=== PATIENT | female | born 1945 | race African-American/Black ===

== ENCOUNTER 2019-05-09 14:49 | Inpatient (IN) | payer MEDICARE ==
[~2019-05-09] VITALS: Ht 167.6 cm; Wt 96.2 kg
[2019-05-09] VITALS (7 sets, daily range): BP systolic 115–150; BP diastolic 54–74
[~2019-05-09 14:49] MED LIST: ACETAMINOPHEN-1 EAC1 ORAL; AMITRIPTYLINE100 M1 ORAL; AMLODIPINE BESY10 MG ORAL; CARVEDILOL3.125 MG ORAL; COMPAZINE10 MG ORAL; CYMBALTA60 MG ORAL; FUROSEMIDE40 MG ORAL; INDOCIN25 MG ORAL; LYRICA75 M1 ORAL; PEPCID20 MG ORAL; SEROQUEL XR300 MG ORAL; SOMA; SUMATRIPTAN SU100 MG PO; TRAZODONE HCL150 MG ORAL; UNOBMED; VICODIN 5-3001 EACH ORAL
--- NOTE | 2019-05-09 15:02 | NUR ---
ED Nurse Note: DR AC NOTIFIED OF TEMP OF 101.5 F.
[2019-05-09] MEDS ORDERED: cefTRIAXone 1 GM in NS 55 ML IVPB ONE (15:15)
[2019-05-09] MEDS ORDERED: Azithromycin 500 MG in NS 275 ML IV ONE (15:15)
[2019-05-09] MEDS ORDERED: Solu-MEDROL 125mg Inj IVP ONE (15:15)
[2019-05-09] MEDS: Albuterol ud Inhalation HHN SCH ×3 (15:15→15:45)
[2019-05-09] MEDS: Ipratropium 0.02% Inh Soln 2.5ml UD HHN SCH ×3 (15:15→15:45)
[2019-05-09] MEDS ORDERED: UNOBMED (15:40)
--- NOTE | 2019-05-09 15:42 | Diagnostic Imaging Report ---
Indication: Shortness of breath Technique: One view of the chest Comparison: 05/19/2013 Findings: Body habitus limits evaluation. The heart is borderline enlarged. There is mild central interstitial congestion.. No focal airspace consolidation. Impression: Possible mild interstitial congestion Borderline cardiomegaly
[2019-05-09 15:43] LABS: APPEARANCE,URINE CLOUDY; BILIRUBIN, URINE NEGATIVE (NEGATIVE); COLOR,URINE AMBER; GLUCOSE, URINE (UA) NEGATIVE (NEGATIVE); KETONES,URINE NEGATIVE (NEGATIVE); LEUKOCYTE ESTERASE ,URINE 1+ (NEGATIVE); NITRITE,URINE POSITIVE (NEGATIVE); PH,URINE 5 (4.5-8.0); PROTEIN,URINE 2+ (NEGATIVE); UROBILINOGEN,URINE 1 MG/DL (0.0-1.0)
[2019-05-09 15:47] LABS: INR 0.9 (0.9-1.1)
[2019-05-09 15:48] LABS: ANION GAP 10 mmol/L (5-15); BLOOD UREA NITROGEN 15 mg/dL (7-18); CALCIUM 8.5 MG/DL (8.5-10.1); CARBON DIOXIDE 25 MMOL/L (21-32); CHLORIDE 103 MMOL/L (98-107); CREATININE 1.4 MG/DL (0.55-1.30); POTASSIUM 3.8 MMOL/L (3.5-5.1); SODIUM 138 MMOL/L (136-145)
[2019-05-09 15:55] LABS: HEMOGLOBIN 11.7 G/DL (12.0-16.0); MEAN CORPUSCULAR VOLUME 85 FL (80-99); PLATELET COUNT 340 K/UL (150-450); RED BLOOD COUNT 4.21 M/UL (4.20-5.40); RED CELL DISTRIBUTION WIDTH 14.9 % (11.6-14.8); WHITE BLOOD COUNT 18.2 K/UL (4.8-10.8)
[2019-05-09 16:00] LABS: PHOSPHORUS 4.6 MG/DL (2.5-4.9)
[2019-05-09 16:01] LABS: ALANINE AMINOTRANSFERASE 21 U/L (12-78); ALBUMIN 3.9 G/DL (3.4-5.0); ALBUMIN/GLOBULIN RATIO 0.9 (1.0-2.7); ALKALINE PHOSPHATASE 171 U/L (46-116); ASPARTATE AMINO TRANSFERASE 19 U/L (15-37); BILIRUBIN,TOTAL 0.3 MG/DL (0.2-1.0); CKMB 2.8 NG/ML (0.0-3.6); CREATINE KINASE 105 U/L (26-308)
[2019-05-09] MEDS ORDERED: Acetaminophen 500mg (ES) tab ORAL ONE (16:15)
--- NOTE | 2019-05-09 16:33 | NUR ---
ED Nurse Note: pt to have redrawn lactic once ivf infused.
--- NOTE | 2019-05-09 16:48 | Emergency Room Report ---
History of Present Illness General Chief Complaint: Dyspnea/Respdistress Source: Patient, Medical Record, EMS Present Illness HPI 74-year-old female history of hypertension, asthma, presents with acute shortness of breath started last night, no aggravating relieving factors severity was moderate, constant history is limited due to patient requiring BiPAP, patient use inhalers without any help, she also had a fever with cough, patient was started on BiPAP by EMS, with improvement in her symptoms, patient endorses chest tightness from her asthma, history is limited because she is unable to speak full sentences. Patient is using accessory muscles, patient presents for evaluation Allergies: Coded Allergies: No Known Allergies (Unverified , 05/19/13) Patient History Limited by: medical condition - Respiratory distress Reviewed Nursing Documentation: PMH: Agreed; PSxH: Agreed Nursing Documentation-PMH Past Medical History: No History, Except For Hx Hypertension: Yes Hx Cerebrovascular Accident: Yes Review of Systems All Other Systems: limited - Respiratory distress Physical Exam Vital Signs Date Time Temp Pulse Resp B/P (MAP) Pulse Ox O2 Delivery O2 Flow Rate FiO2 05/09/19 14:54 101.5 140 33 176/109 (131) 74 Room Air 05/09/19 15:20 35 Sp02 EP Interpretation: reviewed, normal General Appearance: alert, severe distress Head: normocephalic, atraumatic Eyes: bilateral eye PERRL, bilateral eye EOMI ENT: uvula midline, moist mucus membranes Neck: supple, thyroid normal, supple/symm/no masses Respiratory: respiratory distress, decreased breath sounds, accessory muscle use, wheezing - Severe Cardiovascular #1: normal peripheral pulses, no edema, no gallop, no murmur, tachycardia Gastrointestinal: non tender, soft, no guarding, no rebound Musculoskeletal: normal inspection Neurologic: alert, oriented x3 Psychiatric: mood/affect normal Skin: no rash, warm/dry Procedures Critical Care Time Critical Care Time Given the critical condition in which the patient arrived, the patient was immediately assessed by myself and the nurse, and cardiac monitoring initiated due to the potential for rapid decompensation of the patient's clinical condition. During the course of the patient's stay, I spent a considerable amount of time at the bedside performing serial re-evaluations of the patient's hemodynamic and clinical status because of the recognized potential threat to life or limb in this condition. I then had a chance to review not only all of the available current laboratory and radiographic studies obtained today, but I also reviewed old records available to me at the time. Additionally, any ancillary information available including sewer cleaner records were reviewed. Sequential vital signs were obtained. Critical Care time of 36 minutes was performed exclusive of billable procedures. Splinting Progress na Evaluation Current Stage of Sepsis: Sepsis Possible Source: Pulmonary Focused Exam Allergies: Coded Allergies: No Known Allergies (Unverified , 05/19/13) Date Exam Occurred: May 09, 2019 Time Exam Occurred: 15:01 Laboratory Studies Laboratory Tests Test 05/09/19 15:00 05/09/19 15:01 05/09/19 15:20 White Blood Count 18.2 K/UL (4.8-10.8) H Red Blood Count 4.21 M/UL (4.20-5.40) Hemoglobin 11.7 G/DL (12.0-16.0) L Hematocrit 36.0 % (37.0-47.0) L Mean Corpuscular Volume 85 FL (80-99) Mean Corpuscular Hemoglobin 27.8 PG (27.0-31.0) Mean Corpuscular Hemoglobin Concent 32.6 G/DL (32.0-36.0) Red Cell Distribution Width 14.9 % (11.6-14.8) H Platelet Count 340 K/UL (150-450) Mean Platelet Volume 4.9 FL (6.5-10.1) L Neutrophils (%) (Auto) % (45.0-75.0) Lymphocytes (%) (Auto) % (20.0-45.0) Monocytes (%) (Auto) % (1.0-10.0) Eosinophils (%) (Auto) % (0.0-3.0) Basophils (%) (Auto) % (0.0-2.0) Differential Total Cells Counted 100 Neutrophils % (Manual) 88 % (45-75) H Lymphocytes % (Manual) 10 % (20-45) L Monocytes % (Manual) 2 % (1-10) Eosinophils % (Manual) 0 % (0-3) Basophils % (Manual) 0 % (0-2) Band Neutrophils 0 % (0-8) Platelet Estimate Adequate Platelet Morphology Normal Red Blood Cell Morphology Normal Prothrombin Time 9.7 SEC (9.30-11.50) Prothromb Time International Ratio 0.9 (0.9-1.1) Activated Partial Thromboplast Time 22 SEC (23-33) L Sodium Level 138 MMOL/L (136-145) Potassium Level 3.8 MMOL/L (3.5-5.1) Chloride Level 103 MMOL/L (98-107) Carbon Dioxide Level 25 MMOL/L (21-32) Anion Gap 10 mmol/L (5-15) Blood Urea Nitrogen 15 mg/dL (7-18) Creatinine 1.4 MG/DL (0.55-1.30) H Estimat Glomerular Filtration Rate mL/min (>60) Glucose Level 153 MG/DL (74-106) H Lactic Acid Level 4.60 mmol/L (0.4-2.0) H Calcium Level 8.5 MG/DL (8.5-10.1) Phosphorus Level 4.6 MG/DL (2.5-4.9) Magnesium Level 1.6 MG/DL (1.8-2.4) L Total Bilirubin 0.3 MG/DL (0.2-1.0) Aspartate Amino Transf (AST/SGOT) 19 U/L (15-37) Alanine Aminotransferase (ALT/SGPT) 21 U/L (12-78) Alkaline Phosphatase 171 U/L (46-116) H Total Creatine Kinase 105 U/L (26-308) Creatine Kinase MB 2.8 NG/ML (0.0-3.6) Creatine Kinase MB Relative Index 2.6 Troponin I 0.000 ng/mL (0.000-0.056) Pro-B-Type Natriuretic Peptide 65 pg/mL (0-125) Total Protein 8.3 G/DL (6.4-8.2) H Albumin 3.9 G/DL (3.4-5.0) Globulin 4.4 g/dL Albumin/Globulin Ratio 0.9 (1.0-2.7) L Lipase 64 U/L (73-393) L Arterial Blood pH 7.291 (7.350-7.450) Arterial Blood Partial Pressure CO2 42.1 mmHg (35.0-45.0) Arterial Blood Partial Pressure O2 67.3 mmHg (75.0-100.0) L Arterial Blood HCO3 19.8 mmol/L (22.0-26.0) L Arterial Blood Oxygen Saturation 92.5 % (95-100) L Arterial Blood Base Excess -6.4 (-2-2) L Moe Test Positive Urine Color Stephani Urine Appearance Cloudy Urine pH 5 (4.5-8.0) Urine Specific [place] 1.020 (1.005-1.035) Urine Protein 2+ (NEGATIVE) H Urine Glucose (UA) Negative (NEGATIVE) Urine Ketones Negative (NEGATIVE) Urine Blood Negative (NEGATIVE) Urine Nitrite Positive (NEGATIVE) H Urine Bilirubin Negative (NEGATIVE) Urine Ictotest Negative (NEGATIVE) Urine Urobilinogen 1 MG/DL (0.0-1.0) H Urine Leukocyte Esterase 1+ (NEGATIVE) H Urine RBC 0 /HPF (0 - 2) Urine WBC 10-15 /HPF (0 - 2) H Urine Squamous Epithelial Cells Moderate /LPF (NONE/OCC) H Urine Bacteria Many /HPF (NONE) H Vital Signs Last 24 Hour Vital Signs Date Time Temp Pulse Resp B/P (MAP) Pulse Ox O2 Delivery O2 Flow Rate FiO2 05/09/19 15:20 138 38 100 Bi-Pap 100 05/09/19 15:20 138 41 100 Facial 35 05/09/19 14:54 101.5 140 33 176/109 (131) 74 Room Air Respiratory Exam: Respiratory Distress Cardiovascular Exam: S1, S2, Tachycardia Capillary Refill: Less Than 2 Seconds Peripheral Pulse: Strong Pulse Location: Radial Skin Exam: Diaphoretic Medical Decision Making Diagnostic Impression: Primary Impression: Respiratory distress Additional Impressions: CHF exacerbation Qualified Codes: I50.9 - Heart failure, unspecified Pulmonary edema Qualified Codes: J81.0 - Acute pulmonary edema ER Course 74-year-old female presents with acute respiratory distress, BiPAP started, concern for possible CHF exacerbation versus asthma, wheezing heard on exam possible cardiac wheeze versus asthmatic wheeze X-ray shows pulmonary edema Broad-spectrum antibiotic started we will start Lasix, Lactic acid was elevated however most likely secondary to her respiratory distress, will do gentle fluid bolus as to avoid overloading the patient Patient approved to stay by insurance Dr. Wick Patient will be admitted to [facility] Laboratory Tests Test 05/09/19 15:00 05/09/19 15:01 05/09/19 15:20 White Blood Count 18.2 K/UL (4.8-10.8) H Red Blood Count 4.21 M/UL (4.20-5.40) Hemoglobin 11.7 G/DL (12.0-16.0) L Hematocrit 36.0 % (37.0-47.0) L Mean Corpuscular Volume 85 FL (80-99) Mean Corpuscular Hemoglobin 27.8 PG (27.0-31.0) Mean Corpuscular Hemoglobin Concent 32.6 G/DL (32.0-36.0) Red Cell Distribution Width 14.9 % (11.6-14.8) H Platelet Count 340 K/UL (150-450) Mean Platelet Volume 4.9 FL (6.5-10.1) L Neutrophils (%) (Auto) % (45.0-75.0) Lymphocytes (%) (Auto) % (20.0-45.0) Monocytes (%) (Auto) % (1.0-10.0) Eosinophils (%) (Auto) % (0.0-3.0) Basophils (%) (Auto) % (0.0-2.0) Differential Total Cells Counted 100 Neutrophils % (Manual) 88 % (45-75) H Lymphocytes % (Manual) 10 % (20-45) L Monocytes % (Manual) 2 % (1-10) Eosinophils % (Manual) 0 % (0-3) Basophils % (Manual) 0 % (0-2) Band Neutrophils 0 % (0-8) Platelet Estimate Adequate Platelet Morphology Normal Red Blood Cell Morphology Normal Prothrombin Time 9.7 SEC (9.30-11.50) Prothrombin Time INR 0.9 (0.9-1.1) PTT 22 SEC (23-33) L Sodium Level 138 MMOL/L (136-145) Potassium Level 3.8 MMOL/L (3.5-5.1) Chloride Level 103 MMOL/L (98-107) Carbon Dioxide Level 25 MMOL/L (21-32) Anion Gap 10 mmol/L (5-15) Blood Urea Nitrogen 15 mg/dL (7-18) Creatinine 1.4 MG/DL (0.55-1.30) H Estimate Glomerular Filtration Rate mL/min (>60) Glucose Level 153 MG/DL (74-106) H Lactic Acid Level 4.60 mmol/L (0.4-2.0) H Calcium Level 8.5 MG/DL (8.5-10.1) Phosphorus Level 4.6 MG/DL (2.5-4.9) Magnesium Level 1.6 MG/DL (1.8-2.4) L Total Bilirubin 0.3 MG/DL (0.2-1.0) Aspartate Amino Transferase (AST) 19 U/L (15-37) Alanine Aminotransferase (ALT) 21 U/L (12-78) Alkaline Phosphatase 171 U/L (46-116) H Total Creatine Kinase 105 U/L (26-308) Creatine Kinase MB 2.8 NG/ML (0.0-3.6) Creatine Kinase MB Relative Index 2.6 Troponin I 0.000 ng/mL (0.000-0.056) Pro-B-Type Natriuretic Peptide 65 pg/mL (0-125) Total Protein 8.3 G/DL (6.4-8.2) H Albumin 3.9 G/DL (3.4-5.0) Globulin 4.4 g/dL Albumin/Globulin Ratio 0.9 (1.0-2.7) L Lipase 64 U/L (73-393) L Arterial Blood pH 7.291 (7.350-7.450) Arterial Blood Partial Pressure CO2 42.1 mmHg (35.0-45.0) Arterial Blood Partial Pressure O2 67.3 mmHg (75.0-100.0) L Arterial Blood HCO3 19.8 mmol/L (22.0-26.0) L Arterial Blood Oxygen Saturation 92.5 % (95-100) L Arterial Blood Base Excess -6.4 (-2-2) L Moe Test Positive Urine Color Stephani Urine Appearance Cloudy Urine pH 5 (4.5-8.0) Urine Specific [place] 1.020 (1.005-1.035) Urine Protein 2+ (NEGATIVE) H Urine Glucose (UA) Negative (NEGATIVE) Urine Ketones Negative (NEGATIVE) Urine Blood Negative (NEGATIVE) Urine Nitrite Positive (NEGATIVE) H Urine Bilirubin Negative (NEGATIVE) Urine Ictotest Negative (NEGATIVE) Urine Urobilinogen 1 MG/DL (0.0-1.0) H Urine Leukocyte Esterase 1+ (NEGATIVE) H Urine RBC 0 /HPF (0 - 2) Urine WBC 10-15 /HPF (0 - 2) H Urine Squamous Epithelial Cells Moderate /LPF (NONE/OCC) H Urine Bacteria Many /HPF (NONE) H EKG Diagnostic Results EKG Time: 14:56 EP Interpretation: Sinus tachycardia, rate 141, QTc 45, no acute ST elevations , left axis mikhail Rhythm Strip Diag. Results Rhythm Strip Time: 16:52 EP Interpretation: yes Rate: 114 Rhythm: other - Sinus Tachycardia Chest X-Ray Diagnostic Results Chest X-Ray Diagnostic Results : Chest X-Ray Ordered: Yes # of Views/Limited/Complete: 1 View Indication: Shortness of Breath EP Interpretation: Yes Interpretation: other - Interstitial Edema Impression: Other - Interstitial edema Electronically Signed by: Tod Elena MD Last Vital Signs Date Time Temp Pulse Resp B/P (MAP) Pulse Ox O2 Delivery O2 Flow Rate FiO2 05/09/19 15:20 138 38 100 Bi-Pap 100 05/09/19 14:54 101.5 176/109 (131) Disposition: ADMITTED INPATIENT Condition: Serious Referrals: [facility]ERR[facility] (PCP) Tod Elena MD May 09, 2019 16:48
--- NOTE | 2019-05-09 18:25 | NUR ---
ED Nurse Note: repeat lactic acid drawn and sent flu swab resent
[2019-05-09] MEDS ORDERED: Azithromycin 500mg Inj IV ONE (18:54)
--- NOTE | 2019-05-09 19:00 | NUR ---
ED Nurse Note: Handoff report given to Regan SANTIZO
--- NOTE | 2019-05-09 20:00 | NUR ---
ED Nurse Note: Report given to Aisha SANTIZO from SDU.
--- NOTE | 2019-05-09 20:10 | NUR ---
TRANSFER TO FLOOR: Patient transferred to SDU. Report given to Aisha SANTIZO. Pt alert and oriented, verbally responsive. No SOB. On BiPAP. IV line on left AC 20g patent and intact. Currently on Azithromycin patent and infusing well. Med recon done. All belongings was given to the patient. Family member aware of transfer.
--- NOTE | 2019-05-09 20:20 | NUR ---
NURSE NOTES: Received report from Regan Lazo RN. Pt is awake, oriented to self and place, denies pain. Pt placed on BiPAP 12/5 at 35% per MD order. Received orders to admit pt to SDU. Received med orders, full code status, labs from admitting Dr. Mcgowan. All ordered repeated and entered as ordered. Pt belongings, except upper and lower dentures, sent home with daughter. Dentures are in pts mouth. BP 105/51, T 98.8, RR 20, o2 94%, P 99, sinus rhythm. Nguyen cath in place draining clear yellow urine. Pt skin is intact. Will continue to monitor closely
[2019-05-09] MEDS ORDERED: LORazepam Inj 2mg/ml 1ml IV PRN (22:15)
[2019-05-09 23:42] LABS: HEMATOCRIT 32.1 % (37.0-47.0); HEMOGLOBIN 10.3 G/DL (12.0-16.0); MEAN CORPUSCULAR VOLUME 86 FL (80-99); PLATELET COUNT 284 K/UL (150-450); RED BLOOD COUNT 3.74 M/UL (4.20-5.40); RED CELL DISTRIBUTION WIDTH 14.5 % (11.6-14.8)
[2019-05-09 23:45] LABS: WHITE BLOOD COUNT 23.7 K/UL (4.8-10.8)
[2019-05-09] MEDS ORDERED: 1/2NS w/KCl 20mEq 1000ml 1,000 ML IV SCH (23:45)
[2019-05-10 00:08] LABS: ALANINE AMINOTRANSFERASE 19 U/L (12-78); ALBUMIN 3.3 G/DL (3.4-5.0); ALBUMIN/GLOBULIN RATIO 0.8 (1.0-2.7); ALKALINE PHOSPHATASE 125 U/L (46-116); ANION GAP 8 mmol/L (5-15); ASPARTATE AMINO TRANSFERASE 16 U/L (15-37); BILIRUBIN,TOTAL 0.3 MG/DL (0.2-1.0); BLOOD UREA NITROGEN 22 mg/dL (7-18); CARBON DIOXIDE 24 MMOL/L (21-32); CHLORIDE 106 MMOL/L (98-107); CHOLESTEROL 131 MG/DL (< 200); CREATININE 1.5 MG/DL (0.55-1.30); HDL CHOLESTEROL 68 MG/DL (40-60); POTASSIUM 4.4 MMOL/L (3.5-5.1); SODIUM 138 MMOL/L (136-145); TRIGLYCERIDES 24 MG/DL (30-150)
[2019-05-10] MEDS: Albuterol/Ipratropium 3ml neb HHN SCH ×7 (01:32→22:42)
--- NOTE | 2019-05-10 07:31 | NUR ---
HAND-OFF: Report given to Zandra Bryant RN. Pt in stable condition.
--- NOTE | 2019-05-10 07:32 | NUR ---
NURSE NOTES: Received report from DARLYN Perez. Observed patient in bed, awake, alert, verbally responsive. On BiPAP with settings as ordered, saturating 100%, no respiratory distress noted at this time. Left AC peripheral IV intact and patent with IV fluids running at prescribed rate. Safety precautions in place, bed locked, alarmed, and in lowest position, side rails up x3, and call light left within reach. Instructed patient to call for assistance, verbalized understanding.
[2019-05-10 08:00] VITALS: BP_SYST 118; BP_SYST 127; BP_DIAS 66; BP_DIAS 68
--- NOTE | 2019-05-10 08:00 | NUR ---
NURSE NOTES: RT at bedside, patient placed on Venturi Mask with FiO2 40%, patient tolerating well with saturation of 94-97%. Will continue to monitor.
--- NOTE | 2019-05-10 08:10 | NUR ---
NURSE NOTES: Dr Mcgowan was called and notified regarding patient's lab results. Clarified BiPAP and diet orders. Will carry out and will continue to monitor patient.
--- NOTE | 2019-05-10 09:25 | NUR ---
RADIOLOGY DEPT., CHEST X-RAY DONE.-P.DYE
--- NOTE | 2019-05-10 10:16 | NUR ---
*-* NO INSURANCE INFORMATION IN THE BAR UNABLE TO SEND CLINICALS OR REVIEWS *-*
--- NOTE | 2019-05-10 10:33 | NUR ---
NURSE NOTES: Patient c/o chest pain, states "my chest hurts when i breathe". RT at bedside, placed patient on 3L via NC, saturating 96%. EKG done, shows sinus tachycardia with HR of 108. BP 118/66. Dr Mcgowan contacted; awaiting for call back/orders. Will continue to monitor patient.
[2019-05-10] MEDS: Nitroglycerin Subl 0.4mg tab SL PRN (11:42)
[2019-05-10] MEDS ORDERED: dilTIAZem HCl 25mg/5ml Inj IVP SCH (11:45)
--- NOTE | 2019-05-10 11:55 | NUR ---
NURSE NOTES: Patient noted having SOB and chest pain. RT at bedside, patient placed back on BiPAP. front desk monitor shows afib with HR 162, BP 146/71. Dr Funes at bedside, ordered to give patient Cardizem IVP, order entered and carried out. Will continue to monitor.
[2019-05-10 12:00] VITALS: BP 146/71
--- NOTE | 2019-05-10 12:00 | NUR ---
NURSE NOTES: BP 111/69 rechecked after Cardizem administration, Dr Funes at bedside. Will continue to monitor.
--- NOTE | 2019-05-10 12:57 | NUR ---
*-* INSURANCE *-* ALL AVAILABLE CLINICALS HAVE BEEN FAXED TO: [facility] 5 Minutes P: [phone] F: [phone]
--- NOTE | 2019-05-10 13:00 | NUR ---
NURSE NOTES: Wire Stitcher asked patient about home medications; patient states she does not remember the names of her medication and dosages. Wire Stitcher asked patient if a family member can bring her home medications. Daughter present at bedside at this time, states her sister can bring medications. Will continue to monitor patient and reinforce teaching and importance of medication reconciliation.
--- NOTE | 2019-05-10 13:05 | Diagnostic Imaging Report ---
Indication: Dyspnea Comparison: 05/09/2019 A single view chest radiograph was obtained. Findings: Central vessels are prominent. Vessels appear cephalized and somewhat prominent as well. Mild atelectasis demonstrated at the lung bases. Lung volumes are low. Heart is mildly enlarged. IMPRESSION: Suspected mild CHF.
--- NOTE | 2019-05-10 13:11 | Diagnostic Imaging Report ---
APPROVED REPORT CPT Code: 30451 Present Symptoms Comments: Back pain BILATERAL: Imaging reveals a patent deep venous system bilaterally. There is no evidence of thrombus within the common femoral, superficial femoral, popliteal or tibial segments. The greater saphenous veins are within normal limits. Doppler indicates normal spontaneous flow within these segments.
--- NOTE | 2019-05-10 13:56 | NUR ---
[employer] REP 74 YO FEMALE BIBA FROM HOME TO ER CC SOB O2 SAT 70% ON RA PT WITH H/O ASTHMA SI: RESP FAILURE,LEUKOCYTOSIS T. 101.5 HR 140 RR 33 B/P 176/109 BIPAP FIO2 35% WBC 18.2 LACTIS ACID 4.60 CR 1.4 CXR= POSSIBLE MILD INTERSTITIAL CONGESTION UA+ NITRITES,WBC, LEUKOCYTE ESTERASE,UROBILINOGEN,SQUAMOUS EPITH CELL PH 7.29 PCO2 42.2 PO2 67.3 HCO3 18.8 O2 SAT 92.5 IS: IV BOLUS X 3 LITERS SOLU MEDROL IV ALB HHN ATROVENT HHN ZITHROMAX IV TYLENOL PO ADMITTED TO STEP DOWN 2109 STEP DOWN STATUS DCP RETURN HOME
[2019-05-10] MEDS: dilTIAZem HCl 60mg tab ORAL SCH ×3 (14:09→23:07)
[2019-05-10 16:00] VITALS: BP 128/58
--- NOTE | 2019-05-10 16:22 | History & Physical ---
History and Physical History & Physicial dict pneumonia UTI sepsis Yonathan Mcgowan MD May 10, 2019 16:22
[2019-05-10] MEDS ORDERED: Albuterol 90mcg Inhaler 8gm INH PRN (16:30)
[2019-05-10] MEDS: cefTRIAXone 1 GM in D5W 55 ML IVPB SCH (16:57)
[2019-05-10] MEDS: Azithromycin 500 MG in D5W 275 ML IV SCH (17:47)
--- NOTE | 2019-05-10 19:08 | NUR ---
NURSE NOTES: Received report from Zandra RN, pt. in bed awake, pt. is A/O x's4- able to make needs known, no signs or symptoms of acute cardiac or respiratory distress noted, bed alarm on, side rails up x's3 and safety brakes engaged, call light within easy reach, comfort measures provided, pt. appears to be sating well on 2L NC- no distress noted- chest noted rising up and down, pt. appears to be resting comfortably talking with daughter who is at bedside, pt. appears to be clean and dry, Lt. AC IV 20G- running 1/2 NS at 50cc/hr- IV intact and patent, safety measures continued, will continue with plan of care.
--- NOTE | 2019-05-10 19:25 | NUR ---
HAND-OFF: Report given to DARLYN Aragon. Patient remains in stable condition.
--- NOTE | 2019-05-10 19:55 | NUR ---
RESPIRATORY NOTE: Pt requested to be placed on BiPAP. Pt now on BiPAP /, backup rate 12, 40%. Pt on a Facial mask, skin intact, no redness/breakdowns noted. Foam Tape applied on pt's nosebridge/cheeks/chin to prevent mask irritations. Pt is alert/awake, follows commands. B/S [place]. diminished, nonproductive cough. Family present at bedside. BiPAP plugged into red outlet, alarms on & audible. Pt in no apparent distress at this time. Will continue plan of care.
[2019-05-10 20:00] VITALS: BP 130/60
--- NOTE | 2019-05-10 20:09 | NUR ---
NURSE NOTES: pt. asking for pain medicine- having rt. hip pain from rt. hip replacement done 2 and 1/2 years ago- repositioned and turned pt. not effective. will notify doctor pt. asking for pain medication.
--- NOTE | 2019-05-10 20:12 | NUR ---
NURSE NOTES: per DR. Roslyn mckeon to give patient Tylenol 650mg Q4hrs prn pain- orders carried out.
--- NOTE | 2019-05-10 21:15 | History and Physical Report ---
DATE OF ADMISSION: 05/09/2019 CHIEF COMPLAINT: Short of breath and fever. HISTORY OF PRESENT ILLNESS: This 74-year-old woman came to the emergency department yesterday because of onset of shortness of breath at home. She was coughing and producing small amount of sputum. She had an anterior pleuritic chest pain as well. She used her asthma inhalers at home without any improvement. She presented to the emergency department in severe distress and was placed on BiPAP. She has improved and her temperature has come down. Evaluation showed evidence of sepsis with pulmonary infiltrates, urinary infection, and elevated white blood count. PAST MEDICAL HISTORY: Includes hypertension, asthma, and hyperlipidemia. ALLERGIES: None. MEDICATIONS: Tylenol with codeine, amitriptyline, amlodipine, carvedilol, Cymbalta, Pepcid, Lasix, Vicodin, Indocin, Lyrica, Compazine, Seroquel, Imitrex, trazodone, and none known inhaler. REVIEW OF SYSTEMS: Otherwise unremarkable. PHYSICAL EXAMINATION: GENERAL: The patient is alert and responds appropriately. She is obese. VITAL SIGNS: The temperature was 103.6 in the emergency department, but with elevated blood pressure and heart rate 143. Since then, her vital signs have improved and today, there is no fever. HEENT: The head is normocephalic. NECK: There is no jugular venous distention. CHEST: Has rales bilaterally. CARDIAC: Rhythm is regular. ABDOMEN: Soft and nontender. EXTREMITIES: No clubbing, cyanosis, or edema. IMAGING: Chest x-ray is reported as mild congestive heart failure, although by my review shows bilateral pneumonia. Laboratory tests show elevated lactic acid. Creatinine is 1.5. Natriuretic peptide is 400. Albumin 3.3. Yesterday, natriuretic peptide was 65. The white blood count is 23,700 and blood gas showed [id number] metabolic acidosis that has improved. IMPRESSION: 1. Bilateral pneumonia. 2. Severe sepsis. 3. Metabolic acidosis. 4. History of hypertension. 5. Mild asthma. PLAN: The patient will be treated with antibiotics and intravenous fluids. We have held her blood pressure medications and psychiatric medications to date. These will be reintroduced as needed. Inhalers will be ordered p.r.n. Yonathan Mcgowan M.D. DR: TELLO JOB#: [id number] CC:
--- NOTE | 2019-05-10 22:58 | NUR ---
NURSE NOTES: pt. demanding to remove Nguyen- pt. stating its uncomfortable and would like Nguyen removed. Nguyen removed- pt. stating she feels much better. Will notify doctor in am regarding Nguyen removed.
[2019-05-11] VITALS: BP 138/60
[2019-05-11] MEDS: Albuterol/Ipratropium 3ml neb HHN SCH ×3 (02:45→11:35)
[2019-05-11 03:49] VITALS: BP 131/69
[2019-05-11 04:58] LABS: HEMATOCRIT 29.1 % (37.0-47.0); HEMOGLOBIN 9.6 G/DL (12.0-16.0); MEAN CORPUSCULAR VOLUME 85 FL (80-99); PLATELET COUNT 268 K/UL (150-450); RED BLOOD COUNT 3.45 M/UL (4.20-5.40); RED CELL DISTRIBUTION WIDTH 14.9 % (11.6-14.8)
[2019-05-11] MEDS: dilTIAZem HCl 60mg tab ORAL SCH ×2 (05:13→11:28)
[2019-05-11 05:29] LABS: WHITE BLOOD COUNT 24.2 K/UL (4.8-10.8)
[2019-05-11 05:52] LABS: ALANINE AMINOTRANSFERASE 18 U/L (12-78); ALBUMIN 2.7 G/DL (3.4-5.0); ALBUMIN/GLOBULIN RATIO 0.7 (1.0-2.7); ALKALINE PHOSPHATASE 108 U/L (46-116); ANION GAP 8 mmol/L (5-15); ASPARTATE AMINO TRANSFERASE 15 U/L (15-37); BILIRUBIN,TOTAL 0.2 MG/DL (0.2-1.0); BLOOD UREA NITROGEN 17 mg/dL (7-18); CALCIUM 7.6 MG/DL (8.5-10.1); CARBON DIOXIDE 26 MMOL/L (21-32); CHLORIDE 106 MMOL/L (98-107); CREATININE 0.9 MG/DL (0.55-1.30); POTASSIUM 3.5 MMOL/L (3.5-5.1); SODIUM 140 MMOL/L (136-145)
--- NOTE | 2019-05-11 06:00 | Progress Note ---
DATE: 05/10/2019 CARDIOLOGY, CRITICAL CARE PROGRESS NOTE TIME: 10 to 11 a.m. SUBJECTIVE: The patient developed chest tightness and shortness of breath earlier this morning. She has had rapid heart rate, initially sinus tachycardia was noted up to 140 heart rate. Subsequently, she developed rapid atrial fibrillation with rates in the 140 range as well. She is on BiPAP support. OBJECTIVE: VITALS: T-max 103.6, blood pressure 148/80, pulse 140, respirations 24, presently temperature 99. Diaphoretic. LUNGS: Diminished breath sounds. Scattered rhonchi. CARDIAC: Irregularly irregular rhythm. Normal S1, S2. ABDOMEN: Soft. No focal tenderness. EXTREMITIES: With trace dependent edema. NEUROLOGIC: Nonfocal. LABORATORY AND DIAGNOSTIC DATA: Chest x-ray with bilateral infiltrates. White count 23.7, hemoglobin 10.3. ABG, 7.39, 35, 66. Troponin is negative. Lactic acid is still elevated at 2.8. BUN 22. No new chemistry panel. IMPRESSION: 1. Bilateral pneumonia, community acquired. 2. Paroxysmal atrial fibrillation with rapid ventricular response. 3. Acute myocardial ischemia. 4. Acute diastolic congestive heart failure. 5. Lactic acidosis. 6. Severe sepsis. 7. Acute respiratory acidosis. 8. Paroxysmal bronchospasm. PLAN: 1. Continue cardiac monitoring. 2. IV diltiazem followed by oral loading. 3. Diuresis based on clinical parameters. 4. DVT prophylaxis. 5. Bronchodilators and antimicrobials with BiPAP support. 6. Serial lactic acid levels. 7. Review echocardiogram. 8. Obtain venous duplex scan. Jr Funes M.D. DR: ORAL JOB#: [id number] CC:
[2019-05-11] MEDS: Nitroglycerin Subl 0.4mg tab SL PRN (07:00)
--- NOTE | 2019-05-11 07:01 | NUR ---
HAND-OFF: Report given to Zandra Rn, during rounds pt. complaining of chest pain- no other symptoms per pt.- Nitro 1 tab given- nurse aware to f/u- if pt. continues to have pain. Also nurse aware to Nguyen with DR. Mcgowan regarding WBCS trending up and Nguyen removed as pt. requested- also lactic acid trending down.
--- NOTE | 2019-05-11 07:05 | NUR ---
NURSE NOTES: Received bedside report from DARLYN Brumfield. Observed patient in bed, c/o chest pain. VSS, saturation 96% on 2L via NC. No n/v noted. Night nurse gave Nitroglycerin as ordered PRN; patient denied CP after 5 minutes of reassessment. Patient remains aox4. IV on right hand intact and patent with IV fluids running at prescribed rate. External catheter noted, per night nurse, pastrana catheter removed per patient's request. Safety precautions in place, bed locked, alarmed, and in lowest position, side rails up x3, and call light left within reach. Instructed patient to call for assistance, verbalized understanding. Will continue plan of care and will continue to monitor patient.
--- NOTE | 2019-05-11 07:06 | NUR ---
NURSE NOTES: reassessed pt. - pt. stating that pain is subsiding and does not wish to have anymore Nitro medicine- endorsed to oncoming nurse- and Nitro bottle with remaining tablets given to her.
[2019-05-11 08:00] VITALS: BP 145/75
--- NOTE | 2019-05-11 08:45 | NUR ---
NURSE NOTES: Dr Mcgowan notified and made aware of patient's WBC today 24.2; no new orders at this time. Patient afebrile, VSS. Will continue to monitor patient.
[2019-05-11] MEDS ORDERED: guaiFENesin 100mg/5ml Liq ud ORAL PRN (10:15)
--- NOTE | 2019-05-11 10:51 | Cardiology Report ---
APPROVED REPORT EKG Measurement Heart [id number] [id number] Sinus tachycardia Otherwise normal ECG
[2019-05-11 12:00] VITALS: BP 143/73
--- NOTE | 2019-05-11 12:28 | NUR ---
NURSE NOTES: Called and left message for Dr Funes; manual training teacher shows afib, with HR fluctuating from 120's to 140's. Cardizem PO given as scheduled. Awaiting for call back.
--- NOTE | 2019-05-11 12:45 | NUR ---
NURSE NOTES: Dr Funes at bedside, informed and made aware of patient's cardiac rhythm at this time. states he will put in orders; will carry out and will continue to monitor patient.
[2019-05-11] MEDS ORDERED: dilTIAZem HCl 25mg/5ml Inj IVP SCH (13:00)
--- NOTE | 2019-05-11 13:59 | NUR ---
HAND-OFF: Report given to DARLYN Scott.
--- NOTE | 2019-05-11 14:00 | Cardiology Report ---
APPROVED REPORT EKG Measurement Heart [id number] Sinus tachycardia Left axis deviation Abnormal ECG
--- NOTE | 2019-05-11 14:00 | NUR ---
NURSE NOTES: Received report DARLYN De Paz,breathing easy,occasional cough,HR 104 Afib,continue care/monitor
--- NOTE | 2019-05-11 14:29 | NUR ---
NURSE NOTES: Received pt from DARLYN Scott in stable condition without cardiopulmonary distress. Pt is awake in bed, AAOx4 on 2L O2 via NC. RH 24g IV noted. No skin alterations noted at this time. Pt hooked to resident associate and is currently in Afib at a rate of 124 bpm. Bed is in lowest position with alarm on, side rails up x 2, SCDs on bilat lower extremities, call light within reach. Will continue to monitor.
--- NOTE | 2019-05-11 14:29 | NUR ---
NURSE NOTES: Report given DARLYN Cook,no distress
[2019-05-11] MEDS: Levalbuterol Inh UD 1.25mg/0.5ml HHN SCH ×3 (14:39→22:33)
--- NOTE | 2019-05-11 15:12 | NUR ---
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 98.1 HR 105 RR 22 B/P 145/75 2L NC O2 SAT 98% WBC 24.2 IS: AZITHROMAX IV CEFTRIAXONE IV CARDIZEM PO STEP DOWN STATUS
--- NOTE | 2019-05-11 15:17 | NUR ---
*-* INSURANCE *-* ALL AVAILABLE CLINICALS HAVE BEEN FAXED TO: [facility] [employer] P: [phone] F: [phone]
--- NOTE | 2019-05-11 15:39 | NUR ---
NURSE NOTES: Dr. Mcgowan at bedside discussing care plan with Dr. Funes over phone. Dr. Funes aware that pt is in ST 130 bpm and in and out of Afib since this morning. Orders will be placed per Dr. Funes.
--- NOTE | 2019-05-11 15:40 | Pulmonology Progress Note ---
Assessment/Plan Assessment/Plan 1. Bilateral pneumonia. 2. Severe sepsis. 3. Metabolic acidosis. 4. History of hypertension. 5. Mild asthma. 6. Paroxysmal A fib a fib rx per cardiology CT angio re pleurisy and hemoptysis resume anxiety meds Subjective Respiratory: Reports: productive cough, hemoptysis, shortness of breath, pleuritic pain Psychiatric: Reports: anxiety Allergies: Coded Allergies: No Known Allergies (Unverified , 05/19/13) Objective Last 24 Hour Vital Signs Date Time Temp Pulse Resp B/P (MAP) Pulse Ox O2 Delivery O2 Flow Rate FiO2 05/11/19 14:49 117 20 98 Nasal Cannula 3.0 32 132 19 98 05/11/19 13:08 125 133/75 05/11/19 12:00 2.0 05/11/19 12:00 97.9 122 22 143/73 (96) 96 05/11/19 12:00 Nasal Cannula 2.0 05/11/19 11:28 122 143/93 05/11/19 08:00 2.0 05/11/19 08:00 98.1 105 18 145/75 (98) 95 05/11/19 08:00 Nasal Cannula 2.0 05/11/19 07:43 105 05/11/19 07:29 98 20 98 Nasal Cannula 3.0 32 92 20 96 05/11/19 07:18 100 Nasal Cannula 3.0 32 05/11/19 07:00 145/73 05/11/19 05:13 90 142/71 05/11/19 04:00 Nasal Cannula 2.0 05/11/19 04:00 2.0 05/11/19 03:49 98.1 103 18 131/69 (89) 97 05/11/19 03:46 89 05/11/19 00:00 98.4 108 18 138/60 (86) 98 05/11/19 00:00 Nasal Cannula 2.0 05/11/19 00:00 2.0 05/10/19 23:29 108 05/10/19 23:07 104 142/60 05/10/19 22:53 102 20 96 Nasal Cannula 3.0 32 05/10/19 22:42 102 22 94 Nasal Cannula 3.0 32 05/10/19 21:08 98.4 05/10/19 20:00 98.8 102 20 130/60 (83) 96 05/10/19 20:00 Nasal Cannula 2.0 05/10/19 20:00 2.0 05/10/19 19:52 103 22 96 Full Face 40 05/10/19 19:25 105 05/10/19 19:07 101 20 98 Nasal Cannula 3.0 32 05/10/19 18:57 100 22 95 Nasal Cannula 3.0 32 05/10/19 18:57 95 Nasal Cannula 3.0 32 05/10/19 17:53 98 128/58 05/10/19 16:00 Nasal Cannula 2.0 05/10/19 16:00 2.0 05/10/19 16:00 99.0 98 20 128/58 (81) 95 05/10/19 15:36 98 Intake and Output 05/10/19 05/11/19 19:00 07:00 Intake Total 978.3333 ml Output Total 1300 ml 50 ml Balance -321.6667 ml -50 ml IV Total 978.3333 ml Output Urine Total 1300 ml 50 ml # Voids 5 # Bowel Movements 2 General Appearance: no acute distress Respiratory/Chest: rhonchi Cardiovascular: tachycardia, irregularly irregular Abdomen: soft, non tender Microbiology Date/Time Source Procedure Growth Status 05/09/19 15:10 Blood Blood Culture - Preliminary NO GROWTH AFTER 24 HOURS Resulted 05/09/19 15:00 Blood Blood Culture - Preliminary NO GROWTH AFTER 24 HOURS Resulted 05/10/19 18:00 Nasal Not Otherwise Specified - Final Complete 05/10/19 18:00 Nasal Not Otherwise Specified - Final Complete 05/09/19 10:45 Nasal Nares - Final Complete 05/09/19 10:45 Nasal Nares - Final Complete 05/09/19 15:20 Urine,Clean Catch Urine Culture - Preliminary Gram Negative Bacillus 1 Resulted Laboratory Tests 05/10/19 16:30: Lactic Acid Level 3.40H 05/10/19 22:45: Lactic Acid Level 3.50H 05/11/19 03:45: Lactic Acid Level 2.20, White Blood Count 24.2*H, Red Blood Count 3.45L, Hemoglobin 9.6L, Hematocrit 29.1L, Mean Corpuscular Volume 85, Mean Corpuscular Hemoglobin 27.9, Mean Corpuscular Hemoglobin Concent 33.0, Red Cell Distribution Width 14.9H, Platelet Count 268, Mean Platelet Volume 5.2L, Neutrophils (%) (Auto) , Lymphocytes (%) (Auto) , Monocytes (%) (Auto) , Eosinophils (%) (Auto) , Basophils (%) (Auto) , Differential Total Cells Counted 100, Neutrophils % (Manual) 83H, Lymphocytes % (Manual) 13L, Monocytes % (Manual) 4, Eosinophils % (Manual) 0, Basophils % (Manual) 0, Band Neutrophils 0, Platelet Estimate Adequate, Platelet Morphology Normal, Anisocytosis 1+, Sodium Level 140, Potassium Level 3.5, Chloride Level 106, Carbon Dioxide Level 26, Anion Gap 8, Blood Urea Nitrogen 17, Creatinine 0.9, Estimat Glomerular Filtration Rate , Glucose Level 144H, Calcium Level 7.6L, Total Bilirubin 0.2, Aspartate Amino Transf (AST/SGOT) 15, Alanine Aminotransferase (ALT/SGPT) 18, Alkaline Phosphatase 108, Total Protein 6.7, Albumin 2.7L, Globulin 4.0, Albumin/Globulin Ratio 0.7L Current Medications Medications (Trade) Dose Ordered Sig/Bill Route PRN Reason Start Time Stop Time Status Last Admin Dose Admin Acetaminophen (Tylenol) 650 mg Q4H PRN ORAL Mild Pain/Temp > 100.5 05/10/19 20:15 06/09/19 20:14 05/10/19 20:38 Albuterol Sulfate (Proventil MDI) 2 puff Q4H PRN INH Shortness of Breath 05/10/19 16:30 06/09/19 16:29 Azithromycin 500 mg/Dextrose 275 ml @ 275 mls/hr Q24HRS IV 05/10/19 18:00 05/16/19 18:59 05/10/19 17:47 Ceftriaxone Sodium 1 gm/ Dextrose 55 ml @ 110 mls/hr Q24H IVPB 05/10/19 16:00 05/17/19 15:59 05/10/19 16:57 Diazepam (Valium) 5 mg BIDPRN PRN ORAL Anxiety 05/11/19 15:30 05/18/19 15:29 Diltiazem HCl (Cardizem) 90 mg EVERY 6 HOURS ORAL 05/11/19 18:00 06/10/19 17:59 Guaifenesin (Robitussin) 100 mg QID PRN ORAL For Cough 05/11/19 10:15 06/10/19 10:14 05/11/19 10:16 Levalbuterol HCl (Xopenex) 1.25 mg Q4HRT HHN 05/11/19 15:00 05/16/19 14:59 05/11/19 14:39 Lorazepam (Ativan 2mg/ml 1ml) 0.5 mg Q4H PRN IV For Anxiety 05/09/19 22:15 05/16/19 22:14 05/11/19 08:37 Yonathan Mcgowan MD May 11, 2019 15:40
[2019-05-11] MEDS ORDERED: Omnipaue 350mg/ml 100ml vial INJ PRN (15:45)
[2019-05-11] MEDS: cefTRIAXone 1 GM in D5W 55 ML IVPB SCH (15:59)
[2019-05-11 16:00] VITALS: BP 140/81
[2019-05-11] MEDS: guaiFENesin 100mg/5ml Liq ud ORAL PRN ×2 (16:06→23:49)
[2019-05-11] MEDS: Azithromycin 500 MG in D5W 275 ML IV SCH (17:43)
[2019-05-11] MEDS: dilTIAZem HCl 90mg tab ORAL SCH ×2 (17:43→23:48)
--- NOTE | 2019-05-11 18:18 | NUR ---
NURSE NOTES: Per Dr. Mcgowan, do not redraw lactic acid.
--- NOTE | 2019-05-11 18:59 | NUR ---
HAND-OFF: Report given to DARLYN Brumfield. Pt in stable condition.
--- NOTE | 2019-05-11 19:16 | NUR ---
NURSE NOTES: Received report from DARLYN Cook, pt. in bed awake, pt. is A/O x's4- able to make needs known, family at bedside, no signs or symptoms of acute cardiac or respiratory distress noted, bed alarm on, side rails up x's3 and safety brakes engaged, call light within easy reach, bed in lowest position, comfort measures provided, pt. appears to be sating well on 2L NC- no distress noted- chest noted rising up and down, pt. appears to be resting comfortably, pt. appears to be clean and dry, Rt. hand 24G- IV intact and patent, safety measures continued, will continue with plan of care. Addendum: 05/11/19 at 1924 by ADALID ARAMBULA RN RN pure wick intact and set to suction.
[2019-05-11 20:00] VITALS: BP 137/75
--- NOTE | 2019-05-11 22:01 | Consultation ---
DATE OF CONSULTATION: 05/11/2019 CARDIOLOGY CONSULTATION CONSULTING PHYSICIAN: Jr Funes M.D. REQUESTING PHYSICIAN: Yonathan Mcgowan M.D. REASON FOR CONSULTATION: Respiratory distress and chest pain. HISTORY OF PRESENT ILLNESS: This is a 74-year-old female, who recently moved from [place]. She has a longstanding history of hypertension and asthma. She presented to the emergency room with progressive shortness of breath and associated chest pain that began last night. She notes the pain is severe almost constant and associated with some chest tightness and cough. She has had some fever, some scant sputum production, and some difficulty with deep breath and wheezing noted. She notes that she had asthma in the past but has not been requiring therapy for many, many years. She denies any history of a heart attack in the past either and does not take nitroglycerin. PAST MEDICAL HISTORY: Hypertension, asthma, cerebrovascular disease with prior history of stroke, hyperlipidemia, benzodiazepine dependence, osteoarthritis, and bipolar disorder. ALLERGIES: None. MEDICATIONS: Prior to admission, reviewed and reconciled. SOCIAL HISTORY: She denies smoking alcohol or substance abuse at any time in the past or present. FAMILY HISTORY: Noncontributory. REVIEW OF SYSTEMS: No visual loss. She is somewhat hard of hearing. No history of abnormal blood clotting. No history of positive PPD. She did receive flu vaccinations in the past, but does not recall if she does . There is no prior history of heart attack or irregular heartbeats. There is no history of endocarditis or rheumatic heart disease. She denies any change in bowel habits. She denies known history of kidney disease. She does have back and joint pain. She does take Valium every night to sleep. She did suffer a small stroke in the past. She is unaware of any history of thyroid disorder or diabetes and does not know her cholesterol level although it has been high in the past. PHYSICAL EXAM: GENERAL: Awake, alert, and in no distress. VITAL SIGNS: Temperature 103.6 max, now 101.5, blood pressure 176/109, heart rate 140, and respiratory rate 33. HEENT: Conjunctiva pink. Oropharynx clear. NECK: Supple. There is some accessory muscle use. LUNGS: Diminished breath sounds. Expiratory wheezes. Rhonchi. HEART: Irregular rhythm. Rapid rate. Normal S1, S2. ABDOMEN: Soft. EXTREMITIES: With trace dependent edema. NEUROLOGIC: No focal neurologic deficits noted. DIAGNOSTIC DATA: EKG with sinus tachycardia. Otherwise, no acute changes. Chest x-ray reveals interstitial infiltrates versus edema. IMPRESSION: 1. Probable community-acquired pneumonia. 2. Acute respiratory insufficiency. 3. Secondary sinus tachycardia. 4. Anginal syndrome. 5. Leukocytosis. 6. Lactic acidosis. 7. Hypomagnesemia. PLAN: 1. BiPAP support. 2. Antimicrobials. 3. Respiratory hygiene. 4. Magnesium replacement. 5. DVT and stress ulcer prophylaxis. 6. Trend natriuretic peptide assay. 7. Serial troponin levels. 8. Bronchodilators and antitussives. 9. Echocardiogram for assessment of left ventricular function. Jr Funes M.D. DR: ROMELIA JOB#: [id number] CC:
--- NOTE | 2019-05-11 22:15 | Progress Note ---
DATE: 05/11/2019 CARDIOLOGY PROGRESS NOTE SUBJECTIVE: The patient has difficulty sleeping. She usually takes Valium at night and did not get any. She notes back and chest pain especially with cough. Her congestion has not improved, but she is less short of breath overall. The patient was converted to sinus rhythm last night. This morning, however following of bowel movement, she developed rapid atrial fibrillation again although no new symptoms associated. Her lactic acid today has normalized to 2.2. OBJECTIVE: VITAL SIGNS: Blood pressure 143/73, pulse 122, respirations 22, and afebrile. LUNGS: Coarse breath sounds. Rhonchi. Few wheezes. HEART: Irregularly irregular rhythm. Normal S1, S2. ABDOMEN: Soft. EXTREMITIES: Trace dependent edema. LABORATORY DATA: White count remains elevated at 24,000 and hemoglobin 9.6. Chemistry panel within normal limits. IMPRESSION: 1. Paroxysmal atrial fibrillation with rapid ventricular response. 2. Community-acquired pneumonia. 3. Paroxysmal bronchospasm. 4. Benzodiazepine dependence. 5. Chest pain due to pleurisy from cough and pneumonia. 6. Hypomagnesemia and acute myocardial ischemia, resolved. PLAN: 1. DVT prophylaxis. 2. Recheck magnesium. 3. Consider diuresis daily on a daily basis based on clinical parameters. 4. Advance diltiazem dosing. 5. Consider full anticoagulation if atrial fibrillation is persistent. 6. Also, we may consider an antiarrhythmic to maintain sinus rhythm. 7. Antimicrobials. 8. Discontinue IV fluids. 9. Follow up magnesium level. Jr Funes M.D. DR: ROMELIA JOB#: [id number] CC:
[2019-05-12] VITALS: BP 153/65
[2019-05-12] MEDS: Levalbuterol Inh UD 1.25mg/0.5ml HHN SCH ×6 (02:53→23:35)
[2019-05-12 03:59] VITALS: BP 143/74
[2019-05-12] MEDS: guaiFENesin 100mg/5ml Liq ud ORAL PRN ×3 (04:55→20:35)
[2019-05-12] MEDS: dilTIAZem HCl 90mg tab ORAL SCH ×3 (05:13→17:17)
[2019-05-12 05:49] LABS: HEMATOCRIT 32.7 % (37.0-47.0); HEMOGLOBIN 10.8 G/DL (12.0-16.0); MEAN CORPUSCULAR VOLUME 84 FL (80-99); PLATELET COUNT 314 K/UL (150-450); RED BLOOD COUNT 3.87 M/UL (4.20-5.40); RED CELL DISTRIBUTION WIDTH 14.7 % (11.6-14.8); WHITE BLOOD COUNT 20.6 K/UL (4.8-10.8)
[2019-05-12 06:21] LABS: ANION GAP 11 mmol/L (5-15); BLOOD UREA NITROGEN 5 mg/dL (7-18); CALCIUM 8.6 MG/DL (8.5-10.1); CARBON DIOXIDE 23 MMOL/L (21-32); CHLORIDE 107 MMOL/L (98-107); CREATININE 0.7 MG/DL (0.55-1.30); SODIUM 141 MMOL/L (136-145)
--- NOTE | 2019-05-12 07:07 | NUR ---
HAND-OFF: Report given to Alfredo RN, pt. remains stable and no signs of distress noted. Aware to f/u with doctor regarding abnormal labs and (+) MRSA nares.
[2019-05-12 08:00] VITALS: BP 157/58
[2019-05-12] MEDS ORDERED: Tubing IV Secondary IV ONE (10:23)
[2019-05-12] MEDS ORDERED: NS 275ml ONE (10:23)
[2019-05-12] MEDS ORDERED: 1/2 NS 1000ml IV ONE (10:23)
[2019-05-12 12:00] VITALS: BP 139/67
--- NOTE | 2019-05-12 13:54 | Diagnostic Imaging Report ---
EXAM: CT Angiography Chest With Intravenous Contrast CLINICAL HISTORY: CP TECHNIQUE: Axial computed tomographic angiography images of the chest with intravenous contrast. CTDI is 80.3 mGy and DLP is 717.2 mGy-cm. One or more of the following dose reduction techniques were used: automated exposure control, adjustment of the mA and/or kV according to patient size, use of iterative reconstruction technique. MIP reconstructed images were created and reviewed. COMPARISON: Chest radiograph on 05/10/2019 FINDINGS: Pulmonary arteries: No definite pulmonary embolus identified, but evaluation of the distal pulmonary arterial branches is limited by motion artifact. Aorta: No aortic aneurysm or dissection. The left vertebral artery arises directly from the aortic arch, a normal variant. Lungs: Patchy densities and ground-glass opacities throughout the lungs, with most prominent consolidations in the lower lobes, concerning for an infectious/inflammatory process. Pleural space: Trace bilateral pleural effusions. No pneumothorax. Heart: Unremarkable. No cardiomegaly. No significant pericardial effusion. No evidence of RV dysfunction. Mediastinum: Small hiatal hernia. Thyroid: Heterogeneous thyroid with prominent hypodense nodule in the right thyroid lobe. This could be further evaluated with nonemergent dedicated ultrasound if clinically indicated. Bones/joints: Age-indeterminate but likely chronic mild superior endplate depression in the T6 vertebral body and mild inferior endplate compression in the T5 vertebral body. No dislocation. Soft tissues: Unremarkable. Lymph nodes: Nonspecific mildly prominent mediastinal and hilar lymph nodes. Gallbladder and bile ducts: Prior cholecystectomy. IMPRESSION: 1. No definite pulmonary embolus identified, but evaluation of the distal pulmonary arterial branches is limited by motion artifact. 2. No aortic aneurysm or dissection. 3. Patchy densities and ground-glass opacities throughout the lungs, with most prominent consolidations in the lower lobes, concerning for an infectious/inflammatory process and/or pulmonary edema. 4. Trace bilateral pleural effusions. 5. Heterogeneous thyroid with prominent hypodense nodule in the right thyroid lobe. This could be further evaluated with nonemergent dedicated ultrasound if clinically indicated.
[2019-05-12 16:00] VITALS: BP 147/83
[2019-05-12] MEDS: cefTRIAXone 1 GM in D5W 55 ML IVPB SCH (16:07)
[2019-05-12] MEDS: Azithromycin 500 MG in D5W 275 ML IV SCH (17:17)
--- NOTE | 2019-05-12 18:37 | NUR ---
CERTIFIED SHORTHAND REPORTER: REVIEW SI: RESP FAILURE . PNA T 99.4 HR 95 RR 20 BP 147/83 SAT 95% NC/2L WBC 20.6 BNP 1547 IS: AZITHROMYCIN IV Q24HR CEFTRIAXONE IV Q24HR CARDIZEM PO Q6HR XOPENEX HHN Q4HR STEP DOWN STATUS DCP: PATIENT IS FROM HOME
--- NOTE | 2019-05-12 19:24 | Pulmonology Progress Note ---
Assessment/Plan Assessment/Plan 1. Bilateral pneumonia. 2. Severe sepsis. 3. Metabolic acidosis. 4. History of hypertension. 5. Mild asthma. 6. Paroxysmal A fib a fib rx per cardiology po abx as refusing iv pain meds and anxiety meds rx check am labs cxr 1-2 days prn abg encourage bipap qhs and prn nebs Subjective Constitutional: Reports: no symptoms HEENT: Repors: no symptoms Respiratory: Reports: no symptoms Allergies: Coded Allergies: No Known Allergies (Unverified , 05/19/13) Subjective refusing IV abx and fluid cta negative for PE on o2 bipap intermittent but refusing most of the time complains of hip pain and wants meds Objective Last 24 Hour Vital Signs Date Time Temp Pulse Resp B/P (MAP) Pulse Ox O2 Delivery O2 Flow Rate FiO2 05/12/19 17:17 99 147/83 05/12/19 16:00 99 05/12/19 16:00 99.4 95 20 147/83 (104) 95 05/12/19 15:57 2.0 05/12/19 15:54 Nasal Cannula 2.0 05/12/19 15:24 84 20 100 Nasal Cannula 3.0 32 89 18 100 05/12/19 13:26 86 143/74 05/12/19 12:00 90 05/12/19 12:00 Nasal Cannula 2.0 05/12/19 12:00 99.0 91 20 139/67 (91) 96 05/12/19 12:00 2.0 05/12/19 11:10 86 18 100 Nasal Cannula 3.0 32 85 16 99 05/12/19 08:00 2.0 05/12/19 08:00 98.5 86 18 157/58 (91) 95 05/12/19 08:00 84 05/12/19 08:00 Nasal Cannula 2.0 05/12/19 07:45 100 Nasal Cannula 3.0 32 05/12/19 07:45 83 16 100 Nasal Cannula 3.0 32 80 18 98 05/12/19 05:13 91 143/74 05/12/19 04:00 2.0 05/12/19 04:00 Nasal Cannula 2.0 05/12/19 03:59 98.6 91 20 143/74 (97) 99 05/12/19 03:36 98.6 05/12/19 03:34 89 05/12/19 02:53 90 20 98 Nasal Cannula 3.0 32 92 20 97 05/12/19 00:00 2.0 05/12/19 00:00 98.6 99 20 153/65 (94) 98 05/12/19 00:00 Nasal Cannula 2.0 05/11/19 23:48 98 152/70 05/11/19 23:46 99 05/11/19 22:47 93 30 98 Full Face 40 05/11/19 22:33 90 20 99 Nasal Cannula 3.0 32 89 20 98 05/11/19 22:00 40 05/11/19 20:00 Nasal Cannula 2.0 05/11/19 20:00 2.0 05/11/19 20:00 98.4 94 20 137/75 (95) 96 05/11/19 19:35 95 Intake and Output 05/11/19 05/12/19 19:00 07:00 Intake Total 1346.07161 ml Output Total 2300 ml 1500 ml Balance -953.64886 ml -1500 ml Intake Oral 800 ml IV Total 546.67338 ml Output Urine Total 2300 ml 1500 ml # Bowel Movements 4 3 General Appearance: WD/WN Respiratory/Chest: crackles/rales, rhonchi Cardiovascular: normal rate, regular rhythm Abdomen: soft, non tender Skin: no rash Neurologic/Psychiatric: alert, oriented x 3 Microbiology Date/Time Source Procedure Growth Status 05/10/19 18:00 Nasal Not Otherwise Specified - Final Complete 05/10/19 18:00 Nasal Not Otherwise Specified - Final Complete Laboratory Tests 05/12/19 03:25: White Blood Count 20.6H, Red Blood Count 3.87L, Hemoglobin 10.8L, Hematocrit 32.7L, Mean Corpuscular Volume 84, Mean Corpuscular Hemoglobin 27.9, Mean Corpuscular Hemoglobin Concent 33.0, Red Cell Distribution Width 14.7, Platelet Count 314, Mean Platelet Volume 5.0L, Neutrophils (%) (Auto) , Lymphocytes (%) ( Auto) , Monocytes (%) (Auto) , Eosinophils (%) (Auto) , Basophils (%) (Auto) , Differential Total Cells Counted 100, Neutrophils % (Manual) 77H, Lymphocytes % (Manual) 16L, Monocytes % (Manual) 3, Eosinophils % (Manual) 4H, Basophils % ( Manual) 0, Band Neutrophils 0, Platelet Estimate Adequate, Platelet Morphology Normal, Hypochromasia 1+, Anisocytosis 1+, Sodium Level 141, Potassium Level 4.0 , Chloride Level 107, Carbon Dioxide Level 23, Anion Gap 11, Blood Urea Nitrogen 5L, Creatinine 0.7, Estimat Glomerular Filtration Rate , Glucose Level 103, Calcium Level 8.6, Magnesium Level 2.0, Pro-B-Type Natriuretic Peptide 1547H Current Medications Medications (Trade) Dose Ordered Sig/Bill Route PRN Reason Start Time Stop Time Status Last Admin Dose Admin Acetaminophen (Tylenol) 650 mg Q4H PRN ORAL Mild Pain/Temp > 100.5 05/10/19 20:15 06/09/19 20:14 05/12/19 14:00 Acetaminophen/ Hydrocodone Bitart ([place] 5/325) 1 tab Q6H PRN ORAL For Pain 05/12/19 19:30 05/19/19 19:29 UNV Albuterol Sulfate (Proventil MDI) 2 puff Q4H PRN INH Shortness of Breath 05/10/19 16:30 06/09/19 16:29 Diazepam (Valium) 5 mg BIDPRN PRN ORAL Anxiety 05/11/19 15:30 05/18/19 15:29 05/12/19 17:17 Diltiazem HCl (Cardizem) 90 mg EVERY 6 HOURS ORAL 05/11/19 18:00 06/10/19 17:59 05/12/19 17:17 Escitalopram Oxalate (Lexapro) 20 mg DAILY ORAL 05/12/19 09:00 06/11/19 08:59 05/12/19 08:25 Gabapentin (Neurontin) 300 mg Q12HR ORAL 05/11/19 21:00 06/10/19 20:59 05/12/19 08:25 Guaifenesin (Robitussin) 100 mg Q4H PRN ORAL For Cough 05/11/19 16:00 06/10/19 15:59 05/12/19 08:35 Iohexol (Omnipaque) 100 mg NOW PRN INJ Radiology Procedure 05/11/19 15:45 05/13/19 15:44 Levalbuterol HCl (Xopenex) 1.25 mg Q4HRT HHN 05/11/19 15:00 05/16/19 14:59 05/12/19 15:24 Levofloxacin (Levaquin) 500 mg DAILY ORAL 05/12/19 19:30 05/19/19 19:29 UNV Lorazepam (Ativan 2mg/ml 1ml) 0.5 mg Q4H PRN IV For Anxiety 05/09/19 22:15 05/16/19 22:14 05/11/19 08:37 Mirtazapine (Remeron) 15 mg BEDTIME ORAL 05/11/19 21:00 06/10/19 20:59 05/11/19 20:02 Nery Riggs DO May 12, 2019 19:24
[2019-05-12] MEDS ORDERED: Levofloxacin 500mg tab ORAL SCH (19:30)
[2019-05-12] MEDS ORDERED: HYDROcodone/Acetamin 5/325 tab ORAL PRN (19:30)
--- NOTE | 2019-05-12 19:40 | NUR ---
NURSE NOTES: Received report from Dan. Arnie RN. Pt is in bed, awake, no signs or symptoms of distress noted. P:t reports 6/10 hip pain related to prior arthroplasty. MD is aware of and will start [place]. Pt informed and is in agreement. Pt is clean and dry. Pt is SR. BP 130/77, T 98.2, RR 20, o2 100% at 2 LPM via NC, P 93. Will continue to monitor closely.
[2019-05-12 20:00] VITALS: BP 150/78
--- NOTE | 2019-05-12 22:15 | Progress Note ---
DATE: 05/12/2019 CARDIOLOGY PROGRESS NOTE SUBJECTIVE: The patient has not had any recurring atrial fibrillation. She has less congestion and cough, but still is impaired. OBJECTIVE: VITAL SIGNS: Blood pressure 147/83, pulse 99, respirations 20, afebrile, T-max 99.4. LUNGS: Coarse breath sounds. Scattered rhonchi. HEART: Regular rhythm and rate. Normal S1, S2. ABDOMEN: Soft. EXTREMITIES: No edema. LABORATORY DATA: Potassium 4. Pro-natriuretic peptide 1547. White count 20, hemoglobin 10.8. IMPRESSION: 1. Community-acquired pneumonia. 2. Paroxysmal bronchospasm. 3. Paroxysmal atrial fibrillation. 4. Severe sepsis. 5. Metabolic acidosis. 6. Hypertensive heart disease. 7. History of asthma. PLAN: 1. Respiratory hygiene. 2. Antimicrobials. 3. BiPAP as needed. 4. Continue diltiazem. 5. No plan to anticoagulate at this time as atrial fibrillation was associated with acute respiratory decompensation and has not recurred. Jr Funes M.D. DR: ORAL JOB#: [id number] CC:
--- NOTE | 2019-05-12 23:35 | NUR ---
NURSE NOTES: Pt refuses BiPAP and NC, stating she doesn't feel she needs it. Educated on oxygenation and risks of not wearing them,m pt still refused. Charge Nurse made aware. Pt stating at 96% on room air. Will continue to monitor closely.
[2019-05-13] VITALS: BP 154/86
[2019-05-13] MEDS: dilTIAZem HCl 90mg tab ORAL SCH (00:30)
[2019-05-13] MEDS ORDERED: HYDROcodone/Acetamin 5/325 tab ORAL PRN (02:15)
[2019-05-13] MEDS ORDERED: LORazepam Inj 2mg/ml 1ml IV PRN ×3 (02:15)
[2019-05-13] MEDS ORDERED: guaiFENesin 100mg/5ml Liq ud ORAL PRN ×2 (02:15→02:30)
--- NOTE | 2019-05-13 02:20 | NUR ---
NURSE NOTES: Received report from DARLYN Leonard. Pt is in bed, awake, alert and oriented x4, no signs or symptoms of distress noted. Pt is SR. VSS, refuses Bipap and nasal cannula, Will continue to monitor
--- NOTE | 2019-05-13 02:20 | NUR ---
TRANSFER TO FLOOR: Patient transferred to Telemetry, per Dr. Riggs. Report given to DARLYN Crowley. Belongings are dentures which are in pt's mouth at this time. Pt is stable, SR, no signs or symptoms of distress. BP 149/67, P 92, O2 98% on room air. Pt refuses NC and BiPAP.
[2019-05-13] MEDS ORDERED: Albuterol 90mcg Inhaler 8gm INH PRN ×2 (02:30→04:30)
--- NOTE | 2019-05-13 02:51 | NUR ---
HAND-OFF: Report given to DARLYN Bruner.
--- NOTE | 2019-05-13 02:52 | NUR ---
NURSE NOTES: Got report from Carline SANTIZO. Pt in stable condition. Continue to monitor.
[2019-05-13] MEDS ORDERED: Levalbuterol Inh UD 1.25mg/0.5ml HHN SCH ×2 (03:00)
[2019-05-13] MEDS: Levalbuterol Inh UD 1.25mg/0.5ml HHN SCH ×6 (03:28→23:18)
[2019-05-13] MEDS: HYDROcodone/Acetamin 5/325 tab ORAL PRN ×3 (03:48→21:02)
[2019-05-13 04:00] VITALS: BP 147/77
--- NOTE | 2019-05-13 07:00 | NUR ---
HAND-OFF: Report given to Loraine SANTIZO. Endorsed plan of care.
--- NOTE | 2019-05-13 07:15 | NUR ---
NURSE NOTES: Nurse report given by DARLYN Bruner. Patient's awake and laying supine in bed. AOx4, denies pain, no s/s of distress or SOB. Bed low and locked, call light within reach, Side rails x 2, bed alarm is armed. No IV access, patient refused, MD is aware according to previous nurse. Will continue to monitor.
--- NOTE | 2019-05-13 07:56 | Pulmonology Progress Note ---
Assessment/Plan Assessment/Plan 1. Bilateral pneumonia. 2. Severe sepsis. 3. Metabolic acidosis. 4. History of hypertension. 5. Mild asthma. 6. Paroxysmal A fib a fib rx per cardiology po abx as refusing iv pain meds and anxiety meds rx check am labs cxr am ordered prn abg encourage bipap qhs and prn nebs dc planning Subjective Constitutional: Reports: no symptoms HEENT: Repors: no symptoms Respiratory: Reports: productive cough Cardiovascular: Reports: no symptoms Gastrointestinal/Abdominal: Reports: no symptoms Genitourinary: Reports: no symptoms Allergies: Coded Allergies: No Known Allergies (Unverified , 05/19/13) Subjective no events noted cta negative for PE off o2 didnt use bipap over night oob to Br this am toerlaing po Objective Last 24 Hour Vital Signs Date Time Temp Pulse Resp B/P (MAP) Pulse Ox O2 Delivery O2 Flow Rate FiO2 05/13/19 07:38 98 18 99 Room Air 21 95 16 95 05/13/19 07:38 95 Room Air 21 05/13/19 04:18 98.0 05/13/19 04:00 2.0 05/13/19 04:00 Nasal Cannula 2.0 05/13/19 04:00 97.7 91 18 147/77 (100) 98 05/13/19 04:00 91 05/13/19 03:20 82 18 99 Room Air 21 81 18 97 05/13/19 00:30 100 154/86 05/13/19 00:00 98.0 100 20 154/86 (108) 100 05/13/19 00:00 Nasal Cannula 2.0 05/13/19 00:00 2.0 05/12/19 23:41 97 05/12/19 23:35 81 18 99 Room Air 21 78 18 96 05/12/19 20:06 99 05/12/19 20:00 2.0 05/12/19 20:00 98.4 93 20 150/78 (102) 98 05/12/19 20:00 Nasal Cannula 2.0 05/12/19 19:36 92 20 100 Room Air 21 91 18 96 05/12/19 19:33 96 Room Air 21 05/12/19 17:17 99 147/83 05/12/19 16:00 99 05/12/19 16:00 99.4 95 20 147/83 (104) 95 05/12/19 15:57 2.0 05/12/19 15:54 Nasal Cannula 2.0 05/12/19 15:24 84 20 100 Nasal Cannula 3.0 32 89 18 100 05/12/19 13:26 86 143/74 05/12/19 12:00 90 05/12/19 12:00 Nasal Cannula 2.0 05/12/19 12:00 99.0 91 20 139/67 (91) 96 05/12/19 12:00 2.0 05/12/19 11:10 86 18 100 Nasal Cannula 3.0 32 85 16 99 05/12/19 08:00 2.0 05/12/19 08:00 98.5 86 18 157/58 (91) 95 05/12/19 08:00 84 05/12/19 08:00 Nasal Cannula 2.0 Intake and Output 05/12/19 05/13/19 18:59 06:59 # Bowel Movements 1 General Appearance: WD/WN Respiratory/Chest: lungs clear Cardiovascular: regular rhythm Abdomen: normal bowel sounds, soft, non tender Neurologic/Psychiatric: bible reader II-XII grossly normal, no motor/sensory deficits, alert, oriented x 3 Microbiology Date/Time Source Procedure Growth Status 05/10/19 18:00 Nasal Not Otherwise Specified - Final Complete 05/10/19 18:00 Nasal Not Otherwise Specified - Final Complete Current Medications Medications (Trade) Dose Ordered Sig/Bill Route PRN Reason Start Time Stop Time Status Last Admin Dose Admin Acetaminophen (Tylenol) 650 mg Q4H PRN ORAL Mild Pain/Temp > 100.5 05/13/19 02:30 06/09/19 02:29 Acetaminophen/ Hydrocodone Bitart ([place] 5/325) 1 tab Q6H PRN ORAL For Pain 05/13/19 02:30 05/19/19 02:29 05/13/19 03:48 Albuterol Sulfate (Proventil MDI) 2 puff Q4H PRN INH Shortness of Breath 05/13/19 02:30 06/09/19 02:29 Diazepam (Valium) 5 mg BIDPRN PRN ORAL Anxiety 05/13/19 02:30 05/18/19 02:29 Diltiazem HCl (Cardizem CD) 240 mg DAILY ORAL 05/13/19 09:00 06/12/19 08:59 Escitalopram Oxalate (Lexapro) 20 mg DAILY ORAL 05/13/19 09:00 06/11/19 08:59 Gabapentin (Neurontin) 300 mg Q12HR ORAL 05/13/19 09:00 06/10/19 20:59 Guaifenesin (Robitussin) 100 mg Q4H PRN ORAL For Cough 05/13/19 02:30 06/10/19 02:29 Iohexol (Omnipaque) 100 mg NOW PRN INJ Radiology Procedure 05/13/19 15:45 05/14/19 15:44 Levalbuterol HCl (Xopenex) 1.25 mg Q4HRT HHN 05/13/19 03:00 05/16/19 14:59 05/13/19 07:36 Levofloxacin (Levaquin) 500 mg DAILY ORAL 05/13/19 09:00 05/19/19 19:29 Lorazepam (Ativan 2mg/ml 1ml) 0.5 mg Q4H PRN IV For Anxiety 05/13/19 02:15 05/16/19 22:14 Mirtazapine (Remeron) 15 mg BEDTIME ORAL 05/13/19 21:00 06/10/19 20:59 Nery Riggs DO May 13, 2019 07:56
[2019-05-13 08:00] VITALS: BP 153/90
[2019-05-13] MEDS: Levofloxacin 500mg tab ORAL SCH (08:46)
[2019-05-13] MEDS: dilTIAZem HCl CD 240mg cap ORAL SCH (08:46)
[2019-05-13 08:55] LABS: BASOPHILS % (AUTO) 0.9 % (0.0-2.0); EOSINOPHILS % (AUTO) 2.2 % (0.0-3.0); HEMATOCRIT 32.8 % (37.0-47.0); HEMOGLOBIN 10.7 G/DL (12.0-16.0); LYMPHOCYTES % (AUTO) 15.8 % (20.0-45.0); MEAN CORPUSCULAR VOLUME 84 FL (80-99); MONOCYTES % (AUTO) 8.4 % (1.0-10.0); NEUTROPHILS % (AUTO) 72.7 % (45.0-75.0); PLATELET COUNT 381 K/UL (150-450); RED CELL DISTRIBUTION WIDTH 14.4 % (11.6-14.8)
[2019-05-13] MEDS ORDERED: Levofloxacin 500mg tab ORAL SCH ×2 (09:00)
[2019-05-13] MEDS ORDERED: dilTIAZem HCl CD 240mg cap ORAL SCH ×2 (09:00)
[2019-05-13 09:31] LABS: ANION GAP 10 mmol/L (5-15); BLOOD UREA NITROGEN 6 mg/dL (7-18); CALCIUM 9.1 MG/DL (8.5-10.1); CARBON DIOXIDE 25 MMOL/L (21-32); CHLORIDE 106 MMOL/L (98-107); CREATININE 0.7 MG/DL (0.55-1.30); POTASSIUM 3.9 MMOL/L (3.5-5.1); SODIUM 141 MMOL/L (136-145)
[2019-05-13 12:00] VITALS: BP 141/72
[2019-05-13] MEDS ORDERED: Omnipaue 350mg/ml 100ml vial INJ PRN ×3 (15:45)
[2019-05-13 16:00] VITALS: BP 136/69
--- NOTE | 2019-05-13 19:24 | NUR ---
HAND-OFF: Report given to DARLYN Meyers. Patient's stable. Plan of care endorsed.
--- NOTE | 2019-05-13 19:30 | NUR ---
NURSE NOTES: Received patient from Loraine SANTIZO. Patient in bed, on room air, no s/s respiratory distress. Daughter at bedside. Patient refused SCDs. Bed in low position, locked, call light within reach. Patient refusing IV access, aware.
[2019-05-13 20:00] VITALS: BP 149/58
--- NOTE | 2019-05-13 21:00 | NUR ---
NURSE NOTES: Patient c/o right hip pain, Ackerman 1 tab PO administered.
--- NOTE | 2019-05-13 22:00 | NUR ---
NURSE NOTES: Patient asleep in bed. On room air, no signs of respiratory distress.
--- NOTE | 2019-05-13 22:45 | Progress Note ---
DATE: 05/13/2019 CARDIOLOGY PROGRESS NOTE SUBJECTIVE: She feels better, less short of breath. No chest pain. Less secretions. Monitor remaining in sinus rhythm with no ectopic beats noted. PHYSICAL EXAMINATION: VITAL SIGNS: Saturating at 97% on room air, blood pressure 136/69, pulse 94, respiratory rate 19. LUNGS: Few rhonchi. CARDIAC: Regular. Normal S1 and S2 with a fourth heart sound. ABDOMEN: Soft. EXTREMITIES: No edema. LABORATORY AND DIAGNOSTIC DATA: White count 12, hemoglobin 10.7. Potassium 3.9, BUN 6, creatinine 0.7. Pronatriuretic peptide has decreased to 294. IMPRESSION: 1. Paroxysmal atrial fibrillation precipitated by acute respiratory distress now stabilized. 2. Lactic acidosis, resolved. 3. Community-acquired pneumonia, improved. 4. Acute diastolic congestive heart failure, now clinically compensated. 5. Moderate protein-calorie malnutrition on supplements. 6. Hypertensive heart disease with adequate blood pressure control. PLAN: 1. Maintain current cardiovascular regimen. 2. No current plan for anticoagulation, antimicrobials, and respiratory hygiene. Jr Funes M.D. DR: Soumya JOB#: [id number] CC:
[2019-05-14] VITALS: BP 152/60
[2019-05-14] MEDS: Levalbuterol Inh UD 1.25mg/0.5ml HHN SCH ×6 (03:12→23:48)
[2019-05-14 04:00] VITALS: BP 141/83
[2019-05-14] MEDS: HYDROcodone/Acetamin 5/325 tab ORAL PRN ×3 (04:44→18:42)
--- NOTE | 2019-05-14 07:27 | NUR ---
HAND-OFF: Report given to Jordana SANTIZO. Plan of care endorsed.
--- NOTE | 2019-05-14 07:30 | NUR ---
NURSE NOTES: Received report from DARLYN Meyers. Pt in bed, awake, talkative, receiving breathing treatment, no apparent distress noted, discussed plan of care, bed in lowest position, call light within reach.
[2019-05-14 08:00] VITALS: BP 145/75
[2019-05-14] MEDS: Levofloxacin 500mg tab ORAL SCH (08:42)
[2019-05-14] MEDS: dilTIAZem HCl CD 240mg cap ORAL SCH (08:43)
--- NOTE | 2019-05-14 09:12 | NUR ---
RADIOLOGY DEPT., CHEST X-RAY COMPLETED, Wilfred PLASCENCIA
--- NOTE | 2019-05-14 10:44 | Cardiology Report ---
APPROVED REPORT EXAM: Two-dimensional and M-mode echocardiogram with Doppler and color Doppler. INDICATION OTHER M-Mode DIMENSIONS IVSd1.3 (0.7-1.1cm)Left Atrium (MM)3.2 (1.6-4.0cm) LVDd4.1 (3.5-5.6cm)Aortic Root3.8 (2.0-3.7cm) PWd1.0 (0.7-1.1cm)Aortic Cusp Exc.1.8 (1.5-2.0cm) IVSs1.7 cm LVDs2.0 (2.5-4.0cm) PWs1.0 cm Normal left ventricular chamber size, systolic function and wall motion . Left ventricular ejection fraction estimated to be 60 %. No evidence of left ventricular hypertrophy. Anterior Echo-free space, may be due to pericardial fat or effusion. All other cardiac chamber sizes are within normal limits. Focal aortic valve sclerosis with adequate cusp excursion. Thickened mitral valve leaflets with normal excursion. Mitral annulus and aortic root calcification. Normal pulmonic valve structure. Normal tricuspid valve structure. IVC at 2.1 cm without physiologic collapse suggestive of increased RA pressure. A color flow and spectral Doppler study was performed and revealed: Trace aortic insufficiency. Trace mitral regurgitation. Mitral diastolic velocities suggest reduced left ventricular relaxation c/w mild LV diastolic dysfunction (Grade I ) Trace tricuspid regurgitation. Tricuspid systolic velocities suggests peak right ventricular systolic pressure of 28 mmHg.
--- NOTE | 2019-05-14 10:52 | Diagnostic Imaging Report ---
Indication: Cough Comparison: 05/10/2019 A single view chest radiograph was obtained. Findings: Cardiomediastinal appearance is within normal limits for age. The lungs are clear. Pulmonary vascularity is appropriate. The diaphragmatic contour is smooth and costophrenic angles are sharp. No pleural effusions are identified. The bones are unremarkable. Impression: No acute findings
[2019-05-14 11:47] VITALS: BP 124/81
--- NOTE | 2019-05-14 15:53 | NUR ---
*-* INSURANCE *-* ALL AVAILABLE CLINICALS HAVE BEEN FAXED TO: [facility] [employer] P: [phone] F: [phone]
--- NOTE | 2019-05-14 15:57 | NUR ---
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 98.7 HR 86 RR 19 B/P 124/87 RA 96% BNP 294 CXR= NO ACUTE PROCESS IS: CARDIZEM PO LEVAQUIN IV ALB HHN XOPENEX HHN TELE STATUS
[2019-05-14 16:00] VITALS: BP 149/81
--- NOTE | 2019-05-14 16:26 | Pulmonology Progress Note ---
Assessment/Plan Assessment/Plan 1. Bilateral pneumonia, improving 2. Severe sepsis. 3. Metabolic acidosis. 4. History of hypertension. 5. Mild asthma. 6. Paroxysmal A fib. 7. Thyroid nodule, low TSH on PO abx WBC better eating and ambulating dc AM if stable outpt thyroid eval Subjective Constitutional: Reports: no symptoms Allergies: Coded Allergies: No Known Allergies (Unverified , 05/19/13) Objective Last 24 Hour Vital Signs Date Time Temp Pulse Resp B/P (MAP) Pulse Ox O2 Delivery O2 Flow Rate FiO2 05/14/19 16:00 2.0 05/14/19 15:10 102 20 96 Room Air 21 100 20 95 05/14/19 13:10 98.7 05/14/19 12:00 2.0 05/14/19 11:47 98.7 86 19 124/81 (95) 96 05/14/19 11:46 92 18 94 Room Air 21 90 18 92 05/14/19 11:42 92 05/14/19 08:43 105 145/75 05/14/19 08:04 Room Air 05/14/19 08:00 98.6 105 19 145/75 (98) 95 05/14/19 08:00 2.0 05/14/19 07:38 102 05/14/19 07:18 98 18 100 Room Air 21 96 18 100 05/14/19 07:18 100 Room Air 21 05/14/19 04:00 97.5 105 18 141/83 (102) 94 05/14/19 04:00 98 05/14/19 04:00 2.0 05/14/19 03:16 77 18 99 Room Air 21 76 18 94 05/14/19 00:00 98.2 86 19 152/60 (90) 96 05/14/19 00:00 86 05/14/19 00:00 2.0 05/13/19 23:22 81 18 99 Room Air 21 79 18 94 05/13/19 21:00 Room Air 05/13/19 20:00 2.0 05/13/19 20:00 98.4 88 18 149/58 (88) 95 05/13/19 20:00 99 05/13/19 19:33 95 Room Air 21 05/13/19 19:33 88 18 99 Room Air 21 88 18 95 Intake and Output 05/13/19 05/14/19 19:00 07:00 Intake Total 580 ml 360 ml Balance 580 ml 360 ml Intake Oral 580 ml 360 ml # Voids 2 1 General Appearance: no acute distress HEENT: atraumatic Respiratory/Chest: lungs clear Cardiovascular: normal rate Current Medications Medications (Trade) Dose Ordered Sig/Bill Route PRN Reason Start Time Stop Time Status Last Admin Dose Admin Acetaminophen (Tylenol) 650 mg Q4H PRN ORAL Mild Pain/Temp > 100.5 05/13/19 02:30 06/09/19 02:29 Acetaminophen/ Hydrocodone Bitart ([place] 5/325) 1 tab Q6H PRN ORAL For Pain 05/13/19 02:30 05/19/19 02:29 05/14/19 12:40 Albuterol Sulfate (Proventil MDI) 2 puff Q4H PRN INH Shortness of Breath 05/13/19 02:30 06/09/19 02:29 Diazepam (Valium) 5 mg BIDPRN PRN ORAL Anxiety 05/13/19 02:30 05/18/19 02:29 05/14/19 04:42 Diltiazem HCl (Cardizem CD) 240 mg DAILY ORAL 05/13/19 09:00 06/12/19 08:59 05/14/19 08:43 Escitalopram Oxalate (Lexapro) 20 mg DAILY ORAL 05/13/19 09:00 06/11/19 08:59 05/14/19 08:42 Gabapentin (Neurontin) 300 mg Q12HR ORAL 05/13/19 09:00 06/10/19 20:59 05/14/19 08:42 Guaifenesin (Robitussin) 100 mg Q4H PRN ORAL For Cough 05/13/19 02:30 06/10/19 02:29 Levalbuterol HCl (Xopenex) 0.625 mg Q4HRT HHN 05/14/19 15:00 05/19/19 14:59 05/14/19 15:10 Levofloxacin (Levaquin) 500 mg DAILY ORAL 05/13/19 09:00 05/19/19 19:29 05/14/19 08:42 Lorazepam (Ativan 2mg/ml 1ml) 0.5 mg Q4H PRN IV For Anxiety 05/13/19 02:15 05/16/19 22:14 Mirtazapine (Remeron) 15 mg BEDTIME ORAL 05/13/19 21:00 06/10/19 20:59 05/13/19 21:01 Yonathan Mcgowan MD May 14, 2019 16:26
--- NOTE | 2019-05-14 16:45 | Progress Note ---
DATE: 05/14/2019 CARDIOLOGY PROGRESS NOTE SUBJECTIVE: The patient is not comfortable. No shortness of breath or chest pain. Monitored rhythm, sinus. Repeat chest x-ray today revealed no acute disease. OBJECTIVE: VITAL SIGNS: Blood pressure 145/75, pulse 105, and respirations 19. Afebrile. LUNGS: Good breath sounds. No wheezing. HEART: Regular rhythm and rate. Normal S1, S2. ABDOMEN: Soft. EXTREMITIES: No edema. IMPRESSION: 1. Community-acquired pneumonia, improved. 2. Paroxysmal atrial fibrillation, resolved. 3. Secondary sinus tachycardia. 4. History of asthma. 5. Hypertensive heart disease. 6. Chronic diastolic congestive heart failure. PLAN: 1. Continue diltiazem. 2. Respiratory hygiene. 3. Antimicrobials. 4. DVT prophylaxis. 5. Decrease beta agonist therapy. 6. Discharge plan. Jr Funes M.D. DR: ROMELIA JOB#: [id number] CC:
--- NOTE | 2019-05-14 19:21 | NUR ---
HAND-OFF: Report given to DARLYN Meyers. Plan of care endorsed.
--- NOTE | 2019-05-14 19:30 | NUR ---
NURSE NOTES: Received patient from Jordana SANTIZO. Patient in bed, on room air, no signs of respiratory distress. Bed in low position, locked, call light within reach.
[2019-05-14 20:00] VITALS: BP 145/78
[2019-05-15] VITALS: BP 140/70
[2019-05-15] MEDS: HYDROcodone/Acetamin 5/325 tab ORAL PRN ×2 (02:08→09:21)
[2019-05-15 04:00] VITALS: BP 150/73
[2019-05-15 06:33] LABS: BASOPHILS % (AUTO) 1.1 % (0.0-2.0); HEMATOCRIT 33.6 % (37.0-47.0); HEMOGLOBIN 10.7 G/DL (12.0-16.0); LYMPHOCYTES % (AUTO) 21.8 % (20.0-45.0); MEAN CORPUSCULAR VOLUME 85 FL (80-99); MONOCYTES % (AUTO) 9.4 % (1.0-10.0); NEUTROPHILS % (AUTO) 61.8 % (45.0-75.0); PLATELET COUNT 422 K/UL (150-450); RED BLOOD COUNT 3.95 M/UL (4.20-5.40); RED CELL DISTRIBUTION WIDTH 14.2 % (11.6-14.8); WHITE BLOOD COUNT 7.6 K/UL (4.8-10.8)
--- NOTE | 2019-05-15 07:10 | NUR ---
NURSE NOTES:RECEIVED BED SIDE REPORT FROM RICARDO SANTIZO STAFF OF NOC SHIFT. RECEIVED PT WITH HOB ELEVATED 45 DEGREE AOX4 RECEIVING BREATHING TX,S VIA HHN. PT DENIES CP OR SOB AT THIS TIMED.PT DON,T HAVE IV SHE REFUSED & M.D IS AWARE.FULL BODY ASSESSMENT DONE.NO ACUTE DISTRESS NOTED AT THIS TIME. WILL CONT TO MONITOR.
[2019-05-15 07:19] LABS: ALANINE AMINOTRANSFERASE 29 U/L (12-78); ALBUMIN 2.8 G/DL (3.4-5.0); ALBUMIN/GLOBULIN RATIO 0.6 (1.0-2.7); ALKALINE PHOSPHATASE 129 U/L (46-116); ANION GAP 11 mmol/L (5-15); ASPARTATE AMINO TRANSFERASE 15 U/L (15-37); BILIRUBIN,TOTAL 0.2 MG/DL (0.2-1.0); BLOOD UREA NITROGEN 9 mg/dL (7-18); CALCIUM 9.2 MG/DL (8.5-10.1); CARBON DIOXIDE 24 MMOL/L (21-32); CHLORIDE 106 MMOL/L (98-107); CREATININE 0.7 MG/DL (0.55-1.30); SODIUM 141 MMOL/L (136-145)
[2019-05-15] MEDS: Levalbuterol Inh UD 1.25mg/0.5ml HHN SCH ×3 (07:44→15:00)
[2019-05-15 08:00] VITALS: BP 144/80
[2019-05-15] MEDS: Levofloxacin 500mg tab ORAL SCH (09:12)
[2019-05-15] MEDS: dilTIAZem HCl CD 240mg cap ORAL SCH (09:12)
--- NOTE | 2019-05-15 11:13 | NUR ---
*-* INSURANCE *-* ALL AVAILABLE CLINICALS HAVE BEEN FAXED TO: [facility] [employer] P: [phone] F: [phone]
[2019-05-15] MEDS ORDERED: CARDIZEM CD240 MG ORAL (11:51)
[2019-05-15] MEDS ORDERED: LEVAQUIN500 MG ORAL (11:51)
[2019-05-15] MEDS ORDERED: ENSURE LIQUID237 ML PO (11:51)
--- NOTE | 2019-05-15 11:57 | Pulmonology Progress Note ---
Assessment/Plan Assessment/Plan 1. Bilateral pneumonia, improving 2. Severe sepsis. 3. Metabolic acidosis. 4. History of hypertension. 5. Mild asthma. 6. Paroxysmal A fib. 7. Thyroid nodule, low TSH doing well PO abx WBC normal eating and ambulating dc home outpt thyroid eval; patient advised Subjective Allergies: Coded Allergies: No Known Allergies (Unverified , 05/19/13) Objective Last 24 Hour Vital Signs Date Time Temp Pulse Resp B/P (MAP) Pulse Ox O2 Delivery O2 Flow Rate FiO2 05/15/19 09:51 96.8 05/15/19 09:12 98 144/80 05/15/19 09:00 Room Air 05/15/19 08:00 95 05/15/19 08:00 96.8 98 19 144/80 (101) 100 05/15/19 08:00 2.0 05/15/19 07:45 93 20 97 Room Air 21 94 20 95 05/15/19 07:45 95 Room Air 21 05/15/19 04:00 2.0 05/15/19 04:00 99 05/15/19 04:00 98.0 88 18 150/73 (98) 98 05/15/19 00:00 93 05/15/19 00:00 2.0 05/15/19 00:00 97.7 98 18 140/70 (93) 97 05/14/19 21:00 Room Air 05/14/19 20:00 86 05/14/19 20:00 2.0 05/14/19 20:00 97.6 94 18 145/78 (100) 98 05/14/19 19:30 98 Room Air 21 05/14/19 16:36 100 21 100 Bi-Pap 100 05/14/19 16:00 96.6 80 18 149/81 (103) 96 05/14/19 16:00 2.0 05/14/19 15:18 93 05/14/19 15:10 102 20 96 Room Air 21 100 20 95 05/14/19 12:00 2.0 Laboratory Tests 05/15/19 05:26: White Blood Count 7.6, Red Blood Count 3.95L, Hemoglobin 10.7L, Hematocrit 33.6L , Mean Corpuscular Volume 85, Mean Corpuscular Hemoglobin 27.1, Mean Corpuscular Hemoglobin Concent 31.9L, Red Cell Distribution Width 14.2, Platelet Count 422, Mean Platelet Volume 4.9L, Neutrophils (%) (Auto) 61.8, Lymphocytes (%) (Auto) 21.8, Monocytes (%) (Auto) 9.4, Eosinophils (%) (Auto) 6.0H, Basophils (%) (Auto) 1.1, Sodium Level 141, Potassium Level 4.0, Chloride Level 106, Carbon Dioxide Level 24, Anion Gap 11, Blood Urea Nitrogen 9, Creatinine 0.7, Estimat Glomerular Filtration Rate , Glucose Level 116H, Calcium Level 9.2, Total Bilirubin 0.2, Aspartate Amino Transf (AST/SGOT) 15, Alanine Aminotransferase (ALT/SGPT) 29, Alkaline Phosphatase 129H, Total Protein 7.7, Albumin 2.8L, Globulin 4.9, Albumin/Globulin Ratio 0.6L, Thyroid Stimulating Hormone (TSH) 0.557, Free Thyroxine 0.81, Free Triiodothyronine 2.7 Current Medications Medications (Trade) Dose Ordered Sig/Bill Route PRN Reason Start Time Stop Time Status Last Admin Dose Admin Acetaminophen (Tylenol) 650 mg Q4H PRN ORAL Mild Pain/Temp > 100.5 05/13/19 02:30 06/09/19 02:29 Acetaminophen/ Hydrocodone Bitart ([place] 5/325) 1 tab Q6H PRN ORAL For Pain 05/13/19 02:30 05/19/19 02:29 05/15/19 09:21 Albuterol Sulfate (Proventil MDI) 2 puff Q4H PRN INH Shortness of Breath 05/13/19 02:30 06/09/19 02:29 Diazepam (Valium) 5 mg BIDPRN PRN ORAL Anxiety 05/13/19 02:30 05/18/19 02:29 05/14/19 18:42 Diltiazem HCl (Cardizem CD) 240 mg DAILY ORAL 05/13/19 09:00 06/12/19 08:59 05/15/19 09:12 Escitalopram Oxalate (Lexapro) 20 mg DAILY ORAL 05/13/19 09:00 06/11/19 08:59 05/15/19 09:12 Gabapentin (Neurontin) 300 mg Q12HR ORAL 05/13/19 09:00 06/10/19 20:59 05/15/19 09:12 Guaifenesin (Robitussin) 100 mg Q4H PRN ORAL For Cough 05/13/19 02:30 06/10/19 02:29 Levalbuterol HCl (Xopenex) 0.625 mg Q4HRT HHN 05/14/19 15:00 05/19/19 14:59 05/15/19 07:44 Levofloxacin (Levaquin) 500 mg DAILY ORAL 05/13/19 09:00 05/19/19 19:29 05/15/19 09:12 Lorazepam (Ativan 2mg/ml 1ml) 0.5 mg Q4H PRN IV For Anxiety 05/13/19 02:15 05/16/19 22:14 Mirtazapine (Remeron) 15 mg BEDTIME ORAL 05/13/19 21:00 06/10/19 20:59 05/14/19 21:30 Yonathan Mcgowan MD May 15, 2019 11:57
[2019-05-15 12:00] VITALS: BP 137/83
--- NOTE | 2019-05-15 17:45 | NUR ---
NURSE NOTES: PT ESCORTED VIA W/C ON STABLE CONDITIONS TO DISCHARGE AREA. PT LEFT THE HOSPITAL ACCOMPANIED WITH HER NIECE ON PRIVATE CAR.
--- NOTE | 2019-05-15 21:31 | Progress Note ---
DATE: 05/15/2019 CARDIOLOGY PROGRESS NOTE SUBJECTIVE: She is feeling well. No chest pain. No shortness of breath. No leg swelling. OBJECTIVE: VITAL SIGNS: Blood pressure 144/80, heart rate 98, respirations 19. Monitor reveals sinus with no recurrent atrial fibrillation. LUNGS: No wheezing. Few rhonchi. CARDIAC: Regular rhythm and rate. Normal S1, S2. There is a fourth heart sound. ABDOMEN: Soft. No edema. IMPRESSION: 1. Bilateral pneumonia, recovered. 2. Severe sepsis, resolved. 3. Metabolic acidosis, resolved. 4. Hypertensive heart disease. Still with suboptimal blood pressure range, but stable. 5. Paroxysmal atrial fibrillation precipitated by severe respiratory symptoms, now recovered. 6. Thyroid nodule. 7. History of asthma with no active bronchospasm. PLAN: 1. Outpatient followup. 2. Maintain current cardiovascular regimen. 3. May benefit from tighter blood pressure control in the future, but would wait until pulmonary parameters have completely normalized. 4. No plan for anticoagulation at this time as AFib is self-limited and associated with acute respiratory compromise. 5. We will consider outpatient Holter monitor or Zio patch in the future. 6. Maintain diltiazem for suppression of atrial ectopy as well as blood pressure control. Jr Funes M.D. DR: KAT JOB#: [id number] CC:
--- NOTE | 2019-05-16 09:06 | Discharge Summary ---
Discharge Summary Discharge Summary _ DATE OF ADMISSION: 05/09/2019 DATE OF DISCHARGE: 05/15/2019 DISCHARGED BY: Dr. Mcgowan REASON FOR ADMISSION: 74 years old female with past medical history of hypertension, hyperlipidemia, asthma, presented to emergency department with complaint of shortness of breath. Patient reported cough with minimal amount of sputum production. Patient reported anterior pleuritic chest pain as well. Patient was using asthma inhalers at home without any improvement. In emergency department patient was found to be in severe respiratory distress and was placed on the BiPAP. Upon initial evaluation patient was febrile , tachycardic, tachypneic and hypoxic . Blood pressure was elevated 176/109. Patient was placed on the BiPAP. ABG revealed acidosis without hypercapnia. Laboratory work-up revealed leukocytosis WBC 18.2, hemoglobin 11.7, hematocrit 36. INR 0.9. Stable electrolytes. BUN 15, creatinine 1.4. Lactic acid 4.6. Glucose 153. Magnesium 1.6. Stable LFT and lipase. Troponin negative. pro BNP 65. Urinalysis revealed +2 protein ,positive nitrate, +1 leukocyte esterase , pyuria and many bacteria. Chest x-ray demonstrated borderline cardiomegaly , possibly mild interstitial congestion. Septic work-up initiated . Patient received fluid challenge, pancultured , started on empiric antibiotic and admitted for further management. CONSULTANTS: care navigator HOSPITAL COURSE: Patient admitted to telemetry floor and started on IV fluids and empiric antibiotics. Patient initially was on BiPAP. Repeated ABG on BiPAP reveled resolved acidosis. Patient was able to be weaned from the BiPAP. Supplemental oxygen titrated to keep pulse oximetry above 92%. Pulmonary toilet with bronchodilator provided as needed. Antitussive provided as needed. Leukocytosis trended up the next day with the highest 24.. Blood cultures were negative. Urine culture revealed E. coli. Patient was on IV antibiotic while in the hospital. Leukocytosis eventually resolved. No further fevers. Patient was discharged on oral antibiotic to complete the course Echocardiogram demonstrated preserved ejection fraction 60% with no evidence of left ventricular hypertrophy. No evidence of wall motion abnormality. Right ventricular systolic pressure of 28. Venous duplex bilateral lower extremity revealed no evidence of acute DVT. Follow-up chest x-ray demonstrated suspected mild CHF. CTA of the chest revealed no definite pulmonary emboli. No aortic aneurysm or dissection. Patchy density and ground-glass opacity throughout the lungs with most prominent consolidation in the lower lung , concerning for infectious/ inflammatory process and/ or pulmonary edema. Trace bilateral pleural effusion. Heterogeneous thyroid with prominent hypodense nodule in the right thyroid lobe. TSH initially low 0.147, reepated in range-0.557. Stable free T4 and free T3 were all stable. Recommended outpatient thyroid ultrasound . Patient noted to have a paroxysmal atrial fibrillation, likely precipitated by severe respiratory symptoms, which resolved spontaneously. Patient was on Cardizem, heart rate was controlled. Blood rpessure stable. No plan for anticoagulation since atrial fibrillation was self-limited and associated with acute respiratory compromise. Dean recommended to consider outpatient Holter monitoring on Zio patch in the future. Continue Cardizem for suppression of atrial ectopy as well as the blood pressure control. Renal parameters and electrolytes were closely monitored. Magnesium corrected. Prior to discharge magnesium 2.0. Creatinine from 1.4 down to 0.7 with IV hydration. Supportive care provided. Patient clinically stabilized and was ready for discharge home. FINAL DIAGNOSES: Severe sepsis - resolved Metabolic acidosis -resolved Bilateral pneumonia E. coli UTI Hypertension heart disease Paroxysmal atrial fibrillation Thyroid nodule Asthma (no active bronchospasm) Paroxysmal atrial fibrillation Thyroid nodule with low TSH DISCHARGE MEDICATIONS: See Medication Reconciliation list. DISCHARGE INSTRUCTIONS: Patient was discharged home. Follow-up with a primary care provider in 1 to 2 weeks. Thyroid ultrasound as outpatient was recommended I have been assigned to dictate discharge summary for this account. I was not involved in the patient's management. Anupama Matute NP May 16, 2019 09:06
--- NOTE | 2019-05-16 10:22 | NUR ---
*-* INSURANCE *-* DISCHARGE SUMMARY HAS BEEN FAXED TO: [facility] P: [phone] F: [phone]
== END 2019-05-15 17:45 | disposition home or self-care (01) | DRG 871 ==
LOC: EDBD 14:49 → EMR 15:25 → EDBEDREQ 16:13 → 2W 17:15 → EDBEDREQ 18:58 → 2E 05-13 01:55
DX: A41.9 Sepsis, unspecified organism (principal); J18.9 Pneumonia, unspecified organism; I50.31 Acute diastolic (congestive) heart failure; N39.0 Urinary tract infection, site not specified; E44.0 Moderate protein-calorie malnutrition; R65.20 Severe sepsis without septic shock; B96.20 Unspecified Escherichia coli [E. coli] as the cause of diseases classified elsewhere; I11.0 Hypertensive heart disease with heart failure; J45.909 Unspecified asthma, uncomplicated; E78.5 Hyperlipidemia, unspecified; Z86.73 Personal history of transient ischemic attack (TIA), and cerebral infarction without residual deficits; F31.9 Bipolar disorder, unspecified; E83.42 Hypomagnesemia; I20.9 Angina pectoris, unspecified; I48.0 Paroxysmal atrial fibrillation; E04.1 Nontoxic single thyroid nodule; Z68.34 Body mass index [BMI] 34.0-34.9, adult; I25.9 Chronic ischemic heart disease, unspecified
CPT/HCPCS: 36415; 36600; 71045; 71275; 80048; 80053; 80061; 81003; 82550; 82553; 82803; 83605; 83690; 83735; 83880; 84100; 84439; 84443; 84481; 84484; 85007; 85025; 85610; 85730; 86710; 87040; 87081; 87086; 87181; 93005; 93306; 93970; 94640; 94660; 94664; 96365; 96368; 96375; 99291; J7030; J7620; J8499

== ENCOUNTER 2020-01-29 17:47 | Inpatient (IN) | payer MEDICARE ==
[~2020-01-29] VITALS: Ht 165.1 cm; Wt 99.0 kg
[~2020-01-29 17:47] MED LIST changes: +CARDIZEM CD240 MG ORAL; +ENSURE LIQUID237 ML PO; +LEVAQUIN500 MG ORAL
--- NOTE | 2020-01-29 17:56 | NUR ---
ED Nurse Note: Pt placed in bed 5 my RA29, pt immediately COVID swabbed. pt has audible crackles, pt is on 15L NR 96%. per EMS pt was 76% on room air, was at home sitting up right with signs of difficulty breathing. pt was given 1 spray of nitro FAGOT HEATER HELPER, RA29 established IV line on right hand; patent and intact. PT is verbal and able to follow commands.
[2020-01-29 17:58] VITALS: BP 129/94
--- NOTE | 2020-01-29 18:08 | NUR ---
ED Nurse Note:daughter Ada [phone]
[2020-01-29 18:13] LABS: HEMATOCRIT 32.3 % (37.0-47.0); MEAN CORPUSCULAR VOLUME 85 FL (80-99); PLATELET COUNT 285 K/UL (150-450); RED BLOOD COUNT 3.77 M/UL (4.20-5.40); RED CELL DISTRIBUTION WIDTH 18.3 % (11.6-14.8)
[2020-01-29 18:15] LABS: WHITE BLOOD COUNT 24.4 K/UL (4.8-10.8)
--- NOTE | 2020-01-29 18:17 | NUR ---
ED Nurse Note: Right hand IV line infiltered, new line inserted on left AC by RN
--- NOTE | 2020-01-29 18:19 | NUR ---
ED Nurse Note: Xray completed at bedside
[2020-01-29] MEDS ORDERED: Azithromycin 500 MG in NS 275 ML IV ONE (18:45)
[2020-01-29] MEDS ORDERED: Piperacillin/Tazobactam 3.375 GM in NS 110 ML IVPB ONE (18:45)
--- NOTE | 2020-01-29 19:06 | NUR ---
HAND-OFF: Report given to DARLYN Quintanilla.
[2020-01-29 19:16] LABS: ANION GAP 18 mmol/L (5-15); BLOOD UREA NITROGEN 59 mg/dL (7-18); CALCIUM 7.9 MG/DL (8.5-10.1); CARBON DIOXIDE 16 MMOL/L (21-32); CHLORIDE 95 MMOL/L (98-107); CREATININE 3.8 MG/DL (0.55-1.30); POTASSIUM 5.5 MMOL/L (3.5-5.1); SODIUM 129 MMOL/L (136-145)
[2020-01-29] MEDS: Albuterol ud Inhalation HHN SCH ×3 (19:20→19:39)
[2020-01-29] MEDS: Ipratropium 0.02% Inh Soln 2.5ml UD HHN SCH ×3 (19:20→19:39)
[2020-01-29 19:27] LABS: ALANINE AMINOTRANSFERASE 17 U/L (12-78); ALBUMIN 3.2 G/DL (3.4-5.0); ALBUMIN/GLOBULIN RATIO 0.7 (1.0-2.7); ALKALINE PHOSPHATASE 165 U/L (46-116); ASPARTATE AMINO TRANSFERASE 32 U/L (15-37); BILIRUBIN,TOTAL 0.5 MG/DL (0.2-1.0); FERRITIN 93 NG/ML (8-388)
[2020-01-29] MEDS ORDERED: Solu-MEDROL 125mg Inj IVP ONE (19:30)
--- NOTE | 2020-01-29 19:58 | NUR ---
ED Nurse Note: Urine collected and sent to lab, RT at bedside.
--- NOTE | 2020-01-29 20:17 | NUR ---
ED Nurse Note: Lactic blood drawn and sent to lab
--- NOTE | 2020-01-29 20:21 | Emergency Room Report ---
History of Present Illness General Chief Complaint: Dyspnea/Respdistress Source: Patient Present Illness HPI 74-year-old female presents for shortness of breath. Brought in by EMS from home. Short of breath x1 day. Hypoxic. History of COPD and CHF. Placed on nasal cannula nonrebreather. Given nitro in field. Patient denies fevers or chills. Denies chest pain. Denies sick contacts or recent travel. No other aggravating relieving factors. Denies any other associated symptoms Allergies: Coded Allergies: No Known Allergies (Unverified , 05/19/13) COVID-19 Screening Contact w/high risk pt: Yes Experienced COVID-19 symptoms?: No COVID-19 Testing performed APERTURE MASK ETCHER: No Patient History Past Medical History: asthma, CVA/TIA Past Surgical History: none Pertinent Family History: none Social History: Denies: smoking, alcohol use, drug use Now: No Immunizations: UTD Reviewed Nursing Documentation: PMH: Agreed; PSxH: Agreed Nursing Documentation-PMH Hx Cardiac Problems: Yes - CVA Hx Hypertension: Yes Hx Asthma: Yes Hx Cancer: No Hx Gastrointestinal Problems: No Hx Cerebrovascular Accident: Yes Review of Systems All Other Systems: negative except mentioned in HPI Physical Exam Vital Signs Date Time Temp Pulse Resp B/P (MAP) Pulse Ox O2 Delivery O2 Flow Rate FiO2 01/29/20 17:53 97.9 108 22 113/60 (77) 97 Non-Rebreather 15.0 01/29/20 19:30 100 Sp02 EP Interpretation: reviewed, normal General Appearance: GCS 15, non-toxic, mild distress Head: normocephalic, atraumatic Eyes: bilateral eye normal inspection, bilateral eye PERRL ENT: hearing grossly normal, normal pharynx, no angioedema, normal voice Neck: full range of motion, supple/symm/no masses Respiratory: chest non-tender, crackles, speaking full sentences Cardiovascular #1: regular rate, rhythm, no edema Cardiovascular #2: 2+ carotid (R), 2+ carotid (L), 2+ radial (R), 2+ radial (L) , 2+ dorsalis pedis (R), 2+ dorsalis pedis (L) Gastrointestinal: normal bowel sounds, non tender, soft, non-distended, no guarding, no rebound Rectal: deferred Genitourinary: normal inspection, no CVA tenderness Musculoskeletal: back normal, normal range of motion, gait/station normal, non- tender Neurologic: alert, motor strength/tone normal, oriented x3, sensory intact, responsive, speech normal Psychiatric: judgement/insight normal, memory normal, mood/affect normal, no suicidal/homicidal ideation Reflexes: 3+ bicep (R), 3+ bicep (L), 3+ tricep (R), 3+ tricep (L), 3+ knee (R) , 3+ knee (L) Skin: other - see nursing notes Lymphatic: no adenopathy Procedures Critical Care Time Critical Care Time i. I feel this is a highly complex case requiring extensive working including EKG/Rhythm strip, Xray/CT/US, Blood/urine lab work, repeat exams while in ED, and administration of strong opiates/narcotics for pain control, admission to hospital or close patient follow up. Total time: 60 min bedside evaluation and treatment excludes procedures (EKG). Reason for critical care: respiratoy distress Possible complications: hypotension, hypertension, TX, shock, arrhythmias, metabolic acidosis, end organ damage, respiratory failure. Interventions: labs, EKG, CXR, ABG, COVID, nebs, antibiotics Course: Patient presenting with hypoxia shortness of breath. Chest x-ray shows infiltrate in right lung base. Significant leukocytosis. Potassium elevated. BUN/creatinine elevated. Lactic over 3. BNP elevated. ABG shows minimal acidosis but no hypercapnia. Rapid COVID negative. nebulizer treatments given. Broad-spectrum antibiotics given. Consultations: nursing staff, EMS, family Performed by: Dr Salmon Tolerated well condition = critical j. because of unstable vital signs this patient had a condition that could potentially threaten life or limb. I feel this is a critical patient who required my full attention while patient was considered critical. Total Critical Care Time excluding procedures was greater than 60 minutes Medical Decision Making Diagnostic Impression: Primary Impression: CHF (congestive heart failure) Qualified Codes: I50.9 - Heart failure, unspecified Additional Impressions: COPD (chronic obstructive pulmonary disease) Qualified Codes: J44.9 - Chronic obstructive pulmonary disease, unspecified Pneumonia Qualified Codes: J18.9 - Pneumonia, unspecified organism Renal failure Qualified Codes: N17.9 - Acute kidney failure, unspecified ER Course Hospital Course 74 yo F presents with SOB. hypoxia. Differential diagnoses include: TX/unstable angina, contusion, muscle strain, PTX, rib fracture Clinical course Patient placed on stretcher. on monitor worker. After initial history and physical I ordered labs, EKG, chest x-ray, ABG labs reviewed- marked leukocytosis, hemoglobin/hematocrit stable, BUN/Cr elevated, trop negative, BNP elevated ABG - mild acidosis no hypercapnia EKG - NSR, no acute ischemic changes interpreted by me Chest x-ray- R sided infiltrate RAPID COVID negative - nebulizer treatments given Antibiotics given. O2 sats improved. not tachypneic Case discussed with Dr. Kahn and he agreed to accept the patient to his service for further care and support I. I feel this is a highly complex case requiring extensive working including EKG/Rhythm strip, Xray/CT/US, Blood/urine lab work, repeat exams while in ED, and administration of strong opiates/narcotics for pain control, admission to hospital or close patient follow up. Diagnosis - CHF, COPD, pneumonia, renal failure admitted to SDU in critical condition Laboratory Tests Test 01/29/20 17:30 01/29/20 17:55 01/29/20 18:15 01/29/20 18:18 White Blood Count 24.4 K/UL (4.8-10.8) *H Red Blood Count 3.77 M/UL (4.20-5.40) L Hemoglobin 10.0 G/DL (12.0-16.0) L Hematocrit 32.3 % (37.0-47.0) L Mean Corpuscular Volume 85 FL (80-99) Mean Corpuscular Hemoglobin 26.4 PG (27.0-31.0) L Mean Corpuscular Hemoglobin Concent 30.9 G/DL (32.0-36.0) L Red Cell Distribution Width 18.3 % (11.6-14.8) H Platelet Count 285 K/UL (150-450) Mean Platelet Volume 6.0 FL (6.5-10.1) L Neutrophils (%) (Auto) % (45.0-75.0) Lymphocytes (%) (Auto) % (20.0-45.0) Monocytes (%) (Auto) % (1.0-10.0) Eosinophils (%) (Auto) % (0.0-3.0) Basophils (%) (Auto) % (0.0-2.0) Differential Total Cells Counted 100 Neutrophils % (Manual) 37 % (45-75) L Lymphocytes % (Manual) 32 % (20-45) Monocytes % (Manual) 5 % (1-10) Eosinophils % (Manual) 1 % (0-3) Basophils % (Manual) 0 % (0-2) Band Neutrophils 25 % (0-8) H Platelet Estimate Adequate Platelet Morphology Normal Polychromasia 1+ Hypochromasia 1+ Anisocytosis 1+ Prothrombin Time 10.7 SEC (9.30-11.50) Prothromb Time International Ratio 1.0 (0.9-1.1) Activated Partial Thromboplast Time 30 SEC (23-33) D-Dimer 2.74 mg/L FEU (0.00-0.49) H Sodium Level 129 MMOL/L (136-145) L Potassium Level 5.5 MMOL/L (3.5-5.1) H Chloride Level 95 MMOL/L (98-107) L Carbon Dioxide Level 16 MMOL/L (21-32) L Anion Gap 18 mmol/L (5-15) H Blood Urea Nitrogen 59 mg/dL (7-18) H Creatinine 3.8 MG/DL (0.55-1.30) H Estimat Glomerular Filtration Rate 14.1 mL/min (>60) Glucose Level 111 MG/DL (74-106) H Calcium Level 7.9 MG/DL (8.5-10.1) L Ferritin 93 NG/ML (8-388) Total Bilirubin 0.5 MG/DL (0.2-1.0) Aspartate Amino Transf (AST/SGOT) 32 U/L (15-37) Alanine Aminotransferase (ALT/SGPT) 17 U/L (12-78) Alkaline Phosphatase 165 U/L (46-116) H Troponin I 0.000 ng/mL (0.000-0.056) C-Reactive Protein, Quantitative 27.3 mg/dL (0.00-0.90) H Pro-B-Type Natriuretic Peptide 5250 pg/mL (0-125) H Total Protein 7.6 G/DL (6.4-8.2) Albumin 3.2 G/DL (3.4-5.0) L Globulin 4.4 g/dL Albumin/Globulin Ratio 0.7 (1.0-2.7) L Arterial Blood pH 7.206 (7.350-7.450) Arterial Blood Partial Pressure CO2 46.7 mmHg (35.0-45.0) H Arterial Blood Partial Pressure O2 78.4 mmHg (75.0-100.0) Arterial Blood HCO3 18.1 mmol/L (22.0-26.0) L Arterial Blood Oxygen Saturation 93.7 % (95-100) L Arterial Blood Base Excess -9.5 (-2-2) *L Moe Test Positive Erythrocyte Sedimentation Rate 48 MM/HR (0-30) H Lactic Acid Level 3.10 mmol/L (0.4-2.0) H POC Whole Blood Glucose 113 MG/DL (74-106) H Test 01/29/20 19:59 Urine Color Pending Urine Appearance Pending Urine pH Pending Urine Specific [place] Pending Urine Protein Pending Urine Glucose (UA) Pending Urine Ketones Pending Urine Blood Pending Urine Nitrite Pending Urine Bilirubin Pending Urine Urobilinogen Pending Urine Leukocyte Esterase Pending EKG Diagnostic Results Rate: normal Rhythm: NSR ST Segments: no acute changes ASA given to the pt in ED: No Rhythm Strip Diag. Results EP Interpretation: yes Rhythm: NSR, no PVC's, no ectopy Chest X-Ray Diagnostic Results Chest X-Ray Diagnostic Results : Chest X-Ray Ordered: Yes # of Views/Limited/Complete: 1 View Indication: Shortness of Breath EP Interpretation: Yes Interpretation: no effusion, no pneumothorax, other - R lower infiltrate Impression: Other - PNA Electronically Signed by: Electronically signed by Shaan Salmon MD Last Vital Signs Date Time Temp Pulse Resp B/P (MAP) Pulse Ox O2 Delivery O2 Flow Rate FiO2 01/29/20 19:39 91 20 95 01/29/20 19:35 Non-Rebreather 15.0 100 01/29/20 17:58 97.9 129/94 Status: improved Disposition: ADMITTED INPATIENT Condition: Critical Referrals: NON PHYSICIAN (PCP) Shaan Salmon MD Jan 29, 2020 20:21
[2020-01-29 20:24] LABS: APPEARANCE,URINE VERY CLOUDY; BILIRUBIN, URINE NEGATIVE (NEGATIVE); COLOR,URINE YELLOW; GLUCOSE, URINE (UA) NEGATIVE (NEGATIVE); KETONES,URINE 1+ (NEGATIVE); LEUKOCYTE ESTERASE ,URINE 1+ (NEGATIVE); NITRITE,URINE NEGATIVE (NEGATIVE); PH,URINE 5 (4.5-8.0); PROTEIN,URINE 1+ (NEGATIVE); UROBILINOGEN,URINE NORMAL MG/DL (0.0-1.0)
[2020-01-29] MEDS ORDERED: Sodium Bicarbonate 50ml Carp IV SCH (20:45)
--- NOTE | 2020-01-29 21:00 | NUR ---
ED Nurse Note: Report given to DARLYN Partida in SDU.
--- NOTE | 2020-01-29 21:16 | NUR ---
TRANSFER TO FLOOR: Patient transferred to SDU as ordered, per ERMD. Report given to DARLYN Partida. Patient transported via gurney on ACLS protocol with groundwater monitoring technician accompanied by RN and cardiac catheterization technologist in stable condition.
[2020-01-29 21:45] VITALS: BP 114/54
--- NOTE | 2020-01-29 21:45 | NUR ---
NURSE NOTES: Received patient's report from BUILDING ATTENDANTDejah. Patient came in via gurney. A/O x 3 telemetry monitor initiated. NSR on the monitor. Patient is on non-breather mask 15L, SpO2 96% at this moment. Belongings checked and signed by patient. Physical assessment done. Skin intact. IV lines noted. Under the care of Dr. Kahn. Call-light within reach. Bed is low and locked. Bed alarms is on. Will continue to monitor with plan of care.
[2020-01-29] MEDS ORDERED: Sodium Polystyrene Sulfonate Enema RECTAL ONE (22:00)
--- NOTE | 2020-01-29 23:40 | NUR ---
NURSE NOTES: Called to receive the order for new admission. Dr. Kahn requested to verify what medication patient is currently taking from the med reconciliation list. Asked patient and called patient's daughter to verify but they are not sure exactly who ordered or which pharmacist patient uses. Patient's daughter said she will get the list of medication tomorrow from patient's home and will contact us. aware and requested us to call him back after medication lists are verified.
[2020-01-30] VITALS: BP 118/45
[2020-01-30] MEDS ORDERED: Sodium Bicarbonate 50ml Carp IV SCH (01:45)
[2020-01-30] MEDS ORDERED: Sodium Polystyrene Sulfonate 15gm Powder ORAL SCH (01:45)
[2020-01-30 04:00] VITALS: BP 129/64
[2020-01-30 04:53] LABS: ANION GAP 11 mmol/L (5-15); BLOOD UREA NITROGEN 71 mg/dL (7-18); CALCIUM 7.4 MG/DL (8.5-10.1); CARBON DIOXIDE 23 MMOL/L (21-32); CHLORIDE 99 MMOL/L (98-107); CREATININE 3.7 MG/DL (0.55-1.30); POTASSIUM 4.9 MMOL/L (3.5-5.1); SODIUM 133 MMOL/L (136-145)
--- NOTE | 2020-01-30 06:05 | NUR ---
NURSE NOTES: Called , due to patient's EKG strip result, Atrial fibrillation with rapid ventricular response and Accelerated junctional rhythm with premature supraventricular complexes. Dr. Kahn aware and no order received. Patient Heart rate was fluctuant around 0530 and HR went up to 135. BP is 111/72. Will continue to monitor.
--- NOTE | 2020-01-30 07:20 | NUR ---
NURSE HAND-OFF REPORT: Important Events on Shift:[Cardiac rhythm, A-Fib-DR. Kahn aware] Patient Status: [Stable at this moment, but still tachy] Diet: [Cardiac diet] Pending Orders: [Med reconciliation] Pending Results/Labs:[] Pending MD notification:[Lab] Latest Vital Signs: Temperature 99.0 , Pulse 103 , B/P 129 /64 , Respiratory Rate 20 , O2 SAT 97 , Non-Rebreather, O2 Flow Rate 15.0 . Vital Sign Comment: [HR went up to 135 during my shift] EKG Rhythm: Sinus Tachycardia, A-Fib w/RVR, Accelerated Junctional rhythm with premature superventricular complexes Rhythm change?: Sonal ARIAS Notified?: Femi Pruitt MD Response: No order Latest Ware Fall Score: 60 Fall Risk: High Risk Safety Measures: Call light Within Reach, Bed Alarm Zone 2, Side Rails Side Rails x3, Bed position Low and Locked. Fall Precautions: Y Yellow Socks Yellow Gown Door Sign Patient Fall Education Report given to [Vladimir RN].
[2020-01-30 08:00] VITALS: BP 130/101
--- NOTE | 2020-01-30 08:10 | Consultation ---
History of Present Illness General Chief Complaint: Dyspnea/Respdistress Reason for Consultation: JOSH,hyperkalemia Present Illness HPI This is a 74 year old female with the past medical history of CHF, HTN and COPD presenting with 2-3 days of progressively worsening shortness of breath- patient denies any fevers, chest pain, lower extremity edema- note decreased PO Intake over the past 2-3 days. Labs on presentation notable for josh, hyperkalemia, lactic acidosis, leukocytosis chest xray concerning for multilobar pneumonia Allergies: Coded Allergies: No Known Allergies (Unverified , 05/19/13) Medication History Scheduled Amitriptyline Hcl* (Amitriptyline Hcl*), 100 MG ORAL BEDTIME, (Reported) Amlodipine Besylate (Norvasc), 10 MG ORAL DAILY, (Reported) Diltiazem Hcl* (Cardizem Cd*), 240 MG ORAL DAILY Duloxetine Hcl* (Cymbalta*), 60 MG ORAL DAILY, (Reported) Famotidine (Pepcid), 20 MG ORAL BEDTIME, (Reported) Gabapentin* (Gabapentin*), 600 MG ORAL THREE TIMES A DAY, (Reported) Lactose-Free Food (Ensure Liquid), 237 ML PO QD Levofloxacin* (Levaquin*), 500 MG ORAL DAILY Pregabalin* (Lyrica*), 75 MG ORAL BID, (Reported) Quetiapine Fumarate (Seroquel Xr), 300 MG ORAL HS, (Reported) Sumatriptan Succinate (Sumatriptan Succinate), 100 MG PO HS, (Reported) Trazodone* (Trazodone*), 300 MG ORAL BEDTIME, (Reported) Scheduled PRN Acetaminophen With Codeine (T#3) (Tylenol #3 Tab*), 1 TAB ORAL Q8H PRN for For Pain, (Reported) Hydrocodone Bit/Acetaminophen (Vicodin 5-300 Mg Tablet), TAB ORAL Q4H PRN for For Pain, (Reported) Hydrocodone Bit/Acetaminophen 5-325* ([place] 5-325 Tablet*), 1 TAB ORAL Q8HR PRN for FOR PAIN, (Reported) Prochlorperazine (Compazine*), 10 MG ORAL TID PRN for Nausea & Vomiting, ( Reported) Miscellaneous Medications Unable to Obtain Medications (Unable To Obtain Meds), (Reported) Patient History Healthcare decision maker Resuscitation status Advanced Directive on File Review of Systems Constitutional: Reports: chills Eye: Denies: no symptoms, see HPI, eye pain, blurred vision, tearing, double vision, nose pain, nose congestion, acuity changes, discharge, other ENT: Denies: no symptoms, see HPI, ear pain, ear discharge, nose pain, nose congestion, throat pain, throat swelling, mouth pain, hearing loss, nasal discharge, other Respiratory: Reports: cough, shortness of breath Cardiovascular: Denies: no symptoms, see HPI, chest pain, edema, palpitations, syncope, PND, other Gastrointestinal: Denies: no symptoms, see HPI, abdominal pain, constipation, diarrhea, nausea, vomiting, melena, hematemesis, other Genitourinary: Denies: no symptoms, see HPI, discharge, dysuria, frequency, hematuria, pain, retention, incontinence, urgency, vag bleed/dc, other Musculoskeletal: Denies: no symptoms, see HPI, back pain, gout, joint pain, joint swelling, muscle pain, muscle stiffness, other Psychiatric: Denies: no symptoms, see HPI, prior hx, anxiety, depressed feelings, emotional problems, SI, HI, hallucinations, other Neurological: Denies: no symptoms, see HPI, headache, numbness, paresthesia, seizure, tingling, tremors, focal weakness, syncope, dizziness, other Endocrine: Denies: no symptoms, see HPI, excessive sweating, flushing, intolerance to temperature, increased thirst, increased urine, unexplained weight loss, other Hematologic/Lymphatic: Denies: no symptoms, see HPI, anemia, blood clots, easy bleeding, easy bruising, swollen glands, diathesis, other Physical Exam General Appearance: no apparent distress Lines, tubes and drains: peripheral HEENT: normocephalic, atraumatic Neck: non-tender, normal alignment Respiratory/Chest: rhonchi - bilaterally Cardiovascular/Chest: normal peripheral pulses, normal rate, regular rhythm Abdomen: normal bowel sounds, non tender, soft Extremities: no edema Neurologic: alert, oriented x 3 Last 24 Hour Vital Signs Date Time Temp Pulse Resp B/P (MAP) Pulse Ox O2 Delivery O2 Flow Rate FiO2 01/30/20 04:00 99.0 103 129/64 (85) 97 01/30/20 04:00 15.0 01/30/20 04:00 Non-Rebreather 15.0 01/30/20 03:41 104 01/30/20 01:03 Non-Rebreather 15.0 01/30/20 00:00 97.9 96 118/45 (69) 97 01/29/20 23:27 94 01/29/20 21:45 97.9 95 114/54 (74) 96 01/29/20 21:33 98 01/29/20 21:16 98.0 98 20 108/50 97 Non-Rebreather 15.0 01/29/20 19:39 91 20 95 01/29/20 19:35 93 21 95 Non-Rebreather 15.0 100 92 22 92 01/29/20 19:30 90 18 100 Non-Rebreather 15.0 100 92 20 97 01/29/20 17:58 97.9 95 22 129/94 98 Non-Rebreather 15.0 01/29/20 17:58 95 22 Non-Rebreather 15.0 01/29/20 17:53 97.9 108 22 113/60 (77) 97 Non-Rebreather 15.0 Intake and Output 01/29/20 01/30/20 19:00 07:00 Intake Total 885 ml Output Total 0 ml 400 ml Balance 0 ml 485 ml Intake IV Total 885 ml Output Urine Total 0 ml 400 ml # Bowel Movements 2 Laboratory Tests Test 01/29/20 17:30 01/29/20 17:55 01/29/20 18:15 01/29/20 18:18 White Blood Count 24.4 K/UL (4.8-10.8) *H Red Blood Count 3.77 M/UL (4.20-5.40) L Hemoglobin 10.0 G/DL (12.0-16.0) L Hematocrit 32.3 % (37.0-47.0) L Mean Corpuscular Volume 85 FL (80-99) Mean Corpuscular Hemoglobin 26.4 PG (27.0-31.0) L Mean Corpuscular Hemoglobin Concent 30.9 G/DL (32.0-36.0) L Red Cell Distribution Width 18.3 % (11.6-14.8) H Platelet Count 285 K/UL (150-450) Mean Platelet Volume 6.0 FL (6.5-10.1) L Neutrophils (%) (Auto) % (45.0-75.0) Lymphocytes (%) (Auto) % (20.0-45.0) Monocytes (%) (Auto) % (1.0-10.0) Eosinophils (%) (Auto) % (0.0-3.0) Basophils (%) (Auto) % (0.0-2.0) Differential Total Cells Counted 100 Neutrophils % (Manual) 37 % (45-75) L Lymphocytes % (Manual) 32 % (20-45) Monocytes % (Manual) 5 % (1-10) Eosinophils % (Manual) 1 % (0-3) Basophils % (Manual) 0 % (0-2) Band Neutrophils 25 % (0-8) H Platelet Estimate Adequate Platelet Morphology Normal Polychromasia 1+ Hypochromasia 1+ Anisocytosis 1+ Prothrombin Time 10.7 SEC (9.30-11.50) Prothromb Time International Ratio 1.0 (0.9-1.1) Activated Partial Thromboplast Time 30 SEC (23-33) D-Dimer 2.74 mg/L FEU (0.00-0.49) H Sodium Level 129 MMOL/L (136-145) L Potassium Level 5.5 MMOL/L (3.5-5.1) H Chloride Level 95 MMOL/L (98-107) L Carbon Dioxide Level 16 MMOL/L (21-32) L Anion Gap 18 mmol/L (5-15) H Blood Urea Nitrogen 59 mg/dL (7-18) H Creatinine 3.8 MG/DL (0.55-1.30) H Estimat Glomerular Filtration Rate 14.1 mL/min (>60) Glucose Level 111 MG/DL (74-106) H Calcium Level 7.9 MG/DL (8.5-10.1) L Ferritin 93 NG/ML (8-388) Total Bilirubin 0.5 MG/DL (0.2-1.0) Aspartate Amino Transf (AST/SGOT) 32 U/L (15-37) Alanine Aminotransferase (ALT/SGPT) 17 U/L (12-78) Alkaline Phosphatase 165 U/L (46-116) H Troponin I 0.000 ng/mL (0.000-0.056) C-Reactive Protein, Quantitative 27.3 mg/dL (0.00-0.90) H Pro-B-Type Natriuretic Peptide 5250 pg/mL (0-125) H Total Protein 7.6 G/DL (6.4-8.2) Albumin 3.2 G/DL (3.4-5.0) L Globulin 4.4 g/dL Albumin/Globulin Ratio 0.7 (1.0-2.7) L Arterial Blood pH 7.206 (7.350-7.450) Arterial Blood Partial Pressure CO2 46.7 mmHg (35.0-45.0) H Arterial Blood Partial Pressure O2 78.4 mmHg (75.0-100.0) Arterial Blood HCO3 18.1 mmol/L (22.0-26.0) L Arterial Blood Oxygen Saturation 93.7 % (95-100) L Arterial Blood Base Excess -9.5 (-2-2) *L Moe Test Positive Erythrocyte Sedimentation Rate 48 MM/HR (0-30) H Lactic Acid Level 3.10 mmol/L (0.4-2.0) H POC Whole Blood Glucose 113 MG/DL (74-106) H Test 01/29/20 19:59 01/29/20 20:11 01/30/20 03:50 Urine Color Yellow Urine Appearance Very cloudy Urine pH 5 (4.5-8.0) Urine Specific [place] 1.015 (1.005-1.035) Urine Protein 1+ (NEGATIVE) H Urine Glucose (UA) Negative (NEGATIVE) Urine Ketones 1+ (NEGATIVE) H Urine Blood Negative (NEGATIVE) Urine Nitrite Negative (NEGATIVE) Urine Bilirubin Negative (NEGATIVE) Urine Urobilinogen Normal MG/DL (0.0-1.0) Urine Leukocyte Esterase 1+ (NEGATIVE) H Urine RBC 0-2 /HPF (0 - 2) Urine WBC 2-4 /HPF (0 - 2) Urine Squamous Epithelial Cells Moderate /LPF (NONE/OCC) H Urine Bacteria Many /HPF (NONE) H Lactic Acid Level 4.20 mmol/L (0.66-2.22) H Sodium Level 133 MMOL/L (136-145) L Potassium Level 4.9 MMOL/L (3.5-5.1) Chloride Level 99 MMOL/L (98-107) Carbon Dioxide Level 23 MMOL/L (21-32) Anion Gap 11 mmol/L (5-15) Blood Urea Nitrogen 71 mg/dL (7-18) H Creatinine 3.7 MG/DL (0.55-1.30) H Estimat Glomerular Filtration Rate 14.5 mL/min (>60) Glucose Level 157 MG/DL (74-106) H Calcium Level 7.4 MG/DL (8.5-10.1) L Phosphorus Level 5.6 MG/DL (2.5-4.9) H Magnesium Level 2.3 MG/DL (1.8-2.4) Microbiology Date/Time Source Procedure Growth Status 01/29/20 17:50 Nasopharynx SARS-CoV-2 RdRp Gene Assay - Final Complete Height (Feet): 5 Height (Inches): 5.00 Weight (Pounds): 210 Assessment/Plan Diagnosis [place] I: #JOSH on CKD- suspect pre-renal azotemia in the setting of sepsis, pneumonia and lactic acidosis #Hyperkalemia - improved #bilateral pneumonia #Lactic acidosis #leukocytosis #HTN #h/o CHF - s/p kayexalate and 1L NS with improvement of hyperk - continue gentle hydration given lactic acidosis - monitor lactic acid - antibiotcs per ID - amlodipine 10mg daily - diltiazem 60mg BID - check 2d echo - renal us - monitor renal parameter - avoid nephrotoxins - monitor UOP -monitor weight Time spent 70 min- Simin Carpio M.D. Jan 30, 2020 08:10
--- NOTE | 2020-01-30 10:00 | NUR ---
NURSE NOTES: Dr. Kahn at nurse station and made aware of WBC of 24.4 and no antibiotics at this time, Dr. Kahn acknowledged and will review and input antibiotics himself. Dr. Kahn also made aware of current ABG results of pH 7.206, pC02 46.7, pO2 70.4, HCO3 18.1, O2 saturation 93.7 and patient received one time dose of Sodium bicarbonate per Dr. Carpio, patient is on venturi mask 8 L FiO2 35% with SpO2 94% at this time and patient continuing to tolerated weaning. Dr. Kahn acknowledged and gave no new orders for regarding ABG results of today. Will continue to monitor patient.
--- NOTE | 2020-01-30 10:56 | NUR ---
*-* CASE MANAGEMENT INSURANCE INFORMATION *-* [employer] ([facility]) Ref# [id number] P: [phone] option 1 F: [phone] *-* NO CLINICALS HAVE BEEN FAXED THIS IS INSURANCE INFORMATION ONLY *-*
[2020-01-30 10:58] LABS: HEMATOCRIT 30.3 % (37.0-47.0); HEMOGLOBIN 9.8 G/DL (12.0-16.0); MEAN CORPUSCULAR VOLUME 84 FL (80-99); PLATELET COUNT 277 K/UL (150-450); RED BLOOD COUNT 3.62 M/UL (4.20-5.40); RED CELL DISTRIBUTION WIDTH 17.2 % (11.6-14.8)
[2020-01-30 11:02] LABS: WHITE BLOOD COUNT 23.4 K/UL (4.8-10.8)
[2020-01-30 11:09] LABS: ALANINE AMINOTRANSFERASE 24 U/L (12-78); ALBUMIN 2.9 G/DL (3.4-5.0); ALBUMIN/GLOBULIN RATIO 0.7 (1.0-2.7); ALKALINE PHOSPHATASE 165 U/L (46-116); ANION GAP 9 mmol/L (5-15); ASPARTATE AMINO TRANSFERASE 34 U/L (15-37); BILIRUBIN,TOTAL 0.5 MG/DL (0.2-1.0); BLOOD UREA NITROGEN 69 mg/dL (7-18); CALCIUM 7.6 MG/DL (8.5-10.1); CARBON DIOXIDE 25 MMOL/L (21-32); CHLORIDE 99 MMOL/L (98-107); CREATININE 2.7 MG/DL (0.55-1.30); POTASSIUM 4.4 MMOL/L (3.5-5.1); SODIUM 133 MMOL/L (136-145)
--- NOTE | 2020-01-30 11:20 | Diagnostic Imaging Report ---
Indication: Acute renal failure, abnormal renal function tests Technique: Grayscale and duplex images of the kidneys, retroperitoneum, and bladder were obtained. Comparison: none Findings: Right kidney measures 10.3 cm in length. Left kidney measures 10.3 cm in length. Both kidneys demonstrate normal echogenicity. No hydronephrosis. No focal abnormality. Normal inferior vena cava. Bladder is normal, calculated volume 257. Impression: negative.
--- NOTE | 2020-01-30 11:45 | Diagnostic Imaging Report ---
Indication: Bilateral leg pain. Bilateral leg edema Technique: Grayscale and duplex images of the bilateral lower extremity veins Comparison: Findings: Bilaterally, grayscale and duplex images demonstrate no evidence of intraluminal thrombus. Normal phasic Doppler waveforms, demonstrating normal augmentation response and no evidence of valvular insufficiency. Greater saphenous vein(s) and tibial veins are patent. Normal compressibility. Impression: Negative for evidence of lower extremity deep venous thrombosis bilaterally
[2020-01-30 12:00] VITALS: BP 145/65
[2020-01-30] MEDS: Solu-MEDROL 40mg Inj IVP SCH ×2 (12:02→17:10)
--- NOTE | 2020-01-30 12:29 | NUR ---
FORKLIFT TECHNICIAN NOTE SW met w/ pt to discuss manager social services concerns. Pt presents as cooperative. Pt resides w/ her son, Rj Agrawal at [address] [place] [address]. Pt uses a cane to ambulate. Pt reports her caregiver and son provide sufficient support at home. PT does not have AD/POA. Pt became emotional and teary during the communication. This SW encouraged pt to share her feelings that made her emotional. Pt states none. Pt denies abuse/neglect. PT reports she does not have any problem. Pt denies having mental health concern. SW provided brief support and validation. SW encouraged pt to verbalize her needs/concerns anytime. Pt verbalize understanding. SW to F/U as needed. Emergency contacts: Ada Green (daughter)/Rj Agrawal (son) [phone]
[2020-01-30] MEDS: dilTIAZem HCl 60mg tab ORAL SCH ×2 (13:26→17:10)
[2020-01-30] MEDS: Albuterol/Ipratropium 3ml neb HHN SCH ×2 (14:25→19:25)
--- NOTE | 2020-01-30 14:30 | NUR ---
NURSE NOTES: Called Dr. Kahn and read back list of medications faxed by patient's pharmacy. Dr. Kahn acknowledged and ordered to continue amlodipine besylate 10 mg PO daily, gabapentin 600 mg PO TID, hydrocodone-acetaminophen 5/325 mg PO Q8Hr PRN for pain, Amitriptyline Hcl 10 mg PO QHS and discontinue Fluticasone pro 50 mcg, discontinue Banophen 25 mg capsule PO QHS, discontinue Tramadol Hcl 50 mg PO q6-8hr PRN for moderate pain, discontinue Vitamin D 50,000 units PO one per week, discontinue zohydro Er 10 mg 1 tablet BID, and discontinue oseltamivir phos 75 mg PO daily. Orders entered, noted and carried out. Will continue to monitor patient.
--- NOTE | 2020-01-30 14:57 | Diagnostic Imaging Report ---
Indication: Shortness of breath Technique: One view of the chest Comparison: 05/14/2019 Findings: Interim development of bilateral infiltrates, right greater than left, most notably at the right lung base. Pleural spaces are clear. The heart size is upper limits normal. Impression: Bilateral infiltrates, likely multifocal pneumonia. Correlate with clinical findings.
[2020-01-30] MEDS ORDERED: HYDROcodone/Acetamin 5/325 tab ORAL PRN (15:00)
[2020-01-30] MEDS ORDERED: GABAPENTIN600 MG ORAL (15:03)
[2020-01-30] MEDS ORDERED: NORCO 5-325 TA1 EAC1 ORAL (15:03)
[2020-01-30] MEDS ORDERED: NORVASC10 MG ORAL (15:03)
--- NOTE | 2020-01-30 15:30 | NUR ---
NURSE NOTES: Called and spoke with Dr. Funes regarding patient converting to A-fib RVR HR 140 bpm and then converting back to sinus tachycardia HR 103 bpm pt denies chest pain or SOB, and patient has taken scheduled Diltiazem dose today. Dr. Funes acknowledged and gave no new orders at this time. Will continue to monitor patient.
--- NOTE | 2020-01-30 15:44 | NUR ---
CASE MANAGEMENT: REVIEW 74 YEAR OLD FEMALE PRESENTED TO ED FROM HOME CC: SOB X1 DAY SI: COPD . CHF . HYPOXIA . PNA T 97.9 HR 108 RR 22 BP 113/60 SAT 97% NON-REBREATHER FLOW RATE 15.0 WBC 23.4 H/H 9.8/30.3 NA 133 IS: AZITHROMYCIN IV X1 ZOSYN IV X1 SOLU MEDROL IV X1 NS IVF BOLUS X1 KAYEXALATE PO X1 SODIUM BICARB IV X1 PATIENT ADMITTED TO STEP DOWN UNIT 01/29/2020 DCP: PATIENT IS FROM HOME
--- NOTE | 2020-01-30 15:55 | NUR ---
INSURANCE REVIEWS/CLINICALS FAXED TO [facility] #[phone] [facility] FAX#[phone] REF# [id number]
[2020-01-30 16:00] VITALS: BP 132/64
--- NOTE | 2020-01-30 16:15 | History and Physical Report ---
DATE OF ADMISSION: 01/29/2020 HISTORY OF PRESENT ILLNESS: This is a 74-year-old female who was brought to the hospital from home by paramedics with shortness of breath. Patient has a history of COPD and CHF. She was given oxygen and she felt better. At this time, she denies chest pain. She seems to believe that she has lost her dentures. PAST MEDICAL HISTORY: Notable for COPD, previous CVA, hypertension, CHF. HOME MEDICATIONS: At this time are not known. Daughter states that she would be providing a list as soon as available. ALLERGIES: None reported. CODE STATUS: Full. SOCIAL HISTORY: Lives at home with family. Denies alcohol or tobacco use. PHYSICAL EXAMINATION: GENERAL: Reveals a 74-year-old female. HEENT: Unremarkable. CHEST: Shows diminished breath sounds bilaterally with normal heart sounds. ABDOMEN: Soft. EXTREMITIES: There is no edema. VITAL SIGNS: At this time, her O2 saturations are 97% on Ventimask, blood pressure 130/100, heart rate is 126. She is afebrile. LABORATORY AND DIAGNOSTIC DATA: Laboratory testing shows white count 24,000, hemoglobin of 10, platelet count is normal. Chemistries obtained yesterday showed creatinine 3.7, sodium 133. ABG shows pH 7.20, pCO2 46, pO2 of 78. Coags are notable for D-dimer of 2.74. Urinalysis negative. COVID-19 PCR is negative. Urine culture negative so far. X-ray chest obtained overnight shows right-sided infiltrate. IMPRESSION: 1. Right lung pneumonia. 2. COPD. 3. CHF. 4. Renal failure. 5. Metabolic acidosis. DISCUSSION: Patient needs bicarb supplementation. We will start broad-spectrum antibiotics, IV steroids, pulmonary hygiene, oxygen. We will follow carefully. We will also obtain list of home medications once available. Crow Kahn M.D. DR: PAULINE JOB#: [id number] CC:
[2020-01-30] MEDS: Sodium Citrate 30ml ORAL SCH (17:10)
[2020-01-30] MEDS: Lyrica 75mg cap ORAL SCH (17:12)
[2020-01-30] MEDS ORDERED: Azithromycin 500 MG in D5W 275 ML IV SCH (18:00)
[2020-01-30] MEDS ORDERED: cefTRIAXone 1 GM in D5W 55 ML IVPB SCH (18:00)
--- NOTE | 2020-01-30 19:16 | NUR ---
NURSE HAND-OFF REPORT: Important Events on Shift: Before end of shift patient c/o of new symptom stomach pain, abdomen palpated and noted soft to touch, pt c/o pain upon palpation. No GI consult at this time. Night nurse made aware. Patient Status: Stable Diet: Cardiac diet. Pending Orders: None Pending Results/Labs:None Pending MD notification:None at this time. Latest Vital Signs: Temperature 98.1 , Pulse 105 , B/P 132 /64 , Respiratory Rate 18 , O2 SAT 98 , Non-Rebreather, O2 Flow Rate 3.0 . Vital Sign Comment: Stable. EKG Rhythm: Sinus Tachycardia Rhythm change?: N MD Notified?: Sonal -Dr. Shantel ARIAS Response: No new orders at this time. Latest Ware Fall Score: 75 Fall Risk: High Risk Safety Measures: Call light Within Reach, Bed Alarm Zone 2, Side Rails Side Rails x2, Bed position Low and Locked. Fall Precautions: Yellow Socks Yellow Gown Door Sign Patient Fall Education Report given to DARLYN Patino.
--- NOTE | 2020-01-30 19:18 | NUR ---
NURSE NOTES: Report received from DARLYN Gilbert. Pt. Upon assessment pt is A/Ox3. Not oriented to purpose. Pt observed on 3L N/C saturating at 100% O2. 5-lead EKG shows Sinus Rhythm. IV on right forearm is patent and intact. Pt. asks for dentures and states that, "she lost it and it needs to be found here or at other hospital." No dentures found in room. Pt. observed to ambulate to bedside commode with assistance. Reminded pt. to utilize call light when needing assistance. Dr. Payne at bedside. No new orders. Bed placed in lowest and locked position. Bed alarm on. Will continue monitoring.
--- NOTE | 2020-01-30 19:50 | Infectious Diseases Prog Note ---
Assessment/Plan Assessment/Plan Full consult dictated: A) 1) possible sepsis, pna, leukocytosis, lactic acidosis, ? cap, ? aspiration pna (hx cva), sob, audra, covid-testing negative 2) pmh noted 3) allergies - nkda P) 1) zosyn and azithromycin 2) steroids 3) f/u on cultures, labs and chest x-ray 4) thank you Subjective Allergies: Coded Allergies: No Known Allergies (Unverified , 05/19/13) Objective Last 24 Hour Vital Signs Date Time Temp Pulse Resp B/P (MAP) Pulse Ox O2 Delivery O2 Flow Rate FiO2 01/30/20 19:25 105 18 96 Nasal Cannula 2.0 28 108 18 95 01/30/20 17:10 105 132/64 01/30/20 16:00 105 01/30/20 16:00 3.0 01/30/20 16:00 98.1 100 18 132/64 (86) 98 01/30/20 16:00 Non-Rebreather 15.0 01/30/20 14:28 121 20 98 Nasal Cannula 2.0 28 01/30/20 14:26 129 20 99 Nasal Cannula 2.0 28 121 20 97 01/30/20 14:13 140 01/30/20 13:26 101 145/65 01/30/20 12:00 98.1 100 145/65 (91) 95 01/30/20 12:00 Non-Rebreather 15.0 01/30/20 12:00 3.0 01/30/20 12:00 101 01/30/20 11:00 102 01/30/20 08:00 8.0 35 01/30/20 08:00 Non-Rebreather 15.0 01/30/20 08:00 98.1 132 130/101 (111) 97 01/30/20 08:00 125 01/30/20 04:00 99.0 103 129/64 (85) 97 01/30/20 04:00 15.0 01/30/20 04:00 Non-Rebreather 15.0 01/30/20 03:41 104 01/30/20 01:03 Non-Rebreather 15.0 01/30/20 00:00 97.9 96 118/45 (69) 97 01/29/20 23:27 94 01/29/20 21:45 97.9 95 114/54 (74) 96 01/29/20 21:33 98 01/29/20 21:16 98.0 98 20 108/50 97 Non-Rebreather 15.0 Height (Feet): 5 Height (Inches): 5.00 Weight (Pounds): 210 Microbiology Date/Time Source Procedure Growth Status 01/29/20 17:50 Nasopharynx SARS-CoV-2 RdRp Gene Assay - Final Complete 01/29/20 19:59 Urine,Clean Catch Urine Culture - Preliminary NO GROWTH Resulted Laboratory Tests Test 01/29/20 19:59 01/29/20 20:11 01/30/20 03:50 01/30/20 10:20 Urine Color Yellow Urine Appearance Very cloudy Urine pH 5 (4.5-8.0) Urine Specific [place] 1.015 (1.005-1.035) Urine Protein 1+ (NEGATIVE) H Urine Glucose (UA) Negative (NEGATIVE) Urine Ketones 1+ (NEGATIVE) H Urine Blood Negative (NEGATIVE) Urine Nitrite Negative (NEGATIVE) Urine Bilirubin Negative (NEGATIVE) Urine Urobilinogen Normal MG/DL (0.0-1.0) Urine Leukocyte Esterase 1+ (NEGATIVE) H Urine RBC 0-2 /HPF (0 - 2) Urine WBC 2-4 /HPF (0 - 2) Urine Squamous Epithelial Cells Moderate /LPF (NONE/OCC) H Urine Bacteria Many /HPF (NONE) H Lactic Acid Level 4.20 mmol/L (0.66-2.22) H 1.20 mmol/L (0.4-2.0) White Blood Count 23.4 K/UL (4.8-10.8) *H Red Blood Count 3.62 M/UL (4.20-5.40) L Hemoglobin 9.8 G/DL (12.0-16.0) L Hematocrit 30.3 % (37.0-47.0) L Mean Corpuscular Volume 84 FL (80-99) Mean Corpuscular Hemoglobin 27.1 PG (27.0-31.0) Mean Corpuscular Hemoglobin Concent 32.4 G/DL (32.0-36.0) Red Cell Distribution Width 17.2 % (11.6-14.8) H Platelet Count 277 K/UL (150-450) Mean Platelet Volume 5.3 FL (6.5-10.1) L Neutrophils (%) (Auto) % (45.0-75.0) Lymphocytes (%) (Auto) % (20.0-45.0) Monocytes (%) (Auto) % (1.0-10.0) Eosinophils (%) (Auto) % (0.0-3.0) Basophils (%) (Auto) % (0.0-2.0) Differential Total Cells Counted 100 Neutrophils % (Manual) 76 % (45-75) H Lymphocytes % (Manual) 7 % (20-45) L Monocytes % (Manual) 5 % (1-10) Eosinophils % (Manual) 0 % (0-3) Basophils % (Manual) 0 % (0-2) Band Neutrophils 12 % (0-8) H Platelet Estimate Adequate Platelet Morphology Normal Anisocytosis 1+ Sodium Level 133 MMOL/L (136-145) L 133 MMOL/L (136-145) L Potassium Level 4.9 MMOL/L (3.5-5.1) 4.4 MMOL/L (3.5-5.1) Chloride Level 99 MMOL/L (98-107) 99 MMOL/L (98-107) Carbon Dioxide Level 23 MMOL/L (21-32) 25 MMOL/L (21-32) Anion Gap 11 mmol/L (5-15) 9 mmol/L (5-15) Blood Urea Nitrogen 71 mg/dL (7-18) H 69 mg/dL (7-18) H Creatinine 3.7 MG/DL (0.55-1.30) H 2.7 MG/DL (0.55-1.30) H Estimat Glomerular Filtration Rate 14.5 mL/min (>60) 21.0 mL/min (>60) Glucose Level 157 MG/DL (74-106) H 137 MG/DL (74-106) H Calcium Level 7.4 MG/DL (8.5-10.1) L 7.6 MG/DL (8.5-10.1) L Phosphorus Level 5.6 MG/DL (2.5-4.9) H Magnesium Level 2.3 MG/DL (1.8-2.4) Total Bilirubin 0.5 MG/DL (0.2-1.0) Aspartate Amino Transf (AST/SGOT) 34 U/L (15-37) Alanine Aminotransferase (ALT/SGPT) 24 U/L (12-78) Alkaline Phosphatase 165 U/L (46-116) H Troponin I 0.000 ng/mL (0.000-0.056) Pro-B-Type Natriuretic Peptide 6531 pg/mL (0-125) H Total Protein 7.3 G/DL (6.4-8.2) Albumin 2.9 G/DL (3.4-5.0) L Globulin 4.4 g/dL Albumin/Globulin Ratio 0.7 (1.0-2.7) L Test 01/30/20 10:40 Urine Random Sodium 32 mmol/L (20-110) Urine Creatinine 128.5 MG/DL (30.0-125.0) H Current Medications Medications (Trade) Dose Ordered Sig/Bill Route PRN Reason Start Time Stop Time Status Last Admin Dose Admin Acetaminophen/ Hydrocodone Bitart ([place] 5/325) 1 tab Q8H PRN ORAL For Pain 01/30/20 15:00 02/06/20 14:59 Albuterol/ Ipratropium (Albuterol/ Ipratropium) 3 ml Q6HRT HHN 01/30/20 13:15 02/04/20 13:14 01/30/20 19:25 Amitriptyline HCl (Elavil) 10 mg BEDTIME ORAL 01/30/20 21:00 02/29/20 20:59 Amlodipine Besylate (Norvasc) 10 mg DAILY ORAL 01/31/20 09:00 03/01/20 08:59 Azithromycin 500 mg/Dextrose 275 ml @ 275 mls/hr Q24HRS IV 01/30/20 18:00 02/05/20 18:59 01/30/20 18:29 Ceftriaxone Sodium 1 gm/ Dextrose 55 ml @ 110 mls/hr Q24H IVPB 01/30/20 18:00 02/06/20 17:59 01/30/20 17:11 Diltiazem HCl (Cardizem Tab) 60 mg EVERY 6 HOURS ORAL 01/30/20 13:15 02/29/20 13:14 01/30/20 17:10 Gabapentin (Neurontin) 600 mg THREE TIMES A DAY ORAL 01/30/20 18:00 02/29/20 17:59 01/30/20 17:11 Heparin Sodium (Porcine) (Heparin 5000 units/ml) 5,000 units EVERY 12 HOURS SUBQ 01/30/20 21:00 03/15/20 20:59 Methylprednisolone Sodium Succinate (Solu-MEDROL) 40 mg EVERY 6 HOURS IVP 01/30/20 12:00 04/29/20 11:59 01/30/20 17:10 Pregabalin (Lyrica) 75 mg BID ORAL 01/30/20 18:00 02/29/20 17:59 01/30/20 17:12 Sodium Chloride 1,000 ml @ 75 mls/hr [id number] IV 01/30/20 08:15 02/29/20 08:14 01/30/20 08:15 Sodium Citrate (Bicitra) 30 ml BIAC ORAL 01/30/20 16:30 02/29/20 16:29 01/30/20 17:10 Cristina Rubin MD Jan 30, 2020 19:50
[2020-01-30 20:00] VITALS: BP 158/65
[2020-01-30] MEDS: Heparin 5000 units/ml inj SUBQ SCH (20:25)
--- NOTE | 2020-01-30 21:30 | Consultation ---
DATE OF CONSULTATION: 01/30/2020 INFECTIOUS DISEASE CONSULTATION CONSULTING PHYSICIAN: Cristina Rubin MD. ATTENDING PHYSICIAN: Crow Kahn MD. REFERRING PHYSICIAN: Crow Kahn MD. REASON FOR CONSULTATION: Pneumonia, sepsis, leukocytosis, lactic acidosis. CHIEF COMPLAINT: The patient's chief complaint coming into the hospital is COPD exacerbation. HISTORY OF PRESENT ILLNESS: This is a very pleasant 74-year-old female who comes to [facility] short of breath and hypoxic. The patient came in with COPD exacerbation. The patient had a white count up to 20,000, elevated lactic acid, and could be septic. Workup shows that she has a multifocal pneumonia. COVID testing was negative. Infectious Disease consultation is requested. She has been on azithromycin, Rocephin, and steroids. She is at risk for aspiration with history of CVA. We will change antibiotics to Zosyn and azithromycin for now. MAR was noted. Orders were noted. Notes and records were reviewed case was discussed with RN. REVIEW OF SYSTEMS: CONSTITUTIONAL: Her main issue is cough, congestion, shortness of breath, and COPD exacerbation. She has no fever, chills, or night sweats. HEAD AND NECK: No head pain or neck pain. CARDIAC: No chest pain. GASTROINTESTINAL: No nausea, vomiting, or diarrhea. GENITOURINARY: No dysuria or frequency. PULMONARY: She is short of breath, cough, and congestion. SKIN: No rash. NEUROLOGIC: No seizures. PAST MEDICAL HISTORY: The patient has a history of CVA, COPD, hypertension, and CHF. She also has renal failure. She has anemia. ALLERGIES: No known drug allergies. SOCIAL HISTORY: Negative for smoking, alcohol, and drug abuse. FAMILY HISTORY: Noncontributory. MEDICATIONS: Upon reviewing MAR, she is on following medications - amlodipine, heparin, amitriptyline, azithromycin, Rocephin, Lyrica, gabapentin, hydrocodone, methylprednisolone, diltiazem, sodium bicarbonate, sodium polystyrene, albuterol treatments, Zosyn, and azithromycin. I stopped the Rocephin. Outside medications noted and reconciliated. PHYSICAL EXAMINATION: VITAL SIGNS: Temperature 98.1, pulse rate 105, respiratory rate 18, and blood pressure 132/64. Saturation 95% on 2 liters. Pulse rate has been as high as 140. Respiratory rate has been as high as 22. GENERAL: Alert, weak, short of breath, responsive. HEAD AND NECK: Oral exam, no thrush. Eyes, no icterus. Normocephalic. Neck is supple. No JVD. HEART: Regular. No gallop or murmur. ABDOMEN: Soft. Positive bowel sounds. Nontender. LUNGS: Bilateral rhonchi and rales. SKIN: No rash. MUSCULOSKELETAL: No effusion. Legs without cellulitis. PERIPHERAL VASCULAR: No gangrene. GENITOURINARY: No Nguyen. LINE SITES: Without phlebitis. NEUROLOGIC: Intact, alert, responsive. LABORATORY DATA: White count 23.4, hemoglobin 9.8. White count on admission was 24.4. LFTs noted. UA - 2 to 4 white cells only. Urine culture negative. COVID testing negative by nucleic acid testing. Creatinine 2.7. Sedimentation rate 48. Cultures are pending. Sputum cultures obtained. Legionella and mycoplasma have also been ordered. The patient's lactic acid was elevated at 3.1 and also 4.2. IMAGING STUDIES: Chest x-ray with multifocal pneumonia, bilateral infiltrates, right greater than left, most likely in the right lung base. ASSESSMENT AND PLAN: 1. The patient has possible sepsis. The patient has elevated white count and elevated lactic acid, SIRS criteria. Most likely, the patient is septic. The patient has on chest x-ray pneumonia, multifocal pneumonia, right greater than left. COVID testing is negative. She could certainly have community-acquired pneumonia, but certainly with a history of CVA could be aspirating. She was on Rocephin and azithromycin, I favor changed the patient to Zosyn and azithromycin. This will cover for Streptococcus pneumoniae and also aspiration pathogens, gram negatives and also atypical pneumonia. Continue Zosyn and azithromycin for pneumonia. Check cultures, labs, and chest x-ray. Continue supportive care for sepsis. There is no diarrhea to suggest C. diff even though she was on antibiotics prior to admission. I believe she was on Levaquin per the medication reconciliation. Continue Zosyn and azithromycin for sepsis, pneumonia, and leukocytosis. Check cultures, labs, and chest x-ray. 2. Acute kidney injury, elevated creatinine. 3. Possible chronic renal failure. 4. Anemia. 5. COPD. 6. CVA. 7. Aspiration risk. 8. CHF. 9. Hypertension. 10. Blood pressure treatment per primary care team. 11. No known drug allergies. 12. Social history is negative. 13. Family history is noncontributory. 14. MAR was noted. 15. Case was discussed with RN. 16. Continue treatment per primary consultants. 17. JEROME care. Cristina Rubin M.D. DR: RIANA JOB#: [id number] CC:
[2020-01-31] VITALS (7 sets, daily range): BP systolic 140–170; BP diastolic 64–99
[2020-01-31] MEDS: Albuterol/Ipratropium 3ml neb HHN SCH ×4 (01:02→19:00)
[2020-01-31] MEDS: dilTIAZem HCl 60mg tab ORAL SCH ×4 (01:02→17:33)
[2020-01-31] MEDS: Solu-MEDROL 40mg Inj IVP SCH ×4 (01:02→17:33)
--- NOTE | 2020-01-31 02:00 | NUR ---
NURSE NOTES: Urine sample collected and sent to lab per [facility] orders.
[2020-01-31] MEDS: Sodium Citrate 30ml ORAL SCH (05:24)
[2020-01-31 05:31] LABS: HEMATOCRIT 29.9 % (37.0-47.0); HEMOGLOBIN 9.5 G/DL (12.0-16.0); MEAN CORPUSCULAR VOLUME 83 FL (80-99); PLATELET COUNT 297 K/UL (150-450); RED BLOOD COUNT 3.59 M/UL (4.20-5.40); RED CELL DISTRIBUTION WIDTH 17.9 % (11.6-14.8)
[2020-01-31 05:37] LABS: ANION GAP 13 mmol/L (5-15); BLOOD UREA NITROGEN 43 mg/dL (7-18); CALCIUM 8.3 MG/DL (8.5-10.1); CARBON DIOXIDE 24 MMOL/L (21-32); CHLORIDE 99 MMOL/L (98-107); CREATININE 1.3 MG/DL (0.55-1.30); POTASSIUM 3.1 MMOL/L (3.5-5.1); SODIUM 136 MMOL/L (136-145)
[2020-01-31 05:46] LABS: PHOSPHORUS 2.6 MG/DL (2.5-4.9)
[2020-01-31 05:56] LABS: WHITE BLOOD COUNT 30.8 K/UL (4.8-10.8)
--- NOTE | 2020-01-31 06:04 | NUR ---
NURSE NOTES: No episodes of respiratory or cardiac distress noted. Pt. attempts to ambulate to bathroom without assistance. Retaught pt to utilize call light when needing assistance to commode. Pt. refuses martha-wick and states she, "does not want to pee in bed." Will continue to monitor.
--- NOTE | 2020-01-31 06:30 | NUR ---
NURSE NOTES: WBC appears to be trending up to 30.8. Notified MD and awaiting call back orders.
--- NOTE | 2020-01-31 07:12 | NUR ---
NURSE NOTES: Received report from DARLYN Patino. Patient is resting in bed, in stable condition. No s/sx of SOB, breathing is even and unlabored. Bed is in lowest position, brakes engaged. Call light is kept within easy reach. Will continue to monitor patient.
--- NOTE | 2020-01-31 07:33 | NUR ---
NURSE HAND-OFF REPORT: Important Events on Shift: WBC elevated Patient Status: Stable Diet: CC Pending Orders: N/A Pending Results/Labs: N/A Pending MD notification: [facility] - WBC Latest Vital Signs: Temperature 98.1 , Pulse 83 , B/P 141 /64 , Respiratory Rate 16 , O2 SAT 94 , Non-Rebreather, O2 Flow Rate 2.0 . Vital Sign Comment: EKG Rhythm: Sinus Rhythm Rhythm change?: N Notified?: N MD Response: Latest Ware Fall Score: 75 Fall Risk: High Risk Safety Measures: Call light Within Reach, Bed Alarm Zone 2, Side Rails Side Rails x2, Bed position Low and Locked. Fall Precautions: Yellow Socks Yellow Gown Door Sign Patient Fall Education Report given to DARLYN Gilbert.
--- NOTE | 2020-01-31 08:00 | NUR ---
NURSE NOTES: Patient c/o bladder pain, performed bedside bladder scan which revealed 414 ml in bladder, potassium level also noted at 3.1, called and informed Dr. Carpio regarding assessments. Dr. Carpio acknowledged and ordered pastrana insertion for acute urinary retention, urinalysis, culture urine, potassium chloride 10 mEq IV x 4. Orders entered, noted, and carried out. Will continue to monitor patient.
[2020-01-31] MEDS: Lyrica 75mg cap ORAL SCH ×2 (08:07→17:32)
[2020-01-31] MEDS: Heparin 5000 units/ml inj SUBQ SCH ×2 (08:09→21:18)
[2020-01-31 09:28] LABS: BILIRUBIN, URINE NEGATIVE (NEGATIVE); COLOR,URINE PALE YELLOW; GLUCOSE, URINE (UA) NEGATIVE (NEGATIVE); KETONES,URINE NEGATIVE (NEGATIVE); LEUKOCYTE ESTERASE ,URINE NEGATIVE (NEGATIVE); NITRITE,URINE NEGATIVE (NEGATIVE); PH,URINE 6 (4.5-8.0); PROTEIN,URINE 2+ (NEGATIVE); UROBILINOGEN,URINE NORMAL MG/DL (0.0-1.0)
[2020-01-31 09:29] LABS: APPEARANCE,URINE CLEAR
[2020-01-31] MEDS ORDERED: D5W 275ml ONE (09:38)
[2020-01-31] MEDS ORDERED: Tubing IV Secondary IV ONE (09:38)
--- NOTE | 2020-01-31 10:26 | Nephrology Progress Note ---
Assessment/Plan Plan #JOSH on CKD- suspect pre-renal azotemia in the setting of sepsis, pneumonia and lactic acidosis #Hyperkalemia - improved #bilateral pneumonia #Lactic acidosis #leukocytosis #HTN #h/o CHF - DC IVF - replete K - monitor lactic acid - antibiotcs per ID - amlodipine 10mg daily - diltiazem 60mg BID - check 2d echo - renal us - monitor renal parameter - avoid nephrotoxins - monitor UOP -monitor weight Time spent 70 min- Subjective ROS Limited/Unobtainable: No Constitutional: Reports: weakness HEENT: Denies: no symptoms, eye pain, blurred vision, tearing, double vision, ear pain, ear discharge, nose pain, nose congestion, throat pain, throat swelling, mouth pain, mouth swelling, other Genitourinary: Denies: no symptoms, burning, discharge, frequency, flank pain, hematuria, incontinence, pain, urgency, other Neurologic/Psychiatric: Denies: no symptoms, anxiety, depressed, emotional problems, headache, numbness, paresthesia, pre-existing deficit, seizure, tingling, tremors, weakness, other Subjective renal function better breathing stable will DC IVF K low - repleted WBC uptrending Objective Objective Last 24 Hour Vital Signs Date Time Temp Pulse Resp B/P (MAP) Pulse Ox O2 Delivery O2 Flow Rate FiO2 01/31/20 08:08 95 162/95 01/31/20 08:00 3.0 01/31/20 08:00 Non-Rebreather 15.0 01/31/20 07:58 98.2 95 21 162/95 (117) 94 01/31/20 07:01 94 18 97 Nasal Cannula 2.0 28 90 18 93 01/31/20 07:00 94 Nasal Cannula 2.0 28 01/31/20 05:27 83 141/64 01/31/20 04:00 98.1 89 16 152/71 (98) 100 01/31/20 04:00 3.0 01/31/20 04:00 Non-Rebreather 15.0 01/31/20 03:30 87 01/31/20 01:14 87 16 95 Nasal Cannula 2.0 28 89 14 92 01/31/20 01:02 89 148/64 01/31/20 00:00 3.0 01/31/20 00:00 98.2 89 20 140/64 (89) 98 01/31/20 00:00 Non-Rebreather 15.0 01/30/20 23:27 84 01/30/20 20:00 3.0 01/30/20 20:00 98.2 95 20 158/65 (96) 98 01/30/20 20:00 Non-Rebreather 15.0 01/30/20 19:25 105 18 96 Nasal Cannula 2.0 28 108 18 95 01/30/20 19:00 102 01/30/20 17:10 105 132/64 01/30/20 16:00 105 01/30/20 16:00 3.0 01/30/20 16:00 98.1 100 18 132/64 (86) 98 01/30/20 16:00 Non-Rebreather 15.0 01/30/20 14:28 121 20 98 Nasal Cannula 2.0 28 01/30/20 14:26 129 20 99 Nasal Cannula 2.0 28 121 20 97 01/30/20 14:13 140 01/30/20 13:26 101 145/65 01/30/20 12:00 98.1 100 145/65 (91) 95 01/30/20 12:00 Non-Rebreather 15.0 01/30/20 12:00 3.0 01/30/20 12:00 101 01/30/20 11:00 102 Intake and Output 01/30/20 01/31/20 19:00 07:00 Intake Total 875 ml 491.6 ml Output Total 600 ml Balance 275 ml 491.6 ml Intake Oral 600 ml IV Total 275 ml 491.6 ml Output Urine Total 600 ml # Voids 3 # Bowel Movements 3 3 Laboratory Tests 01/30/20 10:40: Urine Random Sodium 32, Urine Creatinine 128.5H 01/31/20 02:00: Urine Legionella Antigen [Pending] 01/31/20 03:50: White Blood Count 30.8*H, Red Blood Count 3.59L, Hemoglobin 9.5L, Hematocrit 29.9L, Mean Corpuscular Volume 83, Mean Corpuscular Hemoglobin 26.5L, Mean Corpuscular Hemoglobin Concent 31.9L, Red Cell Distribution Width 17.9H, Platelet Count 297, Mean Platelet Volume 6.2L, Neutrophils (%) (Auto) , Lymphocytes (%) (Auto) , Monocytes (%) (Auto) , Eosinophils (%) (Auto) , Basophils (%) (Auto) , Neutrophils % (Manual) [Pending], Lymphocytes % (Manual) [Pending], Platelet Estimate [Pending], Platelet Morphology [Pending], Sodium Level 136, Potassium Level 3.1L, Chloride Level 99, Carbon Dioxide Level 24, Anion Gap 13, Blood Urea Nitrogen 43H, Creatinine 1.3#, Estimat Glomerular Filtration Rate 48.6, Glucose Level 177H, Calcium Level 8.3L, Phosphorus Level 2.6, Magnesium Level 2.7H, Mycoplasma pneumoniae IgG Antibody [Pending], Mycoplasma pneumoniae IgM Ab Titer [Pending] 01/31/20 09:00: Urine Color Pale yellow, Urine Appearance Clear, Urine pH 6, Urine Specific [place] 1.010, Urine Protein 2+H, Urine Glucose (UA) Negative, Urine Ketones Negative, Urine Blood 2+H, Urine Nitrite Negative, Urine Bilirubin Negative, Urine Urobilinogen Normal, Urine Leukocyte Esterase Negative, Urine RBC 2-4H, Urine WBC 0-2, Urine Squamous Epithelial Cells Few, Urine Bacteria Occasional Height (Feet): 5 Height (Inches): 5.00 Weight (Pounds): 204 General Appearance: no apparent distress EENT: PERRL/EOMI, normal ENT inspection Neck: non-tender, normal alignment, supple Cardiovascular: normal peripheral pulses, normal rate, regular rhythm Respiratory/Chest: chest wall non-tender, lungs clear, normal breath sounds Abdomen: normal bowel sounds, non tender, soft Extremities: non-tender Simin Carpio M.D. Jan 31, 2020 10:26
--- NOTE | 2020-01-31 10:53 | NUR ---
NURSE NOTES: Dr. Kahn seen and examined patient at bedside. Informed MD that patient is c/o stomach pain, pt states takes colace [address] Kahn acknowledged and ordered to start patient on colace 200 mg PO BID. Informed Dr. Kahn that pastrana catheter was inserted per Dr. Carpio for retention of 414 ml per bladder scan and urinalysis and culture urine was taken. Per Dr. Smiley will put Dr. Schneider on the case regarding retention. Also made MD aware that patient's D-dimer is elevated at this time at 2.74. patient is on heparin 5,000 units SQ BID and venous duplex of lower extremities were negative for DVT. Dr. Kahn acknowledged and gave no new orders at this time. Dr. Kahn ordered to transfer patient to Telemetry, informed Dr. Kahn that patient goes into Atrial fibrillation from time to time, patient is currently sinus tachycardia at this time with HR [address] Kahn acknowledged and stated okay to go to Telemetry. Noted. Orders entered, noted, and carried out. Will continue to monitor patient.
--- NOTE | 2020-01-31 10:55 | NUR ---
NURSE NOTES: Dr. Kahn at patient bedside, made aware that patient's legs are currently weak to walk, Dr. Kahn acknowledged and ordered physical therapy for evaluation. Order entered, noted, and carried out. Will continue to monitor patient.
--- NOTE | 2020-01-31 11:40 | Cardiology Progress Note ---
Subjective DATE OF SERVICE: Jan 30, 2020 Has episodes of rapid AFib SOB at times. No CP. WBC elevated; abx broadened by PCP. Objective 132/64 121 20 Afebrile HEENT: normal ENT inspection RHYTHM: ST, Afib LUNGS: diminished breath sounds, bilateral rhonchi CARDIAC: normal S1 and S2, irregularly irregular, tachycardia ABDOMEN: normal bowel sounds, non tender, soft, no organomegaly EXTREMITIES: non-tender, No edema Microbiology Date/Time Source Procedure Growth Status 01/29/20 18:05 Blood Blood Culture - Preliminary NO GROWTH AFTER 24 HOURS Resulted 01/29/20 17:45 Blood Blood Culture - Preliminary NO GROWTH AFTER 24 HOURS Resulted 01/30/20 13:30 Sputum Gram Stain - Final Resulted 01/30/20 13:30 Sputum Sputum Culture Pending Resulted 01/29/20 17:50 Nasopharynx SARS-CoV-2 RdRp Gene Assay - Final Complete 01/29/20 19:59 Urine,Clean Catch Urine Culture - Preliminary Gram Negative Bacillus 1 Resulted Assessment/Plan Assessment/Plan Condition Critical; prognosis guarded Paroxysmal Atrial Fibrillation SInus tachycardia Sepsis Lactic acidosis Acute myocardial ischemia Pneumonia Hx CVA Acute renal failure Adjust IVF Antimicrobials Respiratory hygiene Titrate diltiazem Monitor cardiac rhythm Replace K+/Mg++ as needed Serial lactic acid levels Jr Funes MD Jan 31, 2020 11:40
--- NOTE | 2020-01-31 13:06 | NUR ---
NURSE NOTES: DaughterAda, brought in patient's black Iphone and director digital strategy at bedside so they may facetime patient, belonging list updated. Items placed at patient bedside with belongings. Noted.
--- NOTE | 2020-01-31 13:45 | NUR ---
NURSE NOTES: Called Dr. Rubin office to follow up regarding new WBC level of 30.8 today. Per special education secretary doctor is in a meeting at this and will be informed when he is out. Noted. Will continue to monitor patient.
--- NOTE | 2020-01-31 13:46 | NUR ---
CASE MANAGEMENT: REVIEW 01/31/2020 SI:Pneumonia. Acute myocardial ischemia. VS: T 98.2 HR 78 RR 21 B/P 154/73 SATS 94% ON 15L/NRB LABS: WBC 30.8 K 3.1 BUN 43 GLU 177 CA 8.3 MG 2.7 IS:SOLU MEDROL IV Q6H CARDIZEM PO Q6H ZOSYN IV Q8H ELAVIL PO QHS LYRICA PO BID NORVASC PO QD AZITHROMYCIN IV Q24H SDU PLAN OF CARE: Adjust IVF >> DC IVF Continue Antimicrobials Respiratory hygiene Titrate diltiazem Replace electrolytes as needed Serial lactic acid levels pt eval
--- NOTE | 2020-01-31 14:01 | NUR ---
INSURANCE REVIEW AND 01/30 PROGRESS NOTES FAXED TO [employer] #[phone] [employer] FAX#[phone]
--- NOTE | 2020-01-31 14:05 | NUR ---
PT NOTE Received MD order for PT evaluation, medical record reviewed. Attempted to see patient for PT evaluation. Patient declining to participate with PT evaluation, appears confused. Explained to patient importance and benefits of OOB activities with PT however patient continued to decline. Vladimir SANTIZO notified, will follow up tomorrow.
--- NOTE | 2020-01-31 14:33 | NUR ---
NURSE NOTES: Dr. Rubin called back nurse station, made aware of current WBC level of 30.8 and current antibiotic therapy, no diarrhea, no fever. Dr. Espinal acknowledged and ordered CBC and CMP tomorrow morning. Orders entered, noted, and carried out. Will continue to monitor patient.
--- NOTE | 2020-01-31 14:50 | NUR ---
NURSE NOTES: Informed patient her dentures are with her daughter, Davy; , at home. Per Davy has a visual confirmation of dentures. Patient acknowledged and also informed daughter Ada. Noted. Charge nurse made aware. Will continue to monitor patient.
--- NOTE | 2020-01-31 16:36 | NUR ---
TRANSFER TO FLOOR: Patient transferred to Telemetry RM 212-2, per Dr. Kahn. Report given to DARLYN Leonard. Belongings and medications given to DARLYN Leonard. Family informed of transfer.
--- NOTE | 2020-01-31 16:59 | NUR ---
NURSE NOTES: Received report from DARLYN Gilbert. Pt transferred from SDU to Tele. Pt A/O x3, denies any pain, no s/sx of acute distress, breathing even and unlabored in 3L NC. IV sites patent and asymptomatic. Nguyen cath draining well on gravity. Bed on lowest position, call light within reach. Will continue plan of care.
--- NOTE | 2020-01-31 17:23 | Pulmonology Progress Note ---
Subjective ROS Limited/Unobtainable: No Interval Events: Feeling better Constitutional: Reports: no symptoms HEENT: Repors: no symptoms Respiratory: Reports: no symptoms Cardiovascular: Reports: no symptoms Gastrointestinal/Abdominal: Reports: no symptoms Allergies: Coded Allergies: No Known Allergies (Unverified , 05/19/13) Objective Last 24 Hour Vital Signs Date Time Temp Pulse Resp B/P (MAP) Pulse Ox O2 Delivery O2 Flow Rate FiO2 01/31/20 16:00 98.2 102 20 140/99 (113) 94 01/31/20 16:00 3.0 01/31/20 16:00 Non-Rebreather 15.0 01/31/20 16:00 95 01/31/20 12:33 86 18 99 Nasal Cannula 2.0 28 90 22 96 01/31/20 12:15 78 154/73 01/31/20 12:00 Non-Rebreather 15.0 01/31/20 12:00 88 01/31/20 12:00 3.0 01/31/20 12:00 98.2 78 21 154/73 (100) 94 01/31/20 10:00 Non-Rebreather 15.0 01/31/20 08:08 95 162/95 01/31/20 08:00 3.0 01/31/20 08:00 Non-Rebreather 15.0 01/31/20 08:00 97 01/31/20 07:58 98.2 95 21 162/95 (117) 94 01/31/20 07:01 94 18 97 Nasal Cannula 2.0 28 90 18 93 01/31/20 07:00 94 Nasal Cannula 2.0 28 01/31/20 05:27 83 141/64 01/31/20 04:00 98.1 89 16 152/71 (98) 100 01/31/20 04:00 3.0 01/31/20 04:00 Non-Rebreather 15.0 01/31/20 03:30 87 01/31/20 01:14 87 16 95 Nasal Cannula 2.0 28 89 14 92 01/31/20 01:02 89 148/64 01/31/20 00:00 3.0 01/31/20 00:00 98.2 89 20 140/64 (89) 98 01/31/20 00:00 Non-Rebreather 15.0 01/30/20 23:27 84 01/30/20 20:00 3.0 01/30/20 20:00 98.2 95 20 158/65 (96) 98 01/30/20 20:00 Non-Rebreather 15.0 01/30/20 19:25 105 18 96 Nasal Cannula 2.0 28 108 18 95 01/30/20 19:00 102 Intake and Output 01/30/20 01/31/20 19:00 07:00 Intake Total 875 ml 491.6 ml Output Total 600 ml Balance 275 ml 491.6 ml Intake Oral 600 ml IV Total 275 ml 491.6 ml Output Urine Total 600 ml # Voids 3 # Bowel Movements 3 3 General Appearance: no acute distress HEENT: normocephalic Respiratory: chest wall non-tender, lungs clear Cardiovascular: normal peripheral pulses Abdomen: normal bowel sounds Microbiology Date/Time Source Procedure Growth Status 01/29/20 18:05 Blood Blood Culture - Preliminary NO GROWTH AFTER 24 HOURS Resulted 01/29/20 17:45 Blood Blood Culture - Preliminary NO GROWTH AFTER 24 HOURS Resulted 01/30/20 13:30 Sputum Gram Stain - Final Resulted 01/30/20 13:30 Sputum Sputum Culture Pending Resulted 01/29/20 17:50 Nasopharynx SARS-CoV-2 RdRp Gene Assay - Final Complete 01/29/20 19:59 Urine,Clean Catch Urine Culture - Preliminary Gram Negative Bacillus 1 Resulted Laboratory Tests 01/31/20 02:00: Urine Legionella Antigen [Pending] 01/31/20 03:50: White Blood Count 30.8*H, Red Blood Count 3.59L, Hemoglobin 9.5L, Hematocrit 29.9L, Mean Corpuscular Volume 83, Mean Corpuscular Hemoglobin 26.5L, Mean Corpuscular Hemoglobin Concent 31.9L, Red Cell Distribution Width 17.9H, Platelet Count 297, Mean Platelet Volume 6.2L, Neutrophils (%) (Auto) , Lymphocytes (%) (Auto) , Monocytes (%) (Auto) , Eosinophils (%) (Auto) , Basophils (%) (Auto) , Differential Total Cells Counted 100, Neutrophils % ( Manual) 81H, Lymphocytes % (Manual) 1L, Monocytes % (Manual) 5, Eosinophils % ( Manual) 0, Basophils % (Manual) 0, Band Neutrophils 13H, Platelet Estimate Adequate, Platelet Morphology Normal, Anisocytosis 1+, Sodium Level 136, Potassium Level 3.1L, Chloride Level 99, Carbon Dioxide Level 24, Anion Gap 13, Blood Urea Nitrogen 43H, Creatinine 1.3#, Estimat Glomerular Filtration Rate 48.6, Glucose Level 177H, Calcium Level 8.3L, Phosphorus Level 2.6, Magnesium Level 2.7H, Mycoplasma pneumoniae IgG Antibody [Pending], Mycoplasma pneumoniae IgM Ab Titer [Pending] 01/31/20 09:00: Urine Color Pale yellow, Urine Appearance Clear, Urine pH 6, Urine Specific [place] 1.010, Urine Protein 2+H, Urine Glucose (UA) Negative, Urine Ketones Negative, Urine Blood 2+H, Urine Nitrite Negative, Urine Bilirubin Negative, Urine Urobilinogen Normal, Urine Leukocyte Esterase Negative, Urine RBC 2-4H, Urine WBC 0-2, Urine Squamous Epithelial Cells Few, Urine Bacteria Occasional Current Medications Medications (Trade) Dose Ordered Sig/Bill Route PRN Reason Start Time Stop Time Status Last Admin Dose Admin Acetaminophen/ Hydrocodone Bitart ([place] 5/325) 1 tab Q8H PRN ORAL For Pain 01/31/20 16:37 02/07/20 16:36 Albuterol/ Ipratropium (Albuterol/ Ipratropium) 3 ml Q6HRT HHN 01/31/20 19:00 02/04/20 13:14 Amitriptyline HCl (Elavil) 10 mg BEDTIME ORAL 01/31/20 21:00 02/29/20 20:59 Amlodipine Besylate (Norvasc) 10 mg DAILY ORAL 02/01/20 09:00 03/01/20 08:59 Azithromycin 500 mg/Dextrose 275 ml @ 275 mls/hr Q24HRS IV 01/31/20 18:00 02/05/20 18:59 Diltiazem HCl (Cardizem Tab) 60 mg EVERY 6 HOURS ORAL 01/31/20 18:00 02/29/20 13:14 Docusate Sodium (Colace) 200 mg TWICE A DAY ORAL 01/31/20 18:00 03/01/20 17:59 Gabapentin (Neurontin) 600 mg THREE TIMES A DAY ORAL 01/31/20 18:00 02/29/20 17:59 Heparin Sodium (Porcine) (Heparin 5000 units/ml) 5,000 units EVERY 12 HOURS SUBQ 8/13/20 21:00 03/15/20 20:59 Methylprednisolone Sodium Succinate (Solu-MEDROL) 40 mg EVERY 6 HOURS IVP 01/31/20 18:00 04/29/20 11:59 Piperacillin Sod/ Tazobactam Sod 3.375 gm/Dextrose 110 ml @ 27.5 mls/hr EVERY 8 HOURS IVPB 01/31/20 22:00 02/05/20 21:59 Pregabalin (Lyrica) 75 mg BID ORAL 01/31/20 18:00 02/29/20 17:59 Sodium Citrate (Bicitra) 30 ml BIAC ORAL 02/01/20 06:30 02/29/20 16:29 Assessment/Plan Assessment/Plan IMPRESSION: 1. Right lung pneumonia. 2. COPD. 3. CHF. 4. Renal failure. 5. Metabolic acidosis. DISCUSSION: Continue bicarb supplementation. Continue broad-spectrum antibiotics, IV steroids, pulmonary hygiene, oxygen. I will follow carefully. Will consult urology Crow Kahn M.D. Crow Kahn MD Jan 31, 2020 17:23
[2020-01-31] MEDS: Azithromycin 500 MG in D5W 275 ML IV SCH (17:32)
[2020-01-31] MEDS: Docusate 100mg cap ORAL SCH (17:33)
[2020-01-31] MEDS ORDERED: Docusate 100mg cap ORAL SCH (18:00)
--- NOTE | 2020-01-31 18:00 | NUR ---
NURSE NOTES: Before starting azithromycin, IV site on right hand was checked and flushed, and it was patent and asymptomatic. After about 3 mins, pt started calling saying that her hand is swollen because of the medication. Right hand checked and it was mildly swollen and IV was a little pulled out. DC'd the IV site on R hand. Elevated the hand for few mins and swelling is gone. Tried to move the abx to the other IV site, it was running okay. After few minutes, pt is saying that it hurts and tried to pull the IV out. Explained the benefits of med to the pt, pt insisted to refuse half dose of the medication.
[2020-01-31] MEDS ORDERED: BUPRENORPHINE HC2 MG SL (18:10)
[2020-01-31] MEDS ORDERED: AMITRIPTYLINE H10 MG ORAL (18:10)
[2020-01-31] MEDS ORDERED: TRAMADOL HCL50 MG ORAL (18:10)
[2020-01-31] MEDS ORDERED: ZOHYDRO ER10 M1 PO (18:10)
[2020-01-31] MEDS ORDERED: [UNRECOGNIZED DRUG - OTHER] PO (18:10)
[2020-01-31] MEDS ORDERED: VITAMIN D3250 MCG PO (18:10)
[2020-01-31] MEDS ORDERED: BANOPHEN25 MG PO (18:10)
[2020-01-31] MEDS ORDERED: FLUTICASONE PRO16 G1 NASAL (18:10)
--- NOTE | 2020-01-31 18:25 | NUR ---
NURSE NOTES: Pt is very anxious. Therapeutic communication performed.
--- NOTE | 2020-01-31 19:21 | NUR ---
NURSE NOTES: Dr Funes made aware that pt had an episode of paroxysmal rapid a-fib. MD asked if pt received potassium, informed MD that pt had it at SDU. No new orders.
--- NOTE | 2020-01-31 19:30 | NUR ---
NURSE NOTES: Received report from DARLYN Cyr. Alert/ oriented x3, able to make needs known. On O2 via NC at 3L/min, sating 95%, no resp distress noted. Continue on cardiac monitoring. IV in place & patent on left antecubital area, no s/s infiltration noted. Nguyen cath in place draining to gravity yellow urine. No c/o pain. Bed in low position and locked. Side rails up x2, bed alarm on. Call light with in reach.
--- NOTE | 2020-01-31 19:50 | NUR ---
NURSE NOTES: Informed DR. Langford of pts BP of 170/79 and that pt is bed anxious and crying. Awaiting call back. Will continue to monitor.
--- NOTE | 2020-01-31 19:54 | NUR ---
NURSE HAND-OFF REPORT: Important Events on Shift: Pt is very anxious and refused to finish IV med. Dr Funes made aware that pt had an episode of paroxysmal rapid a-fib, no new orders. Patient Status: stable Diet: cardiac Pending Orders: labs tomorrow Pending Results/Labs: Pending MD notification: Latest Vital Signs: Temperature 98.2 , Pulse 95 , B/P 140 /99 , Respiratory Rate 20 , O2 SAT 94 , Non-Rebreather, O2 Flow Rate 3.0 . Vital Sign Comment: EKG Rhythm: Sinus Tachycardia Rhythm change?: N MD Notified?: MD Response: Latest Ware Fall Score: 75 Fall Risk: High Risk Safety Measures: Call light Within Reach, Bed Alarm Zone 2, Side Rails Side Rails x2, Bed position Low and Locked. Fall Precautions: Yellow Socks Yellow Gown Door Sign Patient Fall Education Report given to DARLYN Luna and DARLYN Mclaughlin
--- NOTE | 2020-01-31 20:40 | NUR ---
NURSE NOTES: Informed Dr. Funes of bp 170/79 and HR rate range from 130 to 170. Also informed that pt is anxious, awaiting call back.
[2020-01-31] MEDS ORDERED: Tamsulosin 0.4mg cap ORAL SCH (21:00)
[2020-01-31] MEDS: Piperacillin/Tazobactam 3.375 GM in D5W 110 ML IVPB SCH (21:39)
--- NOTE | 2020-01-31 22:00 | Consultation ---
DATE OF CONSULTATION: 01/31/2020 CONSULTING PHYSICIAN: Brian Schneider MD. REFERRING PHYSICIAN: Crow Kahn MD. REASON FOR CONSULTATION: Evaluation of urinary retention. HISTORY OF PRESENT ILLNESS: This is a 74-year-old female. She was originally admitted to the hospital because of shortness of breath. She has a history of COPD and CHF. She was noted to be in acute kidney injury. She was noted to be in urinary retention. Nguyen catheter has been placed. Urology evaluation requested. The patient denies previous bladder surgery. PAST MEDICAL HISTORY: Significant for above also COPD, hypertension, CVA, and CHF. PAST SURGICAL HISTORY: Unknown. MEDICATIONS: Current medications in the hospital was reviewed. ALLERGIES: No known drug allergies. SOCIAL HISTORY: She is a nonsmoker. REVIEW OF SYSTEMS: As above. PHYSICAL EXAMINATION: GENERAL: She is an elderly female, well-developed, well-nourished, no acute distress. VITAL SIGNS: Temperature is 98.2, blood pressure 140/99, pulse is 95, respirations 20. HEENT: Normocephalic. NECK: Supple. ABDOMEN: Soft. BACK: No CVA tenderness. Nguyen catheter is in place. Urine is grossly yellow. LABORATORY DATA: UA showed 2+ protein, 2 to 4 rbc's. Admission UA showed many bacteria. Urine cultures growing gram-negative bacilli. Blood cultures are negative so far. White count is 30.8, hemoglobin 9.5, platelets 297. BUN is 43, creatinine is 1.3. On admission, her creatinine was 3.8. DIAGNOSTIC IMAGING STUDIES: The patient had a renal ultrasound, which did not show hydronephrosis. IMPRESSION: 1. Urinary retention. 2. Probable neurogenic bladder. 3. Acute kidney injury, which is improved. 4. Urinary tract infection. 5. Hematuria. 6. Proteinuria. PLAN AND DISCUSSION: Again, the Nguyen catheter is in place. Her acute kidney injury improved. She is on antibiotics as ordered. We will follow up on the final results of urine culture and adjust accordingly. I did look through her medication list, she is on Elavil, which may have some anticholinergic effects of urinary retention side effect. At this time, I will add Flomax 0.4 mg at bedtime with voiding trial in a day or two and go from there. At some point, she will need to have cystoscopy to evaluate the lower urinary tract. Brian Schneider M.D. DR: Adore JOB#: [id number] CC:
[2020-02-01] VITALS (7 sets, daily range): BP systolic 126–165; BP diastolic 60–81
[2020-02-01] MEDS: Solu-MEDROL 40mg Inj IVP SCH ×4 (00:09→17:10)
[2020-02-01] MEDS: dilTIAZem HCl 60mg tab ORAL SCH (00:09)
[2020-02-01] MEDS: Albuterol/Ipratropium 3ml neb HHN SCH ×4 (00:54→19:39)
--- NOTE | 2020-02-01 02:01 | Cardiology Progress Note ---
Subjective DATE OF SERVICE: Jan 31, 2020 Has short episodes of rapid AFib SOB at times. No CP. WBC elevated - on steroids; abx broadened yesterday. Low potassium noted. BP elevated Needs therapy for urinary retention - per urology Objective Last 24 Hour Vital Signs Date Time Temp Pulse Resp B/P (MAP) Pulse Ox O2 Delivery O2 Flow Rate FiO2 02/01/20 00:54 116 20 96 Nasal Cannula 3.0 32 114 20 92 02/01/20 00:09 100 158/82 02/01/20 00:00 3.0 02/01/20 00:00 95 02/01/20 00:00 96.9 92 18 148/81 (103) 97 01/31/20 22:15 99 160/71 (100) 01/31/20 20:00 97.2 118 19 170/99 (122) 99 01/31/20 20:00 3.0 01/31/20 20:00 106 01/31/20 20:00 Nasal Cannula 3.0 01/31/20 19:32 112 20 97 Nasal Cannula 3.0 32 110 20 94 01/31/20 19:32 94 Nasal Cannula 3.0 32 01/31/20 17:33 95 140/99 01/31/20 16:00 98.2 102 20 140/99 (113) 94 01/31/20 16:00 3.0 01/31/20 16:00 Non-Rebreather 15.0 01/31/20 16:00 95 01/31/20 12:33 86 18 99 Nasal Cannula 2.0 28 90 22 96 01/31/20 12:15 78 154/73 01/31/20 12:00 Non-Rebreather 15.0 01/31/20 12:00 88 01/31/20 12:00 3.0 01/31/20 12:00 98.2 78 21 154/73 (100) 94 01/31/20 10:00 Non-Rebreather 15.0 01/31/20 08:08 95 162/95 01/31/20 08:00 3.0 01/31/20 08:00 Non-Rebreather 15.0 01/31/20 08:00 97 01/31/20 07:58 98.2 95 21 162/95 (117) 94 01/31/20 07:01 94 18 97 Nasal Cannula 2.0 28 90 18 93 01/31/20 07:00 94 Nasal Cannula 2.0 28 01/31/20 05:27 83 141/64 01/31/20 04:00 98.1 89 16 152/71 (98) 100 01/31/20 04:00 3.0 01/31/20 04:00 Non-Rebreather 15.0 01/31/20 03:30 87 HEENT: normal ENT inspection RHYTHM: ST, Afib LUNGS: diminished breath sounds, bilateral rhonchi CARDIAC: normal S1 and S2, irregularly irregular, tachycardia ABDOMEN: normal bowel sounds, non tender, soft, no organomegaly EXTREMITIES: non-tender, No edema Laboratory Tests Test 01/31/20 02:00 01/31/20 03:50 01/31/20 09:00 Urine Legionella Antigen Pending White Blood Count 30.8 K/UL (4.8-10.8) *H Red Blood Count 3.59 M/UL (4.20-5.40) L Hemoglobin 9.5 G/DL (12.0-16.0) L Hematocrit 29.9 % (37.0-47.0) L Mean Corpuscular Volume 83 FL (80-99) Mean Corpuscular Hemoglobin 26.5 PG (27.0-31.0) L Mean Corpuscular Hemoglobin Concent 31.9 G/DL (32.0-36.0) L Red Cell Distribution Width 17.9 % (11.6-14.8) H Platelet Count 297 K/UL (150-450) Mean Platelet Volume 6.2 FL (6.5-10.1) L Neutrophils (%) (Auto) % (45.0-75.0) Lymphocytes (%) (Auto) % (20.0-45.0) Monocytes (%) (Auto) % (1.0-10.0) Eosinophils (%) (Auto) % (0.0-3.0) Basophils (%) (Auto) % (0.0-2.0) Differential Total Cells Counted 100 Neutrophils % (Manual) 81 % (45-75) H Lymphocytes % (Manual) 1 % (20-45) L Monocytes % (Manual) 5 % (1-10) Eosinophils % (Manual) 0 % (0-3) Basophils % (Manual) 0 % (0-2) Band Neutrophils 13 % (0-8) H Platelet Estimate Adequate Platelet Morphology Normal Anisocytosis 1+ Sodium Level 136 MMOL/L (136-145) Potassium Level 3.1 MMOL/L (3.5-5.1) L Chloride Level 99 MMOL/L (98-107) Carbon Dioxide Level 24 MMOL/L (21-32) Anion Gap 13 mmol/L (5-15) Blood Urea Nitrogen 43 mg/dL (7-18) H Creatinine 1.3 MG/DL (0.55-1.30) # Estimat Glomerular Filtration Rate 48.6 mL/min (>60) Glucose Level 177 MG/DL (74-106) H Calcium Level 8.3 MG/DL (8.5-10.1) L Phosphorus Level 2.6 MG/DL (2.5-4.9) Magnesium Level 2.7 MG/DL (1.8-2.4) H Mycoplasma pneumoniae IgG Antibody Pending Mycoplasma pneumoniae IgM Ab Titer Pending Urine Color Pale yellow Urine Appearance Clear Urine pH 6 (4.5-8.0) Urine Specific [place] 1.010 (1.005-1.035) Urine Protein 2+ (NEGATIVE) H Urine Glucose (UA) Negative (NEGATIVE) Urine Ketones Negative (NEGATIVE) Urine Blood 2+ (NEGATIVE) H Urine Nitrite Negative (NEGATIVE) Urine Bilirubin Negative (NEGATIVE) Urine Urobilinogen Normal MG/DL (0.0-1.0) Urine Leukocyte Esterase Negative (NEGATIVE) Urine RBC 2-4 /HPF (0 - 2) H Urine WBC 0-2 /HPF (0 - 2) Urine Squamous Epithelial Cells Few /LPF (NONE/OCC) Urine Bacteria Occasional /HPF (NONE) Microbiology Date/Time Source Procedure Growth Status 01/29/20 18:05 Blood Blood Culture - Preliminary NO GROWTH AFTER 24 HOURS Resulted 01/29/20 17:45 Blood Blood Culture - Preliminary NO GROWTH AFTER 24 HOURS Resulted 01/30/20 13:30 Sputum Gram Stain - Final Resulted 01/30/20 13:30 Sputum Sputum Culture Pending Resulted 01/29/20 17:50 Nasopharynx SARS-CoV-2 RdRp Gene Assay - Final Complete 01/31/20 09:10 Indwelling Cath Urine Culture - Preliminary NO GROWTH Resulted 01/29/20 19:59 Urine,Clean Catch Urine Culture - Final Escherichia Coli Complete Assessment/Plan Assessment/Plan Paroxysmal Atrial Fibrillation SInus tachycardia Sepsis Lactic acidosis Acute myocardial ischemia Pneumonia Hx CVA Acute renal failure Urinary retention; neurogenic bladder Hypokalemia Adjust IVF Antimicrobials Respiratory hygiene Titrate up diltiazem Monitor cardiac rhythm Replace K+/Mg++ as needed Serial lactic acid levels Add doxazosin for urin ret and elevated BP (instead of tamsulosin) and titrate. Jr Funes MD Feb 01, 2020 02:01
[2020-02-01] MEDS: HYDROcodone/Acetamin 5/325 tab ORAL PRN ×3 (03:44→22:58)
--- NOTE | 2020-02-01 05:00 | Consultation ---
DATE OF CONSULTATION: CONSULTING PHYSICIAN: Jr Funes MD. REFERRING PHYSICIAN: Crow Kahn MD. REASON FOR CONSULTATION: Elevated natriuretic peptide assay in the setting of acute respiratory distress. HISTORY OF PRESENT ILLNESS: This is a 74-year-old female who lives at home. She came into the emergency room because of significant shortness of breath of 1 day's duration. She was hypoxic and placed on a non-rebreather mask. She apparently was given nitroglycerin in the field although denies complaints of chest pain. Her symptoms did not improve. In fact, she became increasingly short of breath upon arrival. I have been asked to assist with further cardiovascular care. PAST MEDICAL HISTORY: Includes chronic obstructive pulmonary disease, hypertension, history of congestive heart failure, cerebrovascular disease with history of cerebrovascular accident. ALLERGIES: None known. MEDICATIONS: Reviewed and reconciled. FAMILY HISTORY: Noncontributory. SOCIAL HISTORY: Negative for smoking, alcohol, or substance abuse. REVIEW OF SYSTEMS: No known history of diabetes or thyroid impairment. She has had a prior stroke. She has not noted any change in bowel habits. There is no known history of kidney disease. Also, no history of abnormal blood clotting. Her blood pressure control has been good, according to her knowledge. She states that she is compliant with her medications. PHYSICAL EXAMINATION: VITAL SIGNS: She is afebrile, blood pressure 113/60, pulse 108, respirations 22. HEENT: Normocephalic, atraumatic. Conjunctivae are pink. Oropharynx clear. NECK: Supple. Accessory muscle use noted. LUNGS: Diminished breath sounds, rales and few expiratory wheezes. CARDIAC: Regular rhythm. Rapid rate. Normal S1, S2. Occasional ectopic beats. ABDOMEN: Soft, nontender. EXTREMITIES: Good pulses. No edema. NEUROLOGIC: No focal deficits. LABORATORY AND DIAGNOSTIC DATA: EKG reveals sinus tachycardia with atrial ectopy. Chest x-ray with right-sided infiltrate. COVID-19 swab negative. White count 24, hemoglobin 10, platelets 285, arterial blood gas 7.20 47 78. Sodium 129, potassium 5.5, chloride 95, bicarb 16, BUN 59, creatinine 3.8, lactic acid 3.1. Troponin 0. Pro-natriuretic peptide 5250. IMPRESSION: 1. Community-acquired pneumonia. 2. Respiratory failure. 3. Acute respiratory acidosis. 4. History of chronic obstructive pulmonary disease. 5. Hyponatremia. 6. Hyperkalemia. 7. Lactic acidosis. 8. Acute diastolic congestive heart failure. 9. Leukocytosis. 10. Anemia. 11. History of cerebrovascular accident. 12. Paroxysmal atrial ectopy. 13. Critical and guarded. PLAN: 1. BiPAP support. 2. Hold diuresis. 3. Intravenous steroids. 4. Inhaled bronchodilators. Broad-spectrum antimicrobials, cardiac monitoring. Restart diltiazem. 5. DVT and stress ulcer prophylaxis. 6. Venous Duplex to assess for possible source of pulmonary emboli. Jr Funes M.D. DR: WAYLON JOB#: [id number] CC:
[2020-02-01] MEDS: dilTIAZem HCl 90mg tab ORAL SCH ×3 (05:43→17:09)
[2020-02-01] MEDS: Piperacillin/Tazobactam 3.375 GM in D5W 110 ML IVPB SCH ×3 (05:45→22:53)
[2020-02-01] MEDS: Sodium Citrate 30ml ORAL SCH ×2 (05:47→16:06)
--- NOTE | 2020-02-01 07:22 | NUR ---
NURSE HAND-OFF REPORT: Important Events on Shift: Informed DR. Funes and Dr. Rudolph of bp of 170/79 and episodes of Sinus tachycardia. Dr Funes changed Cardizem from 60m mg to 90 mg PO every 6 hrs and added Cardura 2mg BID PO Patient Status: stable Diet: Cardiac Pending Orders: Morning labs Pending Results/Labs: morning labs Pending MD notification:none Latest Vital Signs: Temperature 97.5 , Pulse 94 , B/P 156 /90 , Respiratory Rate 18 , O2 SAT 95 , Nasal Cannula, O2 Flow Rate 3.0 . Vital Sign Comment: none EKG Rhythm: Atrial Fibrillation Rhythm change?: N MD Notified?: N -Dr.Kattan ARIAS Response: None Latest Ware Fall Score: 75 Fall Risk: High Risk Safety Measures: Call light Within Reach, Bed Alarm Zone 2, Side Rails Side Rails x2, Bed position Low and Locked. Fall Precautions: Yellow Socks Yellow Gown Door Sign Patient Fall Education Report given to DRALYN [place].
--- NOTE | 2020-02-01 07:52 | NUR ---
NURSE NOTES: Received pt from Anisha/My RN. Pt is awake and alert. pt has NC 3LMP. pt has intact iv access LAC 20g SL. Pt is on continues heart monitoring. pt has Nguyen cath in place is working well. no complain of pain at this moment. all needs attended, bed is locked and is in the lowest position, call light within easy reach. will continue to monitor.
--- NOTE | 2020-02-01 08:05 | NUR ---
NURSE NOTES: Pt is complaining from Nguyen and asking to D/C it, Dr Carpio is aware and ordered to D/C Nguyen, noted and carried out. will continue to monitor.
[2020-02-01] MEDS: Docusate 100mg cap ORAL SCH ×2 (08:53→17:56)
[2020-02-01] MEDS: Doxazosin 1mg Tab ORAL SCH ×2 (08:54→21:45)
[2020-02-01] MEDS: Lyrica 75mg cap ORAL SCH ×2 (08:54→17:09)
[2020-02-01] MEDS: Heparin 5000 units/ml inj SUBQ SCH ×2 (08:55→21:45)
--- NOTE | 2020-02-01 09:03 | NUR ---
CASE MANAGEMENT:REVIEW 02/01/20 SI: PNEUMONIA. COPD. CHF. RENAL FAILURE E COLI UTI 100.6 101 20 151/60 94% ON 3L/NC LABS CURRENTLY PENDING IS: IV ZOSYN Q8HRS IV AZITHROMYCIN Q24 IV SOLUMEDROL 40MG Q6HRS NEURONTIN PO TID CARDURA PO Q12 BICITRA PO BID CARDIZEM PO Q6HRS ELAVIL PO QHS DUONEB HHN Q6HRS LYRICA PO BID : TELEMETRY STATUS PLAN: DOWNGRADE FROM STEP DOWN UNIT TO TELEMETRY TITRATE OXYGEN TOLERATED CONTINUE IV ANTIBIOTICS TAPER IV STEROIDS
[2020-02-01 09:05] LABS: HEMATOCRIT 35.7 % (37.0-47.0); HEMOGLOBIN 11.1 G/DL (12.0-16.0); MEAN CORPUSCULAR VOLUME 83 FL (80-99); PLATELET COUNT 394 K/UL (150-450); RED BLOOD COUNT 4.32 M/UL (4.20-5.40); RED CELL DISTRIBUTION WIDTH 16.7 % (11.6-14.8)
[2020-02-01 09:12] LABS: WHITE BLOOD COUNT 34.3 K/UL (4.8-10.8)
--- NOTE | 2020-02-01 09:16 | NUR ---
Child And Family Therapist: Dr Payne is aware about WBC 34.3 and T 100.4, waiting to call back. will continue to monitor.
--- NOTE | 2020-02-01 09:25 | NUR ---
PT EVALUATION NOTE Patient seen for initial evaluation. Patient presents with generalized weakness, decreased safety awareness and impaired balance which affects patient's ability to perform mobility tasks safely. Patient requires SBA for bed mobility and CGA/min assist for transfers. Patient impulsive with poor safety awareness. Gait training deferred due to increased HR to 180 while patient was sitting on bedside commode. Patient will benefit from skilled inpatient PT intervention to increase overall strength and postural stability for improved level of functional mobility and safety for transfers and ambulation. Recommend discharge to short term SNF for continued rehab prior to discharge home once medically cleared by MD. Recommend FWW for safe ambulation. Addendum: 02/01/20 at 1313 by ARGELIA XIONG PT Amended: Links added.
--- NOTE | 2020-02-01 09:26 | NUR ---
INSURANCE FAXED CLINCALS AND REVIEW TO [employer] NCM: TONY T: [phone] [facility] F; [phone] REF# [id number]
--- NOTE | 2020-02-01 09:29 | Urology Progress Note ---
Assessment/Plan Assessment/Plan: 1. Urinary retention. 2. Probable neurogenic bladder. 3. Acute kidney injury, which is improved. 4. Urinary tract infection. 5. Hematuria. 6. Proteinuria. monitor clinically pastrana hand irrigated and do PRN consider voiding trial since pt wants pastrana removed flomax was dc'd? still on elavil on cardura f/u on cx's abx as ordered monitor renal fxn Subjective Allergies: Coded Allergies: No Known Allergies (Unverified , 05/19/13) Subjective some discomfort with pastrana Objective Last 24 Hour Vital Signs Date Time Temp Pulse Resp B/P (MAP) Pulse Ox O2 Delivery O2 Flow Rate FiO2 02/01/20 08:00 3.0 02/01/20 08:00 100.6 100 20 151/60 (90) 94 02/01/20 08:00 99 02/01/20 07:32 101 20 95 Nasal Cannula 3.0 32 98 20 90 02/01/20 07:22 90 Nasal Cannula 3.0 32 02/01/20 05:43 94 156/90 02/01/20 04:00 97.5 94 18 149/71 (97) 95 02/01/20 04:00 3.0 02/01/20 04:00 120 02/01/20 00:54 116 20 96 Nasal Cannula 3.0 32 114 20 92 02/01/20 00:09 100 158/82 02/01/20 00:00 3.0 02/01/20 00:00 95 02/01/20 00:00 96.9 92 18 148/81 (103) 97 01/31/20 22:15 99 160/71 (100) 01/31/20 20:00 97.2 118 19 170/99 (122) 99 01/31/20 20:00 3.0 01/31/20 20:00 106 01/31/20 20:00 Nasal Cannula 3.0 01/31/20 19:32 112 20 97 Nasal Cannula 3.0 32 110 20 94 01/31/20 19:32 94 Nasal Cannula 3.0 32 01/31/20 17:33 95 140/99 01/31/20 16:00 98.2 102 20 140/99 (113) 94 01/31/20 16:00 3.0 01/31/20 16:00 Non-Rebreather 15.0 01/31/20 16:00 95 01/31/20 12:33 86 18 99 Nasal Cannula 2.0 28 90 22 96 01/31/20 12:15 78 154/73 01/31/20 12:00 Non-Rebreather 15.0 01/31/20 12:00 88 01/31/20 12:00 3.0 01/31/20 12:00 98.2 78 21 154/73 (100) 94 01/31/20 10:00 Non-Rebreather 15.0 Intake and Output 01/31/20 02/01/20 19:00 07:00 Intake Total 550 ml 350 ml Output Total 1500 ml 800 ml Balance -950 ml -450 ml Intake Oral 500 ml 350 ml IV Total 50 ml Output Urine Total 1500 ml 800 ml # Bowel Movements 4 Microbiology Date/Time Source Procedure Growth Status 01/29/20 18:05 Blood Blood Culture - Preliminary NO GROWTH AFTER 48 HOURS Resulted 01/30/20 13:30 Sputum Gram Stain - Final Resulted 01/30/20 13:30 Sputum Sputum Culture Pending Resulted 01/31/20 09:10 Indwelling Cath Urine Culture - Preliminary NO GROWTH Resulted Current Medications Medications (Trade) Dose Ordered Sig/Bill Route PRN Reason Start Time Stop Time Status Last Admin Dose Admin Acetaminophen/ Hydrocodone Bitart ([place] 5/325) 1 tab Q8H PRN ORAL For Pain 01/31/20 16:37 02/07/20 16:36 02/01/20 03:44 Albuterol/ Ipratropium (Albuterol/ Ipratropium) 3 ml Q6HRT HHN 01/31/20 19:00 02/04/20 13:14 02/01/20 07:22 Amitriptyline HCl (Elavil) 10 mg BEDTIME ORAL 01/31/20 21:00 02/29/20 20:59 01/31/20 21:17 Azithromycin 500 mg/Dextrose 275 ml @ 275 mls/hr Q24HRS IV 01/31/20 18:00 02/05/20 18:59 01/31/20 17:32 Diltiazem HCl (Cardizem Tab) 90 mg EVERY 6 HOURS ORAL 02/01/20 06:00 03/02/20 05:59 02/01/20 05:43 Docusate Sodium (Colace) 200 mg TWICE A DAY ORAL 01/31/20 18:00 03/01/20 17:59 02/01/20 08:53 Doxazosin Mesylate (Cardura) 2 mg Q12HR ORAL 02/01/20 09:00 03/02/20 08:59 02/01/20 08:54 Gabapentin (Neurontin) 600 mg THREE TIMES A DAY ORAL 01/31/20 18:00 02/29/20 17:59 02/01/20 08:55 Heparin Sodium (Porcine) (Heparin 5000 units/ml) 5,000 units EVERY 12 HOURS SUBQ 01/31/20 21:00 03/15/20 20:59 02/01/20 08:55 Methylprednisolone Sodium Succinate (Solu-MEDROL) 40 mg EVERY 6 HOURS IVP 01/31/20 18:00 04/29/20 11:59 02/01/20 05:44 Piperacillin Sod/ Tazobactam Sod 3.375 gm/Dextrose 110 ml @ 27.5 mls/hr EVERY 8 HOURS IVPB 01/31/20 22:00 02/05/20 21:59 02/01/20 05:45 Pregabalin (Lyrica) 75 mg BID ORAL 01/31/20 18:00 02/29/20 17:59 02/01/20 08:54 Sodium Citrate (Bicitra) 30 ml BIAC ORAL 02/01/20 06:30 02/29/20 16:29 02/01/20 05:47 Laboratory Tests 02/01/20 08:20: White Blood Count 34.3*H, Red Blood Count 4.32, Hemoglobin 11.1L, Hematocrit 35.7L, Mean Corpuscular Volume 83, Mean Corpuscular Hemoglobin 25.8L, Mean Corpuscular Hemoglobin Concent 31.2L, Red Cell Distribution Width 16.7H, Platelet Count 394, Mean Platelet Volume 5.3L, Neutrophils (%) (Auto) , Lymphocytes (%) (Auto) , Monocytes (%) (Auto) , Eosinophils (%) (Auto) , Basophils (%) (Auto) , Neutrophils % (Manual) [Pending], Lymphocytes % (Manual) [Pending], Platelet Estimate [Pending], Platelet Morphology [Pending], Sodium Level [Pending], Potassium Level [Pending], Chloride Level [Pending], Carbon Dioxide Level [Pending], Blood Urea Nitrogen [Pending], Creatinine [Pending], Estimat Glomerular Filtration Rate [Pending], Glucose Level [Pending], Calcium Level [Pending], Phosphorus Level [Pending], Magnesium Level [Pending], Total Bilirubin [Pending], Aspartate Amino Transf (AST/SGOT) [Pending], Alanine Aminotransferase (ALT/SGPT) [Pending], Alkaline Phosphatase [Pending], Pro-B- Type Natriuretic Peptide [Pending], Total Protein [Pending], Albumin [Pending], Globulin [Pending] Height (Feet): 5 Height (Inches): 5.00 Weight (Pounds): 207 Objective exam stable urine is yellow/elda Brian Schneider MD Feb 01, 2020 09:29
--- NOTE | 2020-02-01 09:36 | NUR ---
NURSE NOTES: Dr Payne called back regarding WBC and fever, ordered for abd ct without contrast and Tylenol, noted and carried out. will continue to monitor.
[2020-02-01 09:45] LABS: ALANINE AMINOTRANSFERASE 22 U/L (12-78); ALBUMIN 2.7 G/DL (3.4-5.0); ALBUMIN/GLOBULIN RATIO 0.6 (1.0-2.7); ALKALINE PHOSPHATASE 173 U/L (46-116); ANION GAP 10 mmol/L (5-15); ASPARTATE AMINO TRANSFERASE 16 U/L (15-37); BILIRUBIN,TOTAL 0.5 MG/DL (0.2-1.0); BLOOD UREA NITROGEN 21 mg/dL (7-18); CALCIUM 8.8 MG/DL (8.5-10.1); CARBON DIOXIDE 27 MMOL/L (21-32); CHLORIDE 104 MMOL/L (98-107); CREATININE 0.9 MG/DL (0.55-1.30); PHOSPHORUS 1.6 MG/DL (2.5-4.9); SODIUM 141 MMOL/L (136-145)
[2020-02-01] MEDS ORDERED: 1/2 NS 1000ml IV ONE (09:49)
--- NOTE | 2020-02-01 10:03 | NUR ---
NURSE NOTES: Dr Carpio is aware about K 3 and other lab results and V/S, ordered KCL 40 meq po once, noted and carried out. will continue to monitor.
--- NOTE | 2020-02-01 10:15 | Pulmonology Progress Note ---
Subjective ROS Limited/Unobtainable: No Interval Events: Feeling better Constitutional: Reports: no symptoms HEENT: Repors: no symptoms Respiratory: Reports: no symptoms Cardiovascular: Reports: no symptoms Gastrointestinal/Abdominal: Reports: no symptoms Allergies: Coded Allergies: No Known Allergies (Unverified , 05/19/13) Objective Last 24 Hour Vital Signs Date Time Temp Pulse Resp B/P (MAP) Pulse Ox O2 Delivery O2 Flow Rate FiO2 02/01/20 09:00 Nasal Cannula 3.0 02/01/20 08:00 3.0 02/01/20 08:00 100.6 100 20 151/60 (90) 94 02/01/20 08:00 99 02/01/20 07:32 101 20 95 Nasal Cannula 3.0 32 98 20 90 02/01/20 07:22 90 Nasal Cannula 3.0 32 02/01/20 05:43 94 156/90 02/01/20 04:00 97.5 94 18 149/71 (97) 95 02/01/20 04:00 3.0 02/01/20 04:00 120 02/01/20 00:54 116 20 96 Nasal Cannula 3.0 32 114 20 92 02/01/20 00:09 100 158/82 02/01/20 00:00 3.0 02/01/20 00:00 95 02/01/20 00:00 96.9 92 18 148/81 (103) 97 01/31/20 22:15 99 160/71 (100) 01/31/20 20:00 97.2 118 19 170/99 (122) 99 01/31/20 20:00 3.0 01/31/20 20:00 106 01/31/20 20:00 Nasal Cannula 3.0 01/31/20 19:32 112 20 97 Nasal Cannula 3.0 32 110 20 94 01/31/20 19:32 94 Nasal Cannula 3.0 32 01/31/20 17:33 95 140/99 01/31/20 16:00 98.2 102 20 140/99 (113) 94 01/31/20 16:00 3.0 01/31/20 16:00 Non-Rebreather 15.0 01/31/20 16:00 95 01/31/20 12:33 86 18 99 Nasal Cannula 2.0 28 90 22 96 01/31/20 12:15 78 154/73 01/31/20 12:00 Non-Rebreather 15.0 01/31/20 12:00 88 01/31/20 12:00 3.0 01/31/20 12:00 98.2 78 21 154/73 (100) 94 Intake and Output 01/31/20 02/01/20 19:00 07:00 Intake Total 550 ml 350 ml Output Total 1500 ml 800 ml Balance -950 ml -450 ml Intake Oral 500 ml 350 ml IV Total 50 ml Output Urine Total 1500 ml 800 ml # Bowel Movements 4 General Appearance: no acute distress HEENT: normocephalic Respiratory: chest wall non-tender, lungs clear Cardiovascular: normal peripheral pulses Abdomen: normal bowel sounds Microbiology Date/Time Source Procedure Growth Status 01/29/20 18:05 Blood Blood Culture - Preliminary NO GROWTH AFTER 48 HOURS Resulted 01/29/20 17:45 Blood Blood Culture - Preliminary NO GROWTH AFTER 48 HOURS Resulted 01/30/20 13:30 Sputum Gram Stain - Final Resulted 01/30/20 13:30 Sputum Sputum Culture Pending Resulted 01/29/20 17:50 Nasopharynx SARS-CoV-2 RdRp Gene Assay - Final Complete 01/31/20 09:10 Indwelling Cath Urine Culture - Preliminary NO GROWTH Resulted 01/29/20 19:59 Urine,Clean Catch Urine Culture - Final Escherichia Coli Complete Laboratory Tests 02/01/20 08:20: White Blood Count 34.3*H, Red Blood Count 4.32, Hemoglobin 11.1L, Hematocrit 35.7L, Mean Corpuscular Volume 83, Mean Corpuscular Hemoglobin 25.8L, Mean Corpuscular Hemoglobin Concent 31.2L, Red Cell Distribution Width 16.7H, Platelet Count 394, Mean Platelet Volume 5.3L, Neutrophils (%) (Auto) , Lymphocytes (%) (Auto) , Monocytes (%) (Auto) , Eosinophils (%) (Auto) , Basophils (%) (Auto) , Differential Total Cells Counted 100, Neutrophils % ( Manual) 94H, Lymphocytes % (Manual) 3L, Monocytes % (Manual) 3, Eosinophils % ( Manual) 0, Basophils % (Manual) 0, Band Neutrophils 0, Platelet Estimate Adequate, Platelet Morphology Normal, Hypochromasia 1+, Anisocytosis 1+, Sodium Level 141, Potassium Level 3.0L, Chloride Level 104, Carbon Dioxide Level 27, Anion Gap 10, Blood Urea Nitrogen 21H, Creatinine 0.9, Estimat Glomerular Filtration Rate > 60, Glucose Level 212H, Calcium Level 8.8, Phosphorus Level 1.6L, Magnesium Level 2.4, Total Bilirubin 0.5, Aspartate Amino Transf (AST/SGOT ) 16, Alanine Aminotransferase (ALT/SGPT) 22, Alkaline Phosphatase 173H, Pro-B- Type Natriuretic Peptide 2742H, Total Protein 6.9, Albumin 2.7L, Globulin 4.2, Albumin/Globulin Ratio 0.6L Current Medications Medications (Trade) Dose Ordered Sig/Bill Route PRN Reason Start Time Stop Time Status Last Admin Dose Admin Acetaminophen (Tylenol) 650 mg Q6H PRN ORAL Temp >100.5 02/01/20 09:45 03/02/20 09:44 02/01/20 10:11 Acetaminophen/ Hydrocodone Bitart ([place] 5/325) 1 tab Q8H PRN ORAL For Pain 01/31/20 16:37 02/07/20 16:36 02/01/20 03:44 Albuterol/ Ipratropium (Albuterol/ Ipratropium) 3 ml Q6HRT HHN 01/31/20 19:00 02/04/20 13:14 02/01/20 07:22 Amitriptyline HCl (Elavil) 10 mg BEDTIME ORAL 01/31/20 21:00 02/29/20 20:59 01/31/20 21:17 Azithromycin 500 mg/Dextrose 275 ml @ 275 mls/hr Q24HRS IV 01/31/20 18:00 02/05/20 18:59 01/31/20 17:32 Barium Sulfate (Readi-Cat 2) 450 ml NOW PRN ORAL Radiology Procedure 02/01/20 09:45 02/03/20 09:32 Diltiazem HCl (Cardizem Tab) 90 mg EVERY 6 HOURS ORAL 02/01/20 06:00 03/02/20 05:59 02/01/20 05:43 Docusate Sodium (Colace) 200 mg TWICE A DAY ORAL 01/31/20 18:00 03/01/20 17:59 02/01/20 08:53 Doxazosin Mesylate (Cardura) 2 mg Q12HR ORAL 02/01/20 09:00 03/02/20 08:59 02/01/20 08:54 Gabapentin (Neurontin) 600 mg THREE TIMES A DAY ORAL 01/31/20 18:00 02/29/20 17:59 02/01/20 08:55 Heparin Sodium (Porcine) (Heparin 5000 units/ml) 5,000 units EVERY 12 HOURS SUBQ 01/31/20 21:00 03/15/20 20:59 02/01/20 08:55 Methylprednisolone Sodium Succinate (Solu-MEDROL) 40 mg EVERY 6 HOURS IVP 01/31/20 18:00 04/29/20 11:59 02/01/20 05:44 Piperacillin Sod/ Tazobactam Sod 3.375 gm/Dextrose 110 ml @ 27.5 mls/hr EVERY 8 HOURS IVPB 01/31/20 22:00 02/05/20 21:59 02/01/20 05:45 Potassium Chloride (K-Dur) 40 meq ONCE ORAL 02/01/20 10:15 02/01/20 11:15 02/01/20 10:10 Pregabalin (Lyrica) 75 mg BID ORAL 01/31/20 18:00 02/29/20 17:59 02/01/20 08:54 Sodium Citrate (Bicitra) 30 ml BIAC ORAL 02/01/20 06:30 02/29/20 16:29 02/01/20 05:47 Assessment/Plan Assessment/Plan IMPRESSION: 1. Right lung pneumonia. 2. COPD. 3. CHF. 4. Renal failure. 5. Metabolic acidosis. DISCUSSION: Continue bicarb supplementation. Continue broad-spectrum antibiotics, IV steroids, pulmonary hygiene, oxygen. I will follow carefully. Will consult urology Franck Price Omar Syed MD Feb 01, 2020 10:15
--- NOTE | 2020-02-01 10:21 | Nephrology Progress Note ---
Assessment/Plan Plan #JOSH on CKD- suspect pre-renal azotemia in the setting of sepsis, pneumonia and lactic acidosis #Hyperkalemia - improved #bilateral pneumonia #Lactic acidosis #leukocytosis #HTN #h/o CHF - DC IVF - replete K and phos - monitor lactic acid - antibiotcs per ID - amlodipine 10mg daily - diltiazem 60mg BID - urology eval for retention - monitor PVR - monitor renal parameter - avoid nephrotoxins - monitor UOP -monitor weight Time spent 70 min- Subjective ROS Limited/Unobtainable: No Constitutional: Reports: malaise, weakness HEENT: Denies: no symptoms, eye pain, blurred vision, tearing, double vision, ear pain, ear discharge, nose pain, nose congestion, throat pain, throat swelling, mouth pain, mouth swelling, other Genitourinary: Denies: no symptoms, burning, discharge, frequency, flank pain, hematuria, incontinence, pain, urgency, other Neurologic/Psychiatric: Denies: no symptoms, anxiety, depressed, emotional problems, headache, numbness, paresthesia, pre-existing deficit, seizure, tingling, tremors, weakness, other Subjective renal function better breathing stable will DC IVF K low - repleted WBC remains elevated feeling nauseas Urology eval for urinary retention CT abdomen: IMPRESSION: 1. Bilateral bronchovascular pattern airspace disease concerning for pneumonia. 2. Gas within the urinary bladder; clinical correlation for recent instrumentation/Nguyen catheter placement is recommended. Otherwise, infection should be considered. 3. Colonic diverticulosis without evidence of acute diverticulitis. 4. Chronic L4 compression fracture Objective Objective Last 24 Hour Vital Signs Date Time Temp Pulse Resp B/P (MAP) Pulse Ox O2 Delivery O2 Flow Rate FiO2 02/01/20 09:00 Nasal Cannula 3.0 02/01/20 08:00 3.0 02/01/20 08:00 100.6 100 20 151/60 (90) 94 02/01/20 08:00 99 02/01/20 07:32 101 20 95 Nasal Cannula 3.0 32 98 20 90 02/01/20 07:22 90 Nasal Cannula 3.0 32 02/01/20 05:43 94 156/90 02/01/20 04:00 97.5 94 18 149/71 (97) 95 02/01/20 04:00 3.0 02/01/20 04:00 120 02/01/20 00:54 116 20 96 Nasal Cannula 3.0 32 114 20 92 02/01/20 00:09 100 158/82 02/01/20 00:00 3.0 02/01/20 00:00 95 02/01/20 00:00 96.9 92 18 148/81 (103) 97 01/31/20 22:15 99 160/71 (100) 01/31/20 20:00 97.2 118 19 170/99 (122) 99 01/31/20 20:00 3.0 01/31/20 20:00 106 01/31/20 20:00 Nasal Cannula 3.0 01/31/20 19:32 112 20 97 Nasal Cannula 3.0 32 110 20 94 01/31/20 19:32 94 Nasal Cannula 3.0 32 01/31/20 17:33 95 140/99 01/31/20 16:00 98.2 102 20 140/99 (113) 94 01/31/20 16:00 3.0 01/31/20 16:00 Non-Rebreather 15.0 01/31/20 16:00 95 01/31/20 12:33 86 18 99 Nasal Cannula 2.0 28 90 22 96 01/31/20 12:15 78 154/73 01/31/20 12:00 Non-Rebreather 15.0 01/31/20 12:00 88 01/31/20 12:00 3.0 01/31/20 12:00 98.2 78 21 154/73 (100) 94 Intake and Output 01/31/20 02/01/20 19:00 07:00 Intake Total 550 ml 350 ml Output Total 1500 ml 800 ml Balance -950 ml -450 ml Intake Oral 500 ml 350 ml IV Total 50 ml Output Urine Total 1500 ml 800 ml # Bowel Movements 4 Laboratory Tests 02/01/20 08:20: White Blood Count 34.3*H, Red Blood Count 4.32, Hemoglobin 11.1L, Hematocrit 35.7L, Mean Corpuscular Volume 83, Mean Corpuscular Hemoglobin 25.8L, Mean Corpuscular Hemoglobin Concent 31.2L, Red Cell Distribution Width 16.7H, Platelet Count 394, Mean Platelet Volume 5.3L, Neutrophils (%) (Auto) , Lymphocytes (%) (Auto) , Monocytes (%) (Auto) , Eosinophils (%) (Auto) , Basophils (%) (Auto) , Differential Total Cells Counted 100, Neutrophils % ( Manual) 94H, Lymphocytes % (Manual) 3L, Monocytes % (Manual) 3, Eosinophils % ( Manual) 0, Basophils % (Manual) 0, Band Neutrophils 0, Platelet Estimate Adequate, Platelet Morphology Normal, Hypochromasia 1+, Anisocytosis 1+, Sodium Level 141, Potassium Level 3.0L, Chloride Level 104, Carbon Dioxide Level 27, Anion Gap 10, Blood Urea Nitrogen 21H, Creatinine 0.9, Estimat Glomerular Filtration Rate > 60, Glucose Level 212H, Calcium Level 8.8, Phosphorus Level 1.6L, Magnesium Level 2.4, Total Bilirubin 0.5, Aspartate Amino Transf (AST/SGOT ) 16, Alanine Aminotransferase (ALT/SGPT) 22, Alkaline Phosphatase 173H, Pro-B- Type Natriuretic Peptide 2742H, Total Protein 6.9, Albumin 2.7L, Globulin 4.2, Albumin/Globulin Ratio 0.6L Height (Feet): 5 Height (Inches): 5.00 Weight (Pounds): 207 Simin Carpio M.D. Feb 01, 2020 10:21
--- NOTE | 2020-02-01 11:14 | NUR ---
RD ASSESSMENT & RECOMMENDATIONS SEE CARE ACTIVITY FOR COMPLETE ASSESSMENT DAILY ESTIMATED NEEDS: Needs based on COPD, CHF, obesity/ 66kg abw 25-28 kcals/kg 8099-6164 total kcals 1-1.5 g protein/kg 66-99 g total protein 20-25 mL/kg 6213-1256 total fluid mLs NUTRITION DIAGNOSIS: Altered nutrition related lab values R/T CHF dx, on steroidal med as evidenced by elev BNP (2742), elev BGs (212 177) CURRENT DIET:CARDIAC PO DIET RECOMMENDATIONS: Cardiac + CCHO Med ADDITIONAL RECOMMENDATIONS: * Standing wt as able for accurate CBW * Monitor BGs closely while on steroidal med -> rec CCHO Med diet while on Steroids -> monitor need for hypoglycemics * Check A1C * Monitor lytes, replete as needed
--- NOTE | 2020-02-01 15:43 | Diagnostic Imaging Report ---
CT ABDOMEN AND PELVIS WITHOUT CONTRAST INDICATION: Abdominal pain. Sepsis with unknown source TECHNIQUE: Continuous helical transaxial imaging of the abdomen and pelvis was obtained from the lung bases to the pubic symphysis. Coronal 2-D reformats were also obtained. Study obtained in a Siemens sensation [address] Automatic Exposure Control was utilized. Total Dose length Product (DLP): 804.[address] Dose Index Volume (CTDIvol): 15.2 mGy COMPARISON: CTA chest dated 05/12/2019 FINDINGS: Lower chest:: There is bilateral airspace consolidation and a bronchovascular pattern. There is a small hiatal hernia with reflux of oral contrast into the distal esophagus. Hepatobiliary:: Status post cholecystectomy. Liver parenchyma is unremarkable. Genitourinary:: There is a small focus of gas in the urinary bladder. Adrenals:: Unremarkable. Pancreas:: Moderate pancreatic parenchymal atrophy. Gastrointestinal:: And ex is not visualized but there are no secondary signs to suggest acute appendicitis. Scattered colonic diverticulosis without evidence of acute diverticulitis. There is trace free fluid in the abdomen. Spleen: : Unremarkable. Peritoneum:: No free fluid or free air. Bones and soft tissues:: Status post total right hip arthroplasty, streak artifact from which limits complete evaluation of the pelvic viscera. There are multilevel discogenic degenerative changes of the visualized spine. There is a compression fracture of L4 with less than 25% loss of body height, which appears chronic given degree of associated sclerosis.. IMPRESSION: 1. Bilateral bronchovascular pattern airspace disease concerning for pneumonia. 2. Gas within the urinary bladder; clinical correlation for recent instrumentation/Nguyen catheter placement is recommended. Otherwise, infection should be considered. 3. Colonic diverticulosis without evidence of acute diverticulitis. 4. Chronic L4 compression fracture. The CT scanner at [facility] is accredited by the [employer] and the scans are performed using protocols designed to limit radiation exposure to as low as reasonably achievable to attain images of sufficient resolution adequate for diagnostic evaluation
--- NOTE | 2020-02-01 15:59 | NUR ---
NURSE NOTES: Pt is complaining nausea and abd pain, and BP 165/69, Dr Carpio is aware and ordered Zofran and hydralazine, noted and carried out. will continue to monitor.
[2020-02-01] MEDS ORDERED: HydrALAZINE 25mg tab ORAL PRN (16:00)
--- NOTE | 2020-02-01 16:45 | Infectious Diseases Prog Note ---
Assessment/Plan Assessment/Plan ASSESSMENT AND PLAN: 1. e.coli uti, pna, sepsis, fevers, leukocytosis, steroids - zosyn and azithromycin, add vancomycin - monitor labs and chest x-ray - CT scan noted 2. Acute kidney injury, elevated creatinine. 3. Possible chronic renal failure. 4. Anemia. 5. COPD. 6. CVA. 7. Aspiration risk. 8. CHF. 9. Hypertension. 10. Blood pressure treatment per primary care team. 11. No known drug allergies. 12. Social history is negative. 13. Family history is noncontributory. 14. MAR was noted. 15. Case was discussed with RN. 16. Continue treatment per primary consultants. 17. JEROME care. Subjective Constitutional: Denies: fever HEENT: Denies: congestion Respiratory: Denies: shortness of breath Cardiovascular: Denies: chest pain Gastrointestinal/Abdominal: Denies: nausea, vomiting, diarrhea Genitourinary: Denies: vaginal bleed/discharge, hematuria, frequency Psychiatric: Denies: depression Skin: Denies: rash Hematologic: Denies: bleeding Musculoskeletal: Denies: pain Allergies: Coded Allergies: No Known Allergies (Unverified , 05/19/13) Objective Last 24 Hour Vital Signs Date Time Temp Pulse Resp B/P (MAP) Pulse Ox O2 Delivery O2 Flow Rate FiO2 02/01/20 16:06 165/69 02/01/20 15:48 98.8 99 20 165/69 (101) 96 02/01/20 13:27 97 18 95 Nasal Cannula 3.0 32 92 18 92 02/01/20 12:00 3.0 02/01/20 12:00 94 150/73 02/01/20 11:54 99.7 94 18 150/73 (98) 97 02/01/20 11:29 94 02/01/20 10:41 100.0 02/01/20 09:00 Nasal Cannula 3.0 02/01/20 08:00 3.0 02/01/20 08:00 100.6 100 20 151/60 (90) 94 02/01/20 08:00 99 02/01/20 07:32 101 20 95 Nasal Cannula 3.0 32 98 20 90 02/01/20 07:22 90 Nasal Cannula 3.0 32 02/01/20 05:43 94 156/90 02/01/20 04:00 97.5 94 18 149/71 (97) 95 02/01/20 04:00 3.0 02/01/20 04:00 120 02/01/20 00:54 116 20 96 Nasal Cannula 3.0 32 114 20 92 02/01/20 00:09 100 158/82 02/01/20 00:00 3.0 02/01/20 00:00 95 02/01/20 00:00 96.9 92 18 148/81 (103) 97 01/31/20 22:15 99 160/71 (100) 01/31/20 20:00 97.2 118 19 170/99 (122) 99 01/31/20 20:00 3.0 01/31/20 20:00 106 01/31/20 20:00 Nasal Cannula 3.0 01/31/20 19:32 112 20 97 Nasal Cannula 3.0 32 110 20 94 01/31/20 19:32 94 Nasal Cannula 3.0 32 01/31/20 17:33 95 140/99 Height (Feet): 5 Height (Inches): 5.00 Weight (Pounds): 207 General Appearance: no acute distress HEENT: normocephalic, atraumatic, anicteric, mucous membranes moist Respiratory/Chest: crackles/rales, rhonchi - bilaterally Cardiovascular: normal rate, regular rhythm, no gallop/murmur Abdomen: normal bowel sounds, soft, non tender, no organomegaly, non distended Genitourinary: other - no pastrana Extremities: no cyanosis Skin: no rash Neurologic/Psychiatric: 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 Bilateral bronchovascular pattern airspace disease concerning for pneumonia. 2. Gas within the urinary bladder; clinical correlation for recent instrumentation/Pastrana catheter placement is recommended. Otherwise, infection should be considered. 3. Colonic diverticulosis without evidence of acute diverticulitis. 4. Chronic L4 compression fracture. Chest x-ray - 01/30/20 - Procedure: XRAY Chest 1v Indication: Shortness of breath Technique: One view of the chest Comparison: 05/14/2019 Findings: Interim development of bilateral infiltrates, right greater than left , most notably at the right lung base. Pleural spaces are clear. The heart size is upper limits normal. Impression: Bilateral infiltrates, likely multifocal pneumonia. Correlate with clinical findings. Microbiology Date/Time Source Procedure Growth Status 01/29/20 18:05 Blood Blood Culture - Preliminary NO GROWTH AFTER 48 HOURS Resulted 01/29/20 17:45 Blood Blood Culture - Preliminary NO GROWTH AFTER 48 HOURS Resulted 01/30/20 13:30 Sputum Gram Stain - Final Resulted 01/30/20 13:30 Sputum Sputum Culture Pending Resulted 01/29/20 17:50 Nasopharynx SARS-CoV-2 RdRp Gene Assay - Final Complete 01/31/20 09:10 Indwelling Cath Urine Culture - Preliminary NO GROWTH Resulted 01/29/20 19:59 Urine,Clean Catch Urine Culture - Final Escherichia Coli Complete Laboratory Tests Test 02/01/20 08:20 White Blood Count 34.3 K/UL (4.8-10.8) *H Red Blood Count 4.32 M/UL (4.20-5.40) Hemoglobin 11.1 G/DL (12.0-16.0) L Hematocrit 35.7 % (37.0-47.0) L Mean Corpuscular Volume 83 FL (80-99) Mean Corpuscular Hemoglobin 25.8 PG (27.0-31.0) L Mean Corpuscular Hemoglobin Concent 31.2 G/DL (32.0-36.0) L Red Cell Distribution Width 16.7 % (11.6-14.8) H Platelet Count 394 K/UL (150-450) Mean Platelet Volume 5.3 FL (6.5-10.1) L Neutrophils (%) (Auto) % (45.0-75.0) Lymphocytes (%) (Auto) % (20.0-45.0) Monocytes (%) (Auto) % (1.0-10.0) Eosinophils (%) (Auto) % (0.0-3.0) Basophils (%) (Auto) % (0.0-2.0) Differential Total Cells Counted 100 Neutrophils % (Manual) 94 % (45-75) H Lymphocytes % (Manual) 3 % (20-45) L Monocytes % (Manual) 3 % (1-10) Eosinophils % (Manual) 0 % (0-3) Basophils % (Manual) 0 % (0-2) Band Neutrophils 0 % (0-8) Platelet Estimate Adequate Platelet Morphology Normal Hypochromasia 1+ Anisocytosis 1+ Sodium Level 141 MMOL/L (136-145) Potassium Level 3.0 MMOL/L (3.5-5.1) L Chloride Level 104 MMOL/L (98-107) Carbon Dioxide Level 27 MMOL/L (21-32) Anion Gap 10 mmol/L (5-15) Blood Urea Nitrogen 21 mg/dL (7-18) H Creatinine 0.9 MG/DL (0.55-1.30) Estimat Glomerular Filtration Rate > 60 mL/min (>60) Glucose Level 212 MG/DL (74-106) H Calcium Level 8.8 MG/DL (8.5-10.1) Phosphorus Level 1.6 MG/DL (2.5-4.9) L Magnesium Level 2.4 MG/DL (1.8-2.4) Total Bilirubin 0.5 MG/DL (0.2-1.0) Aspartate Amino Transf (AST/SGOT) 16 U/L (15-37) Alanine Aminotransferase (ALT/SGPT) 22 U/L (12-78) Alkaline Phosphatase 173 U/L (46-116) H Pro-B-Type Natriuretic Peptide 2742 pg/mL (0-125) H Total Protein 6.9 G/DL (6.4-8.2) Albumin 2.7 G/DL (3.4-5.0) L Globulin 4.2 g/dL Albumin/Globulin Ratio 0.6 (1.0-2.7) L Current Medications Medications (Trade) Dose Ordered Sig/Bill Route PRN Reason Start Time Stop Time Status Last Admin Dose Admin Acetaminophen (Tylenol) 650 mg Q6H PRN ORAL Temp >100.5 02/01/20 09:45 03/02/20 09:44 02/01/20 10:11 Acetaminophen/ Hydrocodone Bitart ([place] 5/325) 1 tab Q8H PRN ORAL For Pain 01/31/20 16:37 02/07/20 16:36 02/01/20 14:43 Albuterol/ Ipratropium (Albuterol/ Ipratropium) 3 ml Q6HRT HHN 01/31/20 19:00 02/04/20 13:14 02/01/20 13:17 Amitriptyline HCl (Elavil) 10 mg BEDTIME ORAL 01/31/20 21:00 02/29/20 20:59 01/31/20 21:17 Azithromycin 500 mg/Dextrose 275 ml @ 275 mls/hr Q24HRS IV 01/31/20 18:00 02/05/20 18:59 01/31/20 17:32 Barium Sulfate (Readi-Cat 2) 450 ml NOW PRN ORAL Radiology Procedure 02/01/20 09:45 02/03/20 09:32 Diltiazem HCl (Cardizem Tab) 90 mg EVERY 6 HOURS ORAL 02/01/20 06:00 03/02/20 05:59 02/01/20 12:00 Docusate Sodium (Colace) 200 mg TWICE A DAY ORAL 01/31/20 18:00 03/01/20 17:59 02/01/20 08:53 Doxazosin Mesylate (Cardura) 2 mg Q12HR ORAL 02/01/20 09:00 03/02/20 08:59 02/01/20 08:54 Gabapentin (Neurontin) 600 mg THREE TIMES A DAY ORAL 01/31/20 18:00 02/29/20 17:59 02/01/20 12:00 Heparin Sodium (Porcine) (Heparin 5000 units/ml) 5,000 units EVERY 12 HOURS SUBQ 01/31/20 21:00 03/15/20 20:59 02/01/20 08:55 Hydralazine HCl (Apresoline) 25 mg Q4H PRN ORAL For High Blood Pressure 02/01/20 16:00 05/01/20 15:59 02/01/20 16:06 Methylprednisolone Sodium Succinate (Solu-MEDROL) 40 mg EVERY 6 HOURS IVP 01/31/20 18:00 04/29/20 11:59 02/01/20 12:00 Ondansetron HCl (Zofran) 4 mg Q4H PRN IVP Nausea & Vomiting 02/01/20 16:00 03/02/20 15:59 02/01/20 16:06 Piperacillin Sod/ Tazobactam Sod 3.375 gm/Dextrose 110 ml @ 27.5 mls/hr EVERY 8 HOURS IVPB 01/31/20 22:00 02/05/20 21:59 02/01/20 14:06 Pregabalin (Lyrica) 75 mg BID ORAL 01/31/20 18:00 02/29/20 17:59 02/01/20 08:54 Sodium Citrate (Bicitra) 30 ml BIAC ORAL 02/01/20 06:30 02/29/20 16:29 02/01/20 16:06 Cristina Rubin MD Feb 01, 2020 16:45
[2020-02-01] MEDS: Azithromycin 500 MG in D5W 275 ML IV SCH (18:11)
[2020-02-01] MEDS: Potassium Phosphate 15mm/250ml 250 ML IVPB SCH ×2 (18:12→22:52)
--- NOTE | 2020-02-01 19:40 | NUR ---
NURSE HAND-OFF REPORT: Important Events on Shift: Patient Status: Diet: Pending Orders: Pending Results/Labs: Pending MD notification: Latest Vital Signs: Temperature 98.8 , Pulse 95 , B/P 154 /66 , Respiratory Rate 20 , O2 SAT 96 , Nasal Cannula, O2 Flow Rate 3.0 . Vital Sign Comment: EKG Rhythm: Sinus Rhythm Rhythm change?: N MD Notified?: N -Dr.Kattan ARIAS Response: Latest Ware Fall Score: 75 Fall Risk: High Risk Safety Measures: Call light Within Reach, Bed Alarm Zone 2, Side Rails Side Rails x2, Bed position Low and Locked. Fall Precautions: Yellow Socks Yellow Gown Door Sign Patient Fall Education Report given to . Pt is stable, no stress noted. endorsed plan of care.
--- NOTE | 2020-02-01 20:29 | NUR ---
NURSE NOTES: Patient experienced PST 140HR, patient in stable condition. Will continue to actively monitor.
[2020-02-01] MEDS: Vancomycin 1.5gm/NS Premix IVPB SCH (21:43)
--- NOTE | 2020-02-01 22:58 | NUR ---
NURSE NOTES: Patient denies chest pain and back pain at this time.
--- NOTE | 2020-02-01 23:15 | NUR ---
NURSE NOTES: Notified Dr. Funes regarding prior episodes of SR with PACs (0800, 1100, and 1999). Patient is in stable condition.
--- NOTE | 2020-02-01 23:54 | NUR ---
NURSE NOTES: Notified Dr. Funes regarding patient complaints of isolated chest pain, non-radiating, pain level 4 now.
[2020-02-02] VITALS (7 sets, daily range): BP systolic 131–150; BP diastolic 54–73
--- NOTE | 2020-02-02 00:15 | NUR ---
NURSE NOTES: Obtained an EKG and sent picture of EKG to Dr. Funes. Awaiting for response.
[2020-02-02] MEDS: Solu-MEDROL 40mg Inj IVP SCH ×4 (00:56→17:55)
[2020-02-02] MEDS: dilTIAZem HCl 90mg tab ORAL SCH ×4 (00:56→17:53)
--- NOTE | 2020-02-02 00:58 | Cardiology Progress Note ---
Subjective DATE OF SERVICE: Feb 01, 2020 Has rare short episodes of rapid AFib SOB at times. No CP. WBC elevated - on steroids; abx broadened further. BP elevated Needs therapy for urinary retention - per urology Objective Last 24 Hour Vital Signs Date Time Temp Pulse Resp B/P (MAP) Pulse Ox O2 Delivery O2 Flow Rate FiO2 02/02/20 00:00 92 02/02/20 00:00 98.4 92 20 131/59 (83) 98 02/01/20 23:28 97.8 02/01/20 20:18 110 02/01/20 20:00 97 02/01/20 20:00 97.5 97 19 126/61 (82) 98 02/01/20 20:00 3.0 02/01/20 19:42 92 Nasal Cannula 2.0 28 02/01/20 19:39 85 18 96 Nasal Cannula 2.0 28 83 18 92 02/01/20 17:34 154/66 (95) 02/01/20 17:09 95 165/69 02/01/20 16:08 95 02/01/20 16:06 165/69 02/01/20 16:00 3.0 02/01/20 15:48 98.8 99 20 165/69 (101) 96 02/01/20 13:27 97 18 95 Nasal Cannula 3.0 32 92 18 92 02/01/20 12:00 3.0 02/01/20 12:00 94 150/73 02/01/20 11:54 99.7 94 18 150/73 (98) 97 02/01/20 11:29 94 02/01/20 10:41 100.0 02/01/20 09:00 Nasal Cannula 3.0 02/01/20 08:00 3.0 02/01/20 08:00 100.6 100 20 151/60 (90) 94 02/01/20 08:00 99 02/01/20 07:32 101 20 95 Nasal Cannula 3.0 32 98 20 90 02/01/20 07:22 90 Nasal Cannula 3.0 32 02/01/20 05:43 94 156/90 02/01/20 04:00 97.5 94 18 149/71 (97) 95 02/01/20 04:00 3.0 02/01/20 04:00 120 HEENT: normal ENT inspection RHYTHM: ST, Afib LUNGS: diminished breath sounds, bilateral rhonchi CARDIAC: normal S1 and S2, irregularly irregular, tachycardia ABDOMEN: normal bowel sounds, non tender, soft, no organomegaly EXTREMITIES: non-tender, No edema Laboratory Tests Test 02/01/20 08:20 White Blood Count 34.3 K/UL (4.8-10.8) *H Red Blood Count 4.32 M/UL (4.20-5.40) Hemoglobin 11.1 G/DL (12.0-16.0) L Hematocrit 35.7 % (37.0-47.0) L Mean Corpuscular Volume 83 FL (80-99) Mean Corpuscular Hemoglobin 25.8 PG (27.0-31.0) L Mean Corpuscular Hemoglobin Concent 31.2 G/DL (32.0-36.0) L Red Cell Distribution Width 16.7 % (11.6-14.8) H Platelet Count 394 K/UL (150-450) Mean Platelet Volume 5.3 FL (6.5-10.1) L Neutrophils (%) (Auto) % (45.0-75.0) Lymphocytes (%) (Auto) % (20.0-45.0) Monocytes (%) (Auto) % (1.0-10.0) Eosinophils (%) (Auto) % (0.0-3.0) Basophils (%) (Auto) % (0.0-2.0) Differential Total Cells Counted 100 Neutrophils % (Manual) 94 % (45-75) H Lymphocytes % (Manual) 3 % (20-45) L Monocytes % (Manual) 3 % (1-10) Eosinophils % (Manual) 0 % (0-3) Basophils % (Manual) 0 % (0-2) Band Neutrophils 0 % (0-8) Platelet Estimate Adequate Platelet Morphology Normal Hypochromasia 1+ Anisocytosis 1+ Sodium Level 141 MMOL/L (136-145) Potassium Level 3.0 MMOL/L (3.5-5.1) L Chloride Level 104 MMOL/L (98-107) Carbon Dioxide Level 27 MMOL/L (21-32) Anion Gap 10 mmol/L (5-15) Blood Urea Nitrogen 21 mg/dL (7-18) H Creatinine 0.9 MG/DL (0.55-1.30) Estimat Glomerular Filtration Rate > 60 mL/min (>60) Glucose Level 212 MG/DL (74-106) H Calcium Level 8.8 MG/DL (8.5-10.1) Phosphorus Level 1.6 MG/DL (2.5-4.9) L Magnesium Level 2.4 MG/DL (1.8-2.4) Total Bilirubin 0.5 MG/DL (0.2-1.0) Aspartate Amino Transf (AST/SGOT) 16 U/L (15-37) Alanine Aminotransferase (ALT/SGPT) 22 U/L (12-78) Alkaline Phosphatase 173 U/L (46-116) H Pro-B-Type Natriuretic Peptide 2742 pg/mL (0-125) H Total Protein 6.9 G/DL (6.4-8.2) Albumin 2.7 G/DL (3.4-5.0) L Globulin 4.2 g/dL Albumin/Globulin Ratio 0.6 (1.0-2.7) L Microbiology Date/Time Source Procedure Growth Status 01/30/20 13:30 Sputum Gram Stain - Final Resulted 01/30/20 13:30 Sputum Sputum Culture Pending Resulted 01/31/20 09:10 Indwelling Cath Urine Culture - Preliminary NO GROWTH Resulted Assessment/Plan Assessment/Plan Paroxysmal Atrial Fibrillation SInus tachycardia Sepsis Lactic acidosis Acute myocardial ischemia Pneumonia Hx CVA Acute renal failure Urinary retention; neurogenic bladder Hypokalemia Hypertension with labile BP Adjust IVF Antimicrobials Respiratory hygiene Titrate up antiHTN regimen Monitor cardiac rhythm Replace K+/Mg++ as needed Serial lactic acid levels Titrate doxazosin for urin ret and elevated BP (instead of tamsulosin) and titrate. Jr Funes MD Feb 02, 2020 00:58
[2020-02-02] MEDS: Albuterol/Ipratropium 3ml neb HHN SCH ×4 (01:00→20:04)
--- NOTE | 2020-02-02 03:43 | NUR ---
NURSE NOTES: Bladder scanner showed 289mL urine, will encourage patient to void, abd is non-tender and soft.
[2020-02-02] MEDS: Piperacillin/Tazobactam 3.375 GM in D5W 110 ML IVPB SCH ×3 (05:53→22:41)
[2020-02-02] MEDS: Sodium Citrate 30ml ORAL SCH ×2 (05:54→17:04)
[2020-02-02 07:09] LABS: ANION GAP 11 mmol/L (5-15); BLOOD UREA NITROGEN 29 mg/dL (7-18); CALCIUM 8.8 MG/DL (8.5-10.1); CARBON DIOXIDE 28 MMOL/L (21-32); CHLORIDE 103 MMOL/L (98-107); CREATININE 1.3 MG/DL (0.55-1.30); PHOSPHORUS 3.6 MG/DL (2.5-4.9); POTASSIUM 3.4 MMOL/L (3.5-5.1); SODIUM 142 MMOL/L (136-145)
[2020-02-02 07:21] LABS: HEMATOCRIT 34.6 % (37.0-47.0); MEAN CORPUSCULAR VOLUME 83 FL (80-99); PLATELET COUNT 369 K/UL (150-450); RED BLOOD COUNT 4.15 M/UL (4.20-5.40); RED CELL DISTRIBUTION WIDTH 16.6 % (11.6-14.8)
--- NOTE | 2020-02-02 07:29 | NUR ---
HAND-OFF: Report given to Ozzy RN. Patient in stable condition. Plan of care endorsed. Notified Dr. Tello and Dr. Larios regarding chest pain and ekg findings and cardiac strips. No new orders at this time.
[2020-02-02 07:35] LABS: WHITE BLOOD COUNT 27.7 K/UL (4.8-10.8)
[2020-02-02] MEDS ORDERED: Micafungin 100 MG in NS 110 ML IVPB SCH (07:45)
[2020-02-02] MEDS: Lyrica 75mg cap ORAL SCH ×2 (07:50→17:54)
[2020-02-02] MEDS: HYDROcodone/Acetamin 5/325 tab ORAL PRN (07:50)
[2020-02-02] MEDS: Docusate 100mg cap ORAL SCH ×2 (07:51→17:54)
[2020-02-02] MEDS: Heparin 5000 units/ml inj SUBQ SCH ×2 (07:51→21:02)
--- NOTE | 2020-02-02 08:03 | NUR ---
NURSE NOTES: Received report from DARLYN Bee. Pt stable, AOx4, resting in bed. Pt on 3LPM NC. L Hand 22g running zosyn. IV asymptomatic, non tender and intact. Pt yellow gown on, bed low and locked, and call light in reach. pt instructed to call for help.
--- NOTE | 2020-02-02 08:28 | Diagnostic Imaging Report ---
EXAM: XR Chest, 1 View CLINICAL HISTORY: INFECT TECHNIQUE: Frontal view of the chest. COMPARISON: No relevant prior studies available. FINDINGS/IMPRESSION: Opacity within the right lower lung field consistent with infiltrate. Follow-up chest radiograph recommended. Mild, chronically increased interstitial markings. Left base atelectasis. No pneumothorax or pleural effusion. Cardiomegaly.
[2020-02-02] MEDS: Doxazosin 4mg tab ORAL SCH ×2 (09:24→20:39)
--- NOTE | 2020-02-02 09:34 | Urology Progress Note ---
Assessment/Plan Assessment/Plan: 1. Urinary retention. 2. Probable neurogenic bladder. 3. Acute kidney injury, which is improved. 4. Urinary tract infection. 5. Hematuria. 6. Proteinuria. monitor clinically pastrana out and voiding, elevated PVR still on elavil on cardura 4 mg BID consider adding urecholine f/u on cx's abx as ordered monitor renal fxn cysto at some point Subjective Allergies: Coded Allergies: No Known Allergies (Unverified , 05/19/13) Subjective pastrana out, voiding last PVR 289 cc Objective Last 24 Hour Vital Signs Date Time Temp Pulse Resp B/P (MAP) Pulse Ox O2 Delivery O2 Flow Rate FiO2 02/02/20 09:00 Nasal Cannula 3.0 02/02/20 08:34 98.2 02/02/20 08:20 98.2 02/02/20 08:00 98.1 95 16 148/58 (88) 93 02/02/20 07:14 93 Room Air 21 02/02/20 07:14 99 18 96 Room Air 21 96 18 93 02/02/20 05:54 84 142/64 02/02/20 04:00 3.0 02/02/20 04:00 84 02/02/20 04:00 98.2 84 19 142/64 (90) 98 02/02/20 00:56 92 131/59 02/02/20 00:00 92 02/02/20 00:00 98.4 92 20 131/59 (83) 98 02/01/20 21:00 Nasal Cannula 3.0 02/01/20 20:18 110 02/01/20 20:00 97 02/01/20 20:00 97.5 97 19 126/61 (82) 98 02/01/20 20:00 3.0 02/01/20 19:42 92 Nasal Cannula 2.0 28 02/01/20 19:39 85 18 96 Nasal Cannula 2.0 28 83 18 92 02/01/20 17:34 154/66 (95) 02/01/20 17:09 95 165/69 02/01/20 16:08 95 02/01/20 16:06 165/69 02/01/20 16:00 3.0 02/01/20 15:48 98.8 99 20 165/69 (101) 96 02/01/20 13:27 97 18 95 Nasal Cannula 3.0 32 92 18 92 02/01/20 12:00 3.0 02/01/20 12:00 94 150/73 02/01/20 11:54 99.7 94 18 150/73 (98) 97 02/01/20 11:29 94 02/01/20 10:41 100.0 Intake and Output 02/01/20 02/02/20 19:00 07:00 Intake Total 110.0 ml Output Total 250 ml Balance -140.0 ml IV Total 110.0 ml Output Urine Total 250 ml # Voids 2 # Bowel Movements 3 Microbiology Date/Time Source Procedure Growth Status 01/29/20 18:05 Blood Blood Culture - Preliminary Resulted 01/30/20 13:30 Sputum Gram Stain - Final Complete 01/30/20 13:30 Sputum Culture - Final Karime Albicans Usual Respiratory Tamara Complete 01/31/20 09:10 Indwelling Cath Urine Culture - Preliminary NO GROWTH AFTER 24 HOURS Resulted Current Medications Medications (Trade) Dose Ordered Sig/Bill Route PRN Reason Start Time Stop Time Status Last Admin Dose Admin Acetaminophen (Tylenol) 650 mg Q6H PRN ORAL Temp >100.5 02/01/20 09:45 03/02/20 09:44 02/01/20 10:11 Acetaminophen/ Hydrocodone Bitart ([place] 5/325) 1 tab Q8H PRN ORAL For Pain 01/31/20 16:37 02/07/20 16:36 02/02/20 07:50 Albuterol/ Ipratropium (Albuterol/ Ipratropium) 3 ml Q6HRT HHN 01/31/20 19:00 02/04/20 13:14 02/02/20 07:04 Amitriptyline HCl (Elavil) 10 mg BEDTIME ORAL 01/31/20 21:00 02/29/20 20:59 02/01/20 20:30 Azithromycin 500 mg/Dextrose 275 ml @ 275 mls/hr Q24HRS IV 01/31/20 18:00 02/05/20 18:59 02/01/20 18:11 Barium Sulfate (Readi-Cat 2) 450 ml NOW PRN ORAL Radiology Procedure 02/01/20 09:45 02/03/20 09:32 Diltiazem HCl (Cardizem Tab) 90 mg EVERY 6 HOURS ORAL 02/01/20 06:00 9/13/20 05:59 02/02/20 05:54 Docusate Sodium (Colace) 200 mg TWICE A DAY ORAL 01/31/20 18:00 03/01/20 17:59 02/02/20 07:51 Doxazosin Mesylate (Cardura) 4 mg Q12HR ORAL 02/02/20 09:00 03/03/20 08:59 02/02/20 09:24 Gabapentin (Neurontin) 600 mg THREE TIMES A DAY ORAL 01/31/20 18:00 02/29/20 17:59 02/02/20 07:50 Heparin Sodium (Porcine) (Heparin 5000 units/ml) 5,000 units EVERY 12 HOURS SUBQ 01/31/20 21:00 03/15/20 20:59 02/02/20 07:51 Hydralazine HCl (Apresoline) 25 mg Q4H PRN ORAL For High Blood Pressure 02/01/20 16:00 05/01/20 15:59 02/01/20 16:06 Methylprednisolone Sodium Succinate (Solu-MEDROL) 40 mg EVERY 6 HOURS IVP 01/31/20 18:00 04/29/20 11:59 02/02/20 05:53 Micafungin Sodium 100 mg/Sodium Chloride 110 ml @ 110 mls/hr Q24H IVPB 02/02/20 10:00 02/09/20 09:59 Ondansetron HCl (Zofran) 4 mg Q4H PRN IVP Nausea & Vomiting 02/01/20 16:00 03/02/20 15:59 02/01/20 16:06 Piperacillin Sod/ Tazobactam Sod 3.375 gm/Dextrose 110 ml @ 27.5 mls/hr EVERY 8 HOURS IVPB 01/31/20 22:00 02/05/20 21:59 02/02/20 05:53 Pregabalin (Lyrica) 75 mg BID ORAL 01/31/20 18:00 02/29/20 17:59 02/02/20 07:50 Sodium Citrate (Bicitra) 30 ml BIAC ORAL 02/01/20 06:30 02/29/20 16:29 02/02/20 05:54 Vancomycin HCl (Vanco pharmacy to dose) 1 ea DAILY PRN MISC Per rx protocol 02/01/20 16:30 03/02/20 16:29 Vancomycin/Sodium Chloride 275 ml @ 137.5 mls/ hr Q24H IVPB 02/01/20 21:00 02/06/20 20:59 02/01/20 21:43 Laboratory Tests 02/02/20 05:50: White Blood Count 27.7*H, Red Blood Count 4.15L, Hemoglobin 11.0L, Hematocrit 34.6L, Mean Corpuscular Volume 83, Mean Corpuscular Hemoglobin 26.5L, Mean Corpuscular Hemoglobin Concent 31.8L, Red Cell Distribution Width 16.6H, Platelet Count 369, Mean Platelet Volume 5.3L, Neutrophils (%) (Auto) , Lymphocytes (%) (Auto) , Monocytes (%) (Auto) , Eosinophils (%) (Auto) , Basophils (%) (Auto) , Neutrophils % (Manual) [Pending], Lymphocytes % (Manual) [Pending], Platelet Estimate [Pending], Platelet Morphology [Pending], Sodium Level 142, Potassium Level 3.4L, Chloride Level 103, Carbon Dioxide Level 28, Anion Gap 11, Blood Urea Nitrogen 29H, Creatinine 1.3, Estimat Glomerular Filtration Rate 48.6, Glucose Level 186H, Calcium Level 8.8, Phosphorus Level 3.6, Magnesium Level 2.5H Height (Feet): 5 Height (Inches): 5.00 Weight (Pounds): 210 Objective exam stable Brian Schneider MD Feb 02, 2020 09:34
[2020-02-02] MEDS: Micafungin 100 MG in NS 110 ML IVPB SCH (10:49)
--- NOTE | 2020-02-02 11:50 | NUR ---
CASE MANAGEMENT:REVIEW SI;PNA. COPD. CHF. RENAL FAILURE. E COLI UTI. 98.4 110 20 142/64 93% 3L NC WBC 27.7 K+ 3.4 BUN 29 BG 186 MAG 2.5 IS;MICAFUNGIN IV Q24 CARDURA PO Q12 VANCOMYCIN IV Q24 BICITRA PO DILTIAZEM PO Q6 ZOSYN IV Q8 ELAVIL PO HS HEPARIN SUBQ Q12 SOLU-MEDROL IV Q6 NORCO PO Q8 PRN AZITHROMYCIN IV Q24 TELE STATUS DCP;FROM HOME PLAN; CONTINUE ANTIMICROBIALS TITRATE ANTI HTN REGIMEN MONITOR CARDIAC RHYTHM
--- NOTE | 2020-02-02 12:02 | NUR ---
INSURANCE FAXED CLINCALS AND REVIEW TO [employer] NCM: TONY T: [phone] [employer] F; [phone] REF# [id number]
[2020-02-02] MEDS ORDERED: guaiFENesin /DM 10ml syrup ORAL PRN (16:00)
--- NOTE | 2020-02-02 16:26 | Nephrology Progress Note ---
Assessment/Plan Plan #JOSH on CKD- suspect pre-renal azotemia in the setting of sepsis, pneumonia and lactic acidosis #Hyperkalemia - improved #bilateral pneumonia #Lactic acidosis #leukocytosis #HTN #h/o CHF - DC IVF - replete K and phos - monitor lactic acid - antibiotcs per ID - amlodipine 10mg daily - diltiazem 60mg BID - urology eval for retention - monitor PVR - monitor renal parameter - avoid nephrotoxins - monitor UOP -monitor weight Time spent 70 min- Subjective ROS Limited/Unobtainable: No Constitutional: Reports: weakness HEENT: Denies: no symptoms, eye pain, blurred vision, tearing, double vision, ear pain, ear discharge, nose pain, nose congestion, throat pain, throat swelling, mouth pain, mouth swelling, other Genitourinary: Denies: no symptoms, burning, discharge, frequency, flank pain, hematuria, incontinence, pain, urgency, other Neurologic/Psychiatric: Denies: no symptoms, anxiety, depressed, emotional problems, headache, numbness, paresthesia, pre-existing deficit, seizure, tingling, tremors, weakness, other Subjective renal function better breathing stable will DC IVF K low - repleted WBC remains elevated feeling nauseas Urology eval for urinary retention CT abdomen: IMPRESSION: 1. Bilateral bronchovascular pattern airspace disease concerning for pneumonia. 2. Gas within the urinary bladder; clinical correlation for recent instrumentation/Nguyen catheter placement is recommended. Otherwise, infection should be considered. 3. Colonic diverticulosis without evidence of acute diverticulitis. 4. Chronic L4 compression fracture Objective Objective Last 24 Hour Vital Signs Date Time Temp Pulse Resp B/P (MAP) Pulse Ox O2 Delivery O2 Flow Rate FiO2 02/02/20 14:06 99.6 02/02/20 13:42 99.6 89 18 142/61 (88) 93 02/02/20 13:11 96 18 97 Nasal Cannula 2.0 28 92 18 94 02/02/20 12:00 99.6 89 18 142/61 (88) 93 02/02/20 12:00 91 02/02/20 11:02 99 148/58 02/02/20 09:00 Nasal Cannula 3.0 02/02/20 08:34 98.2 02/02/20 08:20 98.2 02/02/20 08:00 99 02/02/20 08:00 98.1 95 16 148/58 (88) 93 02/02/20 07:14 93 Room Air 21 02/02/20 07:14 99 18 96 Room Air 21 96 18 93 02/02/20 05:54 84 142/64 02/02/20 04:00 3.0 02/02/20 04:00 84 02/02/20 04:00 98.2 84 19 142/64 (90) 98 02/02/20 00:56 92 131/59 02/02/20 00:00 92 02/02/20 00:00 98.4 92 20 131/59 (83) 98 02/01/20 21:00 Nasal Cannula 3.0 02/01/20 20:18 110 02/01/20 20:00 97 02/01/20 20:00 97.5 97 19 126/61 (82) 98 02/01/20 20:00 3.0 02/01/20 19:42 92 Nasal Cannula 2.0 28 02/01/20 19:39 85 18 96 Nasal Cannula 2.0 28 83 18 92 02/01/20 17:34 154/66 (95) 02/01/20 17:09 95 165/69 Intake and Output 02/01/20 02/02/20 19:00 07:00 Intake Total 110.0 ml Output Total 250 ml Balance -140.0 ml IV Total 110.0 ml Output Urine Total 250 ml # Voids 2 # Bowel Movements 3 Laboratory Tests 02/02/20 05:50: White Blood Count 27.7*H, Red Blood Count 4.15L, Hemoglobin 11.0L, Hematocrit 34.6L, Mean Corpuscular Volume 83, Mean Corpuscular Hemoglobin 26.5L, Mean Corpuscular Hemoglobin Concent 31.8L, Red Cell Distribution Width 16.6H, Platelet Count 369, Mean Platelet Volume 5.3L, Neutrophils (%) (Auto) , Lymphocytes (%) (Auto) , Monocytes (%) (Auto) , Eosinophils (%) (Auto) , Basophils (%) (Auto) , Differential Total Cells Counted 100, Neutrophils % ( Manual) 86H, Lymphocytes % (Manual) 6L, Monocytes % (Manual) 8, Eosinophils % ( Manual) 0, Basophils % (Manual) 0, Band Neutrophils 0, Platelet Estimate Adequate, Platelet Morphology Normal, Hypochromasia 1+, Anisocytosis 1+, Sodium Level 142, Potassium Level 3.4L, Chloride Level 103, Carbon Dioxide Level 28, Anion Gap 11, Blood Urea Nitrogen 29H, Creatinine 1.3, Estimat Glomerular Filtration Rate 48.6, Glucose Level 186H, Calcium Level 8.8, Phosphorus Level 3.6, Magnesium Level 2.5H Height (Feet): 5 Height (Inches): 5.00 Weight (Pounds): 210 Simin Carpio M.D. Feb 02, 2020 16:26
[2020-02-02] MEDS: Azithromycin 500 MG in D5W 275 ML IV SCH (17:54)
--- NOTE | 2020-02-02 18:05 | NUR ---
NURSE NOTES: Notified pt's hr of 150. No new order given.
--- NOTE | 2020-02-02 19:19 | NUR ---
NURSE HAND-OFF REPORT: Important Events on Shift: several episodes of HR in 150s, MD notified Patient Status: FC, stable Diet: cardiac diet, regular texture Pending Orders: n/a Pending Results/Labs:n/a Pending MD notification:n/a Latest Vital Signs: Temperature 99.6 , Pulse 97 , B/P 142 /61 , Respiratory Rate 20 , O2 SAT 94 , Nasal Cannula, O2 Flow Rate 3.0 . Vital Sign Comment: EKG Rhythm: SR with PAC's Rhythm change?: N MD Notified?: N -Dr. Shantel ARIAS Response: Latest Ware Fall Score: 75 Fall Risk: High Risk Safety Measures: Call light Within Reach, Bed Alarm Zone 2, Side Rails Side Rails x2, Bed position Low and Locked. Fall Precautions: Yellow Socks Yellow Gown Door Sign Patient Fall Education Report given to Rohit SANTIZO.
--- NOTE | 2020-02-02 19:57 | NUR ---
NURSE NOTES: Notified RT to administer albuterol treatment. RT arriving shortly.
[2020-02-02] MEDS: Vancomycin 1.5gm/NS Premix IVPB SCH (20:57)
[2020-02-02] MEDS ORDERED: guaiFENesin w/Codeine 5ml Liq ud ORAL PRN (21:15)
[2020-02-03] VITALS (7 sets, daily range): BP systolic 141–157; BP diastolic 50–74
--- NOTE | 2020-02-03 00:37 | Cardiology Progress Note ---
Subjective DATE OF SERVICE: Feb 02, 2020 Still with rare episodes of rapid AFib. Has non-sustained PAC's and PVC's. SOB at times, and congested. No CP. WBC elevated - on steroids; abx broadened further. BP parameters significantly improved Needs therapy for urinary retention - per urology Objective Last 24 Hour Vital Signs Date Time Temp Pulse Resp B/P (MAP) Pulse Ox O2 Delivery O2 Flow Rate FiO2 02/03/20 00:00 99.0 95 20 141/50 (80) 95 02/03/20 00:00 95 02/02/20 20:02 94 Room Air 21 02/02/20 20:02 87 18 98 Room Air 21 84 18 94 02/02/20 20:00 94 02/02/20 20:00 98.2 94 18 150/73 (98) 97 02/02/20 18:24 99.6 02/02/20 17:53 97 142/61 02/02/20 16:00 99.3 94 20 138/54 (82) 94 02/02/20 16:00 97 02/02/20 14:06 99.6 02/02/20 13:42 99.6 89 18 142/61 (88) 93 02/02/20 13:11 96 18 97 Nasal Cannula 2.0 28 92 18 94 02/02/20 12:00 99.6 89 18 142/61 (88) 93 02/02/20 12:00 91 02/02/20 11:02 99 148/58 02/02/20 09:00 Nasal Cannula 3.0 02/02/20 08:34 98.2 02/02/20 08:00 99 02/02/20 08:00 98.1 95 16 148/58 (88) 93 02/02/20 07:14 93 Room Air 21 02/02/20 07:14 99 18 96 Room Air 21 96 18 93 02/02/20 05:54 84 142/64 02/02/20 04:00 3.0 02/02/20 04:00 84 02/02/20 04:00 98.2 84 19 142/64 (90) 98 02/02/20 00:56 92 131/59 HEENT: normal ENT inspection, other - forgetful RHYTHM: ST, Afib LUNGS: diminished breath sounds, bilateral rhonchi CARDIAC: normal S1 and S2, irregularly irregular, tachycardia ABDOMEN: normal bowel sounds, non tender, soft, no organomegaly EXTREMITIES: non-tender, No edema Laboratory Tests Test 02/02/20 05:50 White Blood Count 27.7 K/UL (4.8-10.8) *H Red Blood Count 4.15 M/UL (4.20-5.40) L Hemoglobin 11.0 G/DL (12.0-16.0) L Hematocrit 34.6 % (37.0-47.0) L Mean Corpuscular Volume 83 FL (80-99) Mean Corpuscular Hemoglobin 26.5 PG (27.0-31.0) L Mean Corpuscular Hemoglobin Concent 31.8 G/DL (32.0-36.0) L Red Cell Distribution Width 16.6 % (11.6-14.8) H Platelet Count 369 K/UL (150-450) Mean Platelet Volume 5.3 FL (6.5-10.1) L Neutrophils (%) (Auto) % (45.0-75.0) Lymphocytes (%) (Auto) % (20.0-45.0) Monocytes (%) (Auto) % (1.0-10.0) Eosinophils (%) (Auto) % (0.0-3.0) Basophils (%) (Auto) % (0.0-2.0) Differential Total Cells Counted 100 Neutrophils % (Manual) 86 % (45-75) H Lymphocytes % (Manual) 6 % (20-45) L Monocytes % (Manual) 8 % (1-10) Eosinophils % (Manual) 0 % (0-3) Basophils % (Manual) 0 % (0-2) Band Neutrophils 0 % (0-8) Platelet Estimate Adequate Platelet Morphology Normal Hypochromasia 1+ Anisocytosis 1+ Sodium Level 142 MMOL/L (136-145) Potassium Level 3.4 MMOL/L (3.5-5.1) L Chloride Level 103 MMOL/L (98-107) Carbon Dioxide Level 28 MMOL/L (21-32) Anion Gap 11 mmol/L (5-15) Blood Urea Nitrogen 29 mg/dL (7-18) H Creatinine 1.3 MG/DL (0.55-1.30) Estimat Glomerular Filtration Rate 48.6 mL/min (>60) Glucose Level 186 MG/DL (74-106) H Calcium Level 8.8 MG/DL (8.5-10.1) Phosphorus Level 3.6 MG/DL (2.5-4.9) Magnesium Level 2.5 MG/DL (1.8-2.4) H Microbiology Date/Time Source Procedure Growth Status 01/31/20 09:10 Indwelling Cath Urine Culture - Preliminary NO GROWTH AFTER 24 HOURS Resulted Assessment/Plan Assessment/Plan Paroxysmal Atrial Fibrillation Sinus tachycardia Sepsis Lactic acidosis Acute myocardial ischemia Pneumonia Hx CVA Acute renal failure Urinary retention; neurogenic bladder Hypokalemia Hypertension with labile BP Adjust IVF Antimicrobials Respiratory hygiene Titrate up antiHTN regimen Monitor cardiac rhythm - continue diltiazem for suppression of atrial arrhythmias Replace K+/Mg++ as needed Serial lactic acid levels Titrate doxazosin for urin ret and elevated BP (instead of tamsulosin) and titrate. Jr Funes MD Feb 03, 2020 00:36
[2020-02-03] MEDS: Solu-MEDROL 40mg Inj IVP SCH ×2 (00:58→06:33)
[2020-02-03] MEDS: dilTIAZem HCl 90mg tab ORAL SCH ×4 (00:58→17:29)
[2020-02-03] MEDS: Albuterol/Ipratropium 3ml neb HHN SCH ×4 (01:00→19:00)
--- NOTE | 2020-02-03 01:30 | NUR ---
NURSE NOTES: Called and left a voicemail for Dr. Funes regarding cardiac rhythm strips (SR with PVC and PACs) as well as multiple episodes of sinus rhythms with PACs since yesterday.
[2020-02-03] MEDS: HYDROcodone/Acetamin 5/325 tab ORAL PRN ×3 (02:04→18:26)
--- NOTE | 2020-02-03 06:20 | NUR ---
NURSE NOTES: Called and left a voicemail regarding chest pain onset that is radiating to back and sensations of tingling arms and hands to Dr. Funes. Vitals are stable, patient is alert and orientedx4, respirations 22, BP: 157/60, spO2: 96%, Temp: 97.9.
[2020-02-03] MEDS: Sodium Citrate 30ml ORAL SCH ×2 (06:32→16:23)
[2020-02-03] MEDS: Piperacillin/Tazobactam 3.375 GM in D5W 110 ML IVPB SCH ×3 (06:33→22:11)
--- NOTE | 2020-02-03 06:47 | NUR ---
NURSE NOTES: Alert and oriented x4, able to verbalize needs, pt states "pain is subsiding", vital signs remain stable, breathing unlabored and even.
[2020-02-03 07:28] LABS: HEMATOCRIT 33.8 % (37.0-47.0); HEMOGLOBIN 10.6 G/DL (12.0-16.0); MEAN CORPUSCULAR VOLUME 83 FL (80-99); PLATELET COUNT 348 K/UL (150-450); RED BLOOD COUNT 4.06 M/UL (4.20-5.40); RED CELL DISTRIBUTION WIDTH 16.5 % (11.6-14.8)
[2020-02-03 07:38] LABS: WHITE BLOOD COUNT 24.6 K/UL (4.8-10.8)
--- NOTE | 2020-02-03 07:40 | NUR ---
NURSE HAND-OFF REPORT: Important Events on Shift: bgl 53 at 06:50 02/03/20 Patient Status: Diet: Pending Orders: Pending Results/Labs: Pending MD notification: Latest Vital Signs: Temperature 97.9 , Pulse 97 , B/P 157 /60 , Respiratory Rate 22 , O2 SAT 97 , Nasal Cannula, O2 Flow Rate 2.0 . Vital Sign Comment: EKG Rhythm: Sinus Rhythm Rhythm change?: N MD Notified?: YES - MD Response: Dr. Funes aware of PACs and PVCs and chest pain radiating to back and arms and hands. Troponin was ordered per Dr. Funes. Latest Ware Fall Score: 75 Fall Risk: High Risk Safety Measures: Call light Within Reach, Bed Alarm Zone 2, Side Rails Side Rails x2, Bed position Low and Locked. Fall Precautions: Yellow Socks Yellow Gown Door Sign Patient Fall Education Report given to . Addendum: 02/03/20 at 0808 by Rohit Darby RN Charted the bgl on wrong patient.
[2020-02-03 07:47] LABS: ANION GAP 8 mmol/L (5-15); BLOOD UREA NITROGEN 26 mg/dL (7-18); CALCIUM 8.6 MG/DL (8.5-10.1); CARBON DIOXIDE 28 MMOL/L (21-32); CHLORIDE 104 MMOL/L (98-107); PHOSPHORUS 2.7 MG/DL (2.5-4.9); POTASSIUM 4.5 MMOL/L (3.5-5.1); SODIUM 140 MMOL/L (136-145)
--- NOTE | 2020-02-03 07:56 | NUR ---
NURSE NOTES: Received report from DARLYN Bee. Patient sleeping, HOB at 45 degrees, oxygen at 3 liters nasal cannula, respirations at 15 breaths per minuted, bed in lowest position, call light within reach, in no apparent distress.
--- NOTE | 2020-02-03 07:59 | NUR ---
NURSE NOTES: Dr. Jr Funes responded to message from [facility] nurse regarding patient report of chest pain, troponin=0.000, Dr. Jr Funes to see patient. No new orders.
[2020-02-03] MEDS ORDERED: Omnipaque 350 100ml vial INJ PRN (08:00)
[2020-02-03] MEDS: Doxazosin 4mg tab ORAL SCH ×2 (08:52→21:15)
[2020-02-03] MEDS: Docusate 100mg cap ORAL SCH ×2 (08:53→17:29)
[2020-02-03] MEDS: Lyrica 75mg cap ORAL SCH ×2 (08:53→17:30)
[2020-02-03] MEDS: Heparin 5000 units/ml inj SUBQ SCH ×2 (08:55→21:16)
--- NOTE | 2020-02-03 09:51 | Urology Progress Note ---
Assessment/Plan Assessment/Plan: 1. Urinary retention. 2. Probable neurogenic bladder. 3. Acute kidney injury, which is improved. 4. Urinary tract infection. 5. Hematuria. 6. Proteinuria. monitor clinically pastrana out and voiding, elevated PVR still on elavil on cardura 4 mg BID consider adding urecholine f/u on blood cx abx as ordered monitor renal fxn cysto at some point Subjective Allergies: Coded Allergies: No Known Allergies (Unverified , 05/19/13) Subjective pastrana out, voiding Objective Last 24 Hour Vital Signs Date Time Temp Pulse Resp B/P (MAP) Pulse Ox O2 Delivery O2 Flow Rate FiO2 02/03/20 08:00 100.2 98 20 151/63 (92) 92 02/03/20 07:21 89 18 99 Nasal Cannula 2.0 28 90 18 98 02/03/20 07:21 97 Nasal Cannula 2.0 28 02/03/20 06:32 97 157/60 02/03/20 06:20 97.9 97 22 157/60 (92) 96 02/03/20 04:00 97.8 97 20 152/65 (94) 96 02/03/20 04:00 97 02/03/20 02:34 99.0 02/03/20 00:58 95 141/50 02/03/20 00:00 99.0 95 20 141/50 (80) 95 02/03/20 00:00 95 02/02/20 21:00 Nasal Cannula 3.0 02/02/20 20:02 94 Room Air 21 02/02/20 20:02 87 18 98 Room Air 21 84 18 94 02/02/20 20:00 94 02/02/20 20:00 98.2 94 18 150/73 (98) 97 02/02/20 18:24 99.6 02/02/20 17:53 97 142/61 02/02/20 16:00 99.3 94 20 138/54 (82) 94 02/02/20 16:00 97 02/02/20 14:06 99.6 02/02/20 13:42 99.6 89 18 142/61 (88) 93 02/02/20 13:11 96 18 97 Nasal Cannula 2.0 28 92 18 94 02/02/20 12:00 99.6 89 18 142/61 (88) 93 02/02/20 12:00 91 8/15/20 11:02 99 148/58 Microbiology Date/Time Source Procedure Growth Status 01/29/20 18:05 Blood Blood Culture - Preliminary YEAST Resulted 01/30/20 13:30 Sputum Gram Stain - Final Complete 01/30/20 13:30 Sputum Culture - Final Karime Albicans Usual Respiratory Tamara Complete 01/31/20 09:10 Indwelling Cath Urine Culture - Final NO GROWTH AFTER 48 HOURS Complete Current Medications Medications (Trade) Dose Ordered Sig/Bill Route PRN Reason Start Time Stop Time Status Last Admin Dose Admin Acetaminophen (Tylenol) 650 mg Q6H PRN ORAL Temp >100.5 02/01/20 09:45 03/02/20 09:44 02/02/20 13:36 Acetaminophen/ Hydrocodone Bitart (Cornelius 5/325) 1 tab Q8H PRN ORAL For Pain 01/31/20 16:37 02/07/20 16:36 02/03/20 02:04 Albuterol/ Ipratropium (Albuterol/ Ipratropium) 3 ml Q6HRT HHN 01/31/20 19:00 02/04/20 13:14 02/03/20 07:20 Amitriptyline HCl (Elavil) 10 mg BEDTIME ORAL 01/31/20 21:00 02/29/20 20:59 02/02/20 20:39 Azithromycin 500 mg/Dextrose 275 ml @ 275 mls/hr Q24HRS IV 01/31/20 18:00 02/05/20 18:59 02/02/20 17:54 Diltiazem HCl (Cardizem Tab) 90 mg EVERY 6 HOURS ORAL 02/01/20 06:00 03/02/20 05:59 02/03/20 06:32 Docusate Sodium (Colace) 200 mg TWICE A DAY ORAL 01/31/20 18:00 03/01/20 17:59 02/03/20 08:53 Doxazosin Mesylate (Cardura) 4 mg Q12HR ORAL 02/02/20 09:00 03/03/20 08:59 02/03/20 08:52 Gabapentin (Neurontin) 600 mg THREE TIMES A DAY ORAL 01/31/20 18:00 02/29/20 17:59 02/03/20 08:52 Guaifenesin/ Codeine Phosphate (Robitussin with codeine) 5 ml Q6H PRN ORAL For Cough 02/02/20 21:15 03/03/20 21:14 02/02/20 23:10 Heparin Sodium (Porcine) (Heparin 5000 units/ml) 5,000 units EVERY 12 HOURS SUBQ 01/31/20 21:00 03/15/20 20:59 02/03/20 08:55 Hydralazine HCl (Apresoline) 25 mg Q4H PRN ORAL For High Blood Pressure 02/01/20 16:00 05/01/20 15:59 02/01/20 16:06 Iohexol (Omnipaque 350 100ml) 100 ml NOW PRN INJ Radiology Procedure 02/03/20 08:00 02/04/20 07:59 Micafungin Sodium 100 mg/Sodium Chloride 110 ml @ 110 mls/hr Q24H IVPB 02/02/20 10:00 02/09/20 09:59 02/02/20 10:49 Ondansetron HCl (Zofran) 4 mg Q4H PRN IVP Nausea & Vomiting 02/01/20 16:00 03/02/20 15:59 02/01/20 16:06 Piperacillin Sod/ Tazobactam Sod 3.375 gm/Dextrose 110 ml @ 27.5 mls/hr EVERY 8 HOURS IVPB 01/31/20 22:00 02/05/20 21:59 02/03/20 06:33 Pregabalin (Lyrica) 75 mg BID ORAL 01/31/20 18:00 02/29/20 17:59 02/03/20 08:53 Sodium Chloride 1,000 ml @ 75 mls/hr [id number] IV 02/03/20 08:00 03/04/20 07:59 02/03/20 08:52 Sodium Citrate (Bicitra) 30 ml BIAC ORAL 02/01/20 06:30 02/29/20 16:29 02/03/20 06:32 Vancomycin HCl (Vanco pharmacy to dose) 1 ea DAILY PRN MISC Per rx protocol 02/01/20 16:30 03/02/20 16:29 Vancomycin/Sodium Chloride 275 ml @ 137.5 mls/ hr Q24H IVPB 02/01/20 21:00 02/06/20 20:59 02/02/20 20:57 Zolpidem Tartrate (Ambien) 5 mg HSPRN PRN ORAL Insomnia 02/02/20 19:00 02/09/20 18:59 Laboratory Tests 02/03/20 06:20: White Blood Count 24.6*H, Red Blood Count 4.06L, Hemoglobin 10.6L, Hematocrit 33.8L, Mean Corpuscular Volume 83, Mean Corpuscular Hemoglobin 26.1L, Mean Corpuscular Hemoglobin Concent 31.3L, Red Cell Distribution Width 16.5H, Platelet Count 348, Mean Platelet Volume 5.6L, Neutrophils (%) (Auto) , Lymphocytes (%) (Auto) , Monocytes (%) (Auto) , Eosinophils (%) (Auto) , Basophils (%) (Auto) , Neutrophils % (Manual) [Pending], Lymphocytes % (Manual) [Pending], Platelet Estimate [Pending], Platelet Morphology [Pending], Sodium Level 140, Potassium Level 4.5, Chloride Level 104, Carbon Dioxide Level 28, Anion Gap 8, Blood Urea Nitrogen 26H, Creatinine 1.0, Estimat Glomerular Filtration Rate > 60, Glucose Level 135H, Calcium Level 8.6, Phosphorus Level 2.7, Magnesium Level 2.3, Troponin I 0.000, Pro-B-Type Natriuretic Peptide 507H Height (Feet): 5 Height (Inches): 5.00 Weight (Pounds): 210 Objective exam stable Brian Schneider MD Feb 03, 2020 09:51
[2020-02-03] MEDS: Micafungin 100 MG in NS 110 ML IVPB SCH (10:30)
--- NOTE | 2020-02-03 11:38 | Diagnostic Imaging Report ---
EXAM: CT Angiography Chest With Intravenous Contrast CLINICAL HISTORY: Chest pain TECHNIQUE: Axial computed tomographic angiography images of the chest with intravenous contrast. CTDI is 45.8 mGy and DLP is 398.2 mGy-cm. One or more of the following dose reduction techniques were used: automated exposure control, adjustment of the mA and/or kV according to patient size, use of iterative reconstruction technique. MIP reconstructed images were created and reviewed. Coronal and sagittal reformatted images were created and reviewed. COMPARISON: No relevant prior studies available. FINDINGS: Pulmonary arteries: No evidence of pulmonary embolism. Aorta: No thoracic aortic aneurysm. Lungs: Bilateral patchy hazy groundglass densities and interstitial septal thickening in bilateral lungs with relative subpleural sparing. Consolidation with air bronchograms in the medial left lower lobe, atelectasis versus pneumonia. Mild linear atelectasis in bilateral lower lobes. Pleural space: Bilateral trace pleural effusions. No pneumothorax. Heart: Coronary artery calcifications. No significant pericardial effusion. No evidence of RV dysfunction. Thyroid: 3.3 x 2.7 cm hypodense right thyroid nodule. Recommend follow-up evaluation with thyroid ultrasound. Bones/joints: No acute fracture. No dislocation. Soft tissues: Unremarkable. Lymph nodes: Unremarkable. No enlarged lymph nodes. Gallbladder and bile ducts: Status post cholecystectomy. IMPRESSION: 1. No evidence of pulmonary embolism. No thoracic aortic aneurysm or dissection. 2. Bilateral patchy hazy groundglass densities and interstitial septal thickening in bilateral lungs, which may represent pulmonary edema versus pneumonia. 3. Consolidation with air bronchograms in the medial left lower lobe, atelectasis versus pneumonia. 4. Bilateral trace pleural effusions. 5. Mild linear atelectasis in bilateral lower lobes. 6. Coronary artery calcifications. 7. 3.3 x 2.7 cm hypodense right thyroid nodule. Recommend follow-up evaluation with thyroid ultrasound.
--- NOTE | 2020-02-03 13:43 | NUR ---
CASE MANAGEMENT:REVIEW SI; PNA. COPD. CHF. RENAL FAILURE. E COLI UTI. 100.2 102 20 152/74 92% 3L NC WBC 24.6 H/H 10.6/33.8 BUN 26 BNP 507 SI;IS; MICAFUNGIN IV Q24 CARDURA PO Q12 VANCOMYCIN IV Q24 BICITRA PO DILTIAZEM PO Q6 ZOSYN IV Q8 ELAVIL PO HS HEPARIN SUBQ Q12 SOLU-MEDROL IV Q6 NORCO PO Q8 PRN AZITHROMYCIN IV Q24 TELE STATUS DCP; FROM HOME PLAN; CONTINUE ANTIMICROBIALS TITRATE ANTI HTN REGIMEN MONITOR CARDIAC RHYTHM
--- NOTE | 2020-02-03 13:48 | Nephrology Progress Note ---
Assessment/Plan Plan #JOSH on CKD- suspect pre-renal azotemia in the setting of sepsis, pneumonia and lactic acidosis #Hyperkalemia - improved #bilateral pneumonia #Lactic acidosis #leukocytosis #HTN #h/o CHF - off - replete K and phos - monitor lactic acid - antibiotcs per ID - monitor WBC Ct chest IMPRESSION: 1. No evidence of pulmonary embolism. No thoracic aortic aneurysm or dissection. 2. Bilateral patchy hazy groundglass densities and interstitial septal thickening in bilateral lungs, which may represent pulmonary edema versus pneumonia. 3. Consolidation with air bronchograms in the medial left lower lobe, atelectasis versus pneumonia. 4. Bilateral trace pleural effusions. 5. Mild linear atelectasis in bilateral lower lobes. 6. Coronary artery calcifications. 7. 3.3 x 2.7 cm hypodense right thyroid nodule. Recommend follow-up evaluation with thyroid ultrasound. - amlodipine 10mg daily - diltiazem 60mg BID - urology eval for retention - monitor PVR - monitor renal parameter - avoid nephrotoxins - monitor UOP -monitor weight Time spent 70 min- Subjective ROS Limited/Unobtainable: No Constitutional: Reports: weakness HEENT: Denies: no symptoms, eye pain, blurred vision, tearing, double vision, ear pain, ear discharge, nose pain, nose congestion, throat pain, throat swelling, mouth pain, mouth swelling, other Genitourinary: Denies: no symptoms, burning, discharge, frequency, flank pain, hematuria, incontinence, pain, urgency, other Neurologic/Psychiatric: Denies: no symptoms, anxiety, depressed, emotional problems, headache, numbness, paresthesia, pre-existing deficit, seizure, tingling, tremors, weakness, other Subjective renal function better breathing stable will DC IVF K low - repleted WBC slowly downtrending feeling nauseas Urology eval for urinary retention noted CT chest : IMPRESSION: 1. No evidence of pulmonary embolism. No thoracic aortic aneurysm or dissection. 2. Bilateral patchy hazy groundglass densities and interstitial septal thickening in bilateral lungs, which may represent pulmonary edema versus pneumonia. 3. Consolidation with air bronchograms in the medial left lower lobe, atelectasis versus pneumonia. 4. Bilateral trace pleural effusions. 5. Mild linear atelectasis in bilateral lower lobes. 6. Coronary artery calcifications. 7. 3.3 x 2.7 cm hypodense right thyroid nodule. Recommend follow-up evaluation with thyroid ultrasound. CT abdomen: IMPRESSION: 1. Bilateral bronchovascular pattern airspace disease concerning for pneumonia. 2. Gas within the urinary bladder; clinical correlation for recent instrumentation/Nguyen catheter placement is recommended. Otherwise, infection should be considered. 3. Colonic diverticulosis without evidence of acute diverticulitis. 4. Chronic L4 compression fracture Objective Objective Last 24 Hour Vital Signs Date Time Temp Pulse Resp B/P (MAP) Pulse Ox O2 Delivery O2 Flow Rate FiO2 02/03/20 12:10 92 152/74 02/03/20 12:00 95 02/03/20 12:00 98.1 92 16 152/74 (100) 96 02/03/20 10:59 100.2 02/03/20 09:57 100.2 02/03/20 09:00 Nasal Cannula 3.0 02/03/20 08:00 100.2 98 20 151/63 (92) 92 02/03/20 08:00 102 02/03/20 07:21 89 18 99 Nasal Cannula 2.0 28 90 18 98 02/03/20 07:21 97 Nasal Cannula 2.0 28 02/03/20 06:32 97 157/60 02/03/20 06:20 97.9 97 22 157/60 (92) 96 02/03/20 04:00 97.8 97 20 152/65 (94) 96 02/03/20 04:00 97 02/03/20 00:58 95 141/50 02/03/20 00:00 99.0 95 20 141/50 (80) 95 02/03/20 00:00 95 02/02/20 21:00 Nasal Cannula 3.0 02/02/20 20:02 94 Room Air 21 02/02/20 20:02 87 18 98 Room Air 21 84 18 94 02/02/20 20:00 94 02/02/20 20:00 98.2 94 18 150/73 (98) 97 02/02/20 17:53 97 142/61 02/02/20 16:00 99.3 94 20 138/54 (82) 94 02/02/20 16:00 97 02/02/20 14:06 99.6 Laboratory Tests 02/03/20 06:20: White Blood Count 24.6*H, Red Blood Count 4.06L, Hemoglobin 10.6L, Hematocrit 33.8L, Mean Corpuscular Volume 83, Mean Corpuscular Hemoglobin 26.1L, Mean Corpuscular Hemoglobin Concent 31.3L, Red Cell Distribution Width 16.5H, Platelet Count 348, Mean Platelet Volume 5.6L, Neutrophils (%) (Auto) , Lymphocytes (%) (Auto) , Monocytes (%) (Auto) , Eosinophils (%) (Auto) , Basophils (%) (Auto) , Differential Total Cells Counted 100, Neutrophils % ( Manual) 75, Lymphocytes % (Manual) 11L, Monocytes % (Manual) 14H, Eosinophils % (Manual) 0, Basophils % (Manual) 0, Band Neutrophils 0, Platelet Estimate Adequate, Platelet Morphology Normal, Sodium Level 140, Potassium Level 4.5, Chloride Level 104, Carbon Dioxide Level 28, Anion Gap 8, Blood Urea Nitrogen 26H, Creatinine 1.0, Estimat Glomerular Filtration Rate > 60, Glucose Level 135H , Calcium Level 8.6, Phosphorus Level 2.7, Magnesium Level 2.3, Troponin I 0.000 , Pro-B-Type Natriuretic Peptide 507H Height (Feet): 5 Height (Inches): 5.00 Weight (Pounds): 222 Simin Carpio M.D. Feb 03, 2020 13:48
--- NOTE | 2020-02-03 13:49 | NUR ---
INSURANCE FAXED CLINCALS AND REVIEW TO [employer] NCM: TONY T: [phone] [employer] F; [phone] REF# [id number]
--- NOTE | 2020-02-03 15:24 | Infectious Diseases Prog Note ---
Assessment/Plan Assessment/Plan ASSESSMENT AND PLAN: 1. e.coli uti, fungemia, pna, sepsis, fevers, leukocytosis, steroids - zosyn - day # 5, micafungin started - day # 2 - monitor labs and chest x-ray - CT scan noted - await ID yeast 2. Acute kidney injury, elevated creatinine. 3. Possible chronic renal failure. 4. Anemia. 5. COPD. 6. CVA. 7. Aspiration risk. 8. CHF. 9. Hypertension. 10. Blood pressure treatment per primary care team. 11. No known drug allergies. 12. Social history is negative. 13. Family history is noncontributory. 14. MAR was noted. 15. Case was discussed with RN. 16. Continue treatment per primary consultants. 17. JEROME care. Subjective Constitutional: Reports: fever - NAD, other HEENT: Denies: congestion Respiratory: Denies: shortness of breath Cardiovascular: Denies: chest pain Gastrointestinal/Abdominal: Denies: nausea, vomiting, diarrhea Genitourinary: Reports: other - no pastrana Neurologic: Denies: headache Psychiatric: Denies: depression Skin: Denies: rash Hematologic: Denies: bleeding Musculoskeletal: Denies: pain Allergies: Coded Allergies: No Known Allergies (Unverified , 05/19/13) Objective Last 24 Hour Vital Signs Date Time Temp Pulse Resp B/P (MAP) Pulse Ox O2 Delivery O2 Flow Rate FiO2 02/03/20 13:52 88 18 100 Nasal Cannula 2.0 28 87 16 97 02/03/20 12:10 92 152/74 02/03/20 12:00 95 02/03/20 12:00 98.1 92 16 152/74 (100) 96 02/03/20 10:59 100.2 02/03/20 09:57 100.2 02/03/20 09:00 Nasal Cannula 3.0 02/03/20 08:00 100.2 98 20 151/63 (92) 92 02/03/20 08:00 102 02/03/20 07:21 89 18 99 Nasal Cannula 2.0 28 90 18 98 02/03/20 07:21 97 Nasal Cannula 2.0 28 02/03/20 06:32 97 157/60 02/03/20 06:20 97.9 97 22 157/60 (92) 96 02/03/20 04:00 97.8 97 20 152/65 (94) 96 02/03/20 04:00 97 02/03/20 00:58 95 141/50 02/03/20 00:00 99.0 95 20 141/50 (80) 95 02/03/20 00:00 95 02/02/20 21:00 Nasal Cannula 3.0 02/02/20 20:02 94 Room Air 21 02/02/20 20:02 87 18 98 Room Air 21 84 18 94 02/02/20 20:00 94 02/02/20 20:00 98.2 94 18 150/73 (98) 97 02/02/20 17:53 97 142/61 02/02/20 16:00 99.3 94 20 138/54 (82) 94 02/02/20 16:00 97 Height (Feet): 5 Height (Inches): 5.00 Weight (Pounds): 222 General Appearance: no acute distress HEENT: normocephalic, atraumatic, anicteric, mucous membranes moist Respiratory/Chest: lungs clear, crackles/rales, rhonchi - bilaterally Cardiovascular: normal rate, regular rhythm, no gallop/murmur Abdomen: normal bowel sounds, soft, non tender, no organomegaly, non distended Genitourinary: other - no pastrana Extremities: no cyanosis Skin: no rash 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 Bilateral bronchovascular pattern airspace disease concerning for pneumonia. 2. Gas within the urinary bladder; clinical correlation for recent instrumentation/Pastrana catheter placement is recommended. Otherwise, infection should be considered. 3. Colonic diverticulosis without evidence of acute diverticulitis. 4. Chronic L4 compression fracture. Chest x-ray - 01/30/20 - Procedure: XRAY Chest 1v Indication: Shortness of breath Technique: One view of the chest Comparison: 05/14/2019 Findings: Interim development of bilateral infiltrates, right greater than left , most notably at the right lung base. Pleural spaces are clear. The heart size is upper limits normal. Impression: Bilateral infiltrates, likely multifocal pneumonia. Correlate with clinical findings. Microbiology Date/Time Source Procedure Growth Status 01/29/20 18:05 Blood Blood Culture - Preliminary YEAST Resulted 01/30/20 13:30 Sputum Gram Stain - Final Complete 01/30/20 13:30 Sputum Culture - Final Karime Albicans Usual Respiratory Tamara Complete 01/31/20 09:10 Indwelling Cath Urine Culture - Final NO GROWTH AFTER 48 HOURS Complete Laboratory Tests Test 02/03/20 06:20 White Blood Count 24.6 K/UL (4.8-10.8) *H Red Blood Count 4.06 M/UL (4.20-5.40) L Hemoglobin 10.6 G/DL (12.0-16.0) L Hematocrit 33.8 % (37.0-47.0) L Mean Corpuscular Volume 83 FL (80-99) Mean Corpuscular Hemoglobin 26.1 PG (27.0-31.0) L Mean Corpuscular Hemoglobin Concent 31.3 G/DL (32.0-36.0) L Red Cell Distribution Width 16.5 % (11.6-14.8) H Platelet Count 348 K/UL (150-450) Mean Platelet Volume 5.6 FL (6.5-10.1) L Neutrophils (%) (Auto) % (45.0-75.0) Lymphocytes (%) (Auto) % (20.0-45.0) Monocytes (%) (Auto) % (1.0-10.0) Eosinophils (%) (Auto) % (0.0-3.0) Basophils (%) (Auto) % (0.0-2.0) Differential Total Cells Counted 100 Neutrophils % (Manual) 75 % (45-75) Lymphocytes % (Manual) 11 % (20-45) L Monocytes % (Manual) 14 % (1-10) H Eosinophils % (Manual) 0 % (0-3) Basophils % (Manual) 0 % (0-2) Band Neutrophils 0 % (0-8) Platelet Estimate Adequate Platelet Morphology Normal Sodium Level 140 MMOL/L (136-145) Potassium Level 4.5 MMOL/L (3.5-5.1) Chloride Level 104 MMOL/L (98-107) Carbon Dioxide Level 28 MMOL/L (21-32) Anion Gap 8 mmol/L (5-15) Blood Urea Nitrogen 26 mg/dL (7-18) H Creatinine 1.0 MG/DL (0.55-1.30) Estimat Glomerular Filtration Rate > 60 mL/min (>60) Glucose Level 135 MG/DL (74-106) H Calcium Level 8.6 MG/DL (8.5-10.1) Phosphorus Level 2.7 MG/DL (2.5-4.9) Magnesium Level 2.3 MG/DL (1.8-2.4) Troponin I 0.000 ng/mL (0.000-0.056) Pro-B-Type Natriuretic Peptide 507 pg/mL (0-125) H Current Medications Medications (Trade) Dose Ordered Sig/Bill Route PRN Reason Start Time Stop Time Status Last Admin Dose Admin Acetaminophen (Tylenol) 650 mg Q6H PRN ORAL Temp >100.5 02/01/20 09:45 03/02/20 09:44 02/02/20 13:36 Acetaminophen/ Hydrocodone Bitart ([place] 5/325) 1 tab Q8H PRN ORAL For Pain 01/31/20 16:37 02/07/20 16:36 02/03/20 10:29 Albuterol/ Ipratropium (Albuterol/ Ipratropium) 3 ml Q6HRT HHN 01/31/20 19:00 02/04/20 13:14 02/03/20 14:01 Amitriptyline HCl (Elavil) 10 mg BEDTIME ORAL 01/31/20 21:00 02/29/20 20:59 02/02/20 20:39 Azithromycin 500 mg/Dextrose 275 ml @ 275 mls/hr Q24HRS IV 01/31/20 18:00 02/05/20 18:59 02/02/20 17:54 Diltiazem HCl (Cardizem Tab) 90 mg EVERY 6 HOURS ORAL 02/01/20 06:00 03/02/20 05:59 02/03/20 12:10 Docusate Sodium (Colace) 200 mg TWICE A DAY ORAL 01/31/20 18:00 03/01/20 17:59 02/03/20 08:53 Doxazosin Mesylate (Cardura) 4 mg Q12HR ORAL 02/02/20 09:00 03/03/20 08:59 02/03/20 08:52 Gabapentin (Neurontin) 600 mg THREE TIMES A DAY ORAL 01/31/20 18:00 02/29/20 17:59 02/03/20 12:10 Guaifenesin/ Codeine Phosphate (Robitussin with codeine) 5 ml Q6H PRN ORAL For Cough 02/02/20 21:15 03/03/20 21:14 02/02/20 23:10 Heparin Sodium (Porcine) (Heparin 5000 units/ml) 5,000 units EVERY 12 HOURS SUBQ 01/31/20 21:00 03/15/20 20:59 02/03/20 08:55 Hydralazine HCl (Apresoline) 25 mg Q4H PRN ORAL For High Blood Pressure 02/01/20 16:00 05/01/20 15:59 02/01/20 16:06 Iohexol (Omnipaque 350 100ml) 100 ml NOW PRN INJ Radiology Procedure 02/03/20 08:00 02/04/20 07:59 Micafungin Sodium 100 mg/Sodium Chloride 110 ml @ 110 mls/hr Q24H IVPB 02/02/20 10:00 02/09/20 09:59 02/03/20 10:30 Ondansetron HCl (Zofran) 4 mg Q4H PRN IVP Nausea & Vomiting 02/01/20 16:00 03/02/20 15:59 02/01/20 16:06 Piperacillin Sod/ Tazobactam Sod 3.375 gm/Dextrose 110 ml @ 27.5 mls/hr EVERY 8 HOURS IVPB 01/31/20 22:00 02/05/20 21:59 02/03/20 14:48 Pregabalin (Lyrica) 75 mg BID ORAL 01/31/20 18:00 02/29/20 17:59 02/03/20 08:53 Sodium Citrate (Bicitra) 30 ml BIAC ORAL 02/01/20 06:30 02/29/20 16:29 02/03/20 06:32 Vancomycin HCl (Vanco pharmacy to dose) 1 ea DAILY PRN MISC Per rx protocol 02/01/20 16:30 03/02/20 16:29 Vancomycin/Sodium Chloride 275 ml @ 137.5 mls/ hr Q24H IVPB 02/01/20 21:00 02/06/20 20:59 02/02/20 20:57 Zolpidem Tartrate (Ambien) 5 mg HSPRN PRN ORAL Insomnia 02/02/20 19:00 02/09/20 18:59 Cristina Rubin MD Feb 03, 2020 15:24
--- NOTE | 2020-02-03 16:20 | NUR ---
PT Note Attempted to see patient for treatment but patient refused. RN is aware.
--- NOTE | 2020-02-03 18:53 | NUR ---
NURSE NOTES: Left message at voicemail of Dr. Jr Funes reporting patient complaints of chest pain, mid chest 12/27. Patient provided with [place] 5/325 at 1830 on 02/03/20.
--- NOTE | 2020-02-03 19:05 | NUR ---
NURSE NOTES: Report received from DARLYN Wilkins. AOx4, able to communicate needs. On 3L oxygen per nasal cannula, saturating well. Complaining of chest pain, will give medication as ordered. Latest troponin: 0.000. IV site intact and flushed. Able to move independently in bed. Needs assistance transferring to the bed side commode. Bed in lowest position, brakes engaged, bed alarm on. Call light placed within reach. Will continue to monitor.
--- NOTE | 2020-02-03 19:20 | NUR ---
NURSE HAND-OFF REPORT: Important Events on Shift:CTAngiogram, thyroid nodule. temperature of 104.1 treated with tylenol. Patient c/o of pain at 1845 in center of chest 12/27. Similar complaint last noc, am troponin=0.000. [place] given at [address]. Notified Dr[address] Jr Funes voicemail. Patient Status: Stable Diet: Cardiac, pureed moist. Pending Orders: N/A Pending Results/Labs:am labs, vanco trough on 02/04/20 at 1999. Pending MD notification:N/A Latest Vital Signs: Temperature 98.6 , Pulse 96 , B/P 142 /62 , Respiratory Rate 16 , O2 SAT 96 , Nasal Cannula, O2 Flow Rate 3.0 . Vital Sign Comment: 98.6 temperature is axillary. EKG Rhythm: Sinus Rhythm Rhythm change?: N MD Notified?: N - MD Response: N/A Latest Ware Fall Score: 75 Fall Risk: High Risk Safety Measures: Call light Within Reach, Bed Alarm Zone 2, Side Rails Side Rails x2, Bed position Low and Locked. Fall Precautions: Yellow Socks Yellow Gown Door Sign Patient Fall Education Report given to Peyton Go RN.
--- NOTE | 2020-02-03 20:04 | Cardiology Progress Note ---
Subjective DATE OF SERVICE: Feb 03, 2020 CTA of chest negative for PE and aortic pathology today. Remains in sinus rhythm with non-sustained PAC's and PVC's. Less SOB and congestion. Still with episodes of CP associated with cough. WBC elevated - on steroids; abx broadened further for fungemia. BP parameters significantly improved Needs therapy for urinary retention - per urology Objective Last 24 Hour Vital Signs Date Time Temp Pulse Resp B/P (MAP) Pulse Ox O2 Delivery O2 Flow Rate FiO2 02/03/20 19:47 97 Nasal Cannula 2.0 28 02/03/20 19:41 89 18 100 Nasal Cannula 2.0 28 85 16 97 02/03/20 18:56 98.6 02/03/20 18:00 98.6 02/03/20 17:29 96 142/62 02/03/20 16:54 98.6 02/03/20 16:00 100.4 96 16 142/62 (88) 96 02/03/20 16:00 95 02/03/20 13:52 88 18 100 Nasal Cannula 2.0 28 87 16 97 02/03/20 12:10 92 152/74 02/03/20 12:00 95 02/03/20 12:00 98.1 92 16 152/74 (100) 96 02/03/20 09:00 Nasal Cannula 3.0 02/03/20 08:00 100.2 98 20 151/63 (92) 92 02/03/20 08:00 102 02/03/20 07:21 89 18 99 Nasal Cannula 2.0 28 90 18 98 02/03/20 07:21 97 Nasal Cannula 2.0 28 02/03/20 06:32 97 157/60 02/03/20 06:20 97.9 97 22 157/60 (92) 96 02/03/20 04:00 97.8 97 20 152/65 (94) 96 02/03/20 04:00 97 02/03/20 00:58 95 141/50 02/03/20 00:00 99.0 95 20 141/50 (80) 95 02/03/20 00:00 95 02/02/20 21:00 Nasal Cannula 3.0 02/02/20 20:02 94 Room Air 21 02/02/20 20:02 87 18 98 Room Air 21 84 18 94 HEENT: normal ENT inspection, other - forgetful RHYTHM: ST, Afib LUNGS: diminished breath sounds, bilateral rhonchi CARDIAC: normal S1 and S2, irregularly irregular, tachycardia ABDOMEN: normal bowel sounds, non tender, soft, no organomegaly EXTREMITIES: non-tender, No edema Laboratory Tests Test 02/03/20 06:20 White Blood Count 24.6 K/UL (4.8-10.8) *H Red Blood Count 4.06 M/UL (4.20-5.40) L Hemoglobin 10.6 G/DL (12.0-16.0) L Hematocrit 33.8 % (37.0-47.0) L Mean Corpuscular Volume 83 FL (80-99) Mean Corpuscular Hemoglobin 26.1 PG (27.0-31.0) L Mean Corpuscular Hemoglobin Concent 31.3 G/DL (32.0-36.0) L Red Cell Distribution Width 16.5 % (11.6-14.8) H Platelet Count 348 K/UL (150-450) Mean Platelet Volume 5.6 FL (6.5-10.1) L Neutrophils (%) (Auto) % (45.0-75.0) Lymphocytes (%) (Auto) % (20.0-45.0) Monocytes (%) (Auto) % (1.0-10.0) Eosinophils (%) (Auto) % (0.0-3.0) Basophils (%) (Auto) % (0.0-2.0) Differential Total Cells Counted 100 Neutrophils % (Manual) 75 % (45-75) Lymphocytes % (Manual) 11 % (20-45) L Monocytes % (Manual) 14 % (1-10) H Eosinophils % (Manual) 0 % (0-3) Basophils % (Manual) 0 % (0-2) Band Neutrophils 0 % (0-8) Platelet Estimate Adequate Platelet Morphology Normal Sodium Level 140 MMOL/L (136-145) Potassium Level 4.5 MMOL/L (3.5-5.1) Chloride Level 104 MMOL/L (98-107) Carbon Dioxide Level 28 MMOL/L (21-32) Anion Gap 8 mmol/L (5-15) Blood Urea Nitrogen 26 mg/dL (7-18) H Creatinine 1.0 MG/DL (0.55-1.30) Estimat Glomerular Filtration Rate > 60 mL/min (>60) Glucose Level 135 MG/DL (74-106) H Calcium Level 8.6 MG/DL (8.5-10.1) Phosphorus Level 2.7 MG/DL (2.5-4.9) Magnesium Level 2.3 MG/DL (1.8-2.4) Troponin I 0.000 ng/mL (0.000-0.056) Pro-B-Type Natriuretic Peptide 507 pg/mL (0-125) H Assessment/Plan Assessment/Plan Paroxysmal Atrial Fibrillation Sinus tachycardia Sepsis Lactic acidosis Acute myocardial ischemia Pneumonia Hx CVA Acute renal failure Urinary retention; neurogenic bladder Hypokalemia Hypertension with labile BP Adjust IVF Antimicrobials Respiratory hygiene Titrate up antiHTN regimen Monitor cardiac rhythm - continue diltiazem for suppression of atrial arrhythmias Replace K+/Mg++ as needed Serial lactic acid levels Titrate doxazosin for urin ret and elevated BP (instead of tamsulosin) and titrate. Jr Funes MD Feb 03, 2020 20:04
[2020-02-03] MEDS: Zolpidem 5mg tab ORAL PRN (21:15)
[2020-02-04] VITALS: BP 150/83
[2020-02-04] MEDS: dilTIAZem HCl 90mg tab ORAL SCH (00:20)
[2020-02-04] MEDS: Albuterol/Ipratropium 3ml neb HHN SCH ×3 (01:00→13:12)
[2020-02-04 04:00] VITALS: BP 142/77
--- NOTE | 2020-02-04 04:05 | NUR ---
NURSE NOTES: Patient had a short episode of afib during the shift. VS: BP: 142/77; HR: 100; RR: 20 ; SpO2: 98% on 3L nasal cannula; T: 98.1. Patient noted to have a history of having short episodes of afib. Converted back to SR. Will continue to monitor.
--- NOTE | 2020-02-04 05:18 | NUR ---
NURSE NOTES: Called and left a message with Dr. Funes. Notified of patient's episode of afib during the shift. Patient converted back to SR. Will continue to monitor.
[2020-02-04] MEDS: Piperacillin/Tazobactam 3.375 GM in D5W 110 ML IVPB SCH ×3 (05:44→21:40)
[2020-02-04] MEDS: Sodium Citrate 30ml ORAL SCH (05:44)
--- NOTE | 2020-02-04 07:19 | NUR ---
NURSE HAND-OFF REPORT: Important Events on Shift:[Had a short episode of afib during the shift, but converted to SR within a couple minutes. Dr. Funes notified, although patient does have a history of afib.] Patient Status: [] Diet: [Cardiac] Pending Orders: [] Pending Results/Labs:[CBC, BMP, Mg, Phosphorus] Pending MD notification:[] Latest Vital Signs: Temperature 98.1 , Pulse 100 , B/P 142 /77 , Respiratory Rate 19 , O2 SAT 98 , Nasal Cannula, O2 Flow Rate 3.0 . Vital Sign Comment: [] EKG Rhythm: Sinus Tachycardia Rhythm change?: Y MD Notified?: N -Dr. Shantel ARIAS Response: Latest Ware Fall Score: 75 Fall Risk: High Risk Safety Measures: Call light Within Reach, Bed Alarm Zone 2, Side Rails Side Rails x2, Bed position Low and Locked. Fall Precautions: Yellow Socks Yellow Gown Door Sign Patient Fall Education Report given to [DARLYN Glaser].
--- NOTE | 2020-02-04 07:54 | NUR ---
NURSE NOTES: Received pt from DARLYN Escobedo. Pt A/O x4. C/o pain on back with scale of 7/10. No s/s acute respiratory and cardiac distress. On O2 3l NC. SL on right hand and left hand patent and intact. Bed in low position, side rails up x2 and call light within reach. Will continue to monitor.
[2020-02-04 08:00] VITALS: BP 148/75
[2020-02-04] MEDS: Docusate 100mg cap ORAL SCH ×2 (08:23→17:47)
[2020-02-04] MEDS: dilTIAZem HCl CD 180mg cap ORAL SCH ×2 (08:23→20:25)
[2020-02-04] MEDS: Lyrica 75mg cap ORAL SCH ×2 (08:23→17:47)
[2020-02-04] MEDS: Doxazosin 4mg tab ORAL SCH ×2 (08:24→20:24)
[2020-02-04] MEDS: Heparin 5000 units/ml inj SUBQ SCH ×3 (08:25→21:07)
[2020-02-04 08:52] LABS: ANION GAP 9 mmol/L (5-15); BLOOD UREA NITROGEN 18 mg/dL (7-18); CALCIUM 7.8 MG/DL (8.5-10.1); CARBON DIOXIDE 28 MMOL/L (21-32); CHLORIDE 102 MMOL/L (98-107); CREATININE 1.1 MG/DL (0.55-1.30); POTASSIUM 4.2 MMOL/L (3.5-5.1); SODIUM 139 MMOL/L (136-145)
--- NOTE | 2020-02-04 08:55 | Urology Progress Note ---
Assessment/Plan Assessment/Plan: 1. Urinary retention. 2. Probable neurogenic bladder. 3. Acute kidney injury, which is improved. 4. Urinary tract infection. 5. Hematuria. 6. Proteinuria. monitor clinically pastrana out and voiding, elevated PVR still on elavil on cardura 4 mg BID consider adding urecholine abx as ordered, micafungin monitor renal fxn cysto at some point Subjective Allergies: Coded Allergies: No Known Allergies (Unverified , 05/19/13) Subjective pastrana out, voiding Objective Last 24 Hour Vital Signs Date Time Temp Pulse Resp B/P (MAP) Pulse Ox O2 Delivery O2 Flow Rate FiO2 02/04/20 08:23 103 148/75 02/04/20 08:00 99.0 103 22 148/75 (99) 93 02/04/20 07:05 97 Nasal Cannula 3.0 32 02/04/20 07:05 92 18 100 Nasal Cannula 3.0 32 96 18 97 02/04/20 04:00 98.1 100 19 142/77 (98) 98 02/04/20 04:00 119 02/04/20 03:56 96 02/04/20 03:44 91 02/04/20 00:20 86 150/83 02/04/20 00:00 97.6 86 20 150/83 (105) 95 02/04/20 00:00 86 02/03/20 21:00 Nasal Cannula 3.0 02/03/20 20:00 99.1 96 18 150/72 (98) 93 02/03/20 20:00 97 02/03/20 19:47 97 Nasal Cannula 2.0 28 02/03/20 19:41 89 18 100 Nasal Cannula 2.0 28 85 16 97 02/03/20 18:56 98.6 02/03/20 18:00 98.6 02/03/20 17:29 96 142/62 02/03/20 16:54 98.6 02/03/20 16:00 100.4 96 16 142/62 (88) 96 02/03/20 16:00 95 02/03/20 13:52 88 18 100 Nasal Cannula 2.0 28 87 16 97 02/03/20 12:10 92 152/74 02/03/20 12:00 95 02/03/20 12:00 98.1 92 16 152/74 (100) 96 02/03/20 09:00 Nasal Cannula 3.0 Intake and Output 02/03/20 02/04/20 19:00 07:00 # Bowel Movements 2 Microbiology Date/Time Source Procedure Growth Status 01/29/20 18:05 Blood Blood Culture - Final Karime Glabrata Complete 01/30/20 13:30 Sputum Gram Stain - Final Complete 01/30/20 13:30 Sputum Culture - Final Karime Albicans Usual Respiratory Tamara Complete 01/31/20 09:10 Indwelling Cath Urine Culture - Final NO GROWTH AFTER 48 HOURS Complete Current Medications Medications (Trade) Dose Ordered Sig/Bill Route PRN Reason Start Time Stop Time Status Last Admin Dose Admin Acetaminophen (Tylenol) 650 mg Q6H PRN ORAL Temp >100.5 02/01/20 09:45 03/02/20 09:44 02/03/20 16:24 Acetaminophen/ Hydrocodone Bitart ([place] 5/325) 1 tab Q8H PRN ORAL For Pain 01/31/20 16:37 02/07/20 16:36 02/03/20 18:26 Albuterol/ Ipratropium (Albuterol/ Ipratropium) 3 ml Q6HRT HHN 01/31/20 19:00 02/04/20 13:14 02/04/20 06:55 Amitriptyline HCl (Elavil) 10 mg BEDTIME ORAL 01/31/20 21:00 02/29/20 20:59 02/03/20 21:15 Diltiazem HCl (Cardizem CD) 180 mg EVERY 12 HOURS ORAL 02/04/20 09:00 03/05/20 08:59 02/04/20 08:23 Docusate Sodium (Colace) 200 mg TWICE A DAY ORAL 01/31/20 18:00 03/01/20 17:59 02/04/20 08:23 Doxazosin Mesylate (Cardura) 4 mg Q12HR ORAL 02/02/20 09:00 03/03/20 08:59 02/04/20 08:24 Gabapentin (Neurontin) 600 mg THREE TIMES A DAY ORAL 01/31/20 18:00 02/29/20 17:59 02/04/20 08:24 Guaifenesin/ Codeine Phosphate (Robitussin with codeine) 5 ml Q6H PRN ORAL For Cough 02/02/20 21:15 03/03/20 21:14 02/02/20 23:10 Heparin Sodium (Porcine) (Heparin 5000 units/ml) 5,000 units EVERY 12 HOURS SUBQ 01/31/20 21:00 03/15/20 20:59 02/04/20 08:25 Hydralazine HCl (Apresoline) 25 mg Q4H PRN ORAL For High Blood Pressure 02/01/20 16:00 05/01/20 15:59 02/01/20 16:06 Micafungin Sodium 100 mg/Sodium Chloride 110 ml @ 110 mls/hr Q24H IVPB 02/02/20 10:00 02/09/20 09:59 02/03/20 10:30 Ondansetron HCl (Zofran) 4 mg Q4H PRN IVP Nausea & Vomiting 02/01/20 16:00 03/02/20 15:59 02/01/20 16:06 Piperacillin Sod/ Tazobactam Sod 3.375 gm/Dextrose 110 ml @ 27.5 mls/hr EVERY 8 HOURS IVPB 01/31/20 22:00 02/05/20 21:59 02/04/20 05:44 Pregabalin (Lyrica) 75 mg BID ORAL 01/31/20 18:00 02/29/20 17:59 02/04/20 08:23 Sodium Citrate (Bicitra) 30 ml BIAC ORAL 02/01/20 06:30 02/29/20 16:29 02/04/20 05:44 Zolpidem Tartrate (Ambien) 5 mg HSPRN PRN ORAL Insomnia 02/02/20 19:00 02/09/20 18:59 02/03/20 21:15 Laboratory Tests 02/04/20 08:15: White Blood Count [Pending], Red Blood Count [Pending], Hemoglobin [Pending], Hematocrit [Pending], Mean Corpuscular Volume [Pending], Mean Corpuscular Hemoglobin [Pending], Mean Corpuscular Hemoglobin Concent [Pending], Red Cell Distribution Width [Pending], Platelet Count [Pending], Mean Platelet Volume [ Pending], Neutrophils (%) (Auto) [Pending], Lymphocytes (%) (Auto) [Pending], Monocytes (%) (Auto) [Pending], Eosinophils (%) (Auto) [Pending], Basophils (%) (Auto) [Pending], Sodium Level 139, Potassium Level 4.2, Chloride Level 102, Carbon Dioxide Level 28, Anion Gap 9, Blood Urea Nitrogen 18, Creatinine 1.1, Estimat Glomerular Filtration Rate 59.0, Glucose Level 137H, Calcium Level 7.8L , Phosphorus Level [Pending], Magnesium Level [Pending] Height (Feet): 5 Height (Inches): 5.00 Weight (Pounds): 221 Objective exam stable Brian Schneider MD Feb 04, 2020 08:55
[2020-02-04 08:57] LABS: HEMATOCRIT 32.8 % (37.0-47.0); HEMOGLOBIN 10.3 G/DL (12.0-16.0); MEAN CORPUSCULAR VOLUME 83 FL (80-99); PLATELET COUNT 352 K/UL (150-450); RED BLOOD COUNT 3.94 M/UL (4.20-5.40); RED CELL DISTRIBUTION WIDTH 16.7 % (11.6-14.8)
[2020-02-04 09:09] LABS: WHITE BLOOD COUNT 22.1 K/UL (4.8-10.8)
--- NOTE | 2020-02-04 09:29 | Nephrology Progress Note ---
Assessment/Plan Plan #OJSH on CKD- suspect pre-renal azotemia in the setting of sepsis, pneumonia and lactic acidosis #Hyperkalemia - improved #Sepsis with fungemia #bilateral pneumonia #Lactic acidosis #leukocytosis #HTN #h/o CHF - off - replete K and phos - monitor lactic acid - antibiotcs per ID - monitor WBC Ct chest IMPRESSION: 1. No evidence of pulmonary embolism. No thoracic aortic aneurysm or dissection. 2. Bilateral patchy hazy groundglass densities and interstitial septal thickening in bilateral lungs, which may represent pulmonary edema versus pneumonia. 3. Consolidation with air bronchograms in the medial left lower lobe, atelectasis versus pneumonia. 4. Bilateral trace pleural effusions. 5. Mild linear atelectasis in bilateral lower lobes. 6. Coronary artery calcifications. 7. 3.3 x 2.7 cm hypodense right thyroid nodule. Recommend follow-up evaluation with thyroid ultrasound. - amlodipine 10mg daily - diltiazem 60mg BID - urology eval for retention - monitor PVR - monitor renal parameter - avoid nephrotoxins - monitor UOP -monitor weight Time spent 70 min- Subjective ROS Limited/Unobtainable: No Constitutional: Reports: weakness HEENT: Denies: no symptoms, eye pain, blurred vision, tearing, double vision, ear pain, ear discharge, nose pain, nose congestion, throat pain, throat swelling, mouth pain, mouth swelling, other Genitourinary: Denies: no symptoms, burning, discharge, frequency, flank pain, hematuria, incontinence, pain, urgency, other Neurologic/Psychiatric: Denies: no symptoms, anxiety, depressed, emotional problems, headache, numbness, paresthesia, pre-existing deficit, seizure, tingling, tremors, weakness, other Subjective blood cx growing yeast WBC improving on micarfungin Urology eval for urinary retention noted CT chest : IMPRESSION: 1. No evidence of pulmonary embolism. No thoracic aortic aneurysm or dissection. 2. Bilateral patchy hazy groundglass densities and interstitial septal thickening in bilateral lungs, which may represent pulmonary edema versus pneumonia. 3. Consolidation with air bronchograms in the medial left lower lobe, atelectasis versus pneumonia. 4. Bilateral trace pleural effusions. 5. Mild linear atelectasis in bilateral lower lobes. 6. Coronary artery calcifications. 7. 3.3 x 2.7 cm hypodense right thyroid nodule. Recommend follow-up evaluation with thyroid ultrasound. CT abdomen: IMPRESSION: 1. Bilateral bronchovascular pattern airspace disease concerning for pneumonia. 2. Gas within the urinary bladder; clinical correlation for recent instrumentation/Nguyen catheter placement is recommended. Otherwise, infection should be considered. 3. Colonic diverticulosis without evidence of acute diverticulitis. 4. Chronic L4 compression fracture Objective Objective Last 24 Hour Vital Signs Date Time Temp Pulse Resp B/P (MAP) Pulse Ox O2 Delivery O2 Flow Rate FiO2 02/04/20 08:23 103 148/75 02/04/20 08:00 99.0 103 22 148/75 (99) 93 02/04/20 07:05 97 Nasal Cannula 3.0 32 02/04/20 07:05 92 18 100 Nasal Cannula 3.0 32 96 18 97 02/04/20 04:00 98.1 100 19 142/77 (98) 98 02/04/20 04:00 119 02/04/20 03:56 96 02/04/20 03:44 91 02/04/20 00:20 86 150/83 02/04/20 00:00 97.6 86 20 150/83 (105) 95 02/04/20 00:00 86 02/03/20 21:00 Nasal Cannula 3.0 02/03/20 20:00 99.1 96 18 150/72 (98) 93 02/03/20 20:00 97 02/03/20 19:47 97 Nasal Cannula 2.0 28 02/03/20 19:41 89 18 100 Nasal Cannula 2.0 28 85 16 97 02/03/20 18:56 98.6 02/03/20 18:00 98.6 02/03/20 17:29 96 142/62 02/03/20 16:54 98.6 02/03/20 16:00 100.4 96 16 142/62 (88) 96 02/03/20 16:00 95 02/03/20 13:52 88 18 100 Nasal Cannula 2.0 28 87 16 97 02/03/20 12:10 92 152/74 02/03/20 12:00 95 02/03/20 12:00 98.1 92 16 152/74 (100) 96 Intake and Output 02/03/20 02/04/20 19:00 07:00 # Bowel Movements 2 Laboratory Tests 02/04/20 08:15: White Blood Count 22.1*H, Red Blood Count 3.94L, Hemoglobin 10.3L, Hematocrit 32.8L, Mean Corpuscular Volume 83, Mean Corpuscular Hemoglobin 26.2L, Mean Corpuscular Hemoglobin Concent 31.5L, Red Cell Distribution Width 16.7H, Platelet Count 352, Mean Platelet Volume 5.3L, Neutrophils (%) (Auto) , Lymphocytes (%) (Auto) , Monocytes (%) (Auto) , Eosinophils (%) (Auto) , Basophils (%) (Auto) , Neutrophils % (Manual) [Pending], Lymphocytes % (Manual) [Pending], Platelet Estimate [Pending], Platelet Morphology [Pending], Sodium Level 139, Potassium Level 4.2, Chloride Level 102, Carbon Dioxide Level 28, Anion Gap 9, Blood Urea Nitrogen 18, Creatinine 1.1, Estimat Glomerular Filtration Rate 59.0, Glucose Level 137H, Calcium Level 7.8L, Phosphorus Level 3.0, Magnesium Level 2.2 Height (Feet): 5 Height (Inches): 5.00 Weight (Pounds): 221 Simin Carpio M.D. Feb 04, 2020 09:29
[2020-02-04] MEDS: HYDROcodone/Acetamin 5/325 tab ORAL PRN ×2 (10:13→20:26)
[2020-02-04] MEDS: Micafungin 100 MG in NS 110 ML IVPB SCH (10:17)
[2020-02-04 12:00] VITALS: BP 141/48
--- NOTE | 2020-02-04 13:03 | NUR ---
CASE MANAGEMENT: 02/04/20 SI: SEPSIS. E COLI UTI. FUNGEMIA. PNA 99.0 103 22 148/75 93% ON 3L/NC WBC+22.1 IS: IV MICAFUNGIN Q24 IV ZOSYN Q8HRS CARDIZEM PO Q12 CARDURA PO Q12 HEPARIN SQ Q12 DUONEB HHN Q6HRS RTC LYRICA PO BID : TELEMETRY DCP: FROM HOME PLAN: PER MD PATIENT MAY NEED SNF UPON DISCHARGE
--- NOTE | 2020-02-04 13:22 | NUR ---
INSURANCE CLINICALS AND REVIEW FAXED TO [employer] [facility] T: [phone] [facility] F: [phone] REF# [id number]
--- NOTE | 2020-02-04 15:11 | Pulmonology Progress Note ---
Subjective ROS Limited/Unobtainable: No Interval Events: Feeling better Constitutional: Reports: fever - NAD, other HEENT: Repors: no symptoms Respiratory: Reports: no symptoms Cardiovascular: Reports: no symptoms Gastrointestinal/Abdominal: Denies: nausea, vomiting, diarrhea Psychiatric: Denies: depression Skin: Denies: rash Musculoskeletal: Denies: pain Allergies: Coded Allergies: No Known Allergies (Unverified , 05/19/13) Objective Last 24 Hour Vital Signs Date Time Temp Pulse Resp B/P (MAP) Pulse Ox O2 Delivery O2 Flow Rate FiO2 02/04/20 14:26 88 18 97 Nasal Cannula 3.0 32 02/04/20 13:22 86 18 100 Nasal Cannula 3.0 32 88 18 98 02/04/20 12:00 98.2 92 20 141/48 (79) 96 02/04/20 12:00 89 02/04/20 09:00 Nasal Cannula 3.0 02/04/20 08:23 160 02/04/20 08:23 103 148/75 02/04/20 08:00 99.0 103 22 148/75 (99) 93 02/04/20 08:00 99 02/04/20 07:05 97 Nasal Cannula 3.0 32 02/04/20 07:05 92 18 100 Nasal Cannula 3.0 32 96 18 97 02/04/20 04:00 98.1 100 19 142/77 (98) 98 02/04/20 04:00 119 02/04/20 03:56 96 02/04/20 03:44 91 02/04/20 00:20 86 150/83 02/04/20 00:00 97.6 86 20 150/83 (105) 95 02/04/20 00:00 86 02/03/20 21:00 Nasal Cannula 3.0 02/03/20 20:00 99.1 96 18 150/72 (98) 93 02/03/20 20:00 97 02/03/20 19:47 97 Nasal Cannula 2.0 28 02/03/20 19:41 89 18 100 Nasal Cannula 2.0 28 85 16 97 02/03/20 18:56 98.6 02/03/20 18:00 98.6 02/03/20 17:29 96 142/62 02/03/20 16:54 98.6 02/03/20 16:00 100.4 96 16 142/62 (88) 96 02/03/20 16:00 95 Intake and Output 02/03/20 02/04/20 19:00 07:00 # Bowel Movements 2 General Appearance: no acute distress HEENT: normocephalic Respiratory: chest wall non-tender, lungs clear Cardiovascular: normal peripheral pulses Abdomen: normal bowel sounds Laboratory Tests 02/04/20 08:15: White Blood Count 22.1*H, Red Blood Count 3.94L, Hemoglobin 10.3L, Hematocrit 32.8L, Mean Corpuscular Volume 83, Mean Corpuscular Hemoglobin 26.2L, Mean Corpuscular Hemoglobin Concent 31.5L, Red Cell Distribution Width 16.7H, Platelet Count 352, Mean Platelet Volume 5.3L, Neutrophils (%) (Auto) , Lymphocytes (%) (Auto) , Monocytes (%) (Auto) , Eosinophils (%) (Auto) , Basophils (%) (Auto) , Differential Total Cells Counted 100, Neutrophils % ( Manual) 73, Lymphocytes % (Manual) 14L, Monocytes % (Manual) 13H, Eosinophils % (Manual) 0, Basophils % (Manual) 0, Band Neutrophils 0, Platelet Estimate Adequate, Platelet Morphology Normal, Hypochromasia 1+, Anisocytosis 1+, Sodium Level 139, Potassium Level 4.2, Chloride Level 102, Carbon Dioxide Level 28, Anion Gap 9, Blood Urea Nitrogen 18, Creatinine 1.1, Estimat Glomerular Filtration Rate 59.0, Glucose Level 137H, Calcium Level 7.8L, Phosphorus Level 3.0, Magnesium Level 2.2 Current Medications Medications (Trade) Dose Ordered Sig/Bill Route PRN Reason Start Time Stop Time Status Last Admin Dose Admin Acetaminophen (Tylenol) 650 mg Q6H PRN ORAL Temp >100.5 02/01/20 09:45 03/02/20 09:44 02/03/20 16:24 Acetaminophen/ Hydrocodone Bitart ([place] 5/325) 1 tab Q8H PRN ORAL For Pain 01/31/20 16:37 02/07/20 16:36 02/04/20 10:13 Amitriptyline HCl (Elavil) 10 mg BEDTIME ORAL 01/31/20 21:00 02/29/20 20:59 02/03/20 21:15 Diltiazem HCl (Cardizem CD) 180 mg EVERY 12 HOURS ORAL 02/04/20 09:00 03/05/20 08:59 02/04/20 08:23 Docusate Sodium (Colace) 200 mg TWICE A DAY ORAL 01/31/20 18:00 03/01/20 17:59 02/04/20 08:23 Doxazosin Mesylate (Cardura) 4 mg Q12HR ORAL 02/02/20 09:00 03/03/20 08:59 02/04/20 08:24 Gabapentin (Neurontin) 600 mg THREE TIMES A DAY ORAL 01/31/20 18:00 02/29/20 17:59 02/04/20 13:10 Guaifenesin/ Codeine Phosphate (Robitussin with codeine) 5 ml Q6H PRN ORAL For Cough 02/02/20 21:15 03/03/20 21:14 02/02/20 23:10 Heparin Sodium (Porcine) (Heparin 5000 units/ml) 5,000 units EVERY 12 HOURS SUBQ 01/31/20 21:00 03/15/20 20:59 02/04/20 08:25 Hydralazine HCl (Apresoline) 25 mg Q4H PRN ORAL For High Blood Pressure 02/01/20 16:00 05/01/20 15:59 02/01/20 16:06 Micafungin Sodium 100 mg/Sodium Chloride 110 ml @ 110 mls/hr Q24H IVPB 02/02/20 10:00 02/09/20 09:59 02/04/20 10:17 Ondansetron HCl (Zofran) 4 mg Q4H PRN IVP Nausea & Vomiting 02/01/20 16:00 03/02/20 15:59 02/01/20 16:06 Piperacillin Sod/ Tazobactam Sod 3.375 gm/Dextrose 110 ml @ 27.5 mls/hr EVERY 8 HOURS IVPB 01/31/20 22:00 02/07/20 21:59 02/04/20 14:06 Pregabalin (Lyrica) 75 mg BID ORAL 01/31/20 18:00 02/29/20 17:59 02/04/20 08:23 Zolpidem Tartrate (Ambien) 5 mg HSPRN PRN ORAL Insomnia 02/02/20 19:00 02/09/20 18:59 02/03/20 21:15 Assessment/Plan Assessment/Plan IMPRESSION: 1. Right lung pneumonia. 2. COPD. 3. CHF. 4. Renal failure. 5. Metabolic acidosis. 6. Fungemia DISCUSSION: Continue bicarb supplementation. Continue broad-spectrum antibiotics, IV steroids, pulmonary hygiene, oxygen. I will follow carefully. noted to have Karime fungemia. ID follow-up noted Crow Kahn M.D. Crow Kahn MD Feb 04, 2020 15:11
[2020-02-04 16:00] VITALS: BP 159/71
--- NOTE | 2020-02-04 19:27 | NUR ---
NURSE NOTES: Received report from DARLYN Hanks. Alert/oriented x4, able to make needs known. Continue on 02 3L/min via NC sating well, no resp distress noted. Continue on cardiac monitoring. IV in place & patent no s/s infiltration noted. Bed in low position and locked. Bilateral side rails up x2, bed alarm on, call light with in reach. Reminded pt use call light to ask for assistance before getting out of bed.
--- NOTE | 2020-02-04 19:30 | NUR ---
NURSE HAND-OFF REPORT: Important Events on Shift:[] Patient Status: [] Diet: [] Pending Orders: [] Pending Results/Labs:[] Pending MD notification:[] Latest Vital Signs: Temperature 99.0 , Pulse 96 , B/P 159 /71 , Respiratory Rate 20 , O2 SAT 95 , Nasal Cannula, O2 Flow Rate 3.0 . Vital Sign Comment: [] EKG Rhythm: Sinus Rhythm Rhythm change?: Y MD Notified?: N -Dr. Shantel ARIAS Response: Latest Ware Fall Score: 75 Fall Risk: High Risk Safety Measures: Call light Within Reach, Bed Alarm Zone 2, Side Rails Side Rails x2, Bed position Low and Locked. Fall Precautions: Yellow Socks Yellow Gown Door Sign Patient Fall Education Report given to [DARLYN Buckner].
[2020-02-04 20:00] VITALS: BP 156/60
[2020-02-04] MEDS: Zolpidem 5mg tab ORAL PRN (21:38)
[2020-02-05] VITALS: BP 148/68
--- NOTE | 2020-02-05 02:21 | Cardiology Progress Note ---
Subjective DATE OF SERVICE: Feb 04, 2020 CTA of chest negative for PE and aortic pathology yesterday. Remains in sinus rhythm with non-sustained PAC's and PVC's. She had 20mins of AFIb this morning. Less SOB and congestion. Still with episodes of CP associated with cough. WBC elevated - on steroids; abx broadened further for fungemia. BP parameters significantly improved Objective Last 24 Hour Vital Signs Date Time Temp Pulse Resp B/P (MAP) Pulse Ox O2 Delivery O2 Flow Rate FiO2 02/05/20 00:00 102 02/05/20 00:00 98.1 94 19 148/68 (94) 97 02/04/20 21:00 Nasal Cannula 3.0 02/04/20 20:25 88 156/60 02/04/20 20:00 98.8 99 20 156/60 (92) 98 02/04/20 20:00 92 02/04/20 16:00 96 02/04/20 16:00 99.0 92 20 159/71 (100) 95 02/04/20 16:00 96 02/04/20 14:26 88 18 97 Nasal Cannula 3.0 32 02/04/20 13:22 86 18 100 Nasal Cannula 3.0 32 88 18 98 02/04/20 12:00 98.2 92 20 141/48 (79) 96 02/04/20 12:00 89 02/04/20 09:00 Nasal Cannula 3.0 02/04/20 08:23 160 02/04/20 08:23 103 148/75 02/04/20 08:00 99.0 103 22 148/75 (99) 93 02/04/20 08:00 99 02/04/20 07:05 97 Nasal Cannula 3.0 32 02/04/20 07:05 92 18 100 Nasal Cannula 3.0 32 96 18 97 02/04/20 04:00 98.1 100 19 142/77 (98) 98 02/04/20 04:00 119 02/04/20 03:56 96 02/04/20 03:44 91 HEENT: normal ENT inspection, other - forgetful RHYTHM: ST, Afib LUNGS: diminished breath sounds, bilateral rhonchi CARDIAC: normal S1 and S2, irregularly irregular, tachycardia ABDOMEN: normal bowel sounds, non tender, soft, no organomegaly EXTREMITIES: non-tender, No edema Laboratory Tests Test 02/04/20 08:15 White Blood Count 22.1 K/UL (4.8-10.8) *H Red Blood Count 3.94 M/UL (4.20-5.40) L Hemoglobin 10.3 G/DL (12.0-16.0) L Hematocrit 32.8 % (37.0-47.0) L Mean Corpuscular Volume 83 FL (80-99) Mean Corpuscular Hemoglobin 26.2 PG (27.0-31.0) L Mean Corpuscular Hemoglobin Concent 31.5 G/DL (32.0-36.0) L Red Cell Distribution Width 16.7 % (11.6-14.8) H Platelet Count 352 K/UL (150-450) Mean Platelet Volume 5.3 FL (6.5-10.1) L Neutrophils (%) (Auto) % (45.0-75.0) Lymphocytes (%) (Auto) % (20.0-45.0) Monocytes (%) (Auto) % (1.0-10.0) Eosinophils (%) (Auto) % (0.0-3.0) Basophils (%) (Auto) % (0.0-2.0) Differential Total Cells Counted 100 Neutrophils % (Manual) 73 % (45-75) Lymphocytes % (Manual) 14 % (20-45) L Monocytes % (Manual) 13 % (1-10) H Eosinophils % (Manual) 0 % (0-3) Basophils % (Manual) 0 % (0-2) Band Neutrophils 0 % (0-8) Platelet Estimate Adequate Platelet Morphology Normal Hypochromasia 1+ Anisocytosis 1+ Sodium Level 139 MMOL/L (136-145) Potassium Level 4.2 MMOL/L (3.5-5.1) Chloride Level 102 MMOL/L (98-107) Carbon Dioxide Level 28 MMOL/L (21-32) Anion Gap 9 mmol/L (5-15) Blood Urea Nitrogen 18 mg/dL (7-18) Creatinine 1.1 MG/DL (0.55-1.30) Estimat Glomerular Filtration Rate 59.0 mL/min (>60) Glucose Level 137 MG/DL (74-106) H Calcium Level 7.8 MG/DL (8.5-10.1) L Phosphorus Level 3.0 MG/DL (2.5-4.9) Magnesium Level 2.2 MG/DL (1.8-2.4) Assessment/Plan Assessment/Plan Paroxysmal Atrial Fibrillation Sinus tachycardia Sepsis Lactic acidosis Acute myocardial ischemia Pneumonia Hx CVA Acute renal failure Urinary retention; neurogenic bladder Hypokalemia Hypertension with labile BP Adjust IVF Antimicrobials Respiratory hygiene Titrate up antiHTN regimen Monitor cardiac rhythm - continue diltiazem for suppression of atrial arrhythmias Replace K+/Mg++ as needed Serial lactic acid levels Titrate doxazosin for urin ret and elevated BP (instead of tamsulosin) and titrate. DVT prophylaxis; consider full anticoagulation for cardioembolic prophylaxis Jr Funes MD Feb 05, 2020 02:21
[2020-02-05 04:00] VITALS: BP 123/57
[2020-02-05] MEDS: HYDROcodone/Acetamin 5/325 tab ORAL PRN ×2 (05:44→18:18)
[2020-02-05] MEDS: Piperacillin/Tazobactam 3.375 GM in D5W 110 ML IVPB SCH (05:46)
--- NOTE | 2020-02-05 07:22 | NUR ---
NURSE HAND-OFF REPORT: Important Events on Shift: Patient Status: stable Diet: Cardiac Pending Orders: yes Pending Results/Labs: yes Pending MD notification:no Latest Vital Signs: Temperature 97.6 , Pulse 92 , B/P 123 /57 , Respiratory Rate 19 , O2 SAT 95 , Nasal Cannula, O2 Flow Rate 3.0 . Vital Sign Comment: EKG Rhythm: Sinus Rhythm Rhythm change?: Y MD Notified?: N -Dr. Shantel ARIAS Response: Latest Ware Fall Score: 75 Fall Risk: High Risk Safety Measures: Call light Within Reach, Bed Alarm Zone 2, Side Rails Side Rails x2, Bed position Low and Locked. Fall Precautions: Yellow Socks Yellow Gown Door Sign Patient Fall Education Report given to: DARLYN Hanks.
[2020-02-05 07:24] LABS: ANION GAP 9 mmol/L (5-15); BLOOD UREA NITROGEN 13 mg/dL (7-18); CALCIUM 7.7 MG/DL (8.5-10.1); CARBON DIOXIDE 27 MMOL/L (21-32); CHLORIDE 101 MMOL/L (98-107); PHOSPHORUS 3.3 MG/DL (2.5-4.9); POTASSIUM 4.1 MMOL/L (3.5-5.1); SODIUM 137 MMOL/L (136-145)
[2020-02-05 08:00] VITALS: BP 129/63
--- NOTE | 2020-02-05 08:02 | NUR ---
NURSE NOTES: Received report from DARLYN [place]. Pt A/O x4. C/O pain scale of 5/10 on back. No s/s of acute respiratory and cardiac distress. SL on right hand patent and intact. On O2 3L NC. Assisted pt to chair. Call light within reach. Will continue to monitor.
[2020-02-05] MEDS: Doxazosin 4mg tab ORAL SCH ×2 (08:39→20:17)
[2020-02-05] MEDS: dilTIAZem HCl CD 180mg cap ORAL SCH ×2 (08:39→20:18)
[2020-02-05] MEDS: Lyrica 75mg cap ORAL SCH ×2 (08:40→17:29)
[2020-02-05] MEDS: Heparin 5000 units/ml inj SUBQ SCH ×2 (08:47→20:23)
--- NOTE | 2020-02-05 08:48 | Nephrology Progress Note ---
Assessment/Plan Plan #JOSH on CKD- suspect pre-renal azotemia in the setting of sepsis, pneumonia and lactic acidosis #Hyperkalemia - improved #Sepsis with fungemia #bilateral pneumonia #Lactic acidosis #leukocytosis #HTN #h/o CHF - off IVF - replete K and phos prn - antibiotcs per ID - monitor WBC Ct chest IMPRESSION: 1. No evidence of pulmonary embolism. No thoracic aortic aneurysm or dissection. 2. Bilateral patchy hazy groundglass densities and interstitial septal thickening in bilateral lungs, which may represent pulmonary edema versus pneumonia. 3. Consolidation with air bronchograms in the medial left lower lobe, atelectasis versus pneumonia. 4. Bilateral trace pleural effusions. 5. Mild linear atelectasis in bilateral lower lobes. 6. Coronary artery calcifications. 7. 3.3 x 2.7 cm hypodense right thyroid nodule. Recommend follow-up evaluation with thyroid ultrasound. - amlodipine 10mg daily - diltiazem 60mg BID - urology eval for retention - monitor PVR - monitor renal parameter - avoid nephrotoxins - monitor UOP -monitor weight Time spent 70 min- Subjective ROS Limited/Unobtainable: No Constitutional: Reports: weakness HEENT: Denies: no symptoms, eye pain, blurred vision, tearing, double vision, ear pain, ear discharge, nose pain, nose congestion, throat pain, throat swelling, mouth pain, mouth swelling, other Genitourinary: Denies: no symptoms, burning, discharge, frequency, flank pain, hematuria, incontinence, pain, urgency, other Neurologic/Psychiatric: Denies: no symptoms, anxiety, depressed, emotional problems, headache, numbness, paresthesia, pre-existing deficit, seizure, tingling, tremors, weakness, other Subjective blood cx growing yeast WBC improving on micarfungin Urology eval for urinary retention noted CT chest : IMPRESSION: 1. No evidence of pulmonary embolism. No thoracic aortic aneurysm or dissection. 2. Bilateral patchy hazy groundglass densities and interstitial septal thickening in bilateral lungs, which may represent pulmonary edema versus pneumonia. 3. Consolidation with air bronchograms in the medial left lower lobe, atelectasis versus pneumonia. 4. Bilateral trace pleural effusions. 5. Mild linear atelectasis in bilateral lower lobes. 6. Coronary artery calcifications. 7. 3.3 x 2.7 cm hypodense right thyroid nodule. Recommend follow-up evaluation with thyroid ultrasound. CT abdomen: IMPRESSION: 1. Bilateral bronchovascular pattern airspace disease concerning for pneumonia. 2. Gas within the urinary bladder; clinical correlation for recent instrumentation/Nguyen catheter placement is recommended. Otherwise, infection should be considered. 3. Colonic diverticulosis without evidence of acute diverticulitis. 4. Chronic L4 compression fracture Objective Objective Last 24 Hour Vital Signs Date Time Temp Pulse Resp B/P (MAP) Pulse Ox O2 Delivery O2 Flow Rate FiO2 02/05/20 08:39 102 129/63 02/05/20 08:00 98.1 102 20 129/63 (85) 94 02/05/20 06:00 Nasal Cannula 3.0 02/05/20 04:00 92 02/05/20 04:00 97.6 92 19 123/57 (79) 95 02/05/20 00:00 102 02/05/20 00:00 98.1 94 19 148/68 (94) 97 02/04/20 21:00 Nasal Cannula 3.0 02/04/20 20:25 88 156/60 02/04/20 20:14 98 Nasal Cannula 3.0 32 02/04/20 20:00 98.8 99 20 156/60 (92) 98 02/04/20 20:00 92 02/04/20 16:00 96 02/04/20 16:00 99.0 92 20 159/71 (100) 95 02/04/20 16:00 96 02/04/20 14:26 88 18 97 Nasal Cannula 3.0 32 02/04/20 13:22 86 18 100 Nasal Cannula 3.0 32 88 18 98 02/04/20 12:00 98.2 92 20 141/48 (79) 96 02/04/20 12:00 89 02/04/20 09:00 Nasal Cannula 3.0 Laboratory Tests 02/05/20 06:29: Sodium Level 137, Potassium Level 4.1, Chloride Level 101, Carbon Dioxide Level 27, Anion Gap 9, Blood Urea Nitrogen 13, Creatinine 1.0, Estimat Glomerular Filtration Rate > 60, Glucose Level 100, Calcium Level 7.7L, Phosphorus Level 3.3, Magnesium Level 1.8 Height (Feet): 5 Height (Inches): 5.00 Weight (Pounds): 222 Simin Carpio M.D. Feb 05, 2020 08:48
[2020-02-05] MEDS: Docusate 100mg cap ORAL SCH ×2 (08:50→17:00)
--- NOTE | 2020-02-05 09:03 | Urology Progress Note ---
Assessment/Plan Assessment/Plan: 1. Urinary retention. 2. Probable neurogenic bladder. 3. Acute kidney injury, which is improved. 4. Urinary tract infection. 5. Hematuria. 6. Proteinuria. monitor clinically pastrana out and voiding, elevated PVR still on elavil on cardura 4 mg BID consider adding urecholine abx as ordered, micafungin monitor renal fxn cysto at some point Subjective Allergies: Coded Allergies: No Known Allergies (Unverified , 05/19/13) Subjective pastrana out, voiding Objective Last 24 Hour Vital Signs Date Time Temp Pulse Resp B/P (MAP) Pulse Ox O2 Delivery O2 Flow Rate FiO2 02/05/20 08:39 102 129/63 02/05/20 08:00 98.1 102 20 129/63 (85) 94 02/05/20 06:00 Nasal Cannula 3.0 02/05/20 04:00 92 02/05/20 04:00 97.6 92 19 123/57 (79) 95 02/05/20 00:00 102 02/05/20 00:00 98.1 94 19 148/68 (94) 97 02/04/20 21:00 Nasal Cannula 3.0 02/04/20 20:25 88 156/60 02/04/20 20:14 98 Nasal Cannula 3.0 32 02/04/20 20:00 98.8 99 20 156/60 (92) 98 02/04/20 20:00 92 02/04/20 16:00 96 02/04/20 16:00 99.0 92 20 159/71 (100) 95 02/04/20 16:00 96 02/04/20 14:26 88 18 97 Nasal Cannula 3.0 32 02/04/20 13:22 86 18 100 Nasal Cannula 3.0 32 88 18 98 02/04/20 12:00 98.2 92 20 141/48 (79) 96 02/04/20 12:00 89 Microbiology Date/Time Source Procedure Growth Status 01/29/20 18:05 Blood Blood Culture - Final Karime Glabrata Complete 01/30/20 13:30 Sputum Gram Stain - Final Complete 01/30/20 13:30 Sputum Culture - Final Karime Albicans Usual Respiratory Tamara Complete 01/31/20 09:10 Indwelling Cath Urine Culture - Final NO GROWTH AFTER 48 HOURS Complete Current Medications Medications (Trade) Dose Ordered Sig/Bill Route PRN Reason Start Time Stop Time Status Last Admin Dose Admin Acetaminophen (Tylenol) 650 mg Q6H PRN ORAL Temp >100.5 02/01/20 09:45 03/02/20 09:44 02/03/20 16:24 Acetaminophen/ Hydrocodone Bitart ([place] 5/325) 1 tab Q8H PRN ORAL For Pain 01/31/20 16:37 02/07/20 16:36 02/05/20 05:44 Amitriptyline HCl (Elavil) 10 mg BEDTIME ORAL 01/31/20 21:00 02/29/20 20:59 02/04/20 20:25 Diltiazem HCl (Cardizem CD) 180 mg EVERY 12 HOURS ORAL 02/04/20 09:00 03/05/20 08:59 02/05/20 08:39 Docusate Sodium (Colace) 200 mg TWICE A DAY ORAL 01/31/20 18:00 03/01/20 17:59 02/04/20 17:47 Doxazosin Mesylate (Cardura) 4 mg Q12HR ORAL 02/02/20 09:00 03/03/20 08:59 02/05/20 08:39 Gabapentin (Neurontin) 600 mg THREE TIMES A DAY ORAL 01/31/20 18:00 02/29/20 17:59 02/05/20 08:39 Guaifenesin/ Codeine Phosphate (Robitussin with codeine) 5 ml Q6H PRN ORAL For Cough 02/02/20 21:15 03/03/20 21:14 02/02/20 23:10 Heparin Sodium (Porcine) (Heparin 5000 units/ml) 5,000 units EVERY 12 HOURS SUBQ 01/31/20 21:00 03/15/20 20:59 02/05/20 08:47 Hydralazine HCl (Apresoline) 25 mg Q4H PRN ORAL For High Blood Pressure 02/01/20 16:00 05/01/20 15:59 02/01/20 16:06 Micafungin Sodium 100 mg/Sodium Chloride 110 ml @ 110 mls/hr Q24H IVPB 02/02/20 10:00 02/09/20 09:59 02/04/20 10:17 Ondansetron HCl (Zofran) 4 mg Q4H PRN IVP Nausea & Vomiting 02/01/20 16:00 03/02/20 15:59 02/01/20 16:06 Piperacillin Sod/ Tazobactam Sod 3.375 gm/Dextrose 110 ml @ 27.5 mls/hr EVERY 8 HOURS IVPB 01/31/20 22:00 02/07/20 21:59 02/05/20 05:46 Pregabalin (Lyrica) 75 mg BID ORAL 01/31/20 18:00 02/29/20 17:59 02/05/20 08:40 Zolpidem Tartrate (Ambien) 5 mg HSPRN PRN ORAL Insomnia 02/02/20 19:00 02/09/20 18:59 02/04/20 21:38 Laboratory Tests 02/05/20 06:29: Sodium Level 137, Potassium Level 4.1, Chloride Level 101, Carbon Dioxide Level 27, Anion Gap 9, Blood Urea Nitrogen 13, Creatinine 1.0, Estimat Glomerular Filtration Rate > 60, Glucose Level 100, Calcium Level 7.7L, Phosphorus Level 3.3, Magnesium Level 1.8 Height (Feet): 5 Height (Inches): 5.00 Weight (Pounds): 222 Objective exam stable Brian Schneider MD Feb 05, 2020 09:03
[2020-02-05] MEDS: Micafungin 100 MG in NS 110 ML IVPB SCH (10:43)
[2020-02-05] MEDS ORDERED: Lidocaine 1% Plain 30 ml INJ PRN (11:00)
--- NOTE | 2020-02-05 11:00 | Pulmonology Progress Note ---
Subjective ROS Limited/Unobtainable: No Interval Events: Feeling better Constitutional: Reports: fever - NAD, other HEENT: Repors: no symptoms Respiratory: Reports: no symptoms Cardiovascular: Reports: no symptoms Gastrointestinal/Abdominal: Denies: nausea, vomiting, diarrhea Psychiatric: Denies: depression Skin: Denies: rash Musculoskeletal: Denies: pain Allergies: Coded Allergies: No Known Allergies (Unverified , 05/19/13) Objective Last 24 Hour Vital Signs Date Time Temp Pulse Resp B/P (MAP) Pulse Ox O2 Delivery O2 Flow Rate FiO2 02/05/20 08:39 102 129/63 02/05/20 08:00 98.1 102 20 129/63 (85) 94 02/05/20 08:00 102 02/05/20 06:00 Nasal Cannula 3.0 02/05/20 04:00 92 02/05/20 04:00 97.6 92 19 123/57 (79) 95 02/05/20 00:00 102 02/05/20 00:00 98.1 94 19 148/68 (94) 97 02/04/20 21:00 Nasal Cannula 3.0 02/04/20 20:25 88 156/60 02/04/20 20:14 98 Nasal Cannula 3.0 32 02/04/20 20:00 98.8 99 20 156/60 (92) 98 02/04/20 20:00 92 02/04/20 16:00 96 02/04/20 16:00 99.0 92 20 159/71 (100) 95 02/04/20 16:00 96 02/04/20 14:26 88 18 97 Nasal Cannula 3.0 32 02/04/20 13:22 86 18 100 Nasal Cannula 3.0 32 88 18 98 02/04/20 12:00 98.2 92 20 141/48 (79) 96 02/04/20 12:00 89 General Appearance: no acute distress HEENT: normocephalic Respiratory: chest wall non-tender, lungs clear Cardiovascular: normal peripheral pulses Abdomen: normal bowel sounds Laboratory Tests 02/05/20 06:29: Sodium Level 137, Potassium Level 4.1, Chloride Level 101, Carbon Dioxide Level 27, Anion Gap 9, Blood Urea Nitrogen 13, Creatinine 1.0, Estimat Glomerular Filtration Rate > 60, Glucose Level 100, Calcium Level 7.7L, Phosphorus Level 3.3, Magnesium Level 1.8 Current Medications Medications (Trade) Dose Ordered Sig/Bill Route PRN Reason Start Time Stop Time Status Last Admin Dose Admin Acetaminophen (Tylenol) 650 mg Q6H PRN ORAL Temp >100.5 02/01/20 09:45 03/02/20 09:44 02/03/20 16:24 Acetaminophen/ Hydrocodone Bitart ([place] 5/325) 1 tab Q8H PRN ORAL For Pain 01/31/20 16:37 02/07/20 16:36 02/05/20 05:44 Amitriptyline HCl (Elavil) 10 mg BEDTIME ORAL 01/31/20 21:00 02/29/20 20:59 02/04/20 20:25 Diltiazem HCl (Cardizem CD) 180 mg EVERY 12 HOURS ORAL 02/04/20 09:00 03/05/20 08:59 02/05/20 08:39 Docusate Sodium (Colace) 200 mg TWICE A DAY ORAL 01/31/20 18:00 03/01/20 17:59 02/04/20 17:47 Doxazosin Mesylate (Cardura) 4 mg Q12HR ORAL 02/02/20 09:00 03/03/20 08:59 02/05/20 08:39 Gabapentin (Neurontin) 600 mg THREE TIMES A DAY ORAL 01/31/20 18:00 02/29/20 17:59 02/05/20 08:39 Guaifenesin/ Codeine Phosphate (Robitussin with codeine) 5 ml Q6H PRN ORAL For Cough 02/02/20 21:15 03/03/20 21:14 02/02/20 23:10 Heparin Sodium (Porcine) (Heparin 5000 units/ml) 5,000 units EVERY 12 HOURS SUBQ 01/31/20 21:00 03/15/20 20:59 02/05/20 08:47 Hydralazine HCl (Apresoline) 25 mg Q4H PRN ORAL For High Blood Pressure 02/01/20 16:00 05/01/20 15:59 02/01/20 16:06 Micafungin Sodium 100 mg/Sodium Chloride 110 ml @ 110 mls/hr Q24H IVPB 02/02/20 10:00 02/09/20 09:59 02/05/20 10:43 Ondansetron HCl (Zofran) 4 mg Q4H PRN IVP Nausea & Vomiting 02/01/20 16:00 03/02/20 15:59 02/01/20 16:06 Piperacillin Sod/ Tazobactam Sod 3.375 gm/Dextrose 110 ml @ 27.5 mls/hr EVERY 8 HOURS IVPB 01/31/20 22:00 02/07/20 21:59 02/05/20 05:46 Pregabalin (Lyrica) 75 mg BID ORAL 01/31/20 18:00 02/29/20 17:59 02/05/20 08:40 Zolpidem Tartrate (Ambien) 5 mg HSPRN PRN ORAL Insomnia 02/02/20 19:00 02/09/20 18:59 02/04/20 21:38 Assessment/Plan Assessment/Plan IMPRESSION: 1. Right lung pneumonia. 2. COPD. 3. CHF. 4. Renal failure. 5. Metabolic acidosis. 6. Fungemia DISCUSSION: Continue bicarb supplementation. Continue broad-spectrum antibiotics, IV steroids, pulmonary hygiene, oxygen. I will follow carefully. noted to have Karime fungemia. ID follow-up noted Will need PICC line and dc planning on Micafungin Crow Kahn M.D. Crow Kahn MD Feb 05, 2020 11:00
[2020-02-05 12:00] VITALS: BP 123/66
[2020-02-05] MEDS ORDERED: Lidocaine 1% Plain 30 ml INJ ONE (12:00)
--- NOTE | 2020-02-05 12:17 | NUR ---
NURSE NOTES: Received patient from tele,report received from [facility]. Patient is alert and oriented x4. Denies pain or discomfort. Patient is on room air, o2sat is 98%, lung sound is clear. RN oriented about the unit, meal time, plan of care , etc. All belongings were transferred. Upper and lower dentures worn by patient and cell phone and supply person @ the bedside. provided bedside commode and call light and personnel items within reach. Will continue plan of care.
--- NOTE | 2020-02-05 12:35 | NUR ---
CASE MANAGEMENT: 02/05/20 SI: SEPSIS. E COLI UTI. FUNGEMIA. PNA 98.1 102 20 129/63 94% ON 3L/NC IS: IV MICAFUNGIN Q24 IV ZOSYN Q8HRS CARDIZEM PO Q12 CARDURA PO Q12 HEPARIN SQ Q12 DUONEB HHN Q6HRS RTC LYRICA PO BID : TELEMETRY DCP: FROM HOME PLAN: NEW DISCHARGE PLAN IS FOR HOME WITH IV ANTIBIOTICS PICC LINE PLACEMENT ORDERED DOWNGRADE TO MED/SURG
--- NOTE | 2020-02-05 12:39 | NUR ---
INSURANCE CLINICALS AND REVIEW FAXED TO SAIGE JIMENEZ T: [phone] OPT #1 F: [phone] REF# [id number] SAIGE HAS PATIENT'S YEAR 1943. WE HAVE IT 1944
--- NOTE | 2020-02-05 12:39 | NUR ---
NURSE NOTES: Pt has order for transfer to med/surg. Transferred pt to room 404-2. Gave report to Lauryn De Paz RN. No s/s of acute distress. SL on right hand 22 gauge, patent and intact. Endorsed plan of care.
[2020-02-05] MEDS ORDERED: Piperacillin/Tazobactam 3.375 GM in D5W 110 ML IVPB SCH (14:00)
--- NOTE | 2020-02-05 14:23 | Infectious Diseases Prog Note ---
Assessment/Plan Assessment/Plan ASSESSMENT AND PLAN: 1. e.coli uti, angelina glabrata fungemia, pna, sepsis, fevers, leukocytosis, steroids - zosyn - day # 7 - change to keflex x 5 days - micafungin - day # 4 - will need two weeks at least - s/p azithromycin - monitor labs and chest x-ray - CT scan noted - picc line planned - surveillance blood cultures - d/w Dr. aKhn and patient 2. Acute kidney injury, elevated creatinine. 3. Possible chronic renal failure. 4. Anemia. 5. COPD. 6. CVA. 7. Aspiration risk. 8. CHF. 9. Hypertension. 10. Blood pressure treatment per primary care team. 11. No known drug allergies. 12. Social history is negative. 13. Family history is noncontributory. 14. MAR was noted. 15. Case was discussed with RN. 16. Continue treatment per primary consultants. 17. JEROME care. Subjective Constitutional: Denies: fever, chills HEENT: Denies: congestion Respiratory: Denies: shortness of breath Cardiovascular: Denies: chest pain Gastrointestinal/Abdominal: Denies: nausea, vomiting, diarrhea Genitourinary: Reports: other - no cva pain, no pastrana Neurologic: Denies: headache Psychiatric: Denies: depression Skin: Denies: rash Hematologic: Denies: bleeding Musculoskeletal: Denies: pain Allergies: Coded Allergies: No Known Allergies (Unverified , 05/19/13) Objective Last 24 Hour Vital Signs Date Time Temp Pulse Resp B/P (MAP) Pulse Ox O2 Delivery O2 Flow Rate FiO2 02/05/20 12:00 97.3 96 19 123/66 (85) 98 02/05/20 08:39 102 129/63 02/05/20 08:00 98.1 102 20 129/63 (85) 94 02/05/20 08:00 102 02/05/20 06:00 Nasal Cannula 3.0 02/05/20 04:00 92 02/05/20 04:00 97.6 92 19 123/57 (79) 95 02/05/20 00:00 102 02/05/20 00:00 98.1 94 19 148/68 (94) 97 02/04/20 21:00 Nasal Cannula 3.0 02/04/20 20:25 88 156/60 02/04/20 20:14 98 Nasal Cannula 3.0 32 02/04/20 20:00 98.8 99 20 156/60 (92) 98 02/04/20 20:00 92 02/04/20 16:00 96 02/04/20 16:00 99.0 92 20 159/71 (100) 95 02/04/20 16:00 96 02/04/20 14:26 88 18 97 Nasal Cannula 3.0 32 Height (Feet): 5 Height (Inches): 5.00 Weight (Pounds): 222 General Appearance: no acute distress HEENT: normocephalic, atraumatic, anicteric, mucous membranes moist Respiratory/Chest: lungs clear, normal breath sounds, no respiratory distress, no accessory muscle use Cardiovascular: normal rate, regular rhythm, no gallop/murmur, no JVD Abdomen: normal bowel sounds, soft, non tender, no organomegaly, non distended Genitourinary: other - no pastrana Extremities: no cyanosis Skin: no rash Neurologic/Psychiatric: chief operator synthesis II-XII grossly normal, alert, oriented x 3, responsive Lymphatic: no neck adenopathy Musculoskeletal: no effusion CT abdomen and pelvis: IMPRESSION: 1. Bilateral bronchovascular pattern airspace disease concerning for pneumonia. 2. Gas within the urinary bladder; clinical correlation for recent instrumentation/Pastrana catheter placement is recommended. Otherwise, infection should be considered. 3. Colonic diverticulosis without evidence of acute diverticulitis. 4. Chronic L4 compression fracture. Chest x-ray - 01/30/20 - Procedure: XRAY Chest 1v Indication: Shortness of breath Technique: One view of the chest Comparison: 05/14/2019 Findings: Interim development of bilateral infiltrates, right greater than left , most notably at the right lung base. Pleural spaces are clear. The heart size is upper limits normal. Impression: Bilateral infiltrates, likely multifocal pneumonia. Correlate with clinical findings. CT chest; IMPRESSION: 1. No evidence of pulmonary embolism. No thoracic aortic aneurysm or dissection. 2. Bilateral patchy hazy groundglass densities and interstitial septal thickening in bilateral lungs, which may represent pulmonary edema versus pneumonia. 3. Consolidation with air bronchograms in the medial left lower lobe, atelectasis versus pneumonia. 4. Bilateral trace pleural effusions. 5. Mild linear atelectasis in bilateral lower lobes. 6. Coronary artery calcifications. 7. 3.3 x 2.7 cm hypodense right thyroid nodule. Recommend follow-up evaluation with thyroid ultrasound. Microbiology Date/Time Source Procedure Growth Status 01/29/20 18:05 Blood Blood Culture - Final Angelina Glabrata Complete 01/30/20 13:30 Sputum Gram Stain - Final Complete 01/30/20 13:30 Sputum Culture - Final Angelina Albicans Usual Respiratory Tamara Complete 01/31/20 09:10 Indwelling Cath Urine Culture - Final NO GROWTH AFTER 48 HOURS Complete Labs Test 02/03/20 06:20 02/04/20 08:15 02/05/20 06:29 White Blood Count 24.6 K/UL (4.8-10.8) 22.1 K/UL (4.8-10.8) Red Blood Count 4.06 M/UL (4.20-5.40) 3.94 M/UL (4.20-5.40) Hemoglobin 10.6 G/DL (12.0-16.0) 10.3 G/DL (12.0-16.0) Hematocrit 33.8 % (37.0-47.0) 32.8 % (37.0-47.0) Mean Corpuscular Volume 83 FL (80-99) 83 FL (80-99) Mean Corpuscular Hemoglobin 26.1 PG (27.0-31.0) 26.2 PG (27.0-31.0) Mean Corpuscular Hemoglobin Concent 31.3 G/DL (32.0-36.0) 31.5 G/DL (32.0-36.0) Red Cell Distribution Width 16.5 % (11.6-14.8) 16.7 % (11.6-14.8) Platelet Count 348 K/UL (150-450) 352 K/UL (150-450) Mean Platelet Volume 5.6 FL (6.5-10.1) 5.3 FL (6.5-10.1) Neutrophils (%) (Auto) % (45.0-75.0) % (45.0-75.0) Lymphocytes (%) (Auto) % (20.0-45.0) % (20.0-45.0) Monocytes (%) (Auto) % (1.0-10.0) % (1.0-10.0) Eosinophils (%) (Auto) % (0.0-3.0) % (0.0-3.0) Basophils (%) (Auto) % (0.0-2.0) % (0.0-2.0) Differential Total Cells Counted 100 100 Neutrophils % (Manual) 75 % (45-75) 73 % (45-75) Lymphocytes % (Manual) 11 % (20-45) 14 % (20-45) Monocytes % (Manual) 14 % (1-10) 13 % (1-10) Eosinophils % (Manual) 0 % (0-3) 0 % (0-3) Basophils % (Manual) 0 % (0-2) 0 % (0-2) Band Neutrophils 0 % (0-8) 0 % (0-8) Platelet Estimate Adequate Adequate Platelet Morphology Normal Normal Sodium Level 140 MMOL/L (136-145) 139 MMOL/L (136-145) 137 MMOL/L (136-145) Potassium Level 4.5 MMOL/L (3.5-5.1) 4.2 MMOL/L (3.5-5.1) 4.1 MMOL/L (3.5-5.1) Chloride Level 104 MMOL/L (98-107) 102 MMOL/L (98-107) 101 MMOL/L (98-107) Carbon Dioxide Level 28 MMOL/L (21-32) 28 MMOL/L (21-32) 27 MMOL/L (21-32) Anion Gap 8 mmol/L (5-15) 9 mmol/L (5-15) 9 mmol/L (5-15) Blood Urea Nitrogen 26 mg/dL (7-18) 18 mg/dL (7-18) 13 mg/dL (7-18) Creatinine 1.0 MG/DL (0.55-1.30) 1.1 MG/DL (0.55-1.30) 1.0 MG/DL (0.55-1.30) Estimat Glomerular Filtration Rate > 60 mL/min (>60) 59.0 mL/min (>60) > 60 mL/min (>60) Glucose Level 135 MG/DL (74-106) 137 MG/DL (74-106) 100 MG/DL (74-106) Calcium Level 8.6 MG/DL (8.5-10.1) 7.8 MG/DL (8.5-10.1) 7.7 MG/DL (8.5-10.1) Phosphorus Level 2.7 MG/DL (2.5-4.9) 3.0 MG/DL (2.5-4.9) 3.3 MG/DL (2.5-4.9) Magnesium Level 2.3 MG/DL (1.8-2.4) 2.2 MG/DL (1.8-2.4) 1.8 MG/DL (1.8-2.4) Troponin I 0.000 ng/mL (0.000-0.056) Pro-B-Type Natriuretic Peptide 507 pg/mL (0-125) Hypochromasia 1+ Anisocytosis 1+ Laboratory Tests Test 02/05/20 06:29 Sodium Level 137 MMOL/L (136-145) Potassium Level 4.1 MMOL/L (3.5-5.1) Chloride Level 101 MMOL/L (98-107) Carbon Dioxide Level 27 MMOL/L (21-32) Anion Gap 9 mmol/L (5-15) Blood Urea Nitrogen 13 mg/dL (7-18) Creatinine 1.0 MG/DL (0.55-1.30) Estimat Glomerular Filtration Rate > 60 mL/min (>60) Glucose Level 100 MG/DL (74-106) Calcium Level 7.7 MG/DL (8.5-10.1) L Phosphorus Level 3.3 MG/DL (2.5-4.9) Magnesium Level 1.8 MG/DL (1.8-2.4) Current Medications Medications (Trade) Dose Ordered Sig/Bill Route PRN Reason Start Time Stop Time Status Last Admin Dose Admin Acetaminophen (Tylenol) 650 mg Q6H PRN ORAL Temp >100.5 02/05/20 15:45 03/02/20 09:44 Acetaminophen/ Hydrocodone Bitart ([place] 5/325) 1 tab Q8H PRN ORAL For Pain 02/05/20 16:45 02/07/20 16:36 Amitriptyline HCl (Elavil) 10 mg BEDTIME ORAL 02/05/20 21:00 02/29/20 20:59 Chlorhexidine Gluconate (Paige-Hex 2%) 1 applic DAILY@1999 TOPIC 02/05/20 20:00 11/16/20 19:59 Diltiazem HCl (Cardizem CD) 180 mg EVERY 12 HOURS ORAL 02/05/20 21:00 03/05/20 08:59 Docusate Sodium (Colace) 200 mg TWICE A DAY ORAL 02/05/20 18:00 03/01/20 17:59 Doxazosin Mesylate (Cardura) 4 mg Q12HR ORAL 02/05/20 21:00 03/03/20 08:59 Gabapentin (Neurontin) 600 mg THREE TIMES A DAY ORAL 02/05/20 13:00 02/29/20 17:59 02/05/20 13:50 Guaifenesin/ Codeine Phosphate (Robitussin with codeine) 5 ml Q6H PRN ORAL For Cough 02/05/20 15:15 03/03/20 21:14 Heparin Sodium (Porcine) (Heparin 5000 units/ml) 5,000 units EVERY 12 HOURS SUBQ 02/05/20 21:00 03/15/20 20:59 Hydralazine HCl (Apresoline) 25 mg Q4H PRN ORAL For High Blood Pressure 02/05/20 16:00 05/01/20 15:59 Micafungin Sodium 100 mg/Sodium Chloride 110 ml @ 110 mls/hr Q24H IVPB 02/06/20 10:00 02/09/20 09:59 Ondansetron HCl (Zofran) 4 mg Q4H PRN IVP Nausea & Vomiting 02/05/20 16:00 03/02/20 15:59 Piperacillin Sod/ Tazobactam Sod 3.375 gm/Dextrose 110 ml @ 27.5 mls/hr EVERY 8 HOURS IVPB 02/05/20 14:00 02/07/20 21:59 Pregabalin (Lyrica) 75 mg BID ORAL 02/05/20 18:00 02/29/20 17:59 Zolpidem Tartrate (Ambien) 5 mg HSPRN PRN ORAL Insomnia 02/05/20 19:00 02/09/20 18:59 Cristina Rubin MD Feb 05, 2020 14:23
[2020-02-05] MEDS ORDERED: guaiFENesin w/Codeine 5ml Liq ud ORAL PRN (15:15)
[2020-02-05 16:00] VITALS: BP 123/72
[2020-02-05] MEDS ORDERED: HydrALAZINE 25mg tab ORAL PRN (16:00)
[2020-02-05] MEDS: Cephalexin 500mg cap ORAL SCH ×2 (17:28→23:37)
[2020-02-05 18:48] LABS: HEMATOCRIT 34.2 % (37.0-47.0); HEMOGLOBIN 10.7 G/DL (12.0-16.0); MEAN CORPUSCULAR VOLUME 84 FL (80-99); PLATELET COUNT 341 K/UL (150-450); RED BLOOD COUNT 4.07 M/UL (4.20-5.40); RED CELL DISTRIBUTION WIDTH 18.2 % (11.6-14.8); WHITE BLOOD COUNT 18.7 K/UL (4.8-10.8)
--- NOTE | 2020-02-05 18:57 | NUR ---
NURSE HAND-OFF: Important Events on Shift:transferred from tele Patient Status: stable Diet: cardiac Pending Orders: n/a Pending Results/Labs:n/a Pending MD notification:n/a Latest Vital Signs: Temperature 98.4 , Pulse 111 , B/P 123 /72 , Respiratory Rate 18 , O2 SAT 97 , Nasal Cannula, O2 Flow Rate 3.0 . Vital Sign Comment: n/a Latest Ware Fall Score: 75 Fall Risk: High Risk Safety Measures: Call light Within Reach, Bed Alarm Zone 2, Side Rails Side Rails x2, Bed position Low and Locked. Fall Precautions: Yellow Socks Yellow Gown Door Sign Patient Fall Education Report given to Karla and endorsed plan of care.
[2020-02-05] MEDS ORDERED: Zolpidem 5mg tab ORAL PRN (19:00)
--- NOTE | 2020-02-05 19:10 | NUR ---
NURSE NOTES: Received report from DARLYN Michel. AAO x 4, on room air. Denies pain and no labored breathing noted. Commode is at bedside. IV site intact and patent. Isolation maintained. PICC line procedure scheduled tomorrow. Fall precaution maintained. Bed locked, lowest position, alarm on, side rails up, call light within reach. Will continue to monitor.
[2020-02-05 20:00] VITALS: BP 161/67
[2020-02-05] MEDS ORDERED: Dyna-Hex 2% Top Sol 2oz TOPIC SCH ×2 (20:00)
--- NOTE | 2020-02-05 23:32 | Cardiology Progress Note ---
Subjective DATE OF SERVICE: Feb 05, 2020 CTA of chest negative for PE and aortic pathology. Remains in sinus rhythm with non-sustained PAC's and PVC's. She had 20mins of AFib yesterday Less SOB and congestion. Much less cough. Remains on IV therapy for fungemia. BP parameters significantly improved Objective Last 24 Hour Vital Signs Date Time Temp Pulse Resp B/P (MAP) Pulse Ox O2 Delivery O2 Flow Rate FiO2 02/05/20 21:00 Room Air 02/05/20 20:52 98 Nasal Cannula 3.0 32 02/05/20 20:18 99 161/67 02/05/20 20:00 97.5 99 16 161/67 (98) 97 02/05/20 16:00 98.4 111 18 123/72 (89) 97 02/05/20 12:00 97.3 96 19 123/66 (85) 98 02/05/20 08:39 102 129/63 02/05/20 08:00 98.1 102 20 129/63 (85) 94 02/05/20 08:00 102 02/05/20 06:00 Nasal Cannula 3.0 02/05/20 04:00 92 02/05/20 04:00 97.6 92 19 123/57 (79) 95 02/05/20 00:00 102 02/05/20 00:00 98.1 94 19 148/68 (94) 97 HEENT: normal ENT inspection, other - forgetful RHYTHM: ST, Afib LUNGS: diminished breath sounds, bilateral rhonchi CARDIAC: normal S1 and S2, irregularly irregular, tachycardia ABDOMEN: normal bowel sounds, non tender, soft, no organomegaly EXTREMITIES: non-tender, No edema Laboratory Tests Test 02/05/20 06:29 02/05/20 17:30 Sodium Level 137 MMOL/L (136-145) Potassium Level 4.1 MMOL/L (3.5-5.1) Chloride Level 101 MMOL/L (98-107) Carbon Dioxide Level 27 MMOL/L (21-32) Anion Gap 9 mmol/L (5-15) Blood Urea Nitrogen 13 mg/dL (7-18) Creatinine 1.0 MG/DL (0.55-1.30) Estimat Glomerular Filtration Rate > 60 mL/min (>60) Glucose Level 100 MG/DL (74-106) Calcium Level 7.7 MG/DL (8.5-10.1) L Phosphorus Level 3.3 MG/DL (2.5-4.9) Magnesium Level 1.8 MG/DL (1.8-2.4) White Blood Count 18.7 K/UL (4.8-10.8) H Red Blood Count 4.07 M/UL (4.20-5.40) L Hemoglobin 10.7 G/DL (12.0-16.0) L Hematocrit 34.2 % (37.0-47.0) L Mean Corpuscular Volume 84 FL (80-99) Mean Corpuscular Hemoglobin 26.2 PG (27.0-31.0) L Mean Corpuscular Hemoglobin Concent 31.2 G/DL (32.0-36.0) L Red Cell Distribution Width 18.2 % (11.6-14.8) H Platelet Count 341 K/UL (150-450) Mean Platelet Volume 5.8 FL (6.5-10.1) L Neutrophils (%) (Auto) % (45.0-75.0) Lymphocytes (%) (Auto) % (20.0-45.0) Monocytes (%) (Auto) % (1.0-10.0) Eosinophils (%) (Auto) % (0.0-3.0) Basophils (%) (Auto) % (0.0-2.0) Differential Total Cells Counted 100 Neutrophils % (Manual) 90 % (45-75) H Lymphocytes % (Manual) 6 % (20-45) L Monocytes % (Manual) 4 % (1-10) Eosinophils % (Manual) 0 % (0-3) Basophils % (Manual) 0 % (0-2) Band Neutrophils 0 % (0-8) Platelet Estimate Adequate Platelet Morphology Normal Polychromasia 1+ Hypochromasia 1+ Anisocytosis 1+ Assessment/Plan Assessment/Plan Paroxysmal Atrial Fibrillation Sinus tachycardia Sepsis Lactic acidosis Acute myocardial ischemia Pneumonia Hx CVA Acute renal failure Urinary retention; neurogenic bladder Hypokalemia Hypertension with labile BP DC IVF Antimicrobials Respiratory hygiene Titrate up antiHTN regimen Monitor cardiac rhythm - continue diltiazem for suppression of atrial arrhythmias Replace K+/Mg++ as needed Titrate doxazosin for urin ret and elevated BP (instead of tamsulosin) and titrate. DVT prophylaxis; consider full anticoagulation for cardioembolic prophylaxis Jr Funes MD Feb 05, 2020 23:32
[2020-02-06] VITALS: BP 123/69
[2020-02-06 04:00] VITALS: BP 138/70
[2020-02-06] MEDS: Cephalexin 500mg cap ORAL SCH ×3 (05:20→17:03)
[2020-02-06] MEDS: HYDROcodone/Acetamin 5/325 tab ORAL PRN ×2 (05:21→17:04)
--- NOTE | 2020-02-06 06:49 | NUR ---
NURSE HAND-OFF: Important Events on Shift:PICC line insertion scheduled 02/05 Patient Status: stable Diet: cardiac Pending Orders: N Pending Results/Labs:N Pending MD notification:N Latest Vital Signs: Temperature 98.5 , Pulse 101 , B/P 138 /70 , Respiratory Rate 17 , O2 SAT 94 , Room Air, O2 Flow Rate 3.0 . Vital Sign Comment: N Latest Ware Fall Score: 75 Fall Risk: High Risk Safety Measures: Call light Within Reach, Bed Alarm Zone 2, Side Rails Side Rails x2, Bed position Low and Locked. Fall Precautions: Yellow Socks Yellow Gown Door Sign Patient Fall Education Addendum: 02/06/20 at 0730 by BINA REYES RN RN HAND-OFF: Report given to DARLYN Michel.
--- NOTE | 2020-02-06 07:00 | NUR ---
NURSE NOTES: Received patient in bed,awake, having breakfast @ this time. Denies any pain or discomfort @ this time.Not in respiratory distress, lung sound is clear. RN informed patient about PICC line insertion today. Bed is in lowest position and locked. Call light and personnel items within reach. Will continue plan of care.
[2020-02-06 08:00] VITALS: BP 117/60
[2020-02-06] MEDS ORDERED: Lidocaine 1% Plain 30 ml INJ PRN (08:00)
[2020-02-06] MEDS: Docusate 100mg cap ORAL SCH ×2 (08:18→17:04)
[2020-02-06] MEDS: dilTIAZem HCl CD 180mg cap ORAL SCH (08:19)
[2020-02-06] MEDS: Lyrica 75mg cap ORAL SCH ×2 (08:22→18:00)
[2020-02-06] MEDS: Doxazosin 4mg tab ORAL SCH (08:22)
[2020-02-06] MEDS: Heparin 5000 units/ml inj SUBQ SCH (08:24)
--- NOTE | 2020-02-06 08:58 | Urology Progress Note ---
Assessment/Plan Assessment/Plan: 1. Urinary retention. 2. Probable neurogenic bladder. 3. Acute kidney injury, which is improved. 4. Urinary tract infection. 5. Hematuria. 6. Proteinuria. monitor clinically pastrana out and voiding, elevated PVR still on elavil on cardura 4 mg BID consider adding urecholine abx as ordered, micafungin monitor renal fxn cysto at some point Subjective Allergies: Coded Allergies: No Known Allergies (Unverified , 05/19/13) Subjective pastrana out, voiding Objective Last 24 Hour Vital Signs Date Time Temp Pulse Resp B/P (MAP) Pulse Ox O2 Delivery O2 Flow Rate FiO2 02/06/20 08:19 99 117/60 02/06/20 08:00 98.8 99 17 117/60 (79) 96 02/06/20 04:00 98.5 101 17 138/70 (92) 94 02/06/20 00:00 98.6 107 18 123/69 (87) 95 02/05/20 21:00 Room Air 02/05/20 20:52 98 Nasal Cannula 3.0 32 02/05/20 20:18 99 161/67 02/05/20 20:00 97.5 99 16 161/67 (98) 97 02/05/20 16:00 98.4 111 18 123/72 (89) 97 02/05/20 12:00 97.3 96 19 123/66 (85) 98 Intake and Output 02/05/20 02/06/20 19:00 07:00 Intake Total 360 ml Balance 360 ml Intake Oral 360 ml # Voids 4 3 # Bowel Movements 2 Microbiology Date/Time Source Procedure Growth Status 01/29/20 18:05 Blood Blood Culture - Final Karime Glabrata Complete 01/30/20 13:30 Sputum Gram Stain - Final Complete 01/30/20 13:30 Sputum Culture - Final Karime Albicans Usual Respiratory Tamara Complete 01/31/20 09:10 Indwelling Cath Urine Culture - Final NO GROWTH AFTER 48 HOURS Complete Current Medications Medications (Trade) Dose Ordered Sig/Bill Route PRN Reason Start Time Stop Time Status Last Admin Dose Admin Acetaminophen (Tylenol) 650 mg Q6H PRN ORAL Temp >100.5 02/05/20 15:45 03/02/20 09:44 Acetaminophen/ Hydrocodone Bitart ([place] 5/325) 1 tab Q8H PRN ORAL For Pain 02/05/20 16:45 02/07/20 16:36 02/06/20 05:21 Amitriptyline HCl (Elavil) 10 mg BEDTIME ORAL 02/05/20 21:00 02/29/20 20:59 02/05/20 20:17 Cephalexin (Keflex) 500 mg Q6HR ORAL 02/05/20 18:00 02/12/20 17:59 02/06/20 05:20 Chlorhexidine Gluconate (Paige-Hex 2%) 1 applic DAILY@2000 TOPIC 02/05/20 20:00 05/05/20 19:59 Diltiazem HCl (Cardizem CD) 180 mg EVERY 12 HOURS ORAL 02/05/20 21:00 03/05/20 08:59 02/05/20 20:18 Docusate Sodium (Colace) 200 mg TWICE A DAY ORAL 02/05/20 18:00 03/01/20 17:59 Doxazosin Mesylate (Cardura) 4 mg Q12HR ORAL 02/05/20 21:00 03/03/20 08:59 02/06/20 08:22 Gabapentin (Neurontin) 600 mg THREE TIMES A DAY ORAL 02/05/20 13:00 02/29/20 17:59 02/06/20 08:22 Guaifenesin/ Codeine Phosphate (Robitussin with codeine) 5 ml Q6H PRN ORAL For Cough 02/05/20 15:15 03/03/20 21:14 Heparin Sodium (Porcine) (Heparin 5000 units/ml) 5,000 units EVERY 12 HOURS SUBQ 02/05/20 21:00 03/15/20 20:59 02/06/20 08:24 Hydralazine HCl (Apresoline) 25 mg Q4H PRN ORAL For High Blood Pressure 02/05/20 16:00 05/01/20 15:59 Lidocaine HCl (Xylocaine 1% 30ml) 30 ml ONCE PRN INJ PICC INSERTION 02/06/20 08:00 02/06/20 18:00 Micafungin Sodium 100 mg/Sodium Chloride 110 ml @ 110 mls/hr Q24H IVPB 02/06/20 10:00 02/09/20 09:59 Ondansetron HCl (Zofran) 4 mg Q4H PRN IVP Nausea & Vomiting 02/05/20 16:00 03/02/20 15:59 Pregabalin (Lyrica) 75 mg BID ORAL 02/05/20 18:00 02/29/20 17:59 02/06/20 08:22 Zolpidem Tartrate (Ambien) 5 mg HSPRN PRN ORAL Insomnia 02/05/20 19:00 02/09/20 18:59 02/05/20 20:43 Laboratory Tests 02/05/20 17:30: White Blood Count 18.7H, Red Blood Count 4.07L, Hemoglobin 10.7L, Hematocrit 34.2L, Mean Corpuscular Volume 84, Mean Corpuscular Hemoglobin 26.2L, Mean Corpuscular Hemoglobin Concent 31.2L, Red Cell Distribution Width 18.2H, Platelet Count 341, Mean Platelet Volume 5.8L, Neutrophils (%) (Auto) , Lymphocytes (%) (Auto) , Monocytes (%) (Auto) , Eosinophils (%) (Auto) , Basophils (%) (Auto) , Differential Total Cells Counted 100, Neutrophils % ( Manual) 90H, Lymphocytes % (Manual) 6L, Monocytes % (Manual) 4, Eosinophils % ( Manual) 0, Basophils % (Manual) 0, Band Neutrophils 0, Platelet Estimate Adequate, Platelet Morphology Normal, Polychromasia 1+, Hypochromasia 1+, Anisocytosis 1+ Height (Feet): 5 Height (Inches): 5.00 Weight (Pounds): 215 Objective exam stable Brian Schneider MD Feb 06, 2020 08:58
--- NOTE | 2020-02-06 09:20 | NUR ---
NURSE NOTES: RN spoke to Ed from IR to follow up with an PICC. Ed said it would be done this afternoon.
[2020-02-06 09:22] LABS: BASOPHILS % (AUTO) 1.2 % (0.0-2.0); EOSINOPHILS % (AUTO) 2.7 % (0.0-3.0); HEMATOCRIT 35.1 % (37.0-47.0); LYMPHOCYTES % (AUTO) 13.6 % (20.0-45.0); MEAN CORPUSCULAR VOLUME 84 FL (80-99); MONOCYTES % (AUTO) 6.6 % (1.0-10.0); NEUTROPHILS % (AUTO) 75.9 % (45.0-75.0); PLATELET COUNT 377 K/UL (150-450); RED BLOOD COUNT 4.18 M/UL (4.20-5.40); RED CELL DISTRIBUTION WIDTH 17.5 % (11.6-14.8); WHITE BLOOD COUNT 16.5 K/UL (4.8-10.8)
[2020-02-06 09:46] LABS: ALANINE AMINOTRANSFERASE 24 U/L (12-78); ALBUMIN 2.6 G/DL (3.4-5.0); ALBUMIN/GLOBULIN RATIO 0.7 (1.0-2.7); ALKALINE PHOSPHATASE 97 U/L (46-116); ANION GAP 11 mmol/L (5-15); ASPARTATE AMINO TRANSFERASE 16 U/L (15-37); BILIRUBIN,TOTAL 0.2 MG/DL (0.2-1.0); BLOOD UREA NITROGEN 9 mg/dL (7-18); CALCIUM 8.1 MG/DL (8.5-10.1); CARBON DIOXIDE 24 MMOL/L (21-32); CHLORIDE 102 MMOL/L (98-107); POTASSIUM 3.9 MMOL/L (3.5-5.1); SODIUM 137 MMOL/L (136-145)
[2020-02-06] MEDS ORDERED: CARDIZEM CD180 MG ORAL (09:59)
[2020-02-06] MEDS ORDERED: CEPHALEXIN500 MG ORAL (09:59)
[2020-02-06] MEDS ORDERED: NORVASC10 MG ORAL (09:59)
[2020-02-06] MEDS ORDERED: GABAPENTIN600 MG ORAL (09:59)
[2020-02-06] MEDS ORDERED: DOXAZOSIN MESYLA4 MG ORAL (09:59)
[2020-02-06] MEDS ORDERED: AMITRIPTYLINE H10 MG ORAL (09:59)
[2020-02-06] MEDS ORDERED: Micafungin 100 MG in NS 110 ML IVPB SCH (10:00)
--- NOTE | 2020-02-06 10:10 | NUR ---
NURSE NOTES: Received discharge order from Dr. Kahn and prescriptions. RN informed IR about discharge order.
--- NOTE | 2020-02-06 10:26 | Pulmonology Progress Note ---
Subjective ROS Limited/Unobtainable: No Interval Events: Feeling better Constitutional: Denies: fever, chills HEENT: Repors: no symptoms Respiratory: Reports: no symptoms Cardiovascular: Reports: no symptoms Gastrointestinal/Abdominal: Denies: nausea, vomiting, diarrhea Psychiatric: Denies: depression Skin: Denies: rash Musculoskeletal: Denies: pain Allergies: Coded Allergies: No Known Allergies (Unverified , 05/19/13) Objective Last 24 Hour Vital Signs Date Time Temp Pulse Resp B/P (MAP) Pulse Ox O2 Delivery O2 Flow Rate FiO2 02/06/20 09:00 Room Air 02/06/20 08:19 99 117/60 02/06/20 08:00 98.8 99 17 117/60 (79) 96 02/06/20 04:00 98.5 101 17 138/70 (92) 94 02/06/20 00:00 98.6 107 18 123/69 (87) 95 02/05/20 21:00 Room Air 02/05/20 20:52 98 Nasal Cannula 3.0 32 02/05/20 20:18 99 161/67 02/05/20 20:00 97.5 99 16 161/67 (98) 97 02/05/20 16:00 98.4 111 18 123/72 (89) 97 02/05/20 12:00 97.3 96 19 123/66 (85) 98 Intake and Output 02/05/20 02/06/20 19:00 07:00 Intake Total 360 ml Balance 360 ml Intake Oral 360 ml # Voids 4 3 # Bowel Movements 2 General Appearance: no acute distress HEENT: normocephalic Respiratory: chest wall non-tender, lungs clear Cardiovascular: normal peripheral pulses Abdomen: normal bowel sounds Laboratory Tests 02/05/20 17:30: White Blood Count 18.7H, Red Blood Count 4.07L, Hemoglobin 10.7L, Hematocrit 34.2L, Mean Corpuscular Volume 84, Mean Corpuscular Hemoglobin 26.2L, Mean Corpuscular Hemoglobin Concent 31.2L, Red Cell Distribution Width 18.2H, Platelet Count 341, Mean Platelet Volume 5.8L, Neutrophils (%) (Auto) , Lymphocytes (%) (Auto) , Monocytes (%) (Auto) , Eosinophils (%) (Auto) , Basophils (%) (Auto) , Differential Total Cells Counted 100, Neutrophils % ( Manual) 90H, Lymphocytes % (Manual) 6L, Monocytes % (Manual) 4, Eosinophils % ( Manual) 0, Basophils % (Manual) 0, Band Neutrophils 0, Platelet Estimate Adequate, Platelet Morphology Normal, Polychromasia 1+, Hypochromasia 1+, Anisocytosis 1+ 02/06/20 08:55: White Blood Count 16.5H, Red Blood Count 4.18L, Hemoglobin 11.0L, Hematocrit 35.1L, Mean Corpuscular Volume 84, Mean Corpuscular Hemoglobin 26.3L, Mean Corpuscular Hemoglobin Concent 31.3L, Red Cell Distribution Width 17.5H, Platelet Count 377, Mean Platelet Volume 5.4L, Neutrophils (%) (Auto) 75.9H, Lymphocytes (%) (Auto) 13.6L, Monocytes (%) (Auto) 6.6, Eosinophils (%) (Auto) 2.7, Basophils (%) (Auto) 1.2, Sodium Level 137, Potassium Level 3.9, Chloride Level 102, Carbon Dioxide Level 24, Anion Gap 11, Blood Urea Nitrogen 9, Creatinine 1.0, Estimat Glomerular Filtration Rate > 60, Glucose Level 138H, Calcium Level 8.1L, Total Bilirubin 0.2, Aspartate Amino Transf (AST/SGOT) 16, Alanine Aminotransferase (ALT/SGPT) 24, Alkaline Phosphatase 97, Total Protein 6.5, Albumin 2.6L, Globulin 3.9, Albumin/Globulin Ratio 0.7L Current Medications Medications (Trade) Dose Ordered Sig/Bill Route PRN Reason Start Time Stop Time Status Last Admin Dose Admin Acetaminophen (Tylenol) 650 mg Q6H PRN ORAL Temp >100.5 02/05/20 15:45 03/02/20 09:44 Acetaminophen/ Hydrocodone Bitart ([place] 5/325) 1 tab Q8H PRN ORAL For Pain 02/05/20 16:45 02/07/20 16:36 02/06/20 05:21 Amitriptyline HCl (Elavil) 10 mg BEDTIME ORAL 02/05/20 21:00 02/29/20 20:59 02/05/20 20:17 Cephalexin (Keflex) 500 mg Q6HR ORAL 02/05/20 18:00 02/12/20 17:59 8/19/20 05:20 Chlorhexidine Gluconate (Paige-Hex 2%) 1 applic DAILY@2000 TOPIC 02/05/20 20:00 05/05/20 19:59 Diltiazem HCl (Cardizem CD) 180 mg EVERY 12 HOURS ORAL 02/05/20 21:00 03/05/20 08:59 02/05/20 20:18 Docusate Sodium (Colace) 200 mg TWICE A DAY ORAL 02/05/20 18:00 03/01/20 17:59 Doxazosin Mesylate (Cardura) 4 mg Q12HR ORAL 02/05/20 21:00 03/03/20 08:59 02/06/20 08:22 Gabapentin (Neurontin) 600 mg THREE TIMES A DAY ORAL 02/05/20 13:00 02/29/20 17:59 02/06/20 08:22 Guaifenesin/ Codeine Phosphate (Robitussin with codeine) 5 ml Q6H PRN ORAL For Cough 02/05/20 15:15 03/03/20 21:14 Heparin Sodium (Porcine) (Heparin 5000 units/ml) 5,000 units EVERY 12 HOURS SUBQ 02/05/20 21:00 03/15/20 20:59 02/06/20 08:24 Hydralazine HCl (Apresoline) 25 mg Q4H PRN ORAL For High Blood Pressure 02/05/20 16:00 05/01/20 15:59 Lidocaine HCl (Xylocaine 1% 30ml) 30 ml ONCE PRN INJ PICC INSERTION 02/06/20 08:00 02/06/20 18:00 Micafungin Sodium 100 mg/Sodium Chloride 110 ml @ 110 mls/hr Q24H IVPB 02/06/20 10:00 02/09/20 09:59 02/06/20 10:24 Ondansetron HCl (Zofran) 4 mg Q4H PRN IVP Nausea & Vomiting 02/05/20 16:00 03/02/20 15:59 Pregabalin (Lyrica) 75 mg BID ORAL 02/05/20 18:00 02/29/20 17:59 02/06/20 08:22 Zolpidem Tartrate (Ambien) 5 mg HSPRN PRN ORAL Insomnia 02/05/20 19:00 02/09/20 18:59 02/05/20 20:43 Assessment/Plan Assessment/Plan IMPRESSION: 1. Right lung pneumonia. 2. COPD. 3. CHF. 4. Renal failure. 5. Metabolic acidosis. 6. Fungemia DISCUSSION: Continue bicarb supplementation. Continue broad-spectrum antibiotics, pulmonary hygiene, oxygen. I will follow carefully. noted to have Karime fungemia. ID follow-up noted Will need PICC line and dc planning on Micafungin Orders placed Discussed with ID Crow Kahn M.D. Crow Kahn MD Feb 06, 2020 10:26
[2020-02-06] MEDS ORDERED: Heparin1,000 units/500ml Premix(Conc:2 units/ml) INJ SCH (10:30)
[2020-02-06 12:00] VITALS: BP 117/65
--- NOTE | 2020-02-06 12:07 | NUR ---
RD ASSESSMENT & RECOMMENDATIONS SEE CARE ACTIVITY FOR COMPLETE ASSESSMENT DAILY ESTIMATED NEEDS: Needs based on COPD, CHF, obesity/ 66kg abw 25-28 kcals/kg 1016-6175 total kcals 1-1.5 g protein/kg 66-99 g total protein 20-25 mL/kg 8805-3225 total fluid mLs NUTRITION DIAGNOSIS: Altered nutrition related lab values R/T CHF dx, on steroidal med as evidenced by elev BNP (2742), elev BGs (212 177-> now improved) CURRENT DIET:CARDIAC PO DIET RECOMMENDATIONS: Cardiac + CCHO Med ADDITIONAL RECOMMENDATIONS: * Standing wt as able for accurate CBW * Monitor BGs closely while on steroidal med -> rec CCHO Med diet while on Steroids -> monitor need for hypoglycemics * Check A1C * Monitor lytes, replete as needed
--- NOTE | 2020-02-06 12:51 | NUR ---
DISCHARGE PLANNING PATIENT HAS BEEN REFERRED TO [facility] P: [phone] F: [phone] Addendum: 02/06/20 at 1313 by GONZALEZ GHOSH LVN LVN REFERRAL CANCELLED PATIENTS INSURANCE WILL USE [facility] PER TONY GRIFFITH
--- NOTE | 2020-02-06 13:13 | NUR ---
DISCHARGE PLANNING:INSURANCE S/W [facility] AT [facility] [phone] [facility]. INFORMED OF NEED FOR HOME IV ABX X2 WEEKS. ORDER FAXED TO TONY @ [phone]. PER TONY, SHE WILL COORDINATE ABX ORDER WITH [facility].
--- NOTE | 2020-02-06 13:18 | Nephrology Progress Note ---
Assessment/Plan Plan #JOSH on CKD- suspect pre-renal azotemia in the setting of sepsis, pneumonia and lactic acidosis #Hyperkalemia - improved #Sepsis with fungemia #bilateral pneumonia #Lactic acidosis #leukocytosis #HTN #h/o CHF - off IVF - replete K and phos prn - antibiotcs per ID - monitor WBC Ct chest IMPRESSION: 1. No evidence of pulmonary embolism. No thoracic aortic aneurysm or dissection. 2. Bilateral patchy hazy groundglass densities and interstitial septal thickening in bilateral lungs, which may represent pulmonary edema versus pneumonia. 3. Consolidation with air bronchograms in the medial left lower lobe, atelectasis versus pneumonia. 4. Bilateral trace pleural effusions. 5. Mild linear atelectasis in bilateral lower lobes. 6. Coronary artery calcifications. 7. 3.3 x 2.7 cm hypodense right thyroid nodule. Recommend follow-up evaluation with thyroid ultrasound. - amlodipine 10mg daily - diltiazem 60mg BID - urology eval for retention - monitor PVR - monitor renal parameter - avoid nephrotoxins - monitor UOP -monitor weight Time spent 70 min- Subjective Subjective blood cx growing yeast WBC improving on micarfungin Urology eval for urinary retention noted CT chest : IMPRESSION: 1. No evidence of pulmonary embolism. No thoracic aortic aneurysm or dissection. 2. Bilateral patchy hazy groundglass densities and interstitial septal thickening in bilateral lungs, which may represent pulmonary edema versus pneumonia. 3. Consolidation with air bronchograms in the medial left lower lobe, atelectasis versus pneumonia. 4. Bilateral trace pleural effusions. 5. Mild linear atelectasis in bilateral lower lobes. 6. Coronary artery calcifications. 7. 3.3 x 2.7 cm hypodense right thyroid nodule. Recommend follow-up evaluation with thyroid ultrasound. CT abdomen: IMPRESSION: 1. Bilateral bronchovascular pattern airspace disease concerning for pneumonia. 2. Gas within the urinary bladder; clinical correlation for recent instrumentation/Nguyen catheter placement is recommended. Otherwise, infection should be considered. 3. Colonic diverticulosis without evidence of acute diverticulitis. 4. Chronic L4 compression fracture Objective Objective Last 24 Hour Vital Signs Date Time Temp Pulse Resp B/P (MAP) Pulse Ox O2 Delivery O2 Flow Rate FiO2 02/06/20 09:00 Room Air 02/06/20 08:19 99 117/60 02/06/20 08:00 98.8 99 17 117/60 (79) 96 02/06/20 04:00 98.5 101 17 138/70 (92) 94 02/06/20 00:00 98.6 107 18 123/69 (87) 95 02/05/20 21:00 Room Air 02/05/20 20:52 98 Nasal Cannula 3.0 32 02/05/20 20:18 99 161/67 02/05/20 20:00 97.5 99 16 161/67 (98) 97 02/05/20 16:00 98.4 111 18 123/72 (89) 97 Intake and Output 02/05/20 02/06/20 19:00 07:00 Intake Total 360 ml Balance 360 ml Intake Oral 360 ml # Voids 4 3 # Bowel Movements 2 Laboratory Tests 02/05/20 17:30: White Blood Count 18.7H, Red Blood Count 4.07L, Hemoglobin 10.7L, Hematocrit 34.2L, Mean Corpuscular Volume 84, Mean Corpuscular Hemoglobin 26.2L, Mean Corpuscular Hemoglobin Concent 31.2L, Red Cell Distribution Width 18.2H, Platelet Count 341, Mean Platelet Volume 5.8L, Neutrophils (%) (Auto) , Lymphocytes (%) (Auto) , Monocytes (%) (Auto) , Eosinophils (%) (Auto) , Basophils (%) (Auto) , Differential Total Cells Counted 100, Neutrophils % ( Manual) 90H, Lymphocytes % (Manual) 6L, Monocytes % (Manual) 4, Eosinophils % ( Manual) 0, Basophils % (Manual) 0, Band Neutrophils 0, Platelet Estimate Adequate, Platelet Morphology Normal, Polychromasia 1+, Hypochromasia 1+, Anisocytosis 1+ 02/06/20 08:55: White Blood Count 16.5H, Red Blood Count 4.18L, Hemoglobin 11.0L, Hematocrit 35.1L, Mean Corpuscular Volume 84, Mean Corpuscular Hemoglobin 26.3L, Mean Corpuscular Hemoglobin Concent 31.3L, Red Cell Distribution Width 17.5H, Platelet Count 377, Mean Platelet Volume 5.4L, Neutrophils (%) (Auto) 75.9H, Lymphocytes (%) (Auto) 13.6L, Monocytes (%) (Auto) 6.6, Eosinophils (%) (Auto) 2.7, Basophils (%) (Auto) 1.2, Sodium Level 137, Potassium Level 3.9, Chloride Level 102, Carbon Dioxide Level 24, Anion Gap 11, Blood Urea Nitrogen 9, Creatinine 1.0, Estimat Glomerular Filtration Rate > 60, Glucose Level 138H, Calcium Level 8.1L, Total Bilirubin 0.2, Aspartate Amino Transf (AST/SGOT) 16, Alanine Aminotransferase (ALT/SGPT) 24, Alkaline Phosphatase 97, Total Protein 6.5, Albumin 2.6L, Globulin 3.9, Albumin/Globulin Ratio 0.7L Height (Feet): 5 Height (Inches): 5.00 Weight (Pounds): 218 Simin Carpio M.D. Feb 06, 2020 13:18
--- NOTE | 2020-02-06 15:23 | NUR ---
MUD TEMPERER NOTE FOLLOW UP CALL MADE TO SAIGE [facility] [phone] [facility]. CONFIRMED RECEIPT OF ORDERS AND CLINICALS. CONFIRMED PATIENT WILL BE SERVICED BY [facility] P: [phone] F: [phone] PER TONY, PICC PLACEMENT REPORT TO BE FAXED TO [facility] ONCE AVAILABLE. PHARMACY WILL COORDINATE MEDICATION DELIVERY WITH PATIENT. S/W MARQUITA GEORGE WHO INFORMED THIS CM PATIENT HAS NOT YET HAD PICC PLACED. STATED SHE S/W RADIOLOGY IN AM AND INFORMED OF DC PLAN FOR TODAY AND WAS INFORMED THAT THEY ARE BEHIND. PICC PLACEMENT STILL PLANNED FOR TODAY AND THEN DC HOME.
[2020-02-06 16:00] VITALS: BP 145/62
--- NOTE | 2020-02-06 16:00 | NUR ---
NURSE NOTES: Patient is off the unit for an PICC line insertion in stable condition.
--- NOTE | 2020-02-06 16:38 | NUR ---
RADIOLOGY NOTE: LEFT UPPER EXTREMITY PICC LINE PLACEMENT BY DR. MELONY LAUREANO AT [id number]. FA
--- NOTE | 2020-02-06 16:47 | NUR ---
NURSE NOTES: Patient came back from with PICC line on left upper arm double lumens.No bleeding.
--- NOTE | 2020-02-06 17:16 | Pre-Procedure Note/Attestation ---
Pre-Procedure Note/Attestation Complete Prior to Procedure Planned Procedure: not applicable Procedure Narrative: PICC Indications for Procedure Pre-Operative Diagnosis: needs oysterman IV access Attestation I attest that I discussed the nature of the procedure; its benefits; risks and complications; and alternatives (and the risks and benefits of such alternatives ), prior to the procedure, with the patient (or the patient's legal sales representative livestock). I attest that, if there was a reasonable possibility of needing a blood transfusion, the patient (or the patient's legal sales representative livestock) was given the [facility] standardized written summary, pursuant to the Brandan Isabel Blood Safety Act ([place] Health and Safety Code # 1645, as amended). I attest that I re-evaluated the patient just prior to the surgery and that there has been no change in the patient's H&P, except as documented below: Deo Kendrick MD Feb 06, 2020 17:16
--- NOTE | 2020-02-06 17:17 | Brief Operative Note ---
Immediate Post Operative Note Operative Note Pre-op Diagnosis: needs buttermaker helper IV access Procedure: PICC Post-op Diagnosis: same as pre-op Surgeon: Benito Ayala Specimen: none Complications: none Fluids: none Implant(s) used?: No Deo Ayala MD Feb 06, 2020 17:17
--- NOTE | 2020-02-06 17:48 | Diagnostic Imaging Report ---
Indications: Needs long-term IV access Technique: Ultrasound confirms patent compressible left distal vein. Total sterile technique, including sterile probe cover and sterile gel, hat, mask, sterile gown, large sterile drape, and preparation with 2% chlorhexidine utilized. Local anesthesia with 1% lidocaine. Under real-time ultrasound guidance, puncture left basilic vein using 21-gauge needle, documented and archived, passage 0.018 guidewire under direct fluoroscopy, which was used to determine appropriate catheter length, exchange for 4 Kyrgyz peel-away sheath. 4 Kyrgyz Bard dual-lumen power PICC cut to 45 cm. It was inserted through the peel-away sheath. Peel-away sheath and guidewire removed. Catheter fixed to the skin. Both catheter ports aspirated and flushed. Patient tolerated procedure well, without immediate complication. Digital radiograph documents satisfactory catheter tip position, at the cavoatrial junction. Total fluoroscopy time 33.5 seconds. Total dose area product [id number] Total number of images: 1 Impression: Successful placement of left arm PICC under sonographic and fluoroscopic guidance, as described above.
--- NOTE | 2020-02-06 17:55 | NUR ---
NURSE NOTES: Patient discharged to home accompanied by her son in law in stable condition, prior to discharge,patient's V/S stable, not in respiratory/cardiac distress. Breathing is even and unlabored. Lung sound clear. PICC line on left upper arm intact, no bleeding, Dressing is intact, RN flushed and put ports and caps and secured. Discharge instruction given about the PICC line care, home health for IV meds, COPD and PICC line care. Patient understood and prescriptions given to the patient and RN also faxed the prescriptions to her pharmacy of choice, first choice pharmacy is closed and Rn instructed patient to followup with pharmacy and educated on medications. Skin is intact, peripheral IV was removed, no s/s of infection. Provided walker per PT recommendation. 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
--- NOTE | 2020-02-06 22:46 | Cardiology Progress Note ---
Subjective DATE OF SERVICE: Feb 06, 2020 S/P PICC for prison antifungal rx. CTA of chest negative for PE and aortic pathology. Less SOB, cough, and congestion BP parameters remain stable Objective Last 24 Hour Vital Signs Date Time Temp Pulse Resp B/P (MAP) Pulse Ox O2 Delivery O2 Flow Rate FiO2 02/06/20 16:00 98.1 101 17 145/62 (89) 98 02/06/20 12:00 98.2 97 17 117/65 (82) 96 02/06/20 09:00 Room Air 02/06/20 08:19 99 117/60 02/06/20 08:00 98.8 99 17 117/60 (79) 96 02/06/20 04:00 98.5 101 17 138/70 (92) 94 02/06/20 00:00 98.6 107 18 123/69 (87) 95 HEENT: normal ENT inspection, other - forgetful RHYTHM: ST, Afib LUNGS: diminished breath sounds, bilateral rhonchi CARDIAC: normal S1 and S2, irregularly irregular, tachycardia ABDOMEN: normal bowel sounds, non tender, soft, no organomegaly EXTREMITIES: non-tender, No edema Laboratory Tests Test 02/06/20 08:55 White Blood Count 16.5 K/UL (4.8-10.8) H Red Blood Count 4.18 M/UL (4.20-5.40) L Hemoglobin 11.0 G/DL (12.0-16.0) L Hematocrit 35.1 % (37.0-47.0) L Mean Corpuscular Volume 84 FL (80-99) Mean Corpuscular Hemoglobin 26.3 PG (27.0-31.0) L Mean Corpuscular Hemoglobin Concent 31.3 G/DL (32.0-36.0) L Red Cell Distribution Width 17.5 % (11.6-14.8) H Platelet Count 377 K/UL (150-450) Mean Platelet Volume 5.4 FL (6.5-10.1) L Neutrophils (%) (Auto) 75.9 % (45.0-75.0) H Lymphocytes (%) (Auto) 13.6 % (20.0-45.0) L Monocytes (%) (Auto) 6.6 % (1.0-10.0) Eosinophils (%) (Auto) 2.7 % (0.0-3.0) Basophils (%) (Auto) 1.2 % (0.0-2.0) Sodium Level 137 MMOL/L (136-145) Potassium Level 3.9 MMOL/L (3.5-5.1) Chloride Level 102 MMOL/L (98-107) Carbon Dioxide Level 24 MMOL/L (21-32) Anion Gap 11 mmol/L (5-15) Blood Urea Nitrogen 9 mg/dL (7-18) Creatinine 1.0 MG/DL (0.55-1.30) Estimat Glomerular Filtration Rate > 60 mL/min (>60) Glucose Level 138 MG/DL (74-106) H Calcium Level 8.1 MG/DL (8.5-10.1) L Total Bilirubin 0.2 MG/DL (0.2-1.0) Aspartate Amino Transf (AST/SGOT) 16 U/L (15-37) Alanine Aminotransferase (ALT/SGPT) 24 U/L (12-78) Alkaline Phosphatase 97 U/L (46-116) Total Protein 6.5 G/DL (6.4-8.2) Albumin 2.6 G/DL (3.4-5.0) L Globulin 3.9 g/dL Albumin/Globulin Ratio 0.7 (1.0-2.7) L Assessment/Plan Assessment/Plan Paroxysmal Atrial Fibrillation precipitated by sepsis Sinus tachycardia Sepsis Lactic acidosis Acute myocardial ischemia Pneumonia Hx CVA Acute renal failure Urinary retention; neurogenic bladder Hypokalemia Hypertension with labile BP No echocardiographic signs of endocarditis Antimicrobials per ID Respiratory hygiene Maintain current antiHTN regimen Continue diltiazem for suppression of atrial arrhythmias Replace K+/Mg++ as needed Maintain doxazosin for urin ret and elevated BP (instead of tamsulosin) No current plan for anti-coagulation as arrhythmias are transient in setting of PNA due to fungemia. Outpatient CV follow up planned. Jr Funes MD Feb 06, 2020 22:46
--- NOTE | 2020-02-07 14:07 | Discharge Summary ---
Discharge Summary Discharge Summary _ DATE OF ADMISSION: 01/29/2020 DATE OF DISCHARGE: 02/06/2020 DISCHARGED BY: Dr. Kahn REASON FOR ADMISSION: 74 years old female with past medical history of COPD, CVA, hypertension, congestive heart failure, was brought by paramedics from home with shortness of breath patient required supplemental oxygen. Upon arrival patient was tachycardic mildly tachypneic and hypoxic requiring 100% nonrebreathing mask. ABG and nonrebreathing mask revealed mild acidosis without hypercapnia. EKG revealed sinus rhythm no acute ischemic changes. Chest x-ray revealed right- sided infiltrates. Rapid COVID was negative. Laboratory work-up revealed WBC 24.4 hemoglobin 10 hematocrit 32.3 platelet count 285. Chemistry showed sodium 129, potassium 5.5. CO2 16. BUN 59, creatinine 2.8. Glucose 111. Lactic acid 3.1. Reported negative CRP 27.3 proBNP 5250 urinalysis revealed many bacteria but no pyuria +1 leukocyte esterase. Patient subsequently admitted with a COPD CHF pneumonia and renal failure patient admitted and started on IV hydration with bicarbonate. Started on broad- spectrum antibiotics. IV steroids initiated. Supplemental oxygen provided and titrated to keep pulse oximetry above 90%. Pulmonary hygiene via HHN provided [id number] and admitted. CONSULTANTS: senior industrial engineer Urologist Dr. Schneider neurologist pulmonary ID specialist Dr. Rubin GI specialist legal coordinator Dr. Carpio credit historian/oncologist surgery psychiatrist HOSPITAL COURSE: [] Patient admitted and started patient received received 1 L of normal saline and Kayexalate with improvement in hyperkalemia gentle hydration continued as per legal coordinator lactic acid level monitor. Antibiotic provided as per ID recommendation. Renal parameters electrolytes were closely monitor nephrotoxins were avoided. Sound revealed bilateral kidney normal echogenicity. No hydronephrosis. No focal abnormalities. Blood culture and 811 revealed Karime. Urine culture revealed E. coli. Sputum culture revealed Karime repeated urine and blood culture on 8 repeat urine culture on 813 were negative repeated blood culture on 818 were negative. Antibiotic provided as per ID recommendation. PICC line was placed patient required continue micafungin upon discharge to complete the course of the course of treatment for fungemia. Leukocytosis trending down. No fevers. Echocardiogram demonstrated preserved ejection fraction of 55%. No evidence of left ventricular hypertrophy. Right ventricular systolic pressure of 41 consistent with a mild pulmonary hypertension. No echocardiographic signs of endocarditis. Serial troponins were negative. Antihypertensive regimen optimized as needed. Cardizem continue for suppression of atrial arrhythmia. Potassium and magnesium later replaced as needed. Cardura continue for urinary retention and elevated blood pressure no need for anticoagulation as arrhythmia were transient in setting of pneumonia due to recommended outpatient follow-up with a senior industrial engineer. Venous duplex bilateral lower extremity revealed no evidence of acute DVT. CTA of the chest revealed no evidence of pulmonary embolism. No thoracic aortic aneurysm or dissection. Bilateral patchy hazy groundglass density and interstitial septal thickening in bilateral lungs may represent pulmonary edema versus pneumonia. Supplemental oxygen provided and titrated to keep pulse oximetry above 90% pulmonary toilet provided. Patient completed 7 days of Zosyn while in the hospital and discharged in addition to 5 days of Keflex as per ID specialist recommendation. Prior to discharge Pulsoxymeter stable on room air Patient noted to have urinary retention renal ultrasound as mentioned above did not show any hydronephrosis. Nguyen catheter was not placed acute kidney injury improved. Antibiotics continued. Flomax was added and later was changed to Cardura for better blood pressure per senior industrial engineer recommendation. Urologist recommended to have cystoscopy which can be arranged as outpatient. Nguyen catheter subsequently was discontinued voiding trials initiated and patient was able to void without difficulties. Patient initially was hydrated electrolytes corrected as needed nephrotoxic's were avoided prior to discharge all electrolytes stable acute kidney injury resolved FINAL DIAGNOSES: Sepsis Karime fungemia Pneumonia E. coli UTI Acute kidney injury-resolved, likely prerenal Lactic acidosis Leukocytosis Metabolic acidosis Hypertension Paroxysmal atrial fibrillation , precipitated by sepsis History of CVA Aspiration risk Urinary retention Neurogenic bladder Hypertension with labile blood pressure Congestive heart failure DISCHARGE MEDICATIONS: See Medication Reconciliation list. DISCHARGE INSTRUCTIONS: Patient was discharged home with home health services. Follow up with primary care provider in one week. I have been assigned to dictate discharge summary for this account. I was not involved in the patient's management. Anupama Matute NP Feb 07, 2020 14:07
== END 2020-02-06 17:55 | disposition home health service (06) | DRG 871 ==
LOC: EDUNIT# 17:47 → EDBD 17:47 → EDBEDREQ 18:01 → EMR 18:05 → EDBEDREQ 18:32 → EDBEDREQSVC 19:23 → 2W 20:04 → EDBEDREQ 20:21 → 2W 21:31 → 2E 01-31 16:36 → 4E 02-05 11:56
PROC: 02HV33Z Insertion of Infusion Device into Superior Vena Cava, Percutaneous Approach (ICD-10-PCS; principal; 2020-01-31)
DX: A41.9 Sepsis, unspecified organism (principal); J18.9 Pneumonia, unspecified organism; J44.0 Chronic obstructive pulmonary disease with (acute) lower respiratory infection; N17.9 Acute kidney failure, unspecified; B48.8 Other specified mycoses; N39.0 Urinary tract infection, site not specified; E87.1 Hypo-osmolality and hyponatremia; I13.0 Hypertensive heart and chronic kidney disease with heart failure and stage 1 through stage 4 chronic kidney disease, or unspecified chronic kidney disease; I11.0 Hypertensive heart disease with heart failure; I50.9 Heart failure, unspecified; I48.0 Paroxysmal atrial fibrillation; B96.20 Unspecified Escherichia coli [E. coli] as the cause of diseases classified elsewhere; Z86.73 Personal history of transient ischemic attack (TIA), and cerebral infarction without residual deficits; N31.9 Neuromuscular dysfunction of bladder, unspecified; E87.5 Hyperkalemia; R33.9 Retention of urine, unspecified; I49.1 Atrial premature depolarization; N18.9 Chronic kidney disease, unspecified
CPT/HCPCS: 36415; 36569; 36600; 71045; 71275; 74176; 76770; 76937; 80048; 80053; 81001; 81003; 82164; 82570; 82728; 82803; 82962; 83605; 83735; 83880; 84100; 84300; 84484; 85007; 85025; 85379; 85610; 85651; 85730; 86140; 86738; 87040; 87070; 87086; 87181; 87205; 93005; 93306; 93970; 94640; 94664; 96365; 96368; 96375; 99291; J2405; J7030; J7620; J8499; U0002